=== PATIENT | male | born 1940 | race Caucasian/White ===

== ENCOUNTER 2016-10-12 01:52 | Emergency (ER) | payer MEDICARE ==
[2016-10-12] MEDS ORDERED: GLUCAGON 1 MG/ML VIAL ONE (02:52)
[2016-10-12] MEDS ORDERED: WATER FOR INJECTION,STERILE 10 ML ONE (02:53)
[2016-10-12] MEDS ORDERED: GLUCAGON 1 MG/ML VIAL IVP STA (03:01)
== END 2016-10-12 03:51 | disposition home or self-care (01) ==
DX: T18.128A Food in esophagus causing other injury, initial encounter (principal); E11.9 Type 2 diabetes mellitus without complications; M10.9 Gout, unspecified

== ENCOUNTER 2018-08-05 20:53 | Outpatient (CLI) | payer MEDICARE | END 2018-08-05 20:54 | disposition home or self-care (01) | LOC: EMS 20:53 | PROVIDERS: ATTEND Surgery | DX: R58 Hemorrhage, not elsewhere classified (principal); Z98.818 Other dental procedure status | CPT/HCPCS: A0425; A0427 ==

== ENCOUNTER 2018-08-05 21:22 | Emergency (ER) | payer MEDICARE ==
[2018-08-05] MEDS: SODIUM CHLORIDE 0.9% 1,000 ML IV ONE (21:40)
--- NOTE | 2018-08-05 22:05 | ED Physician Documentation ---
PD HPI HEENT - Stated complaint Stated Complaint: TONGUE LAC SP DENTAL IMPLANT - Chief complaint Chief Complaint: Laceration - History obtained from History obtained from: Patient - History of Present Illness Timing - onset: Today Timing - duration: Hours Timing - details: Gradual onset Location: Mouth Improves: Nothing Recently seen: Other (dental procedure today) - Additional information Additional information: patient had "couple of implants" (per patient) placed today by dentist in [place]. After getting home, he had gradually increasing pain unrelieved with tylenol and decided to go to the emergency department for evaluation of his pain. He was driving himself to the ED at [place] but when he got to the [facility], someone noticed he had significant amount of bleeding from the mouth that was down his shirt onto his pants and shoes. Staff reportedly told patient he was not well enough to take the ferry and ambulance was called, medics transported patient to [facility] ED. Review of Systems Constitutional: denies: Fever Throat: reports: Dental pain / toothache. denies: Sore throat Cardiac: reports: Reviewed and negative Respiratory: reports: Reviewed and negative GI: denies: Abdominal Pain Musculoskeletal: denies: Neck pain PD PAST MEDICAL HISTORY - Past Medical History Endocrine/Autoimmune: Type 2 diabetes - Past Surgical History Past Surgical History: No - Present Medications Home Medications: Ambulatory Orders Medication Instructions Recorded Confirmed Allopurinol 300 mg PO DAILY 10/12/16 10/12/16 - Allergies Allergies/Adverse Reactions: Allergies Allergy/AdvReac Type Severity Reaction Status Date / Time No Known Drug Allergies Allergy Verified 10/12/16 02:00 - Social History Does the pt smoke?: No Smoking Status: Never smoker Does the pt drink ETOH?: No Does the pt have substance abuse?: No - Immunizations Immunizations are current?: Yes - POLST Patient has POLST: No PD ED PE NORMAL - Vitals Vital signs reviewed: Yes - General General: Alert and oriented X 3, No acute distress, Well developed/nourished, Other (difficult to understand due to tongue swelling) - Neck Neck: Supple, no meningeal sign - Cardiac Cardiac: RRR, No murmur - Respiratory Respiratory: No respiratory distress, Clear bilaterally - Derm Derm: Normal color - Neuro Neuro: Alert and oriented X 3 PD ED PE EXPANDED - HEENT HEENT: Other (severe swelling inferior aspect of tongue with blue discoloration s/o extensive hematoma. there is a 2 cm linear laceration adjacent (left of) and parallel to the frenulum) Results - Vitals Vitals: Vital Signs - 24 hr 08/05/18 08/05/18 08/05/18 21:36 22:51 23:35 Temperature 36.8 C 36.7 C Heart Rate 74 64 65 Respiratory 18 18 16 Rate Blood Pressure 93/56 L 154/78 H 180/88 H O2 Saturation 95 98 99 08/06/18 00:12 Temperature 36.8 C Heart Rate 65 Respiratory Rate Blood Pressure 170/83 H O2 Saturation 100 Oxygen O2 Source Room air - Labs Labs: Laboratory Tests 08/05/18 08/05/18 08/05/18 22:35 22:35 22:35 WBC 6.9 RBC 4.00 L Hgb 12.8 L Hct 38.7 L MCV 96.7 H MCH 32.1 H MCHC 33.2 RDW 15.5 H Plt Count 163 MPV 7.4 Neut # (Auto) 4.9 Lymph # (Auto) 1.4 L [place] # (Auto) 0.5 Eos # (Auto) 0.1 Baso # (Auto) 0.0 Absolute Nucleated RBC 0.00 Nucleated RBC % 0.0 PT 13.8 H INR 1.2 APTT 29.0 Sodium 140 Potassium 4.3 Chloride 106 Carbon Dioxide 27 Anion Gap 7.0 BUN 21 H Creatinine 1.6 H Estimated GFR (MDRD) 42 L Glucose 199 H Calcium 8.8 PD MEDICAL DECISION MAKING - ED course Complexity details: reviewed results, re-evaluated patient, considered differential, d/w patient ED course: Patient cannot recall his medications but repeatedly denies being on any blood-t hinning medications including aspirin. He does seem to recall that he is on lisinopril. He remained stable during ED stay, airway remained patent. The chief concerns are how to treat this severe swelling (which appears to be a very large sublingual hematoma) while maintaining airway patency. I discussed the case with the on-call physician for [place], and he says that due to the severity of presentation, he can be sent to closest appropriate facility. [facility] contacted, but they have no beds available. As patient lives towards [facility], the next closest appropriate facility would include [facility] (which is patient's stated preference and the hospital he had intended to go to when he was at the [facility]). D/W Dr. Briggs (on-call ENT), agrees with transfer, recommends transfer to ED. D/W Dr. Bauer (ED at [facility]), accepts patient for transfer. We discussed the concern regarding his airway; I do not feel patient needs intubation at this time, as he has not worsened during 2 hour ED observation, is not c/o dyspnea, is maintaining airway and oxygen saturation in upper 90s (room air). It was agreed that it would be prudent to transfer by helicopter to expedite transfer with air crew that has advanced training to handle difficult airway intubation should this be necessary en route. Departure - Departure Disposition: 02 Transfer Acute Care Hosp Clinical Impression: Severe tongue swelling Condition: Stable Discharge Date/Time: 08/06/18 00:15
[2018-08-05 22:48] LABS: BASOPHILS % (AUTO) 0.4 %; EOSINOPHILS # (AUTO) 0.1 10^3/uL (0.0-0.7); EOSINOPHILS % (AUTO) 0.9 %; HGB - HEMOGLOBIN 12.8 g/dL (14.0-18.0); LYMPHOCYTES # (AUTO) 1.4 10^3/uL (1.5-3.5); LYMPHOCYTES % (AUTO) 20.8 %; MEAN CORPUSCULAR HEMOGLOBIN 32.1 pg (27.0-31.0); MEAN CORPUSCULAR HGB CONC 33.2 g/dL (32.0-36.0); MEAN CORPUSCULAR VOLUME 96.7 fL (80.0-94.0); MEAN PLATELET VOLUME 7.4 fL (7.4-11.4); MONOCYTES # (AUTO) 0.5 10^3/uL (0.0-1.0); MONOCYTES % (AUTO) 6.6 %; NEUTROPHILS # (AUTO) 4.9 10^3/uL (1.5-6.6); NEUTROPHILS % (AUTO) 71.3 %; PLT - PLATELET COUNT 163 10^3/uL (130-450); RED CELL DISTRIBUTION WIDTH 15.5 % (12.0-15.0); WHITE BLOOD COUNT 6.9 x10^3/uL (4.8-10.8)
[2018-08-05 22:52] LABS: CALCIUM 8.8 mg/dL (8.5-10.3); CREATININE 1.6 mg/dL (0.6-1.2)
[2018-08-05 22:54] LABS: INR 1.2 (0.8-1.2); PT - PROTHROMBIN TIME 13.8 secs (9.9-12.6)
[2018-08-06 00:14] VITALS: BP 170/83
== END 2018-08-06 00:15 | disposition short-term general hospital (02) ==
LOC: EDUNIT# → ED 21:22
DX: R22.9 Localized swelling, mass and lump, unspecified (principal); S01.512A Laceration without foreign body of oral cavity, initial encounter; X58.XXXA Exposure to other specified factors, initial encounter; R58 Hemorrhage, not elsewhere classified; Z96.5 Presence of tooth-root and mandibular implants
CPT/HCPCS: 36415; 80048; 85025; 85610; 85730; 96360; 96361; 99283; 99284

== ENCOUNTER 2019-12-17 11:12 | Outpatient (CLI) | payer MEDICARE | END 2019-12-17 23:59 | disposition critical access hospital (66) | LOC: EMS 11:12 | PROVIDERS: ATTEND Surgery | DX: R46.4 Slowness and poor responsiveness (principal); R05 Cough | CPT/HCPCS: A0425; A0429 ==

== ENCOUNTER 2019-12-17 11:41 | Inpatient (IN) | payer MEDICARE ==
--- NOTE | 2019-12-17 11:53 | ED Physician Documentation ---
PD HPI ALTERED MENTAL STATUS - Stated complaint Stated Complaint: AMS - History obtained from History obtained from: EMS - History of Present Illness Timing - onset: Unknown (79-year-old gentleman presents by ambulance. Reportedly was normal 2 days ago, his daughter went to visit today and found him with him minimally responsive on the couch. There is some report of cough. Patient is too altered to give a significant history. Blood sugar prior to arrival was in the 120s.) Review of Systems Unable to obtain: Confused PD PAST MEDICAL HISTORY - Past Medical History Cardiovascular: DC Neuro: CVA Endocrine/Autoimmune: Type 2 diabetes - Past Surgical History Past Surgical History: No - Present Medications Home Medications: Ambulatory Orders Medication Instructions Recorded Confirmed allopurinoL [Allopurinol] 300 mg PO DAILY 10/12/16 12/17/19 Atorvastatin Calcium 40 mg PO QPM 12/17/19 12/17/19 Cholecalciferol (Vitamin D3) 2,000 unit PO DAILY 12/17/19 12/17/19 [Vitamin D] Clopidogrel [Plavix] 75 mg PO DAILY 12/17/19 12/17/19 Cyanocobalamin (Vitamin B-12) 1,000 mcg PO DAILY 12/17/19 12/17/19 [Vitamin B-12 (1000 mcg sublingual)] Docusate Sodium 300 mg PO DAILY PRN 12/17/19 12/17/19 Dorzolamide HCl 1 drops EACHEYE DAILY 12/17/19 12/17/19 Latanoprost 0.005% Ophth Drops 1 drops EACHEYE QPM 12/17/19 12/17/19 [Xalatan Ophth Drops] Metoprolol Tartrate 50 mg PO BID 12/17/19 12/17/19 Oxybutynin [Ditropan] 2.5 mg PO BID 12/17/19 12/17/19 Pantoprazole [Protonix] 40 mg PO BIDAC 12/17/19 12/17/19 Sildenafil Citrate [Sildenafil] 20 - 100 mg PO DAILY PRN 12/17/19 12/17/19 Tamsulosin [Flomax] 0.4 mg PO QDDINNER 12/17/19 12/17/19 Temazepam 15 mg PO QPM PRN 12/17/19 12/17/19 Timolol 0.5% Ophth Drops [Timoptic 1 drops EACHEYE DAILY 12/17/19 12/17/19 0.5% Ophth Drops] - Allergies Allergies/Adverse Reactions: Allergies Allergy/AdvReac Type Severity Reaction Status Date / Time No Known Drug Allergies Allergy Verified 10/12/16 02:00 - Social History Does the pt smoke?: No Smoking Status: Never smoker Does the pt drink ETOH?: No Does the pt have substance abuse?: No - Immunizations Immunizations are current?: Yes - POLST Patient has POLST: No PD ED PE NORMAL - Vitals Vital signs reviewed: Yes - General General: Other (He is alert and oriented to person only, he follows simple commands. He states no complaints.) - HEENT HEENT: PERRL, EOMI - Cardiac Cardiac: RRR, No murmur - Respiratory Respiratory: Other (Crackles at both bases, nonlabored) - Abdomen Abdomen: Soft, Non tender - Male Male : Other (Incontinent of urine) - Back Back: No CVA TTP, No spinal TTP - Extremities Extremities: No calf tenderness / cord, Other (2-3+ bilateral pitting pedal edema, symmetric) - Neuro Neuro: No motor deficit, No sensory deficit, Normal speech Eye Opening: Spontaneous Motor: Obeys Commands Verbal: Confused GCS Score: 14 Results - Vitals Vitals: Vital Signs - 24 hr 12/17/19 12/17/19 12/17/19 11:51 12:01 13:15 Temperature 38.2 C H 100.7 C H 37.7 C H Heart Rate 80 84 89 Respiratory 16 18 18 Rate Blood Pressure 160/86 H 157/82 H 145/75 H O2 Saturation 98 94 98 Oxygen O2 Source Nasal cannula Oxygen Flow Rate 3 - EKG (time done) 1155 Rate: Rate (enter#) (86) Rhythm: NSR (w pacs) [place]: Normal Intervals: Normal [place] QRS: Normal Ischemia: Non specific changes. No: ST elevation c/w ischemia Computer interpretation: Agree with computer - Labs Labs: Laboratory Tests 12/17/19 12/17/19 12/17/19 11:57 12:30 12:30 WBC 5.6 RBC 4.78 Hgb 14.9 Hct 45.0 MCV 94.1 H MCH 31.2 H MCHC 33.1 RDW 13.8 Plt Count 163 MPV 10.4 Neut # (Auto) 4.4 Lymph # (Auto) 0.8 L [place] # (Auto) 0.4 Eos # (Auto) 0.0 Baso # (Auto) 0.0 Absolute Nucleated RBC 0.00 Nucleated RBC % 0.0 Sodium 129 L Potassium 3.7 Chloride 96 L Carbon Dioxide 21 Anion Gap 12.0 BUN 43 H Creatinine 1.6 H Estimated GFR (MDRD) 42 L Glucose 170 H Lactic Acid Calcium 8.5 Total Bilirubin 1.0 AST 33 ALT 18 Alkaline Phosphatase 39 L Total Creatine Kinase 357 H Troponin I High Sens B-Natriuretic Peptide Total Protein 6.8 Albumin 3.6 Globulin 3.2 Albumin/Globulin Ratio 1.1 Lipase 63 H Urine Color YELLOW Urine Clarity CLEAR Urine pH 5.5 Ur Specific Erin >=1.030 H Urine Protein 100 H Urine Glucose (UA) NEGATIVE Urine Ketones TRACE Urine Occult Blood SMALL H Urine Nitrite NEGATIVE Urine Bilirubin NEGATIVE Urine Urobilinogen 0.2 (NORMAL) Ur Leukocyte Esterase NEGATIVE Urine RBC 0-5 Urine WBC 0-3 Ur Squamous Epith Cells NONE SEEN Urine Bacteria None Seen Ur Microscopic Review INDICATED Urine Culture Comments NOT INDICATED Ethyl Alcohol < 5.0 Influenza A (Rapid) Influenza B (Rapid) 12/17/19 12/17/19 12/17/19 12:30 12:30 12:30 WBC RBC Hgb Hct MCV MCH MCHC RDW Plt Count MPV Neut # (Auto) Lymph # (Auto) [place] # (Auto) Eos # (Auto) Baso # (Auto) Absolute Nucleated RBC Nucleated RBC % Sodium Potassium Chloride Carbon Dioxide Anion Gap BUN Creatinine Estimated GFR (MDRD) Glucose Lactic Acid 1.5 Calcium Total Bilirubin AST ALT Alkaline Phosphatase Total Creatine Kinase Troponin I High Sens 45.4 H* B-Natriuretic Peptide 53 Total Protein Albumin Globulin Albumin/Globulin Ratio Lipase Urine Color Urine Clarity Urine pH Ur Specific Erin Urine Protein Urine Glucose (UA) Urine Ketones Urine Occult Blood Urine Nitrite Urine Bilirubin Urine Urobilinogen Ur Leukocyte Esterase Urine RBC Urine WBC Ur Squamous Epith Cells Urine Bacteria Ur Microscopic Review Urine Culture Comments Ethyl Alcohol Influenza A (Rapid) Influenza B (Rapid) 12/17/19 13:30 WBC RBC Hgb Hct MCV MCH MCHC RDW Plt Count MPV Neut # (Auto) Lymph # (Auto) [place] # (Auto) Eos # (Auto) Baso # (Auto) Absolute Nucleated RBC Nucleated RBC % Sodium Potassium Chloride Carbon Dioxide Anion Gap BUN Creatinine Estimated GFR (MDRD) Glucose Lactic Acid Calcium Total Bilirubin AST ALT Alkaline Phosphatase Total Creatine Kinase Troponin I High Sens B-Natriuretic Peptide Total Protein Albumin Globulin Albumin/Globulin Ratio Lipase Urine Color Urine Clarity Urine pH Ur Specific Erin Urine Protein Urine Glucose (UA) Urine Ketones Urine Occult Blood Urine Nitrite Urine Bilirubin Urine Urobilinogen Ur Leukocyte Esterase Urine RBC Urine WBC Ur Squamous Epith Cells Urine Bacteria Ur Microscopic Review Urine Culture Comments Ethyl Alcohol Influenza A (Rapid) Negative Influenza B (Rapid) Negative - Rads (name of study) 1v chest Radiology: EMP read contemporaneously (Cardiomegaly with patchy infiltrates in the left midlung and base suspicious for multifocal infection) PD MEDICAL DECISION MAKING - ED course Complexity details: d/w patient (his daughter Mimi by phone. Usually cogent/not demented. Lucid until at least 2 days ago. Tired yesterday. Cough/URI for about 1 week. hE IS A VASCULOPATH WITH CAD/TIA ETC. We talked about CODE STATUS. She believes he is a DNR/DNI, but needs to find the paperwork.) ED course: 79-year-old gentleman presents with encephalopathy, likely due to the pneumonia. High suspicion for coronavirus given the distribution on the x-ray and lymphopenia. He was administered Rocephin and Zithromax and Dr Torres is admitting. Departure - Departure Disposition: 66 [facility] DC/Xfer Clinical Impression: Pneumonia Qualifiers: Pneumonia type: due to unspecified organism Laterality: left Lung location: unspecified part of lung Qualified Code(s): J18.9 - Pneumonia, unspecified organism Altered mental status Qualifiers: Altered mental status type: unspecified Qualified Code(s): R41.82 - Altered mental status, unspecified Condition: Serious Discharge Date/Time: 12/17/19 14:46
[2019-12-17] MEDS ORDERED: ACETAMINOPHEN 325 MG TABLET PO STA (12:04)
[2019-12-17 12:10] LABS: GLUCOSE, URINE (UA) NEGATIVE (NEGATIVE); KETONES,URINE (UA) TRACE mg/dL (NEGATIVE); LEUKOCYTE ESTERASE, URINE NEGATIVE (NEGATIVE); NITRITE,URINE NEGATIVE (NEGATIVE); OCCULT BLOOD,URINE SMALL (NEGATIVE); PH,URINE 5.5 PH (5.0-7.5); PROTEIN,URINE 100 mg/dL (NEGATIVE); UROBILINOGEN,URINE 0.2 (NORMAL) E.U./dL (NORMAL)
--- NOTE | 2019-12-17 12:15 | XRAY Report ---
Reason: dyspnea Procedure Date: 12/17/2019 Accession Number: [id number] / [id number] Procedure: XR - Chest 1 View X-Ray CPT Code: 68323 Final Report FULL RESULT: EXAM: CHEST RADIOGRAPHY EXAM DATE: 12/17/2019 12:03 PM. CLINICAL HISTORY: Dyspnea. COMPARISON: None. TECHNIQUE: 1 view. FINDINGS: Lungs/Pleura: Patchy infiltrates in the left midlung and left base. No pleural effusion or pneumothorax. Mediastinum: Cardiomegaly. The aorta is mildly tortuous. Atherosclerotic calcifications within the aortic arch. Other: Mild degenerative changes at the shoulders. IMPRESSION: 1. Cardiomegaly. 2. Patchy infiltrates in the left mid lung and left base, suspicious for multifocal infection. RADIA
[2019-12-17] MEDS ORDERED: cefTRIAXone 2 GM in SODIUM CHLORIDE 0.9% MINIBAG 100 ML IV STA (12:16)
[2019-12-17] MEDS ORDERED: AZITHROMYCIN INJ 500 MG in SODIUM CHLORIDE 0.9% 250 ML IV STA (12:16)
[2019-12-17 12:37] LABS: HGB - HEMOGLOBIN 14.9 g/dL (14.0-18.0); LYMPHOCYTES # (AUTO) 0.8 10^3/uL (1.5-3.5); LYMPHOCYTES % (AUTO) 14.5 %; MEAN CORPUSCULAR HEMOGLOBIN 31.2 pg (27.0-31.0); MEAN CORPUSCULAR HGB CONC 33.1 g/dL (32.0-36.0); MEAN CORPUSCULAR VOLUME 94.1 fL (80.0-94.0); MEAN PLATELET VOLUME 10.4 fL (7.4-11.4); MONOCYTES # (AUTO) 0.4 10^3/uL (0.0-1.0); MONOCYTES % (AUTO) 7.3 %; NEUTROPHILS # (AUTO) 4.4 10^3/uL (1.5-6.6); NEUTROPHILS % (AUTO) 77.8 %; PLT - PLATELET COUNT 163 10^3/uL (130-450); RED BLOOD COUNT 4.78 10^6/uL (4.70-6.10); RED CELL DISTRIBUTION WIDTH 13.8 % (12.0-15.0); WHITE BLOOD COUNT 5.6 x10^3/uL (4.8-10.8)
[2019-12-17 12:52] LABS: ALBUMIN 3.6 g/dL (3.2-5.5); ALBUMIN/GLOBULIN RATIO 1.1 (1.0-2.2); ALKALINE PHOSPHATASE 39 IU/L (42-121); ALT ALANINE AMINOTRANSFERASE 18 IU/L (10-60); AST ASPARTATE AMINOTRANSFERASE 33 IU/L (10-42); BUN - BLOOD UREA NITROGEN 43 mg/dL (6-20); CALCIUM 8.5 mg/dL (8.5-10.3); CARBON DIOXIDE - CO2 21 mmol/L (21-32); CHLORIDE 96 mmol/L (101-111); CK- CREATINE KINASE 357 IU/L (22-269); CREATININE 1.6 mg/dL (0.6-1.2); GLUCOSE 170 mg/dL (70-100); LIPASE 63 U/L (22-51); SODIUM 129 mmol/L (135-145); TOTAL PROTEIN 6.8 g/dL (6.7-8.2)
[2019-12-17 12:56] LABS: BILIRUBIN,URINE NEGATIVE (NEGATIVE); CLARITY,URINE CLEAR (CLEAR); ICTOTEST,URINE NEGATIVE
[2019-12-17] MEDS ORDERED: D5.45NS W/20 MEQ KCL 1,000 ML IV SCH (13:00)
[2019-12-17 13:02] LABS: BACTERIA,URINE None Seen /HPF (None Seen); RBC,URINE 0-5 /HPF (0-5); SQUAMOUS EPITHELIAL CELL,UR NONE SEEN (<= Few)
[2019-12-17] MEDS ORDERED: ONDANSETRON 4 MG/2 ML VIAL IVP PRN (13:33)
[2019-12-17] MEDS ORDERED: DEXTROSE 5%-0.45% NACL 1,000 ML IV SCH (14:00)
--- NOTE | 2019-12-17 15:12 | PHARMACY PROGRESS NOTE ---
- Best Possible Medication History Admit Date and Time: 12/17/19 1333 Processed by: Pharmacy Medication History completed: Yes Patient Interview: Pt unable to participate Secondary Source(s): Physician records, Pharmacy records, Insurance records As the person ultimately responsible for medication therapy, providers are able to order a medication from an existing home medication list in [facility] via the "Reconcile Routine" prior to Confirmation of that medication by direct support specialist. Such practice is discouraged except when the physician, in their clinical judgment, deems that a medical need exists for a medication without regard to previous use.
[2019-12-17] MEDS: DEXTROSE 5%-0.9% NACL 1,000 ML IV SCH (16:10)
[2019-12-17] MEDS: SODIUM CHLORIDE FLUSH 0.9% 10 ML SYRINGE IVP SCH ×2 (16:11→23:55)
[2019-12-17] MEDS: NYSTATIN POWDER 15 GM TOP SCH (17:05)
[2019-12-17] MEDS ORDERED: ACETAMINOPHEN 650 MG SUPP PR PRN (17:59)
--- NOTE | 2019-12-17 18:29 | HISTORY & PHYSICAL EXAMINATION ---
DATE OF SERVICE: 12/17/2019 Physician: Nedra Torres MD HISTORY OF PRESENT ILLNESS: This is an 79-year-old white male who lives alone independently. There are several children in the near area that check on him. He has a history of gout, hyperlipidemia, TIA, CAD, peripheral vascular stents. The patient developed a cough on 12/10/2019 and the daughter was checking on him daily. She told me that she was asking about a fever or shortness of breath, which he denied. She last saw him about 48 hours previously and when she went to check on him today in person, she found him on the couch in a semi-conscious state and unable to answer questions. An ambulance was called for bringing him to the ER where he was found to be febrile and chest x-ray showing multilobar pneumonia and he is being admitted for community-acquired pneumonia/very likely a COVID pneumonia. PAST MEDICAL HISTORY 1. CAD. 2. TIA. 3. Peripheral vascular stents. 4. Gout. 5. Hyperlipidemia. 6. BPH. 7. Possibly glaucoma. FAMILY HISTORY: Unknown since patient is unable to give a history in his altered mental status. SOCIAL HISTORY: Patient lives alone, he is nonsmoker. There is no alcohol abuse or recreational drug abuse history. Patient is independent, lives alone at home and able to drive a car. His children check on him intermittently. REVIEW OF SYSTEMS: A comprehensive review of systems was interviewed, chart done by chart review and talking to the daughter and significant symptoms are listed above, the rest are negative. ALLERGIES: NONE. MEDICATIONS 1. Allopurinol 300 mg daily. 2. Lipitor 40 mg every night. 3. Vitamin D3 2000 units daily. 4. Plavix 75 mg daily. 5. Vitamin B12 1000 mcg daily. 6. Colace 300 mg daily. 7. Metoprolol tartrate 50 mg b.i.d. 8. Ditropan 2.5 mg b.i.d. 9. Protonix 40 mg b.i.d. 10. Sildenafil unknown dose p.r.n. for unknown reason. 11. Tamsulosin 0.4 mg every evening. 12. Temazepam 15 mg p.r.n. insomnia. 13. Dorzolamide eyedrops daily. 14. Latanoprost eyedrops every night. 15. Timolol eyedrops daily. PHYSICAL EXAMINATION GENERAL: Elderly white male. He is supine in bed and somnolent, but awakens and then is lethargic and answers with one-word answers. He is oriented to place only. He appears in no respiratory distress. VITAL SIGNS: Blood pressure 160/80, heart rate 87 and regular, temperature 38.2 centigrade. HEENT: Shows that he is flushed and very warm to the touch. He has dry oral mucosa and there are upper and lower dentures in place. NECK: Supple: Without JVD in a supine position. CHEST: Diminished breath sounds at the bases. HEART: Distant heart sounds. No murmur heard. ABDOMEN: Soft, nontender. No organomegaly. EXTREMITIES: 2+ edema to the knees bilaterally. There is also 1+ edema of the upper arms. NEUROLOGIC: Obtunded but moving all extremities independently. LABORATORY DATA: Sodium 129, potassium 3.7, BUN 43, creatinine 1.6. This appears to be his baseline creatinine from prior labs, lactic acid 1.5. Normal liver tests. Alkaline phosphatase 39, total CK 357. Troponin high sensitivity 45. BNP 53. Lipase 63. White blood count 5.6 with a low lymphocyte count. Hemoglobin 14.9, platelet count 163. Urinalysis, pH is greater than 1.03. There is high protein, small occult blood, negative nitrites and leukocyte esterase and no bacteria seen. Serum toxicology showed no alcohol present. The serology showed negative influenza A and B. IMAGING: Chest x-ray: Cardiomegaly and patchy infiltrates in the left lung base and left mid lung, therefore multifocal infection. EKG: Normal sinus rhythm, PAC, diffusely flat T waves and early R/S transition (consistent with right heart disease). IMPRESSION/DIAGNOSIS 1. Altered mental status, which is likely metabolic encephalopathy related to his infection. 2. Multilobar pneumonia; therefore, suspicious for COVID pneumonia. 3. Community-acquired pneumonia. 4. Dehydration. 5. Hyponatremia. This is hypovolemic hyponatremia from dehydration. 6. Chronic kidney disease. 7. Rhabdomyolysis, mild, probably related to being bedbound or couch-bound for some prolonged period of time. 8. Elevated troponin. 9. Elevated lipase, which could be a phase reactant. 10. Lymphopenia, which is consistent with the viral infection of COVID. 11. Abnormal EKG suggesting right heart overload, and leg edema confirms this. 12. History of coronary artery disease. 13. History of hyperlipidemia. PLAN 1. Admit patient to medical/surgical status. Begin patient on empiric antibiotics for community-acquired pneumonia using Zithromax and ceftriaxone. Begin the patient on IV hydration using saline, with D5 for calories. Start with a clear liquid diet if he will awaken to tolerate that and take it safely. Follow BMP and CBC daily. 2. Cycle troponins x3. Follow total CK daily as it hopefully normalizes. 3. Restart his blood pressure, cholesterol, and gout medications when they are reconciled and when he can swallow safely. In the meantime, IV beta xena will be continued, so he does not have a beta xena withdrawal. Use Tylenol for treatment of the fever. 4. Daughter and I discussed what his wishes are regarding CODE STATUS and she was able to find Advanced Directives, which states that patient does not want prolonging of life, specifically, "let me go as fast and painlessly as possible." The daughter had remembered that he does wish to be a DNR/DNI, she thinks. CODE STATUS: DNR. DEEP VENOUS THROMBOSIS PROPHYLAXIS: SCDs. ATTESTATION: Patient is expected to be discharged or transferred to another facility within 96 hours: Yes. cc: Ricardo Rodriguez MD TD: 12/17/2019 17:59 MTDD
[2019-12-17] MEDS: FAMOTIDINE 20 MG/2 ML VIAL IVP SCH (20:08)
[2019-12-17] MEDS: METOPROLOL 5 MG/5 ML VIAL IVP SCH ×2 (20:08→23:53)
[2019-12-17] MEDS: LATANOPROST 0.005% OPHTH DROPS EACHEYE SCH (20:08)
[2019-12-18] MEDS: DEXTROSE 5%-0.9% NACL 1,000 ML IV SCH ×3 (00:10→17:01)
[2019-12-18 05:35] LABS: BASOPHILS % (AUTO) 0.2 %; HGB - HEMOGLOBIN 13.7 g/dL (14.0-18.0); LYMPHOCYTES # (AUTO) 0.8 10^3/uL (1.5-3.5); LYMPHOCYTES % (AUTO) 12.5 %; MEAN CORPUSCULAR HEMOGLOBIN 29.8 pg (27.0-31.0); MEAN CORPUSCULAR HGB CONC 32.1 g/dL (32.0-36.0); MEAN PLATELET VOLUME 10.3 fL (7.4-11.4); MONOCYTES # (AUTO) 0.3 10^3/uL (0.0-1.0); MONOCYTES % (AUTO) 5.3 %; NEUTROPHILS # (AUTO) 4.9 10^3/uL (1.5-6.6); NEUTROPHILS % (AUTO) 81.5 %; PLT - PLATELET COUNT 156 10^3/uL (130-450); RED BLOOD COUNT 4.59 10^6/uL (4.70-6.10); RED CELL DISTRIBUTION WIDTH 13.6 % (12.0-15.0)
[2019-12-18 05:46] LABS: ALBUMIN 2.9 g/dL (3.2-5.5); ALBUMIN/GLOBULIN RATIO 0.9 (1.0-2.2); BILIRUBIN,TOTAL 0.7 mg/dL (0.2-1.0); CREATININE 1.3 mg/dL (0.6-1.2)
[2019-12-18] MEDS: METOPROLOL 5 MG/5 ML VIAL IVP SCH ×3 (06:14→17:05)
[2019-12-18] MEDS: cefTRIAXone 1 GM in SODIUM CHLORIDE 0.9% MINIBAG 100 ML IV SCH (08:09)
[2019-12-18] MEDS: FAMOTIDINE 20 MG/2 ML VIAL IVP SCH ×2 (08:15→19:58)
[2019-12-18] MEDS: DORZOLAMIDE 2% OPHTH DROPS EACHEYE SCH (08:17)
[2019-12-18] MEDS: SODIUM CHLORIDE FLUSH 0.9% 10 ML SYRINGE IVP SCH ×2 (08:18→17:02)
[2019-12-18] MEDS: NYSTATIN POWDER 15 GM TOP SCH ×2 (08:33→20:00)
[2019-12-18] MEDS: AZITHROMYCIN INJ 500 MG in SODIUM CHLORIDE 0.9% 250 ML IV SCH (08:51)
[2019-12-18] MEDS: timoloL maleate 0.5% OPHTH DROPS (10ML) EACHEYE SCH (08:52)
--- NOTE | 2019-12-18 11:55 | PROVIDER PROGRESS NOTE ---
Assessment/Plan - Problem List (1) Pneumonia due to 2019 novel coronavirus Assessment/Plan: The swab showed he has COVID. His O2 sats are not deteriorating. I spoke to the daughter Mimi over the phone and read some of the [facility] advice for herself. She mentioned that the patient was going out shopping for himself all this month, and she thinks that is where he got infected. (2) Metabolic encephalopathy Assessment/Plan: He was able to swallow clear liquids for dinner but more weak for breakfast. He is still not at his baseline mentation and lucidity. He is pulling off his telemetry leads during his confusion. Will advance diet. Will DC telemetry. Continue present plan. (3) YING (acute kidney injury) Assessment/Plan: Imprived creat from 1.6 to 1.3 with iv hydration. Follow bmp daily. (4) Dehydration Assessment/Plan: As above. Continue iv hydration at this rate, not faster due to his Hx of vascular disease and HTN. (5) HTN (hypertension) Assessment/Plan: His BP meds were ordered to continue but with dehydration his BP may not be exce ssive. Will add hold parameters on med orders. (6) Elevated troponin Assessment/Plan: With an initial troponin elevated at admission and because of his cardiovascular Hx, a repeat troponin was done and it doubled. This is very liely demand ischemia given his fever, desaturaions and stress of infection. No Echo is planned, since there is no sign of CHF with a very low BNP of 50, and since therewould be no difference in medical management for him at this time. Continue B-xena, if BP will tolerate it. Continue daily ASA, po or pr. - Current Meds Current Meds: Current Medications Generic Name Dose Route Start Last Admin Trade Name Freq PRN Reason Stop Dose Admin Acetaminophen 650 mg 12/17/19 17:59 12/18/19 08:31 Tylenol NE 650 mg Q6HR PRN Administration Pain or Fever > 38C (100.4F) Dorzolamide HCl 1 drops 12/18/19 09:00 12/18/19 08:17 Trusopt 2% Ophth Drops EACHEYE 1 drops DAILY AVI Administration Famotidine 20 mg 12/17/19 21:00 12/18/19 08:15 Pepcid IVP 20 mg BID AVI Administration Dextrose/Sodium Chloride 1,000 mls @ 125 mls/hr 12/17/19 16:00 12/18/19 07:57 D5ns IV 125 mls/hr .Q8H AVI Administration Ceftriaxone Sodium 1 gm/ 100 mls @ 200 mls/hr 12/18/19 09:00 12/18/19 08:52 Sodium Chloride IV 12/21/19 09:29 Infused DAILY AVI Infusion Azithromycin 500 mg/ Sodium 250 mls @ 250 mls/hr 12/18/19 09:00 12/18/19 10:00 Chloride IV 12/19/19 09:59 Infused DAILY AVI Infusion Latanoprost 1 drops 12/17/19 21:00 12/17/19 20:08 Xalatan Ophth Drops EACHEYE 1 drops QPM AVI Administration Metoprolol Tartrate 2.5 mg 12/17/19 18:00 12/18/19 06:14 Lopressor Inj IVP 2.5 mg Q6H AVI Administration Nystatin 1 applic 12/17/19 17:00 12/18/19 08:33 Nystop TOP 1 applic BID AVI Administration Sodium Chloride 10 ml 12/17/19 17:00 12/18/19 08:18 Normal Saline Flush 0.9% IVP 10 ml 0100,0900,1700 AVI Administration Timolol Maleate 1 drops 12/18/19 09:00 12/18/19 08:52 Timoptic 0.5% Ophth Drops EACHEYE 1 drops DAILY AVI Administration - Lab Result Fish Bone Diagrams: 12/18/19 05:15 12/18/19 05:15 - Additional Planning My Orders: My Active Orders 12/17/19 13:33 Activity Orders [RC] Q2HR IO [RC] IOSHIFT Initiate Bowel Care Protocol [RC] .protocol Initiate Personal Care Protoco [RC] .protocol Oxygen Therapy [RC] .PRN Telemetry- [RC] Q4HR Vital Signs [RC] Q4HR Ondansetron Inj [Zofran Inj] 4 mg IVP Q6HR PRN Sodium Chloride Flush 0.9% [Normal Saline Flush 0.9%] 10 ml IVP PRN PRN Condition of Patient [OTHERS] Routine DVT Prophylaxis [OTHERS] Routine 12/17/19 13:38 IV Insert [RC] .ONCE 12/17/19 13:40 SCDs [RC] QSHIFT 12/17/19 13:42 Initiate Line Care Protocol [] [facility] 12/17/19 16:00 Dextrose 5%-0.9% NaCl [D5ns] 1,000 ml IV 125 mls/hr 12/17/19 17:00 Nystatin [Nystop] 1 applic TOP BID Sodium Chloride Flush 0.9% [Normal Saline Flush 0.9%] 10 ml IVP 0100,0900,1700 12/17/19 17:32 [place] Insertion [] [facility] 12/17/19 17:44 Code Status [OTHERS] Routine 12/17/19 17:59 Acetaminophen [Tylenol] 650 mg NE Q6HR PRN 12/17/19 18:00 Metoprolol Inj [Lopressor Inj] 2.5 mg IVP Q6H 12/17/19 21:00 Famotidine [Pepcid] 20 mg IVP BID Latanoprost 0.005% Ophth Drops [Xalatan Ophth Drops] 1 drops EACHEYE QPM 12/18/19 09:00 Azithromycin Inj [Zithromax Inj] 500 mg Sodium Chloride 0.9% [Normal Saline 0.9%] 250 ml IV DAILY Dorzolamide 2% Ophth Drops [Trusopt 2% Ophth Drops] 1 drops EACHEYE DAILY cefTRIAXone [Rocephin] 1 gm Sodium Chloride 0.9% Minibag [Normal Saline 0.9% Minibag] 100 ml IV DAILY timoloL 0.5% OPHTH DROPS(10ML) [Timoptic 0.5% Ophth Drops] 1 drops EACHEYE DAILY 12/18/19 Breakfast Clear Liquid Diet [DIET] 12/19/19 05:00 CBC - COMP BLD CT W/AUTO DIFF [HEME] DAILYLAB CMP [COMPREHENSIVE METABOLIC PANEL] [CHEM] DAILYLAB 12/20/19 05:00 CBC - COMP BLD CT W/AUTO DIFF [HEME] DAILYLAB CMP [COMPREHENSIVE METABOLIC PANEL] [CHEM] DAILYLAB Subjective - Subjective Patient Reports: Other (He asked if it is true that he is a [place] virus carrier, I answered yes.) Nursing Reports: Other (Had a mucousy diarrheal BM) Objective Vital Signs: Vital Signs - 24 hr 12/17/19 12/17/19 12/17/19 11:51 12:01 13:15 Temperature 38.2 C H 100.7 C H 37.7 C H Heart Rate 80 84 89 Heart Rate [ Monitoring electrodes] Respiratory 16 18 18 Rate Blood Pressure 160/86 H 157/82 H 145/75 H Blood Pressure [Left Brachial artery] Blood Pressure [Right Brachial artery] O2 Saturation 98 94 98 12/17/19 12/17/19 12/17/19 14:18 14:50 16:00 Temperature 36.8 C Heart Rate 87 Heart Rate [ 76 Monitoring electrodes] Respiratory 16 20 Rate Blood Pressure 152/82 H Blood Pressure [Left Brachial artery] Blood Pressure 161/86 H [Right Brachial artery] O2 Saturation 99 98 98 12/17/19 12/17/19 12/17/19 20:06 20:08 20:12 Temperature 36.9 C Heart Rate Heart Rate [ 72 Monitoring electrodes] Respiratory 18 Rate Blood Pressure 162/73 H Blood Pressure [Left Brachial artery] Blood Pressure 162/73 H [Right Brachial artery] O2 Saturation 99 97 12/17/19 12/17/19 12/18/19 23:51 23:53 05:00 Temperature 37.5 C 37.2 C Heart Rate Heart Rate [ 81 76 Monitoring electrodes] Respiratory 22 18 Rate Blood Pressure 153/96 H Blood Pressure 136/65 H [Left Brachial artery] Blood Pressure 153/96 H [Right Brachial artery] O2 Saturation 96 97 12/18/19 12/18/19 12/18/19 05:44 06:08 06:14 Temperature 36.8 C 37.2 C Heart Rate 76 Heart Rate [ 79 Monitoring electrodes] Respiratory 20 24 Rate Blood Pressure 165/68 H Blood Pressure 165/68 H [Left Brachial artery] Blood Pressure [Right Brachial artery] O2 Saturation 98 96 12/18/19 08:02 Temperature 38.2 C H Heart Rate Heart Rate [ 72 Monitoring electrodes] Respiratory 20 Rate Blood Pressure Blood Pressure 154/62 H [Left Brachial artery] Blood Pressure [Right Brachial artery] O2 Saturation 96 Oxygen O2 Source Nasal cannula Oxygen Flow Rate 3 I&O (Last 24 Hrs): Intake and Output Totals x24h 12/16/19 12/17/19 12/18/19 23:59 23:59 23:59 Intake Total 740 2772.917 Output Total 350 600 Balance 390 2172.917 General: Alert, No acute distress HEENT: Atraumatic, Mucous membr. moist/pink Neck: Supple Neuro: Alert, Disoriented Cardiovascular: No murmurs Respiratory: No respiratory distress Abdomen: Soft Extremities: Other (1+ leg edema) - Results Results: Laboratory Results WBC 6.0 x10^3/uL (4.8-10.8) 12/18/19 05:15 RBC 4.59 10^6/uL (4.70-6.10) L 12/18/19 05:15 Hgb 13.7 g/dL (14.0-18.0) L 12/18/19 05:15 Hct 42.7 % (42.0-52.0) 12/18/19 05:15 MCV 93.0 fL (80.0-94.0) 12/18/19 05:15 MCH 29.8 pg (27.0-31.0) 12/18/19 05:15 MCHC 32.1 g/dL (32.0-36.0) 12/18/19 05:15 RDW 13.6 % (12.0-15.0) 12/18/19 05:15 Plt Count 156 10^3/uL (130-450) 12/18/19 05:15 MPV 10.3 fL (7.4-11.4) 12/18/19 05:15 Neut # (Auto) 4.9 10^3/uL (1.5-6.6) 12/18/19 05:15 Lymph # (Auto) 0.8 10^3/uL (1.5-3.5) L 12/18/19 05:15 [place] # (Auto) 0.3 10^3/uL (0.0-1.0) 12/18/19 05:15 Eos # (Auto) 0.0 10^3/uL (0.0-0.7) 12/18/19 05:15 Baso # (Auto) 0.0 10^3/uL (0.0-0.1) 12/18/19 05:15 Absolute Nucleated RBC 0.00 x10^3/uL 12/18/19 05:15 Nucleated RBC % 0.0 /100WBC 12/18/19 05:15 Sodium 135 mmol/L (135-145) 12/18/19 05:15 Potassium 3.4 mmol/L (3.5-5.0) L 12/18/19 05:15 Chloride 104 mmol/L (101-111) 12/18/19 05:15 Carbon Dioxide 23 mmol/L (21-32) 12/18/19 05:15 Anion Gap 8.0 (6-13) 12/18/19 05:15 BUN 34 mg/dL (6-20) H 12/18/19 05:15 Creatinine 1.3 mg/dL (0.6-1.2) H 12/18/19 05:15 Estimated GFR (MDRD) 53 (>89) L 12/18/19 05:15 Glucose 207 mg/dL (70-100) H 12/18/19 05:15 Lactic Acid 1.5 mmol/L (0.5-2.2) 12/17/19 12:30 Calcium 8.0 mg/dL (8.5-10.3) L 12/18/19 05:15 Total Bilirubin 0.7 mg/dL (0.2-1.0) 12/18/19 05:15 AST 40 IU/L (10-42) 12/18/19 05:15 ALT 18 IU/L (10-60) 12/18/19 05:15 Alkaline Phosphatase 34 IU/L (42-121) L 12/18/19 05:15 Total Creatine Kinase 357 IU/L (22-269) H 12/17/19 12:30 Troponin I High Sens 92.8 ng/L (2.3-19.7) H* 12/18/19 05:15 B-Natriuretic Peptide 53 pg/mL (5-100) 12/17/19 12:30 Total Protein 6.0 g/dL (6.7-8.2) L 12/18/19 05:15 Albumin 2.9 g/dL (3.2-5.5) L 12/18/19 05:15 Globulin 3.1 g/dL (2.1-4.2) 12/18/19 05:15 Albumin/Globulin Ratio 0.9 (1.0-2.2) L 12/18/19 05:15 Lipase 63 U/L (22-51) H 12/17/19 12:30 Urine Color YELLOW 12/17/19 11:57 Urine Clarity CLEAR (CLEAR) 12/17/19 11:57 Urine pH 5.5 PH (5.0-7.5) 12/17/19 11:57 Ur Specific [place] >=1.030 (1.002-1.030) H 12/17/19 11:57 Urine Protein 100 mg/dL (NEGATIVE) H 12/17/19 11:57 Urine Glucose (UA) NEGATIVE mg/dL (NEGATIVE) 12/17/19 11:57 Urine Ketones TRACE mg/dL (NEGATIVE) 12/17/19 11:57 Urine Occult Blood SMALL (NEGATIVE) H 12/17/19 11:57 Urine Nitrite NEGATIVE (NEGATIVE) 12/17/19 11:57 Urine Bilirubin NEGATIVE (NEGATIVE) 12/17/19 11:57 Urine Urobilinogen 0.2 (NORMAL) E.U./dL (NORMAL) 12/17/19 11:57 Ur Leukocyte Esterase NEGATIVE (NEGATIVE) 12/17/19 11:57 Urine RBC 0-5 /HPF (0-5) 12/17/19 11:57 Urine WBC 0-3 /HPF (0-3) 12/17/19 11:57 Ur Squamous Epith Cells NONE SEEN (<= Few) 12/17/19 11:57 Urine Bacteria None Seen /HPF (None Seen) 12/17/19 11:57 Ur Microscopic Review INDICATED 12/17/19 11:57 Urine Culture Comments NOT INDICATED 12/17/19 11:57 Ethyl Alcohol < 5.0 mg/dL 12/17/19 12:30 Coronavirus (PCR) POSITIVE 12/17/19 12:15 Influenza A (Rapid) Negative (Negative) 12/17/19 13:30 Influenza B (Rapid) Negative (Negative) 12/17/19 13:30
--- NOTE | 2019-12-18 13:08 | ADVANCE CARE PLANNING NOTE ---
Advance Care Planning - Planning Encounter Date: 12/17/19 Time: 16:00 Purpose: To establish Code Blue status Parties in Attendance: I spoke to the patient's daughter Mimi by phone Decisional Capacity of the Patient: He has metabolic encephalopathy due to his fever, is disorients and not communicative and cannot make decisions currently. - Diagnosis for Encounter (1) Metabolic encephalopathy Summary: He is here with a fever and has altered mental status. He is a probable COVID pneumonia with dehydration and YING. - Encounter Subjective/Patient's Story: The patient lives alone, is independant, developed a "cold" 1 week ago. The daughter was connecting with him daily to check how he felt. On the day of admission she found him on his couch, speaking jiberish and called an ambulance. He had a fever, and pneumonia ob CXR. He is in isolation with a presumed COVID pneumonia. The daughter was able to find his advanced directives and DPOA paperwork and brought them for scanning into his [employer] chart. I am able to see the paperwork while I am speaking to Mimi by phone. Objective/Medical Story: He is here with a fever, cough, SOB and has altered mental status. He is a probable COVID pneumonia with dehydration and YING. His BP and O2 sats on supplemental oxygen are stable. Goals of Care: The paperwork confirms that Mimi is the DPOA, with whom I am speaking. The Advanced Directives indicate that he does not want his life prolonged if a terminal illness is diagnosed, specifically it says " Let me go as fast and painlessly as possible ". I read that to Mimi and told Mimi that this sounds like he does not want life prolonging measures like being put on a ventilator or getting CPR if he has the end stages of COVID pneumonia infection. She agreed. I told her I would read all pages of the Advanced Directive carefully and slowly and call her to discuss if there seemed to be anything that contradicted that above request. She agreed. Plan: Will continue iv fluids and general hospital supportive care, treating the fever and hypoxemia. He will be a DNR/DNI. Code Status: Do Not Attempt Resuscitation Time spent on advance care plannin min
[2019-12-18] MEDS: HYDROXYCHLOROQUINE 200 MG TABLET PO SCH (17:04)
[2019-12-18] MEDS: LATANOPROST 0.005% OPHTH DROPS EACHEYE SCH (19:59)
[2019-12-18] MEDS: OXYBUTYNIN 5MG TABLET PO SCH (20:04)
[2019-12-19] MEDS: DEXTROSE 5%-0.9% NACL 1,000 ML IV SCH ×2 (00:47→09:20)
[2019-12-19] MEDS: METOPROLOL 5 MG/5 ML VIAL IVP SCH ×3 (00:47→11:57)
[2019-12-19] MEDS: SODIUM CHLORIDE FLUSH 0.9% 10 ML SYRINGE IVP SCH ×3 (00:50→16:16)
[2019-12-19 06:33] LABS: BASOPHILS % (AUTO) 0.2 %; EOSINOPHILS % (AUTO) 0.2 %; HGB - HEMOGLOBIN 12.9 g/dL (14.0-18.0); LYMPHOCYTES % (AUTO) 17.2 %; MEAN CORPUSCULAR HEMOGLOBIN 30.8 pg (27.0-31.0); MEAN CORPUSCULAR HGB CONC 31.9 g/dL (32.0-36.0); MEAN CORPUSCULAR VOLUME 96.7 fL (80.0-94.0); MEAN PLATELET VOLUME 10.4 fL (7.4-11.4); MONOCYTES % (AUTO) 5.8 %; NEUTROPHILS % (AUTO) 75.6 %; PLT - PLATELET COUNT 158 10^3/uL (130-450); RED BLOOD COUNT 4.19 10^6/uL (4.70-6.10); RED CELL DISTRIBUTION WIDTH 13.9 % (12.0-15.0); WHITE BLOOD COUNT 4.8 x10^3/uL (4.8-10.8)
[2019-12-19 06:45] LABS: ALBUMIN 2.5 g/dL (3.2-5.5); ALBUMIN/GLOBULIN RATIO 0.9 (1.0-2.2); BILIRUBIN,TOTAL 0.5 mg/dL (0.2-1.0); CALCIUM 7.5 mg/dL (8.5-10.3); CREATININE 1.1 mg/dL (0.6-1.2); TOTAL PROTEIN 5.3 g/dL (6.7-8.2)
[2019-12-19 07:11] LABS: ABNORMAL LYMPHS % (MANUAL) 2 %; BAND NEUTROPHILS % (MANUAL) 4 %; LYMPHOCYTES # (MANUAL) 0.9 10^3/uL (1.5-3.5); LYMPHOCYTES % (MANUAL) 17 %; MONOCYTES # (MANUAL) 0.4 10^3/uL (0.0-1.0)
[2019-12-19 07:12] LABS: DIFFERENTIAL COMMENT MANUAL DIFFERENTIAL; PLATELET ESTIMATE, MANUAL NORMAL (130-450,000) (NORMAL); PLATELET MORPHOLOGY NORMAL APPEARANCE (NORMAL); RBC MORPHOLOGY (MULTIPLE) NORMAL APPEARANCE (NORMAL)
[2019-12-19] MEDS: cefTRIAXone 1 GM in SODIUM CHLORIDE 0.9% MINIBAG 100 ML IV SCH (09:11)
[2019-12-19] MEDS: FAMOTIDINE 20 MG/2 ML VIAL IVP SCH ×2 (09:12→20:07)
[2019-12-19] MEDS: HYDROXYCHLOROQUINE 200 MG TABLET PO SCH (09:12)
[2019-12-19] MEDS: OXYBUTYNIN 5MG TABLET PO SCH ×2 (09:12→20:07)
[2019-12-19] MEDS: DORZOLAMIDE 2% OPHTH DROPS EACHEYE SCH (09:14)
[2019-12-19] MEDS: timoloL maleate 0.5% OPHTH DROPS (10ML) EACHEYE SCH (09:14)
[2019-12-19] MEDS: NYSTATIN POWDER 15 GM TOP SCH ×2 (09:14→20:12)
[2019-12-19] MEDS: AZITHROMYCIN INJ 500 MG in SODIUM CHLORIDE 0.9% 250 ML IV SCH (09:47)
--- NOTE | 2019-12-19 14:57 | PROVIDER PROGRESS NOTE ---
Assessment/Plan - Problem List (1) Pneumonia due to 2019 novel coronavirus Assessment/Plan: Hydroxychloroquin ordered today He is producing sputum but coughing minimally O2 sats are OK (2) CAP (community acquired pneumonia) Assessment/Plan: He is on empiric Ceftriaxone and Zithromax Await any pos culture results, to change to focused po antibx (3) Metabolic encephalopathy Assessment/Plan: His movements are still slow, but he able to feed himself He could not remember how he got here or that he was told yesterday that he has Cornoavirus or COVID pneumonia. Telemetry can stop, as he is confused and pulls leads off Will start to get OOB to chair for meals Will also start PT and OT tomorrow If there is still slow speech with word finding difficulty, will ask for mini- mental exam from OT on Mon (when OT is here, today is Sat) and possibly get brain MRI (when they are here on Mon as wellc (4) YING (acute kidney injury) Assessment/Plan: Improved renal labs daily since on iv fluids. Will decrease rate from 125cc/hr to 60 cc/hr, since he has a CAD Hx (5) Dehydration Assessment/Plan: Improved renal labs daily since started on iv fluids. Will decrease rate from 125cc/hr to 60 cc/hr, since he has a CAD Hx (6) Diarrhea Assessment/Plan: 2 mucousy Bms reported yesterday and liquid BM today. Will check for c.diff , since he has been getting antibx (7) Hypokalemia Assessment/Plan: Related to poor po intake, dehydration and diarrhea Replace Follow BMP daily. (8) HTN (hypertension) Assessment/Plan: BP meds resumed (9) Elevated troponin Assessment/Plan: Likely demand ischemia from fever and hypoxia - Current Meds Current Meds: Current Medications Generic Name Dose Route Start Last Admin Trade Name Freq PRN Reason Stop Dose Admin Dorzolamide HCl 1 drops 12/18/19 09:00 12/19/19 09:14 Trusopt 2% Ophth Drops EACHEYE 1 drops DAILY AVI Administration Famotidine 20 mg 12/17/19 21:00 12/19/19 09:12 Pepcid IVP 20 mg BID AVI Administration Ceftriaxone Sodium 1 gm/ 100 mls @ 200 mls/hr 12/18/19 09:00 12/19/19 09:48 Sodium Chloride IV 12/21/19 09:29 Infused DAILY AVI Infusion Latanoprost 1 drops 12/17/19 21:00 12/18/19 19:59 Xalatan Ophth Drops EACHEYE 1 drops QPM AVI Administration Nystatin 1 applic 12/17/19 17:00 12/19/19 09:14 Nystop TOP 1 applic BID AVI Administration Oxybutynin Chloride 2.5 mg 12/18/19 21:00 12/19/19 09:12 Ditropan PO 2.5 mg BID AVI Administration Sodium Chloride 10 ml 12/17/19 17:00 12/19/19 09:12 Normal Saline Flush 0.9% IVP 10 ml 0100,0900,1700 AVI Administration Timolol Maleate 1 drops 12/18/19 09:00 12/19/19 09:14 Timoptic 0.5% Ophth Drops EACHEYE 1 drops DAILY AVI Administration - Lab Result Fish Bone Diagrams: 12/19/19 05:55 12/19/19 05:55 - Additional Planning My Orders: My Active Orders 12/18/19 13:59 Telemetry-Discontinue [RC] .ONCE 12/18/19 21:00 Oxybutynin [Ditropan] 2.5 mg PO BID 12/18/19 Dinner Dysphagia Puree Diet [DIET] 12/19/19 C DIFF PCR Routine 12/19/19 14:46 Acetaminophen [Tylenol] 650 mg PO Q4HR PRN Cholecalciferol (Vitamin D3) [Vitamin D3] 2,000 unit PO DAILY 12/19/19 14:47 Dextrose 5%-0.9% NaCl [D5ns] 1,000 ml IV 60 mls/hr 12/19/19 16:00 Aspirin EC [Ecotrin] 325 mg PO DAILY 12/19/19 17:00 Tamsulosin [Flomax] 0.4 mg PO QDDINNER 12/19/19 21:00 Metoprolol Tartrate [Lopressor] 50 mg PO BID 12/20/19 05:00 CBC - COMP BLD CT W/AUTO DIFF [HEME] DAILYLAB CMP [COMPREHENSIVE METABOLIC PANEL] [CHEM] DAILYLAB 12/20/19 09:00 Cyanocobalamin (Vitamin B-12) [Vitamin B-12 (1000 mcg sublingual)] 1,000 mcg PO DAILY Hydroxychloroquine [Plaquenil] 200 mg PO DAILY 12/20/19 Breakfast Cardiac Diet [DIET] Subjective - Subjective Patient Reports: Feeling Better Nursing Reports: Diarrhea (Mucousy diarrhea) Objective Vital Signs: Vital Signs - 24 hr 12/18/19 12/18/19 12/18/19 15:06 17:05 20:02 Temperature 37.2 C 36.4 C L Heart Rate [ Brachial] Heart Rate [ 62 56 L 74 Monitoring electrodes] Respiratory 22 20 Rate Blood Pressure Blood Pressure 166/64 H 136/69 H [Left Brachial artery] Blood Pressure [Right Brachial artery] O2 Saturation 95 95 94 12/18/19 12/19/19 12/19/19 23:53 00:47 03:54 Temperature 36.7 C 37.7 C H Heart Rate [ 60 75 Brachial] Heart Rate [ Monitoring electrodes] Respiratory 18 16 Rate Blood Pressure 148/66 H Blood Pressure 148/66 H [Left Brachial artery] Blood Pressure 149/71 H [Right Brachial artery] O2 Saturation 93 93 12/19/19 12/19/19 12/19/19 06:15 06:19 08:06 Temperature 36.7 C 37.5 C Heart Rate [ 63 Brachial] Heart Rate [ Monitoring electrodes] Respiratory 22 Rate Blood Pressure 151/62 H Blood Pressure 138/63 H [Left Brachial artery] Blood Pressure [Right Brachial artery] O2 Saturation 94 12/19/19 12/19/19 09:25 11:54 Temperature 37.5 C Heart Rate [ 66 59 L Brachial] Heart Rate [ Monitoring electrodes] Respiratory 20 18 Rate Blood Pressure Blood Pressure [Left Brachial artery] Blood Pressure 151/70 H [Right Brachial artery] O2 Saturation 93 93 Oxygen O2 Source Room air Oxygen Flow Rate 3 I&O (Last 24 Hrs): Intake and Output Totals x24h 12/17/19 12/18/19 12/19/19 23:59 23:59 23:59 Intake Total 740 4072.917 2440.833 Output Total 350 1650 400 Balance 390 2422.917 2040.833 General: Alert HEENT: Mucous membr. moist/pink Neck: Supple, No JVD Neuro: Alert, Disoriented, Other (Speech is slow and deliberate with long pauses for word finding, non-focal motor exam) Respiratory: No respiratory distress, Other (No stethascope available to listen to lung rocha) Abdomen: Normal bowel sounds, Soft Extremities: No edema - Results Results: Laboratory Results WBC 4.8 x10^3/uL (4.8-10.8) 12/19/19 05:55 RBC 4.19 10^6/uL (4.70-6.10) L 12/19/19 05:55 Hgb 12.9 g/dL (14.0-18.0) L 12/19/19 05:55 Hct 40.5 % (42.0-52.0) L 12/19/19 05:55 MCV 96.7 fL (80.0-94.0) H 12/19/19 05:55 MCH 30.8 pg (27.0-31.0) 12/19/19 05:55 MCHC 31.9 g/dL (32.0-36.0) L 12/19/19 05:55 RDW 13.9 % (12.0-15.0) 12/19/19 05:55 Plt Count 158 10^3/uL (130-450) 12/19/19 05:55 MPV 10.4 fL (7.4-11.4) 12/19/19 05:55 Neut # (Auto) Not Reportable 12/19/19 05:55 Lymph # (Auto) Not Reportable 12/19/19 05:55 [place] # (Auto) Not Reportable 12/19/19 05:55 Eos # (Auto) Not Reportable 12/19/19 05:55 Baso # (Auto) Not Reportable 12/19/19 05:55 Absolute Nucleated RBC Not Reportable 12/19/19 05:55 Total Counted 100 12/19/19 05:55 Band Neuts % (Manual) 4 % (0-10) 12/19/19 05:55 Abnorm Lymph % (Manual) 2 % 12/19/19 05:55 Nucleated RBC % Not Reportable 12/19/19 05:55 Neutrophils # (Manual) 3.5 10^3/uL (1.5-6.6) 12/19/19 05:55 Lymphocytes # (Manual) 0.9 10^3/uL (1.5-3.5) L 12/19/19 05:55 Monocytes # (Manual) 0.4 10^3/uL (0.0-1.0) 12/19/19 05:55 Eosinophils # (Manual) 0.0 10^3/uL (0-0.7) 12/19/19 05:55 Basophils # (Manual) 0.0 10^3/uL (0-0.1) 12/19/19 05:55 Differential Comment MANUAL DIFFERENTIAL 12/19/19 05:55 WBC Morphology NORMAL APPEARANCE (NORMAL) 12/19/19 05:55 Platelet Estimate NORMAL (130-450,000) (NORMAL) 12/19/19 05:55 Platelet Morphology NORMAL APPEARANCE (NORMAL) 12/19/19 05:55 RBC Morph Micro Appear NORMAL APPEARANCE (NORMAL) 12/19/19 05:55 Sodium 134 mmol/L (135-145) L 12/19/19 05:55 Potassium 3.3 mmol/L (3.5-5.0) L 12/19/19 05:55 Chloride 105 mmol/L (101-111) 12/19/19 05:55 Carbon Dioxide 24 mmol/L (21-32) 12/19/19 05:55 Anion Gap 5.0 (6-13) L 12/19/19 05:55 BUN 24 mg/dL (6-20) H 12/19/19 05:55 Creatinine 1.1 mg/dL (0.6-1.2) 12/19/19 05:55 Estimated GFR (MDRD) 64 (>89) L 12/19/19 05:55 Glucose 178 mg/dL (70-100) H 12/19/19 05:55 Lactic Acid 1.5 mmol/L (0.5-2.2) 12/17/19 12:30 Calcium 7.5 mg/dL (8.5-10.3) L 12/19/19 05:55 Total Bilirubin 0.5 mg/dL (0.2-1.0) 12/19/19 05:55 AST 34 IU/L (10-42) 12/19/19 05:55 ALT 18 IU/L (10-60) 12/19/19 05:55 Alkaline Phosphatase 31 IU/L (42-121) L 12/19/19 05:55 Total Creatine Kinase 357 IU/L (22-269) H 12/17/19 12:30 Troponin I High Sens 92.8 ng/L (2.3-19.7) H* 12/18/19 05:15 B-Natriuretic Peptide 53 pg/mL (5-100) 12/17/19 12:30 Total Protein 5.3 g/dL (6.7-8.2) L 12/19/19 05:55 Albumin 2.5 g/dL (3.2-5.5) L 12/19/19 05:55 Globulin 2.8 g/dL (2.1-4.2) 12/19/19 05:55 Albumin/Globulin Ratio 0.9 (1.0-2.2) L 12/19/19 05:55 Lipase 63 U/L (22-51) H 12/17/19 12:30 Urine Color YELLOW 12/17/19 11:57 Urine Clarity CLEAR (CLEAR) 12/17/19 11:57 Urine pH 5.5 PH (5.0-7.5) 12/17/19 11:57 Ur Specific [place] >=1.030 (1.002-1.030) H 12/17/19 11:57 Urine Protein 100 mg/dL (NEGATIVE) H 12/17/19 11:57 Urine Glucose (UA) NEGATIVE mg/dL (NEGATIVE) 12/17/19 11:57 Urine Ketones TRACE mg/dL (NEGATIVE) 12/17/19 11:57 Urine Occult Blood SMALL (NEGATIVE) H 12/17/19 11:57 Urine Nitrite NEGATIVE (NEGATIVE) 12/17/19 11:57 Urine Bilirubin NEGATIVE (NEGATIVE) 12/17/19 11:57 Urine Urobilinogen 0.2 (NORMAL) E.U./dL (NORMAL) 12/17/19 11:57 Ur Leukocyte Esterase NEGATIVE (NEGATIVE) 12/17/19 11:57 Urine RBC 0-5 /HPF (0-5) 12/17/19 11:57 Urine WBC 0-3 /HPF (0-3) 12/17/19 11:57 Ur Squamous Epith Cells NONE SEEN (<= Few) 12/17/19 11:57 Urine Bacteria None Seen /HPF (None Seen) 12/17/19 11:57 Ur Microscopic Review INDICATED 12/17/19 11:57 Urine Culture Comments NOT INDICATED 12/17/19 11:57 Ethyl Alcohol < 5.0 mg/dL 12/17/19 12:30 Coronavirus (PCR) POSITIVE 12/17/19 12:15 Influenza A (Rapid) Negative (Negative) 12/17/19 13:30 Influenza B (Rapid) Negative (Negative) 12/17/19 13:30
[2019-12-19] MEDS: TAMSULOSIN 0.4 MG CAPSULE PO SCH (16:16)
[2019-12-19] MEDS: ASPIRIN EC 325 MG TABLET PO SCH (16:16)
[2019-12-19] MEDS: SODIUM CHLORIDE FLUSH 0.9% 10 ML SYRINGE IVP PRN (20:08)
[2019-12-19] MEDS: LATANOPROST 0.005% OPHTH DROPS EACHEYE SCH (20:12)
[2019-12-19] MEDS: METOPROLOL TARTRATE 50 MG TABLET PO SCH (20:18)
[2019-12-19] MEDS ORDERED: POTASSIUM CHLORIDE 20 MEQ TABLET PO ONE (21:09)
[2019-12-20] MEDS: DEXTROSE 5%-0.9% NACL 1,000 ML IV SCH ×2 (01:06→22:29)
[2019-12-20] MEDS: SODIUM CHLORIDE FLUSH 0.9% 10 ML SYRINGE IVP SCH ×4 (01:08→23:57)
[2019-12-20] MEDS: ACETAMINOPHEN 325 MG TABLET PO PRN ×2 (05:01→10:27)
[2019-12-20] MEDS: BENZONATATE 100 MG CAPSULE PO PRN (05:01)
[2019-12-20 06:54] LABS: BASOPHILS % (AUTO) 0.2 %; EOSINOPHILS % (AUTO) 0.9 %; HGB - HEMOGLOBIN 13.3 g/dL (14.0-18.0); LYMPHOCYTES % (AUTO) 17.3 %; MEAN CORPUSCULAR HEMOGLOBIN 29.8 pg (27.0-31.0); MEAN CORPUSCULAR HGB CONC 31.7 g/dL (32.0-36.0); MEAN CORPUSCULAR VOLUME 93.7 fL (80.0-94.0); MEAN PLATELET VOLUME 10.4 fL (7.4-11.4); MONOCYTES % (AUTO) 8.5 %; NEUTROPHILS % (AUTO) 72.4 %; PLT - PLATELET COUNT 183 10^3/uL (130-450); RED BLOOD COUNT 4.47 10^6/uL (4.70-6.10); RED CELL DISTRIBUTION WIDTH 13.9 % (12.0-15.0); WHITE BLOOD COUNT 4.2 x10^3/uL (4.8-10.8)
[2019-12-20 07:07] LABS: ALBUMIN 2.4 g/dL (3.2-5.5); ALBUMIN/GLOBULIN RATIO 0.8 (1.0-2.2); BILIRUBIN,TOTAL 0.8 mg/dL (0.2-1.0); CALCIUM 7.6 mg/dL (8.5-10.3); CREATININE 0.9 mg/dL (0.6-1.2); TOTAL PROTEIN 5.3 g/dL (6.7-8.2)
[2019-12-20 07:09] LABS: ABNORMAL LYMPHS % (MANUAL) 2 %; BAND NEUTROPHILS % (MANUAL) 7 %; DIFFERENTIAL COMMENT MANUAL DIFFERENTIAL; LYMPHOCYTES # (MANUAL) 0.9 10^3/uL (1.5-3.5); LYMPHOCYTES % (MANUAL) 19 %; MONOCYTES # (MANUAL) 0.1 10^3/uL (0.0-1.0); PLATELET ESTIMATE, MANUAL NORMAL (130-450,000) (NORMAL); PLATELET MORPHOLOGY NORMAL APPEARANCE (NORMAL); RBC MORPHOLOGY (MULTIPLE) NORMAL APPEARANCE (NORMAL)
[2019-12-20] MEDS ORDERED: POTASSIUM CHLORIDE 20 MEQ TABLET PO SCH (07:10)
[2019-12-20] MEDS: cefTRIAXone 1 GM in SODIUM CHLORIDE 0.9% MINIBAG 100 ML IV SCH (09:00)
[2019-12-20] MEDS: FAMOTIDINE 20 MG/2 ML VIAL IVP SCH ×2 (09:00→20:09)
[2019-12-20] MEDS: CYANOCOBALAMIN 500 MCG TABLET PO SCH (09:01)
[2019-12-20] MEDS: timoloL maleate 0.5% OPHTH DROPS (10ML) EACHEYE SCH (09:02)
[2019-12-20] MEDS: CHOLECALCIFEROL 1,000 UNIT TABLET PO SCH (09:02)
[2019-12-20] MEDS: HYDROXYCHLOROQUINE 200 MG TABLET PO SCH (09:02)
[2019-12-20] MEDS: ASPIRIN EC 325 MG TABLET PO SCH (09:02)
[2019-12-20] MEDS: NYSTATIN POWDER 15 GM TOP SCH ×2 (09:03→20:09)
[2019-12-20] MEDS: DORZOLAMIDE 2% OPHTH DROPS EACHEYE SCH (09:03)
[2019-12-20] MEDS: METOPROLOL TARTRATE 50 MG TABLET PO SCH ×2 (09:04→20:08)
[2019-12-20] MEDS: OXYBUTYNIN 5MG TABLET PO SCH ×2 (10:22→20:10)
[2019-12-20] MEDS: TAMSULOSIN 0.4 MG CAPSULE PO SCH (16:53)
--- NOTE | 2019-12-20 17:14 | PROVIDER PROGRESS NOTE ---
Assessment/Plan - Problem List (1) Pneumonia due to 2019 novel coronavirus Assessment/Plan: Continue supportive carte, O2 supplemental, Mucinex, isolation precautions Will order PT to start in his room, since this may be his baseline mental status (see below) (2) CAP (community acquired pneumonia) Assessment/Plan: He got empiric IV antibiotics with Zithromax and ceftriaxone. Mucinex has been ordered, he has a fairly good cough to clear his secretions Supplemental O2 on, FIO2 stable (3) Metabolic encephalopathy Assessment/Plan: He has made no improvement over the past 3 days, he cannot remember how he got here, he needs cues and prompting to do ADLs in his room. We will order a Mini-Mental exam by OT (today Saturday, they are back tomorrow). Head CT was already done. MRI is not available here until 12/24/19, to confirm that there has been no stroke with better MRI imaging (4) Diarrhea Assessment/Plan: This continues and may be due to the viral infection. C diff ordered since he had antibx, and is neg (5) Hypokalemia Assessment/Plan: Likely from losses in diarrhea. Replace po and follow BMP daily. (6) HTN (hypertension) Assessment/Plan: Stablke on current meds and management (7) Elevated troponin Assessment/Plan: Likely demand ischemia No worsening of SOB, therefore no echo ordered to not expose staff to COVID, since his care would not be affected substantially by getting an Echo (8) YING (acute kidney injury) Assessment/Plan: From dehydration. Resolved (9) Dehydration Assessment/Plan: Resolved - Current Meds Current Meds: Current Medications Generic Name Dose Route Start Last Admin Trade Name Freq PRN Reason Stop Dose Admin Acetaminophen 650 mg 12/19/19 14:46 12/20/19 10:27 Tylenol PO 650 mg Q4HR PRN Administration Pain or Fever > 38C (100.4F) Aspirin 325 mg 12/19/19 16:00 12/20/19 09:02 Ecotrin PO 325 mg DAILY AVI Administration Benzonatate 100 mg 12/18/19 21:17 12/20/19 05:01 Tessalon PO 100 mg TID PRN Administration Cough Cholecalciferol 2,000 unit 12/20/19 09:00 12/20/19 09:02 Vitamin D3 PO 2,000 unit DAILY AVI Administration Cyanocobalamin 1,000 mcg 12/20/19 09:00 12/20/19 09:01 Vitamin B-12 PO 1,000 mcg DAILY AVI Administration Dorzolamide HCl 1 drops 12/18/19 09:00 12/20/19 09:03 Trusopt 2% Ophth Drops EACHEYE 1 drops DAILY AVI Administration Famotidine 20 mg 12/17/19 21:00 12/20/19 09:00 Pepcid IVP 20 mg BID AVI Administration Hydroxychloroquine Sulfate 200 mg 12/20/19 09:00 12/20/19 09:02 Plaquenil PO 12/23/19 09:01 200 mg DAILY AIV Administration Ceftriaxone Sodium 1 gm/ 100 mls @ 200 mls/hr 12/18/19 09:00 12/20/19 10:15 Sodium Chloride IV 12/21/19 09:29 Infused DAILY AVI Infusion Dextrose/Sodium Chloride 1,000 mls @ 60 mls/hr 12/19/19 14:47 12/20/19 16:00 D5ns IV 60 mls/hr .[id number] AVI Infusion Latanoprost 1 drops 12/17/19 21:00 12/19/19 20:12 Xalatan Ophth Drops EACHEYE 1 drops QPM AVI Administration Metoprolol Tartrate 50 mg 12/19/19 21:00 12/20/19 09:04 Lopressor PO 50 mg BID AVI Administration Nystatin 1 applic 12/17/19 17:00 12/20/19 09:03 Nystop TOP 1 applic BID AVI Administration Oxybutynin Chloride 2.5 mg 12/18/19 21:00 12/20/19 10:22 Ditropan PO 2.5 mg BID AVI Administration Sodium Chloride 10 ml 12/17/19 13:33 12/19/19 20:08 Normal Saline Flush 0.9% IVP 10 ml PRN PRN Administration NEEDED PER PROVIDER ORDERS Sodium Chloride 10 ml 12/17/19 17:00 12/20/19 16:53 Normal Saline Flush 0.9% IVP 10 ml 0100,0900,1700 AVI Administration Tamsulosin HCl 0.4 mg 12/19/19 17:00 12/20/19 16:53 Flomax PO 0.4 mg QDDINNER AVI Administration Timolol Maleate 1 drops 12/18/19 09:00 12/20/19 09:02 Timoptic 0.5% Ophth Drops EACHEYE 1 drops DAILY AVI Administration - Lab Result Fish Bone Diagrams: 12/21/19 08:10 12/21/19 08:10 - Additional Planning My Orders: My Active Orders 12/19/19 17:00 Tamsulosin [Flomax] 0.4 mg PO QDDINNER 12/19/19 21:00 Metoprolol Tartrate [Lopressor] 50 mg PO BID 12/20/19 Evaluate and Treat OT [OT] Routine Evaluate and Treat PT [PT] Routine 12/20/19 09:00 Cholecalciferol [Vitamin D3] 2,000 unit PO DAILY Cyanocobalamin [Vitamin B-12] 1,000 mcg PO DAILY Hydroxychloroquine [Plaquenil] 200 mg PO DAILY 12/20/19 Breakfast Cardiac Diet [DIET] Subjective - Subjective Nursing Reports: No Complaints, Confused, Other (Needed repeat prompting and cueing to do in bed exercises) Objective Vital Signs: Vital Signs - 24 hr 12/19/19 12/19/19 12/20/19 20:14 20:18 00:47 Temperature 36.4 C L 36.4 C L Heart Rate [ 54 L 59 L Brachial] Respiratory 18 16 Rate Blood Pressure 155/69 H Blood Pressure 155/69 H [Left Brachial artery] Blood Pressure 159/72 H [Left Radial artery] O2 Saturation 94 94 O2 Saturation [ With Activity] O2 Saturation [ Without Activity] 12/20/19 12/20/19 12/20/19 04:45 04:58 05:22 Temperature 36.6 C 36.7 C Heart Rate [ 72 67 Brachial] Respiratory 18 Rate Blood Pressure Blood Pressure 174/97 H 165/61 H [Left Brachial artery] Blood Pressure [Left Radial artery] O2 Saturation 96 O2 Saturation [ With Activity] O2 Saturation [ Without Activity] 12/20/19 12/20/19 12/20/19 08:01 09:04 11:52 Temperature 36.6 C 36.4 C L Heart Rate [ 64 51 L Brachial] Respiratory 18 Rate Blood Pressure 162/70 H Blood Pressure 152/72 H [Left Brachial artery] Blood Pressure 162/70 H [Left Radial artery] O2 Saturation 93 96 O2 Saturation [ With Activity] O2 Saturation [ Without Activity] 12/20/19 12/20/19 16:12 16:34 Temperature 36.5 C Heart Rate [ 49 L Brachial] Respiratory 20 Rate Blood Pressure Blood Pressure 169/68 H [Left Brachial artery] Blood Pressure [Left Radial artery] O2 Saturation 94 O2 Saturation [ 94 With Activity] O2 Saturation [ 94 Without Activity] Oxygen O2 Source [With Activity] Room air O2 Source [Without Activity] Room air O2 Source Room air Oxygen Flow Rate 3 I&O (Last 24 Hrs): Intake and Output Totals x24h 12/18/19 12/19/19 12/20/19 23:59 23:59 23:59 Intake Total 4072.917 3510.833 1384 Output Total 1650 1275 900 Balance 2422.917 2235.833 484 General: Alert, Other (Oriented to self) HEENT: Mucous membr. moist/pink Neck: Supple Neuro: Disoriented, Non Focal Cardiovascular: No murmurs Respiratory: No respiratory distress Abdomen: Soft Extremities: No edema - Results Results: Laboratory Results WBC 4.2 x10^3/uL (4.8-10.8) L 12/20/19 06:20 RBC 4.47 10^6/uL (4.70-6.10) L 12/20/19 06:20 Hgb 13.3 g/dL (14.0-18.0) L 12/20/19 06:20 Hct 41.9 % (42.0-52.0) L 12/20/19 06:20 MCV 93.7 fL (80.0-94.0) 12/20/19 06:20 MCH 29.8 pg (27.0-31.0) 12/20/19 06:20 MCHC 31.7 g/dL (32.0-36.0) L 12/20/19 06:20 RDW 13.9 % (12.0-15.0) 12/20/19 06:20 Plt Count 183 10^3/uL (130-450) 12/20/19 06:20 MPV 10.4 fL (7.4-11.4) 12/20/19 06:20 Neut # (Auto) Not Reportable 12/20/19 06:20 Lymph # (Auto) Not Reportable 12/20/19 06:20 [place] # (Auto) Not Reportable 12/20/19 06:20 Eos # (Auto) Not Reportable 12/20/19 06:20 Baso # (Auto) Not Reportable 12/20/19 06:20 Absolute Nucleated RBC Not Reportable 12/20/19 06:20 Total Counted 100 12/20/19 06:20 Band Neuts % (Manual) 7 % (0-10) 12/20/19 06:20 Abnorm Lymph % (Manual) 2 % 12/20/19 06:20 Nucleated RBC % Not Reportable 12/20/19 06:20 Neutrophils # (Manual) 3.2 10^3/uL (1.5-6.6) 12/20/19 06:20 Lymphocytes # (Manual) 0.9 10^3/uL (1.5-3.5) L 12/20/19 06:20 Monocytes # (Manual) 0.1 10^3/uL (0.0-1.0) 12/20/19 06:20 Eosinophils # (Manual) 0.0 10^3/uL (0-0.7) 12/20/19 06:20 Basophils # (Manual) 0.0 10^3/uL (0-0.1) 12/20/19 06:20 Differential Comment MANUAL DIFFERENTIAL 12/20/19 06:20 WBC Morphology NORMAL APPEARANCE (NORMAL) 12/20/19 06:20 Platelet Estimate NORMAL (130-450,000) (NORMAL) 12/20/19 06:20 Platelet Morphology NORMAL APPEARANCE (NORMAL) 12/20/19 06:20 RBC Morph Micro Appear NORMAL APPEARANCE (NORMAL) 12/20/19 06:20 Sodium 135 mmol/L (135-145) 12/20/19 06:20 Potassium 3.3 mmol/L (3.5-5.0) L 12/20/19 06:20 Chloride 109 mmol/L (101-111) 12/20/19 06:20 Carbon Dioxide 22 mmol/L (21-32) 12/20/19 06:20 Anion Gap 4.0 (6-13) L 12/20/19 06:20 BUN 17 mg/dL (6-20) 12/20/19 06:20 Creatinine 0.9 mg/dL (0.6-1.2) 12/20/19 06:20 Estimated GFR (MDRD) 81 (>89) L 12/20/19 06:20 Glucose 178 mg/dL (70-100) H 12/20/19 06:20 Lactic Acid 1.5 mmol/L (0.5-2.2) 12/17/19 12:30 Calcium 7.6 mg/dL (8.5-10.3) L 12/20/19 06:20 Total Bilirubin 0.8 mg/dL (0.2-1.0) 12/20/19 06:20 AST 29 IU/L (10-42) 12/20/19 06:20 ALT 17 IU/L (10-60) 12/20/19 06:20 Alkaline Phosphatase 33 IU/L (42-121) L 12/20/19 06:20 Total Creatine Kinase 357 IU/L (22-269) H 12/17/19 12:30 Troponin I High Sens 92.8 ng/L (2.3-19.7) H* 12/18/19 05:15 B-Natriuretic Peptide 53 pg/mL (5-100) 12/17/19 12:30 Total Protein 5.3 g/dL (6.7-8.2) L 12/20/19 06:20 Albumin 2.4 g/dL (3.2-5.5) L 12/20/19 06:20 Globulin 2.9 g/dL (2.1-4.2) 12/20/19 06:20 Albumin/Globulin Ratio 0.8 (1.0-2.2) L 12/20/19 06:20 Lipase 63 U/L (22-51) H 12/17/19 12:30 Urine Color YELLOW 12/17/19 11:57 Urine Clarity CLEAR (CLEAR) 12/17/19 11:57 Urine pH 5.5 PH (5.0-7.5) 12/17/19 11:57 Ur Specific [place] >=1.030 (1.002-1.030) H 12/17/19 11:57 Urine Protein 100 mg/dL (NEGATIVE) H 12/17/19 11:57 Urine Glucose (UA) NEGATIVE mg/dL (NEGATIVE) 12/17/19 11:57 Urine Ketones TRACE mg/dL (NEGATIVE) 12/17/19 11:57 Urine Occult Blood SMALL (NEGATIVE) H 12/17/19 11:57 Urine Nitrite NEGATIVE (NEGATIVE) 12/17/19 11:57 Urine Bilirubin NEGATIVE (NEGATIVE) 12/17/19 11:57 Urine Urobilinogen 0.2 (NORMAL) E.U./dL (NORMAL) 12/17/19 11:57 Ur Leukocyte Esterase NEGATIVE (NEGATIVE) 12/17/19 11:57 Urine RBC 0-5 /HPF (0-5) 12/17/19 11:57 Urine WBC 0-3 /HPF (0-3) 12/17/19 11:57 Ur Squamous Epith Cells NONE SEEN (<= Few) 12/17/19 11:57 Urine Bacteria None Seen /HPF (None Seen) 12/17/19 11:57 Ur Microscopic Review INDICATED 12/17/19 11:57 Urine Culture Comments NOT INDICATED 12/17/19 11:57 Stl C. diff Tox B Gene NEGATIVE (NEGATIVE) 12/19/19 20:40 Ethyl Alcohol < 5.0 mg/dL 12/17/19 12:30 Coronavirus (PCR) POSITIVE 12/17/19 12:15 Influenza A (Rapid) Negative (Negative) 12/17/19 13:30 Influenza B (Rapid) Negative (Negative) 12/17/19 13:30
[2019-12-20] MEDS: LATANOPROST 0.005% OPHTH DROPS EACHEYE SCH (20:10)
[2019-12-21] MEDS: BENZONATATE 100 MG CAPSULE PO PRN (06:19)
[2019-12-21] MEDS: ACETAMINOPHEN 325 MG TABLET PO PRN (06:19)
[2019-12-21] MEDS: DEXTROSE 5%-0.9% NACL 1,000 ML IV SCH (07:27)
[2019-12-21 08:22] LABS: BASOPHILS % (AUTO) 0.2 %; EOSINOPHILS % (AUTO) 1.1 %; HGB - HEMOGLOBIN 13.2 g/dL (14.0-18.0); LYMPHOCYTES % (AUTO) 13.3 %; MEAN CORPUSCULAR HEMOGLOBIN 30.3 pg (27.0-31.0); MEAN CORPUSCULAR HGB CONC 32.5 g/dL (32.0-36.0); MEAN CORPUSCULAR VOLUME 93.3 fL (80.0-94.0); MEAN PLATELET VOLUME 10.2 fL (7.4-11.4); MONOCYTES % (AUTO) 7.5 %; NEUTROPHILS % (AUTO) 77.2 %; PLT - PLATELET COUNT 192 10^3/uL (130-450); RED BLOOD COUNT 4.35 10^6/uL (4.70-6.10); RED CELL DISTRIBUTION WIDTH 13.8 % (12.0-15.0); WHITE BLOOD COUNT 5.6 x10^3/uL (4.8-10.8)
[2019-12-21 08:26] LABS: CALCIUM 8.1 mg/dL (8.5-10.3); CREATININE 0.9 mg/dL (0.6-1.2)
[2019-12-21 08:29] LABS: ABNORMAL LYMPHS % (MANUAL) 0 %
[2019-12-21] MEDS: METOPROLOL TARTRATE 50 MG TABLET PO SCH (08:47)
[2019-12-21 09:04] LABS: BAND NEUTROPHILS % (MANUAL) 2 %; EOSINOPHILS # (MANUAL) 0.1 10^3/uL (0-0.7); LYMPHOCYTES # (MANUAL) 0.5 10^3/uL (1.5-3.5); LYMPHOCYTES % (MANUAL) 8 %; MONOCYTES # (MANUAL) 0.6 10^3/uL (0.0-1.0)
[2019-12-21 09:05] LABS: DIFFERENTIAL COMMENT MANUAL DIFFERENTIAL
[2019-12-21] MEDS: CYANOCOBALAMIN 500 MCG TABLET PO SCH (09:06)
[2019-12-21] MEDS: CHOLECALCIFEROL 1,000 UNIT TABLET PO SCH (09:06)
[2019-12-21] MEDS: ASPIRIN EC 325 MG TABLET PO SCH (09:06)
[2019-12-21] MEDS: OXYBUTYNIN 5MG TABLET PO SCH ×2 (09:07→21:56)
[2019-12-21] MEDS: NYSTATIN POWDER 15 GM TOP SCH ×2 (09:07→21:57)
[2019-12-21] MEDS: HYDROXYCHLOROQUINE 200 MG TABLET PO SCH ×2 (09:07→21:56)
[2019-12-21] MEDS: SODIUM CHLORIDE FLUSH 0.9% 10 ML SYRINGE IVP SCH ×2 (09:08→17:10)
[2019-12-21] MEDS: timoloL maleate 0.5% OPHTH DROPS (10ML) EACHEYE SCH (09:08)
[2019-12-21] MEDS: DORZOLAMIDE 2% OPHTH DROPS EACHEYE SCH (09:09)
[2019-12-21] MEDS: cefTRIAXone 1 GM in SODIUM CHLORIDE 0.9% MINIBAG 100 ML IV SCH (10:41)
[2019-12-21] MEDS: FAMOTIDINE 20 MG/2 ML VIAL IVP SCH (10:42)
--- NOTE | 2019-12-21 12:10 | PROVIDER PROGRESS NOTE ---
Assessment/Plan - Problem List (1) Pneumonia due to 2019 novel coronavirus Assessment/Plan: He got Zithromax, he is on Hydroxychloroquin, started when his COVID result returned positive. He still needs supplemental oxygen but is not tachypneic. (2) CAP (community acquired pneumonia) Assessment/Plan: He finished treatment with empiric antibiotics of Zithromax and Ceftriaxone Will add probiotics due to diarrhea that continues. Add scheduled Mucinex to prn Tessalon for pulmonary toilet. (3) Persistent cognitive impairment Assessment/Plan: Despite resolution of fever, improvement in dehydration, creatinine normalized, the patient's cognition is still very poor: He cannot remember how he got here, he needs cues and prompting to do ADLs in his room. He has been playing with and removing his telemetry leads and IV line. He cannot remember basic information that I told him the day before, as in "You have a iniguez virus infection". I ordered an occupational therapy Mini-Mental exam to be done today. I asked Social Workers to reach out to the daughter and get details about his usual function to ascertyain his baseline mental function. 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 There is no history in this chart that he is a diabetic, and he came in with no diabetic medications on his list. She said he leans on things when he walks because he is unsteady. He still drives a vehicle short distances. We have no MRI available til 12/24/19, to do more brain imaging to evaluate for multi-infarct dementia or normal pressure hydracephalus. He will need a medical order to cease driving until he can be retested, after this hospitalization. He may need different living arrangements for care giving after this hospitalization. Will stop the daily vit B12, since his serum level is excessive. Will start daily Thiamine po. The Occupational Therapist described that he cooperated 50% with his cognitive evaluation and then declined to do the rest of the test. Based on the first half of the test he showed severe cognitive impairment, slow processing, poor orientation, poor language skills (4) DM type 2 (diabetes mellitus, type 2) Assessment/Plan: Newly ascertained diagnosis, as described above. Will order an A1c. Will adjust diet from Cardiac diet to carb-controlled diet, and add POC glu checks and ss Insulin coverage. (5) Diarrhea Assessment/Plan: He is C diff neg. The diarrhea started a week ago, per the daughter, and is likely part of this virus infection. Will add probiotics due to diarrhea that continues. Will start Imodium prn. (6) Hypokalemia Assessment/Plan: Likely from losses in diarrhea. Replace with po meds daily, follow BMP daily. (7) HTN (hypertension) Assessment/Plan: BP stable but due to bradycardia, will adjust his meds. (8) Bradycardia Assessment/Plan: He has had HR's in the 50's and is prescribed Metoprolol Tartrate at his home dose of 50 mg bid. This suggests that he may not have been compliant with his meds at home, since bradycardia has become more apparent now, vs he was not bradycardic when he was dehydrated. Will adjust meds due to bradycardia for HTN control. (9) Elevated troponin Assessment/Plan: Minimally elevated troponins of 45 and 23. This was presumed to be from demand ischemia from the fevers and hypoxia. No worsening of SOB, therefore no Echo was ordered to not expose staff to COVID, since his care would not be affected substantially by getting an Echo. (10) Hx of coronary artery disease Assessment/Plan: He remains on his daily ASA. The Metoprolol dose will be decreased today, due to bradycardia. (11) History of TIAs Assessment/Plan: As per the daughter's information. Continue as per CAD management. We have no MRI available til 12/24/19, to do more brain imaging to evaluate for multi-infarct dementia. (12) BPH (benign prostatic hyperplasia) Assessment/Plan: This is a presumed Dx, since he is on Flomax and , which have been ordered to continue here. (13) Glaucoma Assessment/Plan: On his home eyedrops (14) YING (acute kidney injury) Assessment/Plan: Improved with iv hydration of his dehydrated status at admission. Will stop iv fluids as he is confused and playing with his iv line, and also taking in adequate po fluids. - Current Meds Current Meds: Current Medications Generic Name Dose Route Start Last Admin Trade Name Freq PRN Reason Stop Dose Admin Acetaminophen 650 mg 12/19/19 14:46 12/21/19 06:19 Tylenol PO 650 mg Q4HR PRN Administration Pain or Fever > 38C (100.4F) Aspirin 325 mg 12/19/19 16:00 12/21/19 09:06 Ecotrin PO 325 mg DAILY AVI Administration Benzonatate 100 mg 12/18/19 21:17 12/21/19 06:19 Tessalon PO 100 mg TID PRN Administration Cough Cholecalciferol 2,000 unit 12/20/19 09:00 12/21/19 09:06 Vitamin D3 PO 2,000 unit DAILY AVI Administration Cyanocobalamin 1,000 mcg 12/20/19 09:00 12/21/19 09:06 Vitamin B-12 PO 1,000 mcg DAILY AVI Administration Dorzolamide HCl 1 drops 12/18/19 09:00 12/21/19 09:09 Trusopt 2% Ophth Drops EACHEYE 1 drops DAILY AVI Administration Famotidine 20 mg 12/17/19 21:00 12/21/19 10:42 Pepcid IVP 20 mg BID AVI Administration Hydroxychloroquine Sulfate 200 mg 12/20/19 09:00 12/21/19 09:07 Plaquenil PO 12/23/19 09:01 200 mg DAILY AVI Administration Dextrose/Sodium Chloride 1,000 mls @ 60 mls/hr 12/19/19 14:47 12/21/19 07:27 D5ns IV Not Given .[id number] AVI Latanoprost 1 drops 12/17/19 21:00 12/20/19 20:10 Xalatan Ophth Drops EACHEYE 1 drops QPM AVI Administration Metoprolol Tartrate 50 mg 12/19/19 21:00 12/21/19 08:47 Lopressor PO Not Given BID AVI Nystatin 1 applic 12/17/19 17:00 12/21/19 09:07 Nystop TOP 1 applic BID AVI Administration Oxybutynin Chloride 2.5 mg 12/18/19 21:00 12/21/19 09:07 Ditropan PO 2.5 mg BID AVI Administration Sodium Chloride 10 ml 12/17/19 13:33 12/19/19 20:08 Normal Saline Flush 0.9% IVP 10 ml PRN PRN Administration NEEDED PER PROVIDER ORDERS Sodium Chloride 10 ml 12/17/19 17:00 12/21/19 09:08 Normal Saline Flush 0.9% IVP 10 ml 0100,0900,1700 AVI Administration Tamsulosin HCl 0.4 mg 12/19/19 17:00 12/20/19 16:53 Flomax PO 0.4 mg QDDINNER AVI Administration Timolol Maleate 1 drops 12/18/19 09:00 12/21/19 09:08 Timoptic 0.5% Ophth Drops EACHEYE 1 drops DAILY AVI Administration - Lab Result Fish Bone Diagrams: 12/21/19 08:10 12/21/19 08:10 Subjective - Subjective Patient Reports: No Complaints Nursing Reports: Confused (He was using his iv line to stir his food.) Objective Vital Signs: Vital Signs - 24 hr 12/20/19 12/20/19 12/20/19 16:12 16:34 20:05 Temperature 36.5 C Heart Rate [ 49 L 64 Brachial] Respiratory 20 23 Rate Blood Pressure Blood Pressure 169/68 H [Left Brachial artery] Blood Pressure 177/71 H [Left Radial artery] Blood Pressure [Right Brachial artery] O2 Saturation 94 92 O2 Saturation [ 94 With Activity] O2 Saturation [ 94 Without Activity] 12/20/19 12/20/19 12/20/19 20:08 21:40 23:40 Temperature 36.5 C 36.4 C L Heart Rate [ 49 L 52 L Brachial] Respiratory 22 20 Rate Blood Pressure 177/71 H Blood Pressure [Left Brachial artery] Blood Pressure [Left Radial artery] Blood Pressure 148/63 H 163/63 H [Right Brachial artery] O2 Saturation 95 95 O2 Saturation [ With Activity] O2 Saturation [ Without Activity] 12/21/19 12/21/19 02:30 08:03 Temperature 37.1 C Heart Rate [ 54 L Brachial] Respiratory 20 22 Rate Blood Pressure Blood Pressure [Left Brachial artery] Blood Pressure [Left Radial artery] Blood Pressure 165/60 H [Right Brachial artery] O2 Saturation 94 94 O2 Saturation [ With Activity] O2 Saturation [ Without Activity] Oxygen O2 Source [With Activity] Room air O2 Source [Without Activity] Room air O2 Source Room air Oxygen Flow Rate 3 I&O (Last 24 Hrs): Intake and Output Totals x24h 12/19/19 12/20/19 12/21/19 23:59 23:59 23:59 Intake Total 3510.833 1610 799 Output Total 1275 1200 450 Balance 2235.833 410 349 General: Alert HEENT: Mucous membr. moist/pink Neck: Supple Neuro: Alert, Disoriented Cardiovascular: No murmurs Respiratory: No respiratory distress Extremities: No edema - Results Results: Laboratory Results WBC 5.6 x10^3/uL (4.8-10.8) 12/21/19 08:10 RBC 4.35 10^6/uL (4.70-6.10) L 12/21/19 08:10 Hgb 13.2 g/dL (14.0-18.0) L 12/21/19 08:10 Hct 40.6 % (42.0-52.0) L 12/21/19 08:10 MCV 93.3 fL (80.0-94.0) 12/21/19 08:10 MCH 30.3 pg (27.0-31.0) 12/21/19 08:10 MCHC 32.5 g/dL (32.0-36.0) 12/21/19 08:10 RDW 13.8 % (12.0-15.0) 12/21/19 08:10 Plt Count 192 10^3/uL (130-450) 12/21/19 08:10 MPV 10.2 fL (7.4-11.4) 12/21/19 08:10 Neut # (Auto) Not Reportable 12/21/19 08:10 Lymph # (Auto) Not Reportable 12/21/19 08:10 [place] # (Auto) Not Reportable 12/21/19 08:10 Eos # (Auto) Not Reportable 12/21/19 08:10 Baso # (Auto) Not Reportable 12/21/19 08:10 Absolute Nucleated RBC Not Reportable 12/21/19 08:10 Total Counted 100 12/21/19 08:10 Band Neuts % (Manual) 2 % (0-10) 12/21/19 08:10 Reactive Lymphs % (Man) 1 % 12/21/19 08:10 Abnorm Lymph % (Manual) 0 % 12/21/19 08:10 Nucleated RBC % Not Reportable 12/21/19 08:10 Neutrophils # (Manual) 4.5 10^3/uL (1.5-6.6) 12/21/19 08:10 Lymphocytes # (Manual) 0.5 10^3/uL (1.5-3.5) L 12/21/19 08:10 Monocytes # (Manual) 0.6 10^3/uL (0.0-1.0) 12/21/19 08:10 Eosinophils # (Manual) 0.1 10^3/uL (0-0.7) 12/21/19 08:10 Basophils # (Manual) 0.0 10^3/uL (0-0.1) 12/21/19 08:10 Differential Comment MANUAL DIFFERENTIAL 12/21/19 08:10 WBC Morphology NORMAL APPEARANCE (NORMAL) 12/20/19 06:20 Platelet Estimate NORMAL (130-450,000) (NORMAL) 12/20/19 06:20 Platelet Morphology NORMAL APPEARANCE (NORMAL) 12/20/19 06:20 RBC Morph Micro Appear NORMAL APPEARANCE (NORMAL) 12/20/19 06:20 Sodium 136 mmol/L (135-145) 12/21/19 08:10 Potassium 3.4 mmol/L (3.5-5.0) L 12/21/19 08:10 Chloride 108 mmol/L (101-111) 12/21/19 08:10 Carbon Dioxide 22 mmol/L (21-32) 12/21/19 08:10 Anion Gap 6.0 (6-13) 12/21/19 08:10 BUN 15 mg/dL (6-20) 12/21/19 08:10 Creatinine 0.9 mg/dL (0.6-1.2) 12/21/19 08:10 Estimated GFR (MDRD) 81 (>89) L 12/21/19 08:10 Glucose 187 mg/dL (70-100) H 12/21/19 08:10 Lactic Acid 1.5 mmol/L (0.5-2.2) 12/17/19 12:30 Calcium 8.1 mg/dL (8.5-10.3) L 12/21/19 08:10 Total Bilirubin 0.8 mg/dL (0.2-1.0) 12/20/19 06:20 AST 29 IU/L (10-42) 12/20/19 06:20 ALT 17 IU/L (10-60) 12/20/19 06:20 Alkaline Phosphatase 33 IU/L (42-121) L 12/20/19 06:20 Total Creatine Kinase 357 IU/L (22-269) H 12/17/19 12:30 Troponin I High Sens 92.8 ng/L (2.3-19.7) H* 12/18/19 05:15 B-Natriuretic Peptide 53 pg/mL (5-100) 12/17/19 12:30 Total Protein 5.3 g/dL (6.7-8.2) L 12/20/19 06:20 Albumin 2.4 g/dL (3.2-5.5) L 12/20/19 06:20 Globulin 2.9 g/dL (2.1-4.2) 12/20/19 06:20 Albumin/Globulin Ratio 0.8 (1.0-2.2) L 12/20/19 06:20 Lipase 63 U/L (22-51) H 12/17/19 12:30 Vitamin B12 1000 pg/mL (180-914) H 12/21/19 08:10 Urine Color YELLOW 12/17/19 11:57 Urine Clarity CLEAR (CLEAR) 12/17/19 11:57 Urine pH 5.5 PH (5.0-7.5) 12/17/19 11:57 Ur Specific [place] >=1.030 (1.002-1.030) H 12/17/19 11:57 Urine Protein 100 mg/dL (NEGATIVE) H 12/17/19 11:57 Urine Glucose (UA) NEGATIVE mg/dL (NEGATIVE) 12/17/19 11:57 Urine Ketones TRACE mg/dL (NEGATIVE) 12/17/19 11:57 Urine Occult Blood SMALL (NEGATIVE) H 12/17/19 11:57 Urine Nitrite NEGATIVE (NEGATIVE) 12/17/19 11:57 Urine Bilirubin NEGATIVE (NEGATIVE) 12/17/19 11:57 Urine Urobilinogen 0.2 (NORMAL) E.U./dL (NORMAL) 12/17/19 11:57 Ur Leukocyte Esterase NEGATIVE (NEGATIVE) 12/17/19 11:57 Urine RBC 0-5 /HPF (0-5) 12/17/19 11:57 Urine WBC 0-3 /HPF (0-3) 12/17/19 11:57 Ur Squamous Epith Cells NONE SEEN (<= Few) 12/17/19 11:57 Urine Bacteria None Seen /HPF (None Seen) 12/17/19 11:57 Ur Microscopic Review INDICATED 12/17/19 11:57 Urine Culture Comments NOT INDICATED 12/17/19 11:57 Stl C. diff Tox B Gene NEGATIVE (NEGATIVE) 12/19/19 20:40 Ethyl Alcohol < 5.0 mg/dL 12/17/19 12:30 Coronavirus (PCR) POSITIVE 12/17/19 12:15 Influenza A (Rapid) Negative (Negative) 12/17/19 13:30 Influenza B (Rapid) Negative (Negative) 12/17/19 13:30
[2019-12-21] MEDS ORDERED: LOPERAMIDE 2 MG CAPSULE PO PRN (12:35)
[2019-12-21] MEDS ORDERED: amLODIPine 5 MG TABLET PO SCH ×2 (13:00→18:00)
[2019-12-21 13:18] LABS: HB2 TOTAL 13.6 g/dL; HEMOGLOBIN A1C 0.84 g/dL; HEMOGLOBIN A1C % 7.8 % (4.6-6.2)
[2019-12-21] MEDS: THIAMINE 100 MG TABLET PO SCH (13:47)
[2019-12-21] MEDS: guaiFENesin 600 MG TABLET PO SCH ×2 (13:48→21:55)
[2019-12-21] MEDS: INSULIN ASPART 300 UNIT/3 ML PEN SUBQ SCH ×2 (17:09→21:58)
[2019-12-21] MEDS: TAMSULOSIN 0.4 MG CAPSULE PO SCH (17:09)
[2019-12-21] MEDS: SACCHAROMYCES BOULARDII 250 MG CAPSULE PO SCH (17:09)
[2019-12-21] MEDS ORDERED: hydrALAZINE INJ 20 MG/ML VIAL IVP PRN (21:49)
[2019-12-21] MEDS: FAMOTIDINE 20 MG TABLET PO SCH (21:55)
[2019-12-21] MEDS: LATANOPROST 0.005% OPHTH DROPS EACHEYE SCH (21:57)
[2019-12-21] MEDS: SODIUM CHLORIDE FLUSH 0.9% 10 ML SYRINGE IVP PRN (22:05)
[2019-12-22 06:22] LABS: BASOPHILS % (AUTO) 0.3 %; EOSINOPHILS # (AUTO) 0.1 10^3/uL (0.0-0.7); HGB - HEMOGLOBIN 13.8 g/dL (14.0-18.0); LYMPHOCYTES # (AUTO) 0.7 10^3/uL (1.5-3.5); MEAN CORPUSCULAR HEMOGLOBIN 30.6 pg (27.0-31.0); MEAN CORPUSCULAR HGB CONC 33.5 g/dL (32.0-36.0); MEAN CORPUSCULAR VOLUME 91.4 fL (80.0-94.0); MEAN PLATELET VOLUME 10.4 fL (7.4-11.4); MONOCYTES # (AUTO) 0.6 10^3/uL (0.0-1.0); MONOCYTES % (AUTO) 9.6 %; NEUTROPHILS # (AUTO) 4.5 10^3/uL (1.5-6.6); NEUTROPHILS % (AUTO) 75.6 %; PLT - PLATELET COUNT 225 10^3/uL (130-450); RED BLOOD COUNT 4.51 10^6/uL (4.70-6.10); RED CELL DISTRIBUTION WIDTH 13.4 % (12.0-15.0); WHITE BLOOD COUNT 5.9 x10^3/uL (4.8-10.8)
[2019-12-22 06:31] LABS: CALCIUM 8.4 mg/dL (8.5-10.3); CREATININE 0.8 mg/dL (0.6-1.2)
[2019-12-22] MEDS ORDERED: POTASSIUM CHLORIDE 20 MEQ TABLET PO SCH (08:26)
[2019-12-22] MEDS ORDERED: METOPROLOL SUCCINATE 50 MG TABLET PO SCH (09:00)
[2019-12-22] MEDS: INSULIN ASPART 300 UNIT/3 ML PEN SUBQ SCH ×4 (09:00→20:57)
[2019-12-22] MEDS ORDERED: METOPROLOL SUCCINATE 25 MG TABLET PO SCH (09:00)
[2019-12-22] MEDS: ASPIRIN EC 325 MG TABLET PO SCH (09:20)
[2019-12-22] MEDS: amLODIPine 5 MG TABLET PO SCH (09:20)
[2019-12-22] MEDS: THIAMINE 100 MG TABLET PO SCH (09:21)
[2019-12-22] MEDS: CHOLECALCIFEROL 1,000 UNIT TABLET PO SCH (09:21)
[2019-12-22] MEDS: FAMOTIDINE 20 MG TABLET PO SCH ×2 (09:21→20:29)
[2019-12-22] MEDS: OXYBUTYNIN 5MG TABLET PO SCH ×2 (09:21→20:29)
[2019-12-22] MEDS: HYDROXYCHLOROQUINE 200 MG TABLET PO SCH ×2 (09:22→20:29)
[2019-12-22] MEDS: SACCHAROMYCES BOULARDII 250 MG CAPSULE PO SCH ×2 (09:23→16:11)
[2019-12-22] MEDS: POTASSIUM CHLOR 10 MEQ/100 ML 10 MEQ/100 ML BAG IV SCH ×4 (09:24→14:29)
[2019-12-22] MEDS: SODIUM CHLORIDE FLUSH 0.9% 10 ML SYRINGE IVP SCH ×3 (09:24→16:11)
[2019-12-22] MEDS: guaiFENesin 600 MG TABLET PO SCH ×2 (09:24→20:29)
[2019-12-22] MEDS: NYSTATIN POWDER 15 GM TOP SCH ×2 (09:30→20:37)
[2019-12-22] MEDS: METOPROLOL SUCCINATE 25 MG TABLET PO SCH (09:31)
[2019-12-22] MEDS: timoloL maleate 0.5% OPHTH DROPS (10ML) EACHEYE SCH (09:31)
[2019-12-22] MEDS: DORZOLAMIDE 2% OPHTH DROPS EACHEYE SCH (09:31)
[2019-12-22] MEDS: lisinopriL 5 MG TABLET PO SCH (09:31)
[2019-12-22] MEDS ORDERED: hydrALAZINE INJ 20 MG/ML VIAL IVP PRN (10:09)
--- NOTE | 2019-12-22 10:20 | PROVIDER PROGRESS NOTE ---
Subjective - Prog Note Date Prog Note Date: 12/22/19 - Subjective Pt reports feeling: No change Subjective: pt is still confused. pt answer "Yes" to all questions. pt had no fever, he did not complain of chest pain, SOB. Current Medications - Current Medications Current Medications: Active Medications Acetaminophen (Tylenol) 650 mg PO Q4HR PRN PRN Reason: Pain or Fever > 38C (100.4F) Last Admin: 12/21/19 06:19 Dose: 650 mg Amlodipine Besylate (Norvasc) 10 mg PO DAILY [facility] Last Admin: 12/22/19 09:20 Dose: 10 mg Aspirin (Ecotrin) 325 mg PO DAILY [facility] Last Admin: 12/22/19 09:20 Dose: 325 mg Benzonatate (Tessalon) 100 mg PO TID PRN PRN Reason: Cough Last Admin: 12/21/19 06:19 Dose: 100 mg Cholecalciferol (Vitamin D3) 2,000 unit PO DAILY [facility] Last Admin: 12/22/19 09:21 Dose: 2,000 unit Dorzolamide HCl (Trusopt 2% Ophth Drops) 1 drops EACHEYE DAILY [facility] Last Admin: 12/22/19 09:31 Dose: 1 drops Famotidine (Pepcid) 20 mg PO BID [facility] Last Admin: 12/22/19 09:21 Dose: 20 mg Guaifenesin (Mucinex) 600 mg PO BID [facility] Last Admin: 12/22/19 09:24 Dose: 600 mg Hydralazine HCl (Apresoline Inj) 10 mg IVP Q6H PRN PRN Reason: PER PHYSICIAN ORDER Hydroxychloroquine Sulfate (Plaquenil) 200 mg PO BID [facility] Stop: 12/24/19 09:01 Last Admin: 12/22/19 09:22 Dose: 200 mg Potassium Chloride (Potassium Chloride) 10 meq in 100 mls @ 100 mls/hr IV Q1H [facility] Stop: 12/22/19 12:59 Last Admin: 12/22/19 09:24 Dose: 100 mls/hr Insulin Aspart (Novolog) 1 - 5 unit SUBQ 0800,1200,1700,2100 [facility]; Protocol Last Admin: 12/22/19 09:00 Dose: Not Given Latanoprost (Xalatan Ophth Drops) 1 drops EACHEYE QPM [facility] Last Admin: 12/21/19 21:57 Dose: 1 drops Lisinopril (Zestril) 10 mg PO DAILY [facility] Last Admin: 12/22/19 09:31 Dose: 10 mg Loperamide HCl (Imodium) 2 mg PO QID PRN PRN Reason: Diarrhea Metoprolol Succinate (Toprol Xl) 25 mg PO DAILY [facility] Last Admin: 12/22/19 09:31 Dose: 25 mg Nystatin (Nystop) 1 applic TOP BID [facility] Last Admin: 12/22/19 09:30 Dose: 1 applic Ondansetron HCl (Zofran Inj) 4 mg IVP Q6HR PRN PRN Reason: Nausea / Vomiting Oxybutynin Chloride (Ditropan) 2.5 mg PO BID [facility] Last Admin: 12/22/19 09:21 Dose: 2.5 mg Saccharomyces Boulardii (Florastor) 250 mg PO BIDWM [facility] Last Admin: 12/22/19 09:23 Dose: 250 mg Sodium Chloride (Normal Saline Flush 0.9%) 10 ml IVP PRN PRN PRN Reason: NEEDED PER PROVIDER ORDERS Last Admin: 12/21/19 22:05 Dose: 10 ml Sodium Chloride (Normal Saline Flush 0.9%) 10 ml IVP 0100,0900,1700 [facility] Last Admin: 12/22/19 09:24 Dose: 10 ml Tamsulosin HCl (Flomax) 0.4 mg PO QDDINNER [facility] Last Admin: 12/21/19 17:09 Dose: 0.4 mg Thiamine HCl (Vitamin B-1) 100 mg PO DAILY [facility] Last Admin: 12/22/19 09:21 Dose: 100 mg Timolol Maleate (Timoptic 0.5% Ophth Drops) 1 drops EACHEYE DAILY [facility] Last Admin: 12/22/19 09:31 Dose: 1 drops allopurinoL [Allopurinol] 300 mg PO DAILY 10/12/16 Atorvastatin Calcium 40 mg PO QPM 12/17/19 Cholecalciferol (Vitamin D3) [Vitamin D] 2,000 unit PO DAILY 12/17/19 Clopidogrel [Plavix] 75 mg PO DAILY 12/17/19 Cyanocobalamin (Vitamin B-12) [Vitamin B-12 (1000 mcg sublingual)] 1,000 mcg PO DAILY 12/17/19 Docusate Sodium 300 mg PO DAILY PRN 12/17/19 Dorzolamide HCl 1 drops EACHEYE DAILY 12/17/19 Latanoprost 0.005% Ophth Drops [Xalatan Ophth Drops] 1 drops EACHEYE QPM 12/17/19 Metoprolol Tartrate 50 mg PO BID 12/17/19 Oxybutynin [Ditropan] 2.5 mg PO BID 12/17/19 Pantoprazole [Protonix] 40 mg PO BIDAC 12/17/19 Sildenafil Citrate [Sildenafil] 20 - 100 mg PO DAILY PRN 12/17/19 Tamsulosin [Flomax] 0.4 mg PO QDDINNER 12/17/19 Temazepam 15 mg PO QPM PRN 12/17/19 Timolol 0.5% Ophth Drops [Timoptic 0.5% Ophth Drops] 1 drops EACHEYE DAILY 12/17/19 Objective - Vital Signs/Intake & Output Vital Signs: Vital Signs x48h Temp Pulse Resp BP Pulse Ox 12/22/19 07:43 36.8 C 81 20 178/82 H 93 Intake & Output: Intake & Output 12/19/19 12/20/19 12/21/19 12/22/19 23:59 23:59 23:59 23:59 Intake Total 3510.833 1610 1611 240 Output Total 1275 1200 850 Balance 2235.833 410 761 240 - Objective General Appearance: positive: No acute distress, Alert. negative: Lethargic Eyes Bilateral: positive: Normal inspection, PERRL, No lid inflammation ENT: positive: ENT inspection nml, Pharynx nml, No signs of dehydration. negative: Purulent nasal drainage Neck: positive: Nml inspection, Thyroid nml, No JVD, Trachea midline. negative: Stiff neck Respiratory: positive: Chest non-tender, No respiratory distress. negative: Wheezes, Rales, Rhonchi Cardiovascular: positive: Regular rate & rhythm, No murmur, No gallop. negative: Irregularly irregular, Extrasystoles, Tachycardia, Bradycardia Peripheral Pulses: 2+ Radial (R), 2+ Radial (L), 2+ Dorsalis pedis (R), 2+ Dorsalis pedis (L) Abdomen: positive: Non-tender, No organomegaly, Nml bowel sounds, No distention. negative: Tenderness, Guarding, Rebound Back: positive: Nml inspection Skin: positive: Color nml, No rash, Warm, Dry. negative: Cyanosis, Diaphoresis, Pallor Extremities: positive: Non-tender. negative: Calf tenderness, Jillian's sign/cords Neurologic/Psychiatric: positive: Sensation nml. negative: Oriented x3, Weakness, Sensory loss, Facial droop, Slurred/abnml speech, Depressed mood/affect - Lab Results Fish Bones: 12/22/19 06:08 12/22/19 06:08 Other Labs: Lab Results x24hrs 12/22/19 12/22/19 12/21/19 Range/Units 06:08 06:08 08:10 WBC 5.9 (4.8-10.8) x10^3/uL RBC 4.51 L (4.70-6.10) 10^6/uL Hgb 13.8 L (14.0-18.0) g/dL Hct 41.2 L (42.0-52.0) % MCV 91.4 (80.0-94.0) fL MCH 30.6 (27.0-31.0) pg MCHC 33.5 (32.0-36.0) g/dL RDW 13.4 (12.0-15.0) % Plt Count 225 (130-450) 10^3/uL MPV 10.4 (7.4-11.4) fL Neut # (Auto) 4.5 (1.5-6.6) 10^3/uL Lymph # (Auto) 0.7 L (1.5-3.5) 10^3/uL [place] # (Auto) 0.6 (0.0-1.0) 10^3/uL Eos # (Auto) 0.1 (0.0-0.7) 10^3/uL Baso # (Auto) 0.0 (0.0-0.1) 10^3/uL Absolute Nucleated RBC 0.00 x10^3/uL Nucleated RBC % 0.0 /100WBC Sodium 137 (135-145) mmol/L Potassium 2.8 L (3.5-5.0) mmol/L Chloride 106 (101-111) mmol/L Carbon Dioxide 23 (21-32) mmol/L Anion Gap 8.0 (6-13) BUN 13 (6-20) mg/dL Creatinine 0.8 (0.6-1.2) mg/dL Estimated GFR (MDRD) 93 (>89) Glucose 154 H (70-100) mg/dL Glycated Hemoglobin 7.8 H (4.6-6.2) % Estim Average Glucose 177 H (70-100) Calcium 8.4 L (8.5-10.3) mg/dL Vitamin B12 (180-914) pg/mL 12/21/19 Range/Units 08:10 WBC (4.8-10.8) x10^3/uL RBC (4.70-6.10) 10^6/uL Hgb (14.0-18.0) g/dL Hct (42.0-52.0) % MCV (80.0-94.0) fL MCH (27.0-31.0) pg MCHC (32.0-36.0) g/dL RDW (12.0-15.0) % Plt Count (130-450) 10^3/uL MPV (7.4-11.4) fL Neut # (Auto) (1.5-6.6) 10^3/uL Lymph # (Auto) (1.5-3.5) 10^3/uL [place] # (Auto) (0.0-1.0) 10^3/uL Eos # (Auto) (0.0-0.7) 10^3/uL Baso # (Auto) (0.0-0.1) 10^3/uL Absolute Nucleated RBC x10^3/uL Nucleated RBC % /100WBC Sodium (135-145) mmol/L Potassium (3.5-5.0) mmol/L Chloride (101-111) mmol/L Carbon Dioxide (21-32) mmol/L Anion Gap (6-13) BUN (6-20) mg/dL Creatinine (0.6-1.2) mg/dL Estimated GFR (MDRD) (>89) Glucose (70-100) mg/dL Glycated Hemoglobin (4.6-6.2) % Estim Average Glucose (70-100) Calcium (8.5-10.3) mg/dL Vitamin B12 1000 H (180-914) pg/mL ABX Reporting Has patient been on IV antibiotics over the past 48 hours?: Yes Assessment/Plan - Problem List (1) Pneumonia due to 2019 novel coronavirus Impression: 12/21 pt has no fever, 93% sats on room air. continue Zithromax and Hydroxychloroquin (2) CAP (community acquired pneumonia) Assessment/Plan: 12/21 WBC is normal 5.9, 93% sats on room air. improved continue Azithyromycin, and Mucinex to prn Tessalon (3) Persistent cognitive impairment Assessment/Plan: 12/21 pt continue to have cognitive impairment, it is likely chronic plus mult iple factors combination of pt's hx of dementia and hx of alcoholic abuse, plus acute respiratory distress Covid 19 infection. pt will need a medical order to cease driving until he can be retested, after this hospitalization. consult with social media sr strategy manager for safely d/c plan, pt may need different living arrangements for care giving after this hospitalization. continue B-1 and PO (4) DM type 2 (diabetes mellitus, type 2) Assessment/Plan: 12/21 pt's A1C is 7.8, pt has no DM medications in his home meds list. we start SSI, pt may need Metformin as d/c meds (5) Diarrhea Assessment/Plan: 12/21 improved. He is C diff neg. continue Imodium prn and probiotics (6) Hypokalemia Assessment/Plan: Likely from losses in diarrhea. Replace with po meds daily, follow BMP daily. (7) HTN (hypertension) Assessment/Plan: 12/21 pt still has elevated BP, pt has Norvasc, add Lisinopril and continue Metoprolol (8) Bradycardia Assessment/Plan: 12/21 resolved. reduce pt's home Metoprolol to 25 daily (9) Elevated troponin Assessment/Plan: 12/21 pt had elevated troponin on 12/17. it was presumed to be from demand ischemia from the fevers and hypoxia. No worsening of SOB, therefore no Echo was ordered to not expose staff to COVID, since his care would not be affected substantially by getting an Echo. pt is hemodynamic stable, he did not complain any chest pain. pt is on Aspirin 325 mg, Metoprolol and Lisinopril. will continue monitor (10) Hx of coronary artery disease Assessment/Plan: 12/21 He remains on his daily ASA. The Metoprolol dose will be continued (11) History of TIAs Assessment/Plan: stable, We have no MRI available til 12/24/19, to do more brain imaging to evaluat e for multi-infarct dementia. (12) BPH (benign prostatic hyperplasia) Assessment/Plan: This is a presumed Dx, since he is on Flomax and , which have been ordered to continue here. (13) Glaucoma Assessment/Plan: On his home eyedrops (14) YING (acute kidney injury) Assessment/Plan: Improved with iv hydration of his dehydrated status at admission. Will stop iv fluids as he is confused and playing with his iv line, and also taking in adequate po fluids. (15) weakness pt present weakness, consulted with PT/OT, will followup for safely d/c
[2019-12-22] MEDS: ACETAMINOPHEN 325 MG TABLET PO PRN (13:29)
[2019-12-22] MEDS: TAMSULOSIN 0.4 MG CAPSULE PO SCH (16:11)
[2019-12-22] MEDS ORDERED: LORazepam 2 MG/ML VIAL IVP STA (19:03)
[2019-12-22] MEDS ORDERED: LORazepam 1 MG TABLET PO ONE (20:00)
[2019-12-22] MEDS: LATANOPROST 0.005% OPHTH DROPS EACHEYE SCH (20:37)
[2019-12-22] MEDS: MIN OIL/DIMETHICON/COCONUT OIL 92 GM TUBE TOP PRN (20:37)
[2019-12-23] MEDS: SODIUM CHLORIDE FLUSH 0.9% 10 ML SYRINGE IVP SCH ×3 (00:06→17:40)
[2019-12-23 05:21] LABS: BASOPHILS % (AUTO) 0.2 %; EOSINOPHILS # (AUTO) 0.1 10^3/uL (0.0-0.7); EOSINOPHILS % (AUTO) 1.5 %; HGB - HEMOGLOBIN 13.5 g/dL (14.0-18.0); LYMPHOCYTES # (AUTO) 0.8 10^3/uL (1.5-3.5); LYMPHOCYTES % (AUTO) 13.5 %; MEAN CORPUSCULAR HGB CONC 33.6 g/dL (32.0-36.0); MEAN CORPUSCULAR VOLUME 92.2 fL (80.0-94.0); MEAN PLATELET VOLUME 10.2 fL (7.4-11.4); MONOCYTES # (AUTO) 0.6 10^3/uL (0.0-1.0); NEUTROPHILS # (AUTO) 4.4 10^3/uL (1.5-6.6); NEUTROPHILS % (AUTO) 73.5 %; PLT - PLATELET COUNT 274 10^3/uL (130-450); RED BLOOD COUNT 4.36 10^6/uL (4.70-6.10); RED CELL DISTRIBUTION WIDTH 13.4 % (12.0-15.0)
[2019-12-23 05:27] LABS: CALCIUM 8.7 mg/dL (8.5-10.3); CREATININE 0.8 mg/dL (0.6-1.2)
[2019-12-23] MEDS: MIN OIL/DIMETHICON/COCONUT OIL 92 GM TUBE TOP PRN (06:30)
[2019-12-23] MEDS ORDERED: POTASSIUM CHLORIDE 20 MEQ TABLET PO SCH (08:05)
[2019-12-23] MEDS: CHOLECALCIFEROL 1,000 UNIT TABLET PO SCH (08:32)
[2019-12-23] MEDS: FAMOTIDINE 20 MG TABLET PO SCH ×2 (08:32→20:33)
[2019-12-23] MEDS: THIAMINE 100 MG TABLET PO SCH (08:32)
[2019-12-23] MEDS: lisinopriL 5 MG TABLET PO SCH (08:32)
[2019-12-23] MEDS: polyethylene glycoL 3350 17 GM PACKET PO SCH (08:32)
[2019-12-23] MEDS: OXYBUTYNIN 5MG TABLET PO SCH ×2 (08:33→20:33)
[2019-12-23] MEDS: HYDROXYCHLOROQUINE 200 MG TABLET PO SCH ×2 (08:33→20:33)
[2019-12-23] MEDS: SACCHAROMYCES BOULARDII 250 MG CAPSULE PO SCH ×2 (08:33→17:40)
[2019-12-23] MEDS: CLOPIDOGREL 75 MG TABLET PO SCH (08:33)
[2019-12-23] MEDS: guaiFENesin 600 MG TABLET PO SCH ×2 (08:33→20:33)
[2019-12-23] MEDS: METOPROLOL SUCCINATE 25 MG TABLET PO SCH (08:33)
[2019-12-23] MEDS: amLODIPine 5 MG TABLET PO SCH (08:33)
[2019-12-23] MEDS: DORZOLAMIDE 2% OPHTH DROPS EACHEYE SCH (08:35)
[2019-12-23] MEDS: timoloL maleate 0.5% OPHTH DROPS (10ML) EACHEYE SCH (08:35)
[2019-12-23] MEDS: NYSTATIN POWDER 15 GM TOP SCH ×2 (08:36→20:38)
[2019-12-23] MEDS: INSULIN ASPART 300 UNIT/3 ML PEN SUBQ SCH ×4 (08:36→20:45)
--- NOTE | 2019-12-23 11:34 | PROVIDER PROGRESS NOTE ---
Subjective - Prog Note Date Prog Note Date: 12/23/19 - Subjective Pt reports feeling: No change Subjective: pt is alert but still confused today. pt's appetite is still poor and ate only a few bit. pt has no fever, chill. he denies pain. pt's daughter hope pt can be d/c to nurse home or SNF first. social studies teacher report for d/c plan, nurse home request Pt's Covid 19 test is negative. Pt's covid 19 test is ordered now. Current Medications - Current Medications Current Medications: Active Medications Acetaminophen (Tylenol) 650 mg PO Q4HR PRN PRN Reason: Pain or Fever > 38C (100.4F) Last Admin: 12/22/19 13:29 Dose: 650 mg Amlodipine Besylate (Norvasc) 10 mg PO DAILY [facility] Last Admin: 12/23/19 08:33 Dose: 10 mg Benzonatate (Tessalon) 100 mg PO TID PRN PRN Reason: Cough Last Admin: 12/21/19 06:19 Dose: 100 mg Cholecalciferol (Vitamin D3) 2,000 unit PO DAILY [facility] Last Admin: 12/23/19 08:32 Dose: 2,000 unit Clopidogrel Bisulfate (Plavix) 75 mg PO DAILY [facility] Last Admin: 12/23/19 08:33 Dose: 75 mg Dorzolamide HCl (Trusopt 2% Ophth Drops) 1 drops EACHEYE DAILY [facility] Last Admin: 12/23/19 08:35 Dose: 1 drops Famotidine (Pepcid) 20 mg PO BID [facility] Last Admin: 12/23/19 08:32 Dose: 20 mg Guaifenesin (Mucinex) 600 mg PO BID [facility] Last Admin: 12/23/19 08:33 Dose: 600 mg Hydralazine HCl (Apresoline Inj) 10 mg IVP Q6H PRN PRN Reason: PER PHYSICIAN ORDER Hydroxychloroquine Sulfate (Plaquenil) 200 mg PO BID [facility] Stop: 12/24/19 09:01 Last Admin: 12/23/19 08:33 Dose: 200 mg Insulin Aspart (Novolog) 1 - 5 unit SUBQ 0800,1200,1700,2100 [facility]; Protocol Last Admin: 12/23/19 08:36 Dose: Not Given Latanoprost (Xalatan Ophth Drops) 1 drops EACHEYE QPM [facility] Last Admin: 03/31/20 20:37 Dose: 1 drops Lisinopril (Zestril) 10 mg PO DAILY [facility] Last Admin: 12/23/19 08:32 Dose: 10 mg Loperamide HCl (Imodium) 2 mg PO QID PRN PRN Reason: Diarrhea Metoprolol Succinate (Toprol Xl) 25 mg PO DAILY [facility] Last Admin: 12/23/19 08:33 Dose: 25 mg Mineral Oil (Cavilon) 1 applic TOP PRN PRN PRN Reason: Skin Care Last Admin: 12/23/19 06:30 Dose: 1 applic Nystatin (Nystop) 1 applic TOP BID [facility] Last Admin: 12/23/19 08:36 Dose: 1 applic Ondansetron HCl (Zofran Inj) 4 mg IVP Q6HR PRN PRN Reason: Nausea / Vomiting Oxybutynin Chloride (Ditropan) 2.5 mg PO BID [facility] Last Admin: 12/23/19 08:33 Dose: 2.5 mg Polyethylene Glycol (Miralax) 17 gm PO DAILY [facility] Last Admin: 12/23/19 08:32 Dose: 17 gm Saccharomyces Boulardii (Florastor) 250 mg PO BIDWM [facility] Last Admin: 12/23/19 08:33 Dose: 250 mg Sodium Chloride (Normal Saline Flush 0.9%) 10 ml IVP PRN PRN PRN Reason: NEEDED PER PROVIDER ORDERS Last Admin: 12/21/19 22:05 Dose: 10 ml Sodium Chloride (Normal Saline Flush 0.9%) 10 ml IVP 0100,0900,1700 [facility] Last Admin: 12/23/19 08:36 Dose: 10 ml Tamsulosin HCl (Flomax) 0.4 mg PO QDDINNER [facility] Last Admin: 12/22/19 16:11 Dose: 0.4 mg Thiamine HCl (Vitamin B-1) 100 mg PO DAILY [facility] Last Admin: 12/23/19 08:32 Dose: 100 mg Timolol Maleate (Timoptic 0.5% Ophth Drops) 1 drops EACHEYE DAILY [facility] Last Admin: 12/23/19 08:35 Dose: 1 drops allopurinoL [Allopurinol] 300 mg PO DAILY 10/12/16 Atorvastatin Calcium 40 mg PO QPM 12/17/19 Cholecalciferol (Vitamin D3) [Vitamin D] 2,000 unit PO DAILY 12/17/19 Clopidogrel [Plavix] 75 mg PO DAILY 12/17/19 Cyanocobalamin (Vitamin B-12) [Vitamin B-12 (1000 mcg sublingual)] 1,000 mcg PO DAILY 12/17/19 Docusate Sodium 300 mg PO DAILY PRN 12/17/19 Dorzolamide HCl 1 drops EACHEYE DAILY 12/17/19 Latanoprost 0.005% Ophth Drops [Xalatan Ophth Drops] 1 drops EACHEYE QPM 12/17/19 Metoprolol Tartrate 50 mg PO BID 12/17/19 Oxybutynin [Ditropan] 2.5 mg PO BID 12/17/19 Pantoprazole [Protonix] 40 mg PO BIDAC 12/17/19 Sildenafil Citrate [Sildenafil] 20 - 100 mg PO DAILY PRN 12/17/19 Tamsulosin [Flomax] 0.4 mg PO QDDINNER 12/17/19 Temazepam 15 mg PO QPM PRN 12/17/19 Timolol 0.5% Ophth Drops [Timoptic 0.5% Ophth Drops] 1 drops EACHEYE DAILY 12/17/19 Objective - Vital Signs/Intake & Output Intake & Output: Intake & Output 12/20/19 12/21/19 12/22/19 12/23/19 23:59 23:59 23:59 23:59 Intake Total 1610 1611 1035 50 Output Total 1200 850 275 Balance 410 761 760 50 - Objective General Appearance: positive: No acute distress, Alert. negative: Lethargic Eyes Bilateral: positive: Normal inspection, PERRL, No lid inflammation ENT: positive: ENT inspection nml, Pharynx nml, No signs of dehydration. ne gative: Purulent nasal drainage Neck: positive: Nml inspection, Thyroid nml, No JVD, Trachea midline. negative: Thyromegaly, Lymphadenopathy (R), Lymphadenopathy (L), Stiff neck, Tracheal deviation Respiratory: positive: Chest non-tender, No respiratory distress. negative: Wheezes, Rales, Rhonchi Cardiovascular: positive: Regular rate & rhythm, No murmur, No gallop. negative: Irregularly irregular, Extrasystoles, Tachycardia, Bradycardia, JVD present, Systolic murmur, Diastolic murmur Peripheral Pulses: 2+ Radial (R), 2+ Radial (L), 2+ Dorsalis pedis (R), 2+ Dorsalis pedis (L) Abdomen: positive: Non-tender, No organomegaly, Nml bowel sounds, No distention. negative: Tenderness, Guarding, Rebound Back: positive: Nml inspection. negative: CVA tenderness (R), CVA tenderness (L) Skin: positive: Color nml, No rash, Warm, Dry. negative: Cyanosis, Diaphoresis, Pallor Extremities: positive: Non-tender, Nml appearance. negative: Calf tenderness, Jillian's sign/cords Neurologic/Psychiatric: negative: Weakness, Sensory loss, Facial droop, Slurred/abnml speech - Lab Results Fish Bones: 12/23/19 04:55 12/23/19 04:55 Other Labs: Lab Results x24hrs 12/23/19 12/23/19 Range/Units 04:55 04:55 WBC 6.0 (4.8-10.8) x10^3/uL RBC 4.36 L (4.70-6.10) 10^6/uL Hgb 13.5 L (14.0-18.0) g/dL Hct 40.2 L (42.0-52.0) % MCV 92.2 (80.0-94.0) fL MCH 31.0 (27.0-31.0) pg MCHC 33.6 (32.0-36.0) g/dL RDW 13.4 (12.0-15.0) % Plt Count 274 (130-450) 10^3/uL MPV 10.2 (7.4-11.4) fL Neut # (Auto) 4.4 (1.5-6.6) 10^3/uL Lymph # (Auto) 0.8 L (1.5-3.5) 10^3/uL [place] # (Auto) 0.6 (0.0-1.0) 10^3/uL Eos # (Auto) 0.1 (0.0-0.7) 10^3/uL Baso # (Auto) 0.0 (0.0-0.1) 10^3/uL Absolute Nucleated RBC 0.00 x10^3/uL Nucleated RBC % 0.0 /100WBC Sodium 138 (135-145) mmol/L Potassium 3.3 L (3.5-5.0) mmol/L Chloride 105 (101-111) mmol/L Carbon Dioxide 25 (21-32) mmol/L Anion Gap 8.0 (6-13) BUN 14 (6-20) mg/dL Creatinine 0.8 (0.6-1.2) mg/dL Estimated GFR (MDRD) 93 (>89) Glucose 136 H (70-100) mg/dL Calcium 8.7 (8.5-10.3) mg/dL ABX Reporting Has patient been on IV antibiotics over the past 48 hours?: No Sepsis Event Note (H) - Evaluation Current Stage of Sepsis: Ruled out Assessment/Plan - Problem List (1) Pneumonia due to 2019 novel coronavirus Impression: 12/22 improved. order Covid 19 test for nurse home's requirement for d/c. pt has three days without fever or elevated temperature, and without SOB. today pt has 97% sats on room air. 12/21 pt has no fever, 93% sats on room air. continue Zithromax and Hydroxychloroquin (2) CAP (community acquired pneumonia) Assessment/Plan: 12/22 improved. Azithyromycin dosage was finished. today pt has 97% sats on room air. 12/21 WBC is normal 5.9, 93% sats on room air. 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 continue B- 1 and PO. pt's daughter hope pt d/c to SNF or nurse home first then move back home. consult with social studies teacher 12/21 pt continue to have cognitive impairment, it is likely chronic plus multiple factors combination of pt's hx of dementia and hx of alcoholic abuse, plus acute respiratory distress Covid 19 infection. pt will need a medical order to cease driving until he can be retested, after this hospitalization. consult with social studies teacher for safely d/c plan, pt may need different living arrangements for care giving after this hospitalization. continue B-1 and PO (4) DM type 2 (diabetes mellitus, type 2) Assessment/Plan: 12/22 controlled glucose level, continue SSI 12/21 pt's A1C is 7.8, pt has no DM medications in his home meds list. we start SSI, pt may need Metformin as d/c meds (5) Diarrhea Assessment/Plan: 12/21 improved. He is C diff neg. continue Imodium prn and probiotics (6) Hypokalemia Assessment/Plan: Likely from losses in diarrhea. Replace with po meds daily, follow BMP daily. (7) HTN (hypertension) Assessment/Plan: 12/21 pt still has elevated BP, pt has Norvasc, add Lisinopril and continue Metoprolol (8) Bradycardia Assessment/Plan: 12/21 resolved. reduce pt's home Metoprolol to 25 daily (9) Elevated troponin Assessment/Plan: 12/21 pt had elevated troponin on 12/17. it was presumed to be from demand ischemia from the fevers and hypoxia. No worsening of SOB, therefore no Echo was ordered to not expose staff to COVID, since his care would not be affected substantially by getting an Echo. pt is hemodynamic stable, he did not complain any chest pain. pt is on Aspirin 325 mg, Metoprolol and Lisinopril. will continue monitor (10) Hx of coronary artery disease Assessment/Plan: 12/21 He remains on his daily ASA. The Metoprolol dose will be continued (11) History of TIAs Assessment/Plan: stable, We have no MRI available til 12/24/19, to do more brain imaging to evaluate for multi-infarct dementia. (12) BPH (benign prostatic hyperplasia) Assessment/Plan: This is a presumed Dx, since he is on Flomax and , which have been ordered to continue here. (13) Glaucoma Assessment/Plan: On his home eyedrops (14) YING (acute kidney injury) Assessment/Plan: Improved with iv hydration of his dehydrated status at admission. Will stop iv fluids as he is confused and playing with his iv line, and also taking in adequate po fluids. (15) weakness 12/22 continue PT/OT, plan to be d/c to SNF/nurse home pt present weakness, consulted with PT/OT, will followup for safely d/c (16)poor appetite 12/22 pt's daughter report pt has hx of poor appetite. pt continue poor appetite inpt, consult with order management specialist, encourage pt eat
[2019-12-23] MEDS: TAMSULOSIN 0.4 MG CAPSULE PO SCH (17:40)
[2019-12-23] MEDS ORDERED: lisinopriL 5 MG TABLET PO ONE (19:00)
[2019-12-23] MEDS: LATANOPROST 0.005% OPHTH DROPS EACHEYE SCH (20:37)
[2019-12-24] MEDS: MIN OIL/DIMETHICON/COCONUT OIL 92 GM TUBE TOP PRN (00:49)
[2019-12-24] MEDS: ACETAMINOPHEN 325 MG TABLET PO PRN ×2 (00:49→17:13)
[2019-12-24] MEDS: SODIUM CHLORIDE FLUSH 0.9% 10 ML SYRINGE IVP SCH ×4 (00:50→23:49)
[2019-12-24 04:51] LABS: BASOPHILS % (AUTO) 0.3 %; EOSINOPHILS # (AUTO) 0.1 10^3/uL (0.0-0.7); EOSINOPHILS % (AUTO) 1.6 %; HGB - HEMOGLOBIN 13.1 g/dL (14.0-18.0); LYMPHOCYTES # (AUTO) 0.9 10^3/uL (1.5-3.5); LYMPHOCYTES % (AUTO) 15.3 %; MEAN CORPUSCULAR HEMOGLOBIN 29.9 pg (27.0-31.0); MEAN CORPUSCULAR HGB CONC 32.2 g/dL (32.0-36.0); MEAN CORPUSCULAR VOLUME 92.9 fL (80.0-94.0); MEAN PLATELET VOLUME 9.9 fL (7.4-11.4); MONOCYTES # (AUTO) 0.6 10^3/uL (0.0-1.0); MONOCYTES % (AUTO) 10.1 %; NEUTROPHILS # (AUTO) 4.1 10^3/uL (1.5-6.6); NEUTROPHILS % (AUTO) 71.1 %; PLT - PLATELET COUNT 283 10^3/uL (130-450); RED BLOOD COUNT 4.38 10^6/uL (4.70-6.10); RED CELL DISTRIBUTION WIDTH 13.7 % (12.0-15.0); WHITE BLOOD COUNT 5.8 x10^3/uL (4.8-10.8)
[2019-12-24 07:00] LABS: CALCIUM 8.7 mg/dL (8.5-10.3); CREATININE 0.9 mg/dL (0.6-1.2)
[2019-12-24] MEDS ORDERED: POTASSIUM CHLORIDE 20 MEQ TABLET PO ONE (08:15)
[2019-12-24] MEDS: INSULIN ASPART 300 UNIT/3 ML PEN SUBQ SCH ×4 (08:48→21:51)
[2019-12-24] MEDS: FAMOTIDINE 20 MG TABLET PO SCH ×2 (08:50→21:49)
[2019-12-24] MEDS: OXYBUTYNIN 5MG TABLET PO SCH ×2 (08:50→21:49)
[2019-12-24] MEDS: THIAMINE 100 MG TABLET PO SCH (08:51)
[2019-12-24] MEDS: lisinopriL 20 MG TABLET PO SCH (08:51)
[2019-12-24] MEDS: METOPROLOL SUCCINATE 25 MG TABLET PO SCH (08:52)
[2019-12-24] MEDS: SACCHAROMYCES BOULARDII 250 MG CAPSULE PO SCH ×2 (08:53→17:14)
[2019-12-24] MEDS: guaiFENesin 600 MG TABLET PO SCH ×2 (08:53→21:49)
[2019-12-24] MEDS: amLODIPine 5 MG TABLET PO SCH (08:53)
[2019-12-24] MEDS: HYDROXYCHLOROQUINE 200 MG TABLET PO SCH (08:54)
[2019-12-24] MEDS: CHOLECALCIFEROL 1,000 UNIT TABLET PO SCH (08:54)
[2019-12-24] MEDS: NYSTATIN POWDER 15 GM TOP SCH ×2 (08:54→21:48)
[2019-12-24] MEDS: timoloL maleate 0.5% OPHTH DROPS (10ML) EACHEYE SCH (08:54)
[2019-12-24] MEDS: DORZOLAMIDE 2% OPHTH DROPS EACHEYE SCH (08:54)
[2019-12-24] MEDS: CLOPIDOGREL 75 MG TABLET PO SCH (08:54)
--- NOTE | 2019-12-24 13:38 | PROVIDER PROGRESS NOTE ---
Assessment/Plan - Problem List (1) Pneumonia due to 2019 novel coronavirus Assessment/Plan: 12/23 clinic he is improved. he has 94% sats and no fever. pt did not present respiratory distress. pt has no fever for 5 days, did not require O2 for 6 days. Unfortunately pt's second RT-PCR test which come back today is still positive. I called the lab chimney construction supervisor about next step for how to clean pt for d/c, she state she will call State to get further information. 12/22 improved. order Covid 19 test for nurse home's requirement for d/c. pt has three days without fever or elevated temperature, and without SOB. today pt has 97% sats on room air. 12/21 pt has no fever, 93% sats on room air. continue Zithromax and Hydroxychloroquin (2) CAP (community acquired pneumonia) Assessment/Plan: 12/23 improved and stable. Azithyromycin dosage was finished. no more antibiotics is needed. WBC is normal and no fever or chill. 12/22 improved. Azithyromycin dosage was finished. today pt has 97% sats on room air. 12/21 WBC is normal 5.9, 93% sats on room air. improved continue Azithyromycin, and Mucinex to prn Tessalon (3) Persistent cognitive impairment Assessment/Plan: 12/23 better and improved today. 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 continue B- 1 and PO. pt's daughter hope pt d/c to SNF or nurse home first then move back home. consult with social services specialist 12/21 pt continue to have cognitive impairment, it is likely chronic plus multiple factors combination of pt's hx of dementia and hx of alcoholic abuse, plus acute respiratory distress Covid 19 infection. pt will need a medical order to cease driving until he can be retested, after this hospitalization. consult with social services specialist for safely d/c plan, pt may need different living arrangements for care giving after this hospitalization. continue B-1 and PO (4) DM type 2 (diabetes mellitus, type 2) Assessment/Plan: 12/22 controlled glucose level, continue SSI 12/21 pt's A1C is 7.8, pt has no DM medications in his home meds list. we start SSI, pt may need Metformin as d/c meds (5) Diarrhea Assessment/Plan: 12/21 improved. He is C diff neg. continue Imodium prn and probiotics (6) Hypokalemia Assessment/Plan: Likely from losses in diarrhea. Replace with po meds daily, follow BMP daily. (7) HTN (hypertension) Assessment/Plan: 12/21 pt still has elevated BP, pt has Norvasc, add Lisinopril and continue Metoprolol (8) Bradycardia Assessment/Plan: 12/21 resolved. reduce pt's home Metoprolol to 25 daily (9) Elevated troponin Assessment/Plan: 12/21 pt had elevated troponin on 12/17. it was presumed to be from demand ischemia from the fevers and hypoxia. No worsening of SOB, therefore no Echo was ordered to not expose staff to COVID, since his care would not be affected subst antially by getting an Echo. pt is hemodynamic stable, he did not complain any chest pain. pt is on Aspirin 325 mg, Metoprolol and Lisinopril. will continue monitor (10) Hx of coronary artery disease Assessment/Plan: 12/21 He remains on his daily ASA. The Metoprolol dose will be continued (11) History of TIAs Assessment/Plan: stable, We have no MRI available til 12/24/19, to do more brain imaging to evaluate for multi-infarct dementia. (12) BPH (benign prostatic hyperplasia) Assessment/Plan: This is a presumed Dx, since he is on Flomax and , which have been ordered to continue here. (13) Glaucoma Assessment/Plan: On his home eyedrops (14) YING (acute kidney injury) Assessment/Plan: Improved with iv hydration of his dehydrated status at admission. Will stop iv fluids as he is confused and playing with his iv line, and also taking in adequate po fluids. (15) weakness /2 improved. continue PT/OT evaluation and treatment 12/22 continue PT/OT, plan to be d/c to SNF/nurse home pt present weakness, consulted with PT/OT, will followup for safely d/c (16)poor appetite 4/2 improved. pt felt hungry and asked food. 12/22 pt's daughter report pt has hx of poor appetite. pt continue poor appetite inpt, consult with senior designer/art director, encourage pt eat - Current Meds Current Meds: Current Medications Generic Name Dose Route Start Last Admin Trade Name Caridad PRN Reason Stop Dose Admin Acetaminophen 650 mg 12/19/19 14:46 12/24/19 00:49 Tylenol PO 650 mg Q4HR PRN Administration Pain or Fever > 38C (100.4F) Amlodipine Besylate 10 mg 12/22/19 09:00 12/24/19 08:53 Norvasc PO 10 mg DAILY AVI Administration Benzonatate 100 mg 12/18/19 21:17 12/21/19 06:19 Tessalon PO 100 mg TID PRN Administration Cough Cholecalciferol 2,000 unit 12/20/19 09:00 12/24/19 08:54 Vitamin D3 PO 2,000 unit DAILY AVI Administration Clopidogrel Bisulfate 75 mg 12/23/19 09:00 12/24/19 08:54 Plavix PO 75 mg DAILY AVI Administration Dorzolamide HCl 1 drops 12/18/19 09:00 12/24/19 08:54 Trusopt 2% Ophth Drops EACHEYE 1 drops DAILY AVI Administration Famotidine 20 mg 12/21/19 21:00 12/24/19 08:50 Pepcid PO 20 mg BID AVI Administration Guaifenesin 600 mg 12/21/19 13:00 12/24/19 08:53 Mucinex PO 600 mg BID AVI Administration Insulin Aspart 1 - 5 unit 12/21/19 17:00 12/24/19 12:13 Novolog SUBQ Not Given 0800,1200,1700,2100 [facility] Protocol Latanoprost 1 drops 12/17/19 21:00 12/23/19 20:37 Xalatan Ophth Drops EACHEYE 1 drops QPM AVI Administration Lisinopril 20 mg 12/24/19 09:00 12/24/19 08:51 Zestril PO 20 mg DAILY AVI Administration Metoprolol Succinate 37.5 mg 12/24/19 09:00 12/24/19 08:52 Toprol Xl PO 37.5 mg DAILY AVI Administration Mineral Oil 1 applic 12/22/19 17:07 12/24/19 00:49 Cavilon TOP 1 applic PRN PRN Administration Skin Care Nystatin 1 applic 12/17/19 17:00 12/24/19 08:54 Nystop TOP 1 applic BID AVI Administration Oxybutynin Chloride 2.5 mg 12/18/19 21:00 12/24/19 08:50 Ditropan PO 2.5 mg BID AVI Administration Polyethylene Glycol 17 gm 12/23/19 09:00 12/23/19 08:32 Miralax PO 17 gm DAILY AVI Administration Saccharomyces Boulardii 250 mg 12/21/19 17:00 12/24/19 08:53 Florastor PO 250 mg BIDWM AVI Administration Sodium Chloride 10 ml 12/17/19 13:33 12/21/19 22:05 Normal Saline Flush 0.9% IVP 10 ml PRN PRN Administration NEEDED PER PROVIDER ORDERS Sodium Chloride 10 ml 12/17/19 17:00 12/24/19 08:55 Normal Saline Flush 0.9% IVP 10 ml 0100,0900,1700 [facility] Administration Tamsulosin HCl 0.4 mg 12/19/19 17:00 12/23/19 17:40 Flomax PO 0.4 mg QDDINNER [facility]I Administration Thiamine HCl 100 mg 12/21/19 13:00 12/24/19 08:51 Vitamin B-1 PO 100 mg DAILY [facility]I Administration Timolol Maleate 1 drops 12/18/19 09:00 12/24/19 08:54 Timoptic 0.5% Ophth Drops EACHEYE 1 drops DAILY AVI Administration - Lab Result Fish Bone Diagrams: 12/24/19 04:30 12/24/19 04:30 - Additional Planning My Orders: My Active Orders 12/24/19 COVID-19 REFERENCE TEST Routine 12/24/19 09:00 Metoprolol Succinate [Toprol Xl] 37.5 mg PO DAILY lisinopriL [Zestril] 20 mg PO DAILY 12/25/19 05:00 BMP - BASIC METABOLIC PANEL [CHEM] DAILYLAB CBC - COMP BLD CT W/AUTO DIFF [HEME] DAILYLAB 12/26/19 05:00 BMP - BASIC METABOLIC PANEL [CHEM] DAILYLAB CBC - COMP BLD CT W/AUTO DIFF [HEME] DAILYLAB 12/27/19 05:00 BMP - BASIC METABOLIC PANEL [CHEM] DAILYLAB CBC - COMP BLD CT W/AUTO DIFF [HEME] DAILYLAB 12/28/19 05:00 BMP - BASIC METABOLIC PANEL [CHEM] DAILYLAB CBC - COMP BLD CT W/AUTO DIFF [HEME] DAILYLAB 12/29/19 05:00 BMP - BASIC METABOLIC PANEL [CHEM] DAILYLAB CBC - COMP BLD CT W/AUTO DIFF [HEME] DAILYLAB Subjective - Subjective Patient Reports: Feeling Better Objective Vital Signs: Vital Signs - 24 hr 12/23/19 12/23/19 12/24/19 14:00 16:33 00:45 Temperature 36.7 C 36.5 C 36.4 C L Heart Rate [ 88 75 85 Brachial] Respiratory 20 20 20 Rate Blood Pressure 158/84 H [Left Brachial artery] Blood Pressure 140/70 H 160/81 H [Right Brachial artery] O2 Saturation 90 L 93 95 12/24/19 12/24/19 09:17 11:27 Temperature 36.5 C Heart Rate [ 79 65 Brachial] Respiratory 20 Rate Blood Pressure [Left Brachial artery] Blood Pressure 166/68 H 151/67 H [Right Brachial artery] O2 Saturation 93 94 Oxygen O2 Source [With Activity] Room air O2 Source [Without Activity] Room air O2 Source Room air Oxygen Flow Rate 3 I&O (Last 24 Hrs): Intake and Output Totals x24h 12/22/19 12/23/19 12/24/19 23:59 23:59 23:59 Intake Total 1035 110 Output Total 275 Balance 760 110 General: Alert, No acute distress HEENT: Atraumatic Neck: Supple Lymphatic: no adenopathy Neuro: Alert, Non Focal Cardiovascular: Regular rate, Normal S1, Normal S2 Respiratory: Chest non-tender, No respiratory distress Abdomen: Normal bowel sounds, Soft Extremities: Normal pulses - Results Results: Laboratory Results WBC 5.8 x10^3/uL (4.8-10.8) 12/24/19 04:30 RBC 4.38 10^6/uL (4.70-6.10) L 12/24/19 04:30 Hgb 13.1 g/dL (14.0-18.0) L 12/24/19 04:30 Hct 40.7 % (42.0-52.0) L 12/24/19 04:30 MCV 92.9 fL (80.0-94.0) 12/24/19 04:30 MCH 29.9 pg (27.0-31.0) 12/24/19 04:30 MCHC 32.2 g/dL (32.0-36.0) 12/24/19 04:30 RDW 13.7 % (12.0-15.0) 12/24/19 04:30 Plt Count 283 10^3/uL (130-450) 12/24/19 04:30 MPV 9.9 fL (7.4-11.4) 12/24/19 04:30 Neut # (Auto) 4.1 10^3/uL (1.5-6.6) 12/24/19 04:30 Lymph # (Auto) 0.9 10^3/uL (1.5-3.5) L 12/24/19 04:30 Morrill # (Auto) 0.6 10^3/uL (0.0-1.0) 12/24/19 04:30 Eos # (Auto) 0.1 10^3/uL (0.0-0.7) 12/24/19 04:30 Baso # (Auto) 0.0 10^3/uL (0.0-0.1) 12/24/19 04:30 Absolute Nucleated RBC 0.00 x10^3/uL 12/24/19 04:30 Total Counted 100 12/21/19 08:10 Band Neuts % (Manual) 2 % (0-10) 12/21/19 08:10 Reactive Lymphs % (Man) 1 % 12/21/19 08:10 Abnorm Lymph % (Manual) 0 % 12/21/19 08:10 Nucleated RBC % 0.0 /100WBC 12/24/19 04:30 Neutrophils # (Manual) 4.5 10^3/uL (1.5-6.6) 12/21/19 08:10 Lymphocytes # (Manual) 0.5 10^3/uL (1.5-3.5) L 12/21/19 08:10 Monocytes # (Manual) 0.6 10^3/uL (0.0-1.0) 12/21/19 08:10 Eosinophils # (Manual) 0.1 10^3/uL (0-0.7) 12/21/19 08:10 Basophils # (Manual) 0.0 10^3/uL (0-0.1) 12/21/19 08:10 Differential Comment MANUAL DIFFERENTIAL 12/21/19 08:10 WBC Morphology NORMAL APPEARANCE (NORMAL) 12/20/19 06:20 Platelet Estimate NORMAL (130-450,000) (NORMAL) 12/20/19 06:20 Platelet Morphology NORMAL APPEARANCE (NORMAL) 12/20/19 06:20 RBC Morph Micro Appear NORMAL APPEARANCE (NORMAL) 12/20/19 06:20 Sodium 138 mmol/L (135-145) 12/24/19 04:30 Potassium 3.4 mmol/L (3.5-5.0) L 12/24/19 04:30 Chloride 104 mmol/L (101-111) 12/24/19 04:30 Carbon Dioxide 26 mmol/L (21-32) 12/24/19 04:30 Anion Gap 8.0 (6-13) 12/24/19 04:30 BUN 18 mg/dL (6-20) 12/24/19 04:30 Creatinine 0.9 mg/dL (0.6-1.2) 12/24/19 04:30 Estimated GFR (MDRD) 81 (>89) L 12/24/19 04:30 Glucose 125 mg/dL (70-100) H 12/24/19 04:30 Glycated Hemoglobin 7.8 % (4.6-6.2) H 12/21/19 08:10 Estim Average Glucose 177 (70-100) H 12/21/19 08:10 Lactic Acid 1.5 mmol/L (0.5-2.2) 12/17/19 12:30 Calcium 8.7 mg/dL (8.5-10.3) 12/24/19 04:30 Total Bilirubin 0.8 mg/dL (0.2-1.0) 12/20/19 06:20 AST 29 IU/L (10-42) 12/20/19 06:20 ALT 17 IU/L (10-60) 12/20/19 06:20 Alkaline Phosphatase 33 IU/L (42-121) L 12/20/19 06:20 Ammonia 31.9 umol/L (7-35) 12/24/19 05:00 Total Creatine Kinase 357 IU/L (22-269) H 12/17/19 12:30 Troponin I High Sens 92.8 ng/L (2.3-19.7) H* 12/18/19 05:15 B-Natriuretic Peptide 53 pg/mL (5-100) 12/17/19 12:30 Total Protein 5.3 g/dL (6.7-8.2) L 12/20/19 06:20 Albumin 2.4 g/dL (3.2-5.5) L 12/20/19 06:20 Globulin 2.9 g/dL (2.1-4.2) 12/20/19 06:20 Albumin/Globulin Ratio 0.8 (1.0-2.2) L 12/20/19 06:20 Lipase 63 U/L (22-51) H 12/17/19 12:30 Vitamin B12 1000 pg/mL (180-914) H 12/21/19 08:10 Urine Color YELLOW 12/17/19 11:57 Urine Clarity CLEAR (CLEAR) 12/17/19 11:57 Urine pH 5.5 PH (5.0-7.5) 12/17/19 11:57 Ur Specific [place] >=1.030 (1.002-1.030) H 12/17/19 11:57 Urine Protein 100 mg/dL (NEGATIVE) H 12/17/19 11:57 Urine Glucose (UA) NEGATIVE mg/dL (NEGATIVE) 12/17/19 11:57 Urine Ketones TRACE mg/dL (NEGATIVE) 12/17/19 11:57 Urine Occult Blood SMALL (NEGATIVE) H 12/17/19 11:57 Urine Nitrite NEGATIVE (NEGATIVE) 12/17/19 11:57 Urine Bilirubin NEGATIVE (NEGATIVE) 12/17/19 11:57 Urine Urobilinogen 0.2 (NORMAL) E.U./dL (NORMAL) 12/17/19 11:57 Ur Leukocyte Esterase NEGATIVE (NEGATIVE) 12/17/19 11:57 Urine RBC 0-5 /HPF (0-5) 12/17/19 11:57 Urine WBC 0-3 /HPF (0-3) 12/17/19 11:57 Ur Squamous Epith Cells NONE SEEN (<= Few) 12/17/19 11:57 Urine Bacteria None Seen /HPF (None Seen) 12/17/19 11:57 Ur Microscopic Review INDICATED 12/17/19 11:57 Urine Culture Comments NOT INDICATED 12/17/19 11:57 Stl C. diff Tox B Gene NEGATIVE (NEGATIVE) 12/19/19 20:40 Ethyl Alcohol < 5.0 mg/dL 12/17/19 12:30 Coronavirus (PCR) POSITIVE 12/23/19 11:48 Influenza A (Rapid) Negative (Negative) 12/17/19 13:30 Influenza B (Rapid) Negative (Negative) 12/17/19 13:30 Sepsis Event Note (H) - Evaluation Current Stage of Sepsis: Ruled out ABX Reporting Has patient been on IV antibiotics over the past 48 hours?: No Current Medications - Current Medications Current Medications: Active Medications Acetaminophen (Tylenol) 650 mg PO Q4HR PRN PRN Reason: Pain or Fever > 38C (100.4F) Last Admin: 12/24/19 00:49 Dose: 650 mg Amlodipine Besylate (Norvasc) 10 mg PO DAILY [facility] Last Admin: 12/24/19 08:53 Dose: 10 mg Benzonatate (Tessalon) 100 mg PO TID PRN PRN Reason: Cough Last Admin: 12/21/19 06:19 Dose: 100 mg Cholecalciferol (Vitamin D3) 2,000 unit PO DAILY [facility] Last Admin: 12/24/19 08:54 Dose: 2,000 unit Clopidogrel Bisulfate (Plavix) 75 mg PO DAILY [facility] Last Admin: 12/24/19 08:54 Dose: 75 mg Dorzolamide HCl (Trusopt 2% Ophth Drops) 1 drops EACHEYE DAILY [facility] Last Admin: 12/24/19 08:54 Dose: 1 drops Famotidine (Pepcid) 20 mg PO BID [facility] Last Admin: 12/24/19 08:50 Dose: 20 mg Guaifenesin (Mucinex) 600 mg PO BID [facility] Last Admin: 12/24/19 08:53 Dose: 600 mg Hydralazine HCl (Apresoline Inj) 10 mg IVP Q6H PRN PRN Reason: PER PHYSICIAN ORDER Insulin Aspart (Novolog) 1 - 5 unit SUBQ 0800,1200,1700,2100 [facility]; Protocol Last Admin: 12/24/19 12:13 Dose: Not Given Latanoprost (Xalatan Ophth Drops) 1 drops EACHEYE QPM [facility] Last Admin: 12/23/19 20:37 Dose: 1 drops Lisinopril (Zestril) 20 mg PO DAILY [facility] Last Admin: 12/24/19 08:51 Dose: 20 mg Loperamide HCl (Imodium) 2 mg PO QID PRN PRN Reason: Diarrhea Metoprolol Succinate (Toprol Xl) 37.5 mg PO DAILY [facility] Last Admin: 12/24/19 08:52 Dose: 37.5 mg Mineral Oil (Cavilon) 1 applic TOP PRN PRN PRN Reason: Skin Care Last Admin: 12/24/19 00:49 Dose: 1 applic Nystatin (Nystop) 1 applic TOP BID [facility] Last Admin: 12/24/19 08:54 Dose: 1 applic Ondansetron HCl (Zofran Inj) 4 mg IVP Q6HR PRN PRN Reason: Nausea / Vomiting Oxybutynin Chloride (Ditropan) 2.5 mg PO BID [facility] Last Admin: 12/24/19 08:50 Dose: 2.5 mg Polyethylene Glycol (Miralax) 17 gm PO DAILY [facility] Last Admin: 12/23/19 08:32 Dose: 17 gm Saccharomyces Boulardii (Florastor) 250 mg PO BIDWM [facility] Last Admin: 12/24/19 08:53 Dose: 250 mg Sodium Chloride (Normal Saline Flush 0.9%) 10 ml IVP PRN PRN PRN Reason: NEEDED PER PROVIDER ORDERS Last Admin: 12/21/19 22:05 Dose: 10 ml Sodium Chloride (Normal Saline Flush 0.9%) 10 ml IVP 0100,0900,1700 [facility] Last Admin: 12/24/19 08:55 Dose: 10 ml Tamsulosin HCl (Flomax) 0.4 mg PO QDDINNER [facility] Last Admin: 12/23/19 17:40 Dose: 0.4 mg Thiamine HCl (Vitamin B-1) 100 mg PO DAILY [facility] Last Admin: 12/24/19 08:51 Dose: 100 mg Timolol Maleate (Timoptic 0.5% Ophth Drops) 1 drops EACHEYE DAILY [facility] Last Admin: 12/24/19 08:54 Dose: 1 drops allopurinoL [Allopurinol] 300 mg PO DAILY 10/12/16 Atorvastatin Calcium 40 mg PO QPM 12/17/19 Cholecalciferol (Vitamin D3) [Vitamin D] 2,000 unit PO DAILY 12/17/19 Clopidogrel [Plavix] 75 mg PO DAILY 12/17/19 Cyanocobalamin (Vitamin B-12) [Vitamin B-12 (1000 mcg sublingual)] 1,000 mcg PO DAILY 12/17/19 Docusate Sodium 300 mg PO DAILY PRN 12/17/19 Dorzolamide HCl 1 drops EACHEYE DAILY 12/17/19 Latanoprost 0.005% Ophth Drops [Xalatan Ophth Drops] 1 drops EACHEYE QPM 12/17/19 Metoprolol Tartrate 50 mg PO BID 12/17/19 Oxybutynin [Ditropan] 2.5 mg PO BID 12/17/19 Pantoprazole [Protonix] 40 mg PO BIDAC 12/17/19 Sildenafil Citrate [Sildenafil] 20 - 100 mg PO DAILY PRN 12/17/19 Tamsulosin [Flomax] 0.4 mg PO QDDINNER 12/17/19 Temazepam 15 mg PO QPM PRN 12/17/19 Timolol 0.5% Ophth Drops [Timoptic 0.5% Ophth Drops] 1 drops EACHEYE DAILY 12/17/19
[2019-12-24] MEDS: polyethylene glycoL 3350 17 GM PACKET PO SCH (14:41)
[2019-12-24] MEDS: TAMSULOSIN 0.4 MG CAPSULE PO SCH (17:14)
[2019-12-24] MEDS ORDERED: HALOPERIDOL 5 MG/ML VIAL IVP ONE (17:52)
[2019-12-24] MEDS ORDERED: LORazepam 2 MG/ML VIAL IVP STA (17:53)
[2019-12-24] MEDS ORDERED: HALOPERIDOL 5 MG/ML VIAL ONE (17:56)
[2019-12-24] MEDS ORDERED: LORazepam 2 MG/ML VIAL ONE (18:01)
[2019-12-24] MEDS: SODIUM CHLORIDE FLUSH 0.9% 10 ML SYRINGE IVP PRN (18:02)
[2019-12-24] MEDS: LATANOPROST 0.005% OPHTH DROPS EACHEYE SCH (21:49)
[2019-12-25 05:00] LABS: BASOPHILS % (AUTO) 0.4 %; EOSINOPHILS # (AUTO) 0.1 10^3/uL (0.0-0.7); EOSINOPHILS % (AUTO) 1.7 %; HGB - HEMOGLOBIN 13.2 g/dL (14.0-18.0); LYMPHOCYTES % (AUTO) 19.6 %; MEAN CORPUSCULAR HEMOGLOBIN 30.6 pg (27.0-31.0); MEAN CORPUSCULAR HGB CONC 32.8 g/dL (32.0-36.0); MEAN CORPUSCULAR VOLUME 93.3 fL (80.0-94.0); MEAN PLATELET VOLUME 10.1 fL (7.4-11.4); MONOCYTES # (AUTO) 0.7 10^3/uL (0.0-1.0); MONOCYTES % (AUTO) 12.5 %; NEUTROPHILS # (AUTO) 3.4 10^3/uL (1.5-6.6); NEUTROPHILS % (AUTO) 64.5 %; PLT - PLATELET COUNT 290 10^3/uL (130-450); RED BLOOD COUNT 4.31 10^6/uL (4.70-6.10); RED CELL DISTRIBUTION WIDTH 13.4 % (12.0-15.0); WHITE BLOOD COUNT 5.3 x10^3/uL (4.8-10.8)
[2019-12-25 05:10] LABS: CALCIUM 8.8 mg/dL (8.5-10.3); CREATININE 0.8 mg/dL (0.6-1.2)
[2019-12-25] MEDS ORDERED: POTASSIUM CHLORIDE 20 MEQ TABLET PO ONE ×2 (07:20→08:00)
[2019-12-25] MEDS ORDERED: POTASSIUM CHLORIDE 20 MEQ/15 ML UDC PO ONE (07:20)
[2019-12-25] MEDS: SACCHAROMYCES BOULARDII 250 MG CAPSULE PO SCH ×2 (08:27→16:52)
[2019-12-25] MEDS: guaiFENesin 600 MG TABLET PO SCH ×2 (08:27→21:11)
[2019-12-25] MEDS: INSULIN ASPART 300 UNIT/3 ML PEN SUBQ SCH ×4 (08:27→21:09)
[2019-12-25] MEDS: CLOPIDOGREL 75 MG TABLET PO SCH (08:27)
[2019-12-25] MEDS: FAMOTIDINE 20 MG TABLET PO SCH ×2 (08:28→21:10)
[2019-12-25] MEDS: lisinopriL 20 MG TABLET PO SCH (08:28)
[2019-12-25] MEDS: amLODIPine 5 MG TABLET PO SCH (08:28)
[2019-12-25] MEDS: CHOLECALCIFEROL 1,000 UNIT TABLET PO SCH (08:28)
[2019-12-25] MEDS: METOPROLOL SUCCINATE 25 MG TABLET PO SCH (08:28)
[2019-12-25] MEDS: THIAMINE 100 MG TABLET PO SCH (08:29)
[2019-12-25] MEDS: timoloL maleate 0.5% OPHTH DROPS (10ML) EACHEYE SCH (08:29)
[2019-12-25] MEDS: OXYBUTYNIN 5MG TABLET PO SCH ×2 (08:29→21:11)
[2019-12-25] MEDS: NYSTATIN POWDER 15 GM TOP SCH ×2 (08:29→21:06)
[2019-12-25] MEDS: DORZOLAMIDE 2% OPHTH DROPS EACHEYE SCH (08:30)
[2019-12-25] MEDS: polyethylene glycoL 3350 17 GM PACKET PO SCH (10:30)
--- NOTE | 2019-12-25 10:50 | PROVIDER PROGRESS NOTE ---
Assessment/Plan - Problem List (1) Pneumonia due to 2019 novel coronavirus Assessment/Plan: 12/24 pt might need another covid 19 after 72 hours from the last positive test to clean. pt had positive covid 19 test on yesterday again. clinically pt is stable, no fever, no SOB, keep 93-94% sat on room air 12/23 clinic he is improved. he has 94% sats and no fever. pt did not present respiratory distress. pt has no fever for 5 days, did not require O2 for 6 days. Unfortunately pt's second RT-PCR test which come back today is still positive. I called the lab supervisor of communications about next step for how to clean pt for d/c, she state she will call State to get further information. 12/22 improved. order Covid 19 test for nurse home's requirement for d/c. pt has three days without fever or elevated temperature, and without SOB. today pt has 97% sats on room air. 12/21 pt has no fever, 93% sats on room air. continue Zithromax and Hydroxychloroquin (2) CAP (community acquired pneumonia) Assessment/Plan: 12/24 stable, no more antibiotics indicated now. 12/23 improved and stable. Azithyromycin dosage was finished. no more antibiotics is needed. WBC is normal and no fever or chill. 12/22 improved. Azithyromycin dosage was finished. today pt has 97% sats on room air. 12/21 WBC is normal 5.9, 93% sats on room air. improved continue Azithyromycin, and Mucinex to prn Tessalon (3) Persistent cognitive impairment Assessment/Plan: 12/24 pt's ammonia level is normal. 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 continue and vitamin B1 12/23 better and improved today. 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 continue B- 1 and PO. pt's daughter hope pt d/c to SNF or nurse home first then move back home. consult with sr. social media & mobile manager 12/21 pt continue to have cognitive impairment, it is likely chronic plus multiple factors combination of pt's hx of dementia and hx of alcoholic abuse, plus acute respiratory distress Covid 19 infection. pt will need a medical order to cease driving until he can be retested, after this hospitalization. consult with sr. social media & mobile manager for safely d/c plan, pt may need different living arrangements for care giving after this hospitalization. continue B-1 and PO (4) DM type 2 (diabetes mellitus, type 2) Assessment/Plan: 12/22 controlled glucose level, continue SSI 12/21 pt's A1C is 7.8, pt has no DM medications in his home meds list. we start SSI, pt may need Metformin as d/c meds (5) Diarrhea Assessment/Plan: 12/21 improved. He is C diff neg. continue Imodium prn and probiotics (6) Hypokalemia Assessment/Plan: Likely from losses in diarrhea. Replace with po meds daily, follow BMP daily. (7) HTN (hypertension) Assessment/Plan: 12/21 pt still has elevated BP, pt has Norvasc, add Lisinopril and continue Metoprolol (8) Bradycardia Assessment/Plan: 12/21 resolved. reduce pt's home Metoprolol to 25 daily (9) Elevated troponin Assessment/Plan: 12/21 pt had elevated troponin on 12/17. it was presumed to be from demand ischemia from the fevers and hypoxia. No worsening of SOB, therefore no Echo was ordered to not expose staff to COVID, since his care would not be affected substantially by getting an Echo. pt is hemodynamic stable, he did not complain any chest pain. pt is on Aspirin 325 mg, Metoprolol and Lisinopril. will continue monitor (10) Hx of coronary artery disease Assessment/Plan: 12/21 He remains on his daily ASA. The Metoprolol dose will be continued (11) History of TIAs Assessment/Plan: stable, We have no MRI available til 12/24/19, to do more brain imaging to evaluate for multi-infarct dementia. (12) BPH (benign prostatic hyperplasia) Assessment/Plan: This is a presumed Dx, since he is on Flomax and , which have been ordered to continue here. (13) Glaucoma Assessment/Plan: On his home eyedrops (14) YING (acute kidney injury) Assessment/Plan: Improved with iv hydration of his dehydrated status at admission. Will stop iv fluids as he is confused and playing with his iv line, and also taking in adequate po fluids. (15) weakness 12/23 improved. continue PT/OT evaluation and treatment 12/22 continue PT/OT, plan to be d/c to SNF/nurse home pt present weakness, consulted with PT/OT, will followup for safely d/c (16)poor appetite / improved. pt ate 50% on his break fast. continue encourage pt eat. it is critical importance for pt to have good nutrition for him to fight with virus lung infection, continue consult with hydraulic oil tool operator. / improved. pt felt hungry and asked food. 12/22 pt's daughter report pt has hx of poor appetite. pt continue poor appetite inpt, consult with hydraulic oil tool operator, encourage pt eat - Current Meds Current Meds: Current Medications Generic Name Dose Route Start Last Admin Trade Name Freq PRN Reason Stop Dose Admin Acetaminophen 650 mg 12/19/19 14:46 12/24/19 17:13 Tylenol PO 650 mg Q4HR PRN Administration Pain or Fever > 38C (100.4F) Amlodipine Besylate 10 mg 12/22/19 09:00 12/25/19 08:28 Norvasc PO 10 mg DAILY AVI Administration Benzonatate 100 mg 12/18/19 21:17 12/21/19 06:19 Tessalon PO 100 mg TID PRN Administration Cough Cholecalciferol 2,000 unit 12/20/19 09:00 12/25/19 08:28 Vitamin D3 PO 2,000 unit DAILY AVI Administration Clopidogrel Bisulfate 75 mg 12/23/19 09:00 12/25/19 08:27 Plavix PO 75 mg DAILY AVI Administration Dorzolamide HCl 1 drops 12/18/19 09:00 12/25/19 08:30 Trusopt 2% Ophth Drops EACHEYE 1 drops DAILY AVI Administration Famotidine 20 mg 12/21/19 21:00 12/25/19 08:28 Pepcid PO 20 mg BID AVI Administration Guaifenesin 600 mg 12/21/19 13:00 12/25/19 08:27 Mucinex PO 600 mg BID AVI Administration Insulin Aspart 1 - 5 unit 12/21/19 17:00 12/25/19 08:27 Novolog SUBQ Not Given 0800,1200,1700,2100 AVI Protocol Latanoprost 1 drops 12/17/19 21:00 12/24/19 21:49 Xalatan Ophth Drops EACHEYE 1 drops QPM AVI Administration Lisinopril 20 mg 12/24/19 09:00 12/25/19 08:28 Zestril PO 20 mg DAILY AVI Administration Metoprolol Succinate 37.5 mg 12/24/19 09:00 12/25/19 08:28 Toprol Xl PO 37.5 mg DAILY AVI Administration Mineral Oil 1 applic 12/22/19 17:07 12/24/19 00:49 Cavilon TOP 1 applic PRN PRN Administration Skin Care Nystatin 1 applic 12/17/19 17:00 12/25/19 08:29 Nystop TOP 1 applic BID AVI Administration Oxybutynin Chloride 2.5 mg 12/18/19 21:00 12/25/19 08:29 Ditropan PO 2.5 mg BID AVI Administration Polyethylene Glycol 17 gm 12/23/19 09:00 12/25/19 10:30 Miralax PO Not Given DAILY AVI Saccharomyces Boulardii 250 mg 12/21/19 17:00 12/25/19 08:27 Florastor PO 250 mg BIDWM AVI Administration Sodium Chloride 10 ml 12/17/19 13:33 12/24/19 18:02 Normal Saline Flush 0.9% IVP 10 ml PRN PRN Administration NEEDED PER PROVIDER ORDERS Sodium Chloride 10 ml 12/17/19 17:00 12/24/19 23:49 Normal Saline Flush 0.9% IVP 10 ml 0100,0900,1700 AVI Administration Tamsulosin HCl 0.4 mg 12/19/19 17:00 12/24/19 17:14 Flomax PO 0.4 mg QDDINNER AVI Administration Thiamine HCl 100 mg 12/21/19 13:00 12/25/19 08:29 Vitamin B-1 PO 100 mg DAILY AVI Administration Timolol Maleate 1 drops 12/18/19 09:00 12/25/19 08:29 Timoptic 0.5% Ophth Drops EACHEYE 1 drops DAILY AVI Administration - Lab Result Fish Bone Diagrams: 12/25/19 04:45 12/25/19 04:45 - Additional Planning My Orders: My Active Orders 12/26/19 05:00 BMP - BASIC METABOLIC PANEL [CHEM] DAILYLAB CBC - COMP BLD CT W/AUTO DIFF [HEME] DAILYLAB 12/27/19 05:00 BMP - BASIC METABOLIC PANEL [CHEM] DAILYLAB CBC - COMP BLD CT W/AUTO DIFF [HEME] DAILYLAB 12/28/19 05:00 BMP - BASIC METABOLIC PANEL [CHEM] DAILYLAB CBC - COMP BLD CT W/AUTO DIFF [HEME] DAILYLAB 12/29/19 05:00 BMP - BASIC METABOLIC PANEL [CHEM] DAILYLAB CBC - COMP BLD CT W/AUTO DIFF [HEME] DAILYLAB Subjective - Subjective Patient Reports: Feeling Better Objective Vital Signs: Vital Signs - 24 hr 12/24/19 12/24/19 12/24/19 11:27 17:23 21:40 Temperature 36.7 C Heart Rate [ 65 72 65 Brachial] Respiratory 24 Rate Blood Pressure 151/67 H 144/79 H 162/79 H [Right Brachial artery] O2 Saturation 94 93 12/24/19 12/25/19 12/25/19 23:43 05:20 08:30 Temperature 36.7 C 36.4 C L 36.6 C Heart Rate [ 64 73 78 Brachial] Respiratory 18 18 20 Rate Blood Pressure 162/70 H 159/84 H 162/81 H [Right Brachial artery] O2 Saturation 93 94 93 Oxygen O2 Source [With Activity] Room air O2 Source [Without Activity] Room air O2 Source Room air Oxygen Flow Rate 3 I&O (Last 24 Hrs): Intake and Output Totals x24h 12/23/19 12/24/19 12/25/19 23:59 23:59 23:59 Intake Total 110 230 Output Total 350 275 Balance 110 -120 -275 General: Alert, No acute distress HEENT: Atraumatic Neck: Supple Lymphatic: no adenopathy Neuro: Alert, Non Focal Cardiovascular: Regular rate, Normal S1, Normal S2 Respiratory: Chest non-tender, No respiratory distress, Breath sounds nml Abdomen: Normal bowel sounds, Soft Extremities: Normal pulses - Results Results: Laboratory Results WBC 5.3 x10^3/uL (4.8-10.8) 12/25/19 04:45 RBC 4.31 10^6/uL (4.70-6.10) L 12/25/19 04:45 Hgb 13.2 g/dL (14.0-18.0) L 12/25/19 04:45 Hct 40.2 % (42.0-52.0) L 12/25/19 04:45 MCV 93.3 fL (80.0-94.0) 12/25/19 04:45 MCH 30.6 pg (27.0-31.0) 12/25/19 04:45 MCHC 32.8 g/dL (32.0-36.0) 12/25/19 04:45 RDW 13.4 % (12.0-15.0) 12/25/19 04:45 Plt Count 290 10^3/uL (130-450) 12/25/19 04:45 MPV 10.1 fL (7.4-11.4) 12/25/19 04:45 Neut # (Auto) 3.4 10^3/uL (1.5-6.6) 12/25/19 04:45 Lymph # (Auto) 1.0 10^3/uL (1.5-3.5) L 12/25/19 04:45 Murray # (Auto) 0.7 10^3/uL (0.0-1.0) 12/25/19 04:45 Eos # (Auto) 0.1 10^3/uL (0.0-0.7) 12/25/19 04:45 Baso # (Auto) 0.0 10^3/uL (0.0-0.1) 12/25/19 04:45 Absolute Nucleated RBC 0.00 x10^3/uL 12/25/19 04:45 Total Counted 100 12/21/19 08:10 Band Neuts % (Manual) 2 % (0-10) 12/21/19 08:10 Reactive Lymphs % (Man) 1 % 12/21/19 08:10 Abnorm Lymph % (Manual) 0 % 12/21/19 08:10 Nucleated RBC % 0.0 /100WBC 12/25/19 04:45 Neutrophils # (Manual) 4.5 10^3/uL (1.5-6.6) 12/21/19 08:10 Lymphocytes # (Manual) 0.5 10^3/uL (1.5-3.5) L 12/21/19 08:10 Monocytes # (Manual) 0.6 10^3/uL (0.0-1.0) 12/21/19 08:10 Eosinophils # (Manual) 0.1 10^3/uL (0-0.7) 12/21/19 08:10 Basophils # (Manual) 0.0 10^3/uL (0-0.1) 12/21/19 08:10 Differential Comment MANUAL DIFFERENTIAL 12/21/19 08:10 WBC Morphology NORMAL APPEARANCE (NORMAL) 12/20/19 06:20 Platelet Estimate NORMAL (130-450,000) (NORMAL) 12/20/19 06:20 Platelet Morphology NORMAL APPEARANCE (NORMAL) 12/20/19 06:20 RBC Morph Micro Appear NORMAL APPEARANCE (NORMAL) 12/20/19 06:20 Sodium 137 mmol/L (135-145) 12/25/19 04:45 Potassium 3.4 mmol/L (3.5-5.0) L 12/25/19 04:45 Chloride 103 mmol/L (101-111) 12/25/19 04:45 Carbon Dioxide 26 mmol/L (21-32) 12/25/19 04:45 Anion Gap 8.0 (6-13) 12/25/19 04:45 BUN 19 mg/dL (6-20) 12/25/19 04:45 Creatinine 0.8 mg/dL (0.6-1.2) 12/25/19 04:45 Estimated GFR (MDRD) 93 (>89) 12/25/19 04:45 Glucose 118 mg/dL (70-100) H 12/25/19 04:45 Glycated Hemoglobin 7.8 % (4.6-6.2) H 12/21/19 08:10 Estim Average Glucose 177 (70-100) H 12/21/19 08:10 Lactic Acid 1.5 mmol/L (0.5-2.2) 12/17/19 12:30 Calcium 8.8 mg/dL (8.5-10.3) 12/25/19 04:45 Total Bilirubin 0.8 mg/dL (0.2-1.0) 12/20/19 06:20 AST 29 IU/L (10-42) 12/20/19 06:20 ALT 17 IU/L (10-60) 12/20/19 06:20 Alkaline Phosphatase 33 IU/L (42-121) L 12/20/19 06:20 Ammonia 31.9 umol/L (7-35) 12/24/19 05:00 Total Creatine Kinase 357 IU/L (22-269) H 12/17/19 12:30 Troponin I High Sens 92.8 ng/L (2.3-19.7) H* 12/18/19 05:15 B-Natriuretic Peptide 53 pg/mL (5-100) 12/17/19 12:30 Total Protein 5.3 g/dL (6.7-8.2) L 12/20/19 06:20 Albumin 2.4 g/dL (3.2-5.5) L 12/20/19 06:20 Globulin 2.9 g/dL (2.1-4.2) 12/20/19 06:20 Albumin/Globulin Ratio 0.8 (1.0-2.2) L 12/20/19 06:20 Lipase 63 U/L (22-51) H 12/17/19 12:30 Vitamin B12 1000 pg/mL (180-914) H 12/21/19 08:10 Urine Color YELLOW 12/17/19 11:57 Urine Clarity CLEAR (CLEAR) 12/17/19 11:57 Urine pH 5.5 PH (5.0-7.5) 12/17/19 11:57 Ur Specific Purdin >=1.030 (1.002-1.030) H 12/17/19 11:57 Urine Protein 100 mg/dL (NEGATIVE) H 12/17/19 11:57 Urine Glucose (UA) NEGATIVE mg/dL (NEGATIVE) 12/17/19 11:57 Urine Ketones TRACE mg/dL (NEGATIVE) 12/17/19 11:57 Urine Occult Blood SMALL (NEGATIVE) H 12/17/19 11:57 Urine Nitrite NEGATIVE (NEGATIVE) 12/17/19 11:57 Urine Bilirubin NEGATIVE (NEGATIVE) 12/17/19 11:57 Urine Urobilinogen 0.2 (NORMAL) E.U./dL (NORMAL) 12/17/19 11:57 Ur Leukocyte Esterase NEGATIVE (NEGATIVE) 12/17/19 11:57 Urine RBC 0-5 /HPF (0-5) 12/17/19 11:57 Urine WBC 0-3 /HPF (0-3) 12/17/19 11:57 Ur Squamous Epith Cells NONE SEEN (<= Few) 12/17/19 11:57 Urine Bacteria None Seen /HPF (None Seen) 12/17/19 11:57 Ur Microscopic Review INDICATED 12/17/19 11:57 Urine Culture Comments NOT INDICATED 12/17/19 11:57 Stl C. diff Tox B Gene NEGATIVE (NEGATIVE) 12/19/19 20:40 Ethyl Alcohol < 5.0 mg/dL 12/17/19 12:30 Coronavirus (PCR) POSITIVE 12/23/19 11:48 Influenza A (Rapid) Negative (Negative) 12/17/19 13:30 Influenza B (Rapid) Negative (Negative) 12/17/19 13:30 Sepsis Event Note (H) - Evaluation Current Stage of Sepsis: Ruled out ABX Reporting Has patient been on IV antibiotics over the past 48 hours?: No Current Medications - Current Medications Current Medications: Active Medications Acetaminophen (Tylenol) 650 mg PO Q4HR PRN PRN Reason: Pain or Fever > 38C (100.4F) Last Admin: 12/24/19 17:13 Dose: 650 mg Amlodipine Besylate (Norvasc) 10 mg PO DAILY [facility] Last Admin: 12/25/19 08:28 Dose: 10 mg Benzonatate (Tessalon) 100 mg PO TID PRN PRN Reason: Cough Last Admin: 12/21/19 06:19 Dose: 100 mg Cholecalciferol (Vitamin D3) 2,000 unit PO DAILY [facility] Last Admin: 12/25/19 08:28 Dose: 2,000 unit Clopidogrel Bisulfate (Plavix) 75 mg PO DAILY [facility] Last Admin: 12/25/19 08:27 Dose: 75 mg Dorzolamide HCl (Trusopt 2% Ophth Drops) 1 drops EACHEYE DAILY [facility] Last Admin: 12/25/19 08:30 Dose: 1 drops Famotidine (Pepcid) 20 mg PO BID [facility] Last Admin: 12/25/19 08:28 Dose: 20 mg Guaifenesin (Mucinex) 600 mg PO BID [facility] Last Admin: 12/25/19 08:27 Dose: 600 mg Hydralazine HCl (Apresoline Inj) 10 mg IVP Q6H PRN PRN Reason: PER PHYSICIAN ORDER Insulin Aspart (Novolog) 1 - 5 unit SUBQ 0800,1200,1700,2100 [facility]; Protocol Last Admin: 12/25/19 08:27 Dose: Not Given Latanoprost (Xalatan Ophth Drops) 1 drops EACHEYE QPM [facility] Last Admin: 12/24/19 21:49 Dose: 1 drops Lisinopril (Zestril) 20 mg PO DAILY [facility] Last Admin: 12/25/19 08:28 Dose: 20 mg Loperamide HCl (Imodium) 2 mg PO QID PRN PRN Reason: Diarrhea Metoprolol Succinate (Toprol Xl) 37.5 mg PO DAILY [facility] Last Admin: 12/25/19 08:28 Dose: 37.5 mg Mineral Oil (Cavilon) 1 applic TOP PRN PRN PRN Reason: Skin Care Last Admin: 12/24/19 00:49 Dose: 1 applic Nystatin (Nystop) 1 applic TOP BID [facility] Last Admin: 12/25/19 08:29 Dose: 1 applic Ondansetron HCl (Zofran Inj) 4 mg IVP Q6HR PRN PRN Reason: Nausea / Vomiting Oxybutynin Chloride (Ditropan) 2.5 mg PO BID [facility] Last Admin: 12/25/19 08:29 Dose: 2.5 mg Polyethylene Glycol (Miralax) 17 gm PO DAILY [facility] Last Admin: 12/25/19 10:30 Dose: Not Given Saccharomyces Boulardii (Florastor) 250 mg PO BIDWM [facility] Last Admin: 12/25/19 08:27 Dose: 250 mg Sodium Chloride (Normal Saline Flush 0.9%) 10 ml IVP PRN PRN PRN Reason: NEEDED PER PROVIDER ORDERS Last Admin: 12/24/19 18:02 Dose: 10 ml Sodium Chloride (Normal Saline Flush 0.9%) 10 ml IVP 0100,0900,1700 [facility] Last Admin: 12/24/19 23:49 Dose: 10 ml Tamsulosin HCl (Flomax) 0.4 mg PO QDDINNER [facility] Last Admin: 12/24/19 17:14 Dose: 0.4 mg Thiamine HCl (Vitamin B-1) 100 mg PO DAILY [facility] Last Admin: 12/25/19 08:29 Dose: 100 mg Timolol Maleate (Timoptic 0.5% Ophth Drops) 1 drops EACHEYE DAILY [facility] Last Admin: 12/25/19 08:29 Dose: 1 drops allopurinoL [Allopurinol] 300 mg PO DAILY 10/12/16 Atorvastatin Calcium 40 mg PO QPM 12/17/19 Cholecalciferol (Vitamin D3) [Vitamin D] 2,000 unit PO DAILY 12/17/19 Clopidogrel [Plavix] 75 mg PO DAILY 12/17/19 Cyanocobalamin (Vitamin B-12) [Vitamin B-12 (1000 mcg sublingual)] 1,000 mcg PO DAILY 12/17/19 Docusate Sodium 300 mg PO DAILY PRN 12/17/19 Dorzolamide HCl 1 drops EACHEYE DAILY 12/17/19 Latanoprost 0.005% Ophth Drops [Xalatan Ophth Drops] 1 drops EACHEYE QPM 12/17/19 Metoprolol Tartrate 50 mg PO BID 12/17/19 Oxybutynin [Ditropan] 2.5 mg PO BID 12/17/19 Pantoprazole [Protonix] 40 mg PO BIDAC 12/17/19 Sildenafil Citrate [Sildenafil] 20 - 100 mg PO DAILY PRN 12/17/19 Tamsulosin [Flomax] 0.4 mg PO QDDINNER 12/17/19 Temazepam 15 mg PO QPM PRN 12/17/19 Timolol 0.5% Ophth Drops [Timoptic 0.5% Ophth Drops] 1 drops EACHEYE DAILY 12/16
[2019-12-25] MEDS: SODIUM CHLORIDE FLUSH 0.9% 10 ML SYRINGE IVP SCH ×3 (13:22→23:51)
[2019-12-25] MEDS: TAMSULOSIN 0.4 MG CAPSULE PO SCH (16:52)
[2019-12-25] MEDS: LATANOPROST 0.005% OPHTH DROPS EACHEYE SCH (21:11)
[2019-12-25] MEDS: BENZONATATE 100 MG CAPSULE PO PRN (21:11)
[2019-12-26 06:28] LABS: BASOPHILS % (AUTO) 0.4 %; EOSINOPHILS # (AUTO) 0.1 10^3/uL (0.0-0.7); EOSINOPHILS % (AUTO) 1.8 %; HGB - HEMOGLOBIN 13.6 g/dL (14.0-18.0); LYMPHOCYTES # (AUTO) 1.3 10^3/uL (1.5-3.5); LYMPHOCYTES % (AUTO) 24.7 %; MEAN CORPUSCULAR HGB CONC 32.3 g/dL (32.0-36.0); MEAN CORPUSCULAR VOLUME 92.9 fL (80.0-94.0); MEAN PLATELET VOLUME 9.9 fL (7.4-11.4); MONOCYTES # (AUTO) 0.6 10^3/uL (0.0-1.0); MONOCYTES % (AUTO) 12.1 %; NEUTROPHILS % (AUTO) 59.8 %; PLT - PLATELET COUNT 284 10^3/uL (130-450); RED BLOOD COUNT 4.53 10^6/uL (4.70-6.10); RED CELL DISTRIBUTION WIDTH 13.8 % (12.0-15.0); WHITE BLOOD COUNT 5.1 x10^3/uL (4.8-10.8)
[2019-12-26 06:36] LABS: CALCIUM 9.2 mg/dL (8.5-10.3); CREATININE 0.9 mg/dL (0.6-1.2)
--- NOTE | 2019-12-26 08:34 | XRAY Report ---
Reason: SOB Procedure Date: 12/26/2019 Accession Number: [id number] / [id number] Procedure: XR - Chest 1 View X-Ray CPT Code: 92377 Final Report FULL RESULT: EXAM: CHEST RADIOGRAPHY EXAM DATE: 12/26/2019 08:15 AM. CLINICAL HISTORY: SOB. COMPARISON: CHEST 1 VIEW 12/17/2019 11:45 AM. TECHNIQUE: 1 view. FINDINGS: Lungs/Pleura: Increasing bilateral multifocal patchy airspace disease. There is now also involvement of the right lung. No definite pleural effusion. Linear density along the bilateral diaphragms suggest pleural plaques. No visible pneumothorax. Mediastinum: Stable mild cardiomegaly. Atherosclerotic calcifications of aortic arch. Aorta is mildly tortuous. Other: None. IMPRESSION: 1. Worsening bilateral multifocal airspace disease. This can be seen with multifocal infection. 2. Pleural plaques. 3. Stable cardiomegaly. RADIA
[2019-12-26] MEDS: polyethylene glycoL 3350 17 GM PACKET PO SCH (09:56)
[2019-12-26] MEDS: lisinopriL 20 MG TABLET PO SCH (09:57)
[2019-12-26] MEDS: PRENATAL VITAMIN TABLET PO SCH (09:58)
[2019-12-26] MEDS: amLODIPine 5 MG TABLET PO SCH (09:58)
[2019-12-26] MEDS: THIAMINE 100 MG TABLET PO SCH (09:58)
[2019-12-26] MEDS: CHOLECALCIFEROL 1,000 UNIT TABLET PO SCH (09:58)
[2019-12-26] MEDS: SACCHAROMYCES BOULARDII 250 MG CAPSULE PO SCH ×2 (09:59→16:49)
[2019-12-26] MEDS: DOCUSATE SODIUM 250 MG CAPSULE PO SCH (09:59)
[2019-12-26] MEDS: METOPROLOL SUCCINATE 25 MG TABLET PO SCH (09:59)
[2019-12-26] MEDS: CLOPIDOGREL 75 MG TABLET PO SCH (09:59)
[2019-12-26] MEDS: guaiFENesin 600 MG TABLET PO SCH ×2 (09:59→21:30)
[2019-12-26] MEDS: FAMOTIDINE 20 MG TABLET PO SCH ×2 (10:01→21:30)
[2019-12-26] MEDS: SENNA 8.6 MG TABLET PO SCH (10:01)
[2019-12-26] MEDS: OXYBUTYNIN 5MG TABLET PO SCH ×2 (10:01→21:30)
[2019-12-26] MEDS: DORZOLAMIDE 2% OPHTH DROPS EACHEYE SCH (10:03)
[2019-12-26] MEDS: INSULIN ASPART 300 UNIT/3 ML PEN SUBQ SCH ×4 (10:03→21:34)
[2019-12-26] MEDS: timoloL maleate 0.5% OPHTH DROPS (10ML) EACHEYE SCH (10:04)
[2019-12-26] MEDS: NYSTATIN POWDER 15 GM TOP SCH ×2 (10:04→21:33)
[2019-12-26] MEDS: SODIUM CHLORIDE FLUSH 0.9% 10 ML SYRINGE IVP SCH ×2 (10:09→16:53)
[2019-12-26] MEDS: TAMSULOSIN 0.4 MG CAPSULE PO SCH (16:49)
[2019-12-26] MEDS: LATANOPROST 0.005% OPHTH DROPS EACHEYE SCH (21:32)
[2019-12-27] MEDS: SODIUM CHLORIDE FLUSH 0.9% 10 ML SYRINGE IVP SCH ×3 (00:11→17:33)
[2019-12-27 06:18] LABS: BASOPHILS % (AUTO) 0.5 %; EOSINOPHILS # (AUTO) 0.1 10^3/uL (0.0-0.7); EOSINOPHILS % (AUTO) 1.1 %; HGB - HEMOGLOBIN 13.7 g/dL (14.0-18.0); LYMPHOCYTES # (AUTO) 1.4 10^3/uL (1.5-3.5); LYMPHOCYTES % (AUTO) 22.5 %; MEAN CORPUSCULAR HEMOGLOBIN 30.5 pg (27.0-31.0); MEAN CORPUSCULAR HGB CONC 32.5 g/dL (32.0-36.0); MEAN CORPUSCULAR VOLUME 93.8 fL (80.0-94.0); MEAN PLATELET VOLUME 10.2 fL (7.4-11.4); MONOCYTES # (AUTO) 0.8 10^3/uL (0.0-1.0); MONOCYTES % (AUTO) 12.3 %; NEUTROPHILS # (AUTO) 3.8 10^3/uL (1.5-6.6); NEUTROPHILS % (AUTO) 62.6 %; PLT - PLATELET COUNT 291 10^3/uL (130-450); RED BLOOD COUNT 4.49 10^6/uL (4.70-6.10); RED CELL DISTRIBUTION WIDTH 13.7 % (12.0-15.0); WHITE BLOOD COUNT 6.1 x10^3/uL (4.8-10.8)
[2019-12-27 06:37] LABS: BUN - BLOOD UREA NITROGEN 20 mg/dL (6-20); CALCIUM 9.1 mg/dL (8.5-10.3); CARBON DIOXIDE - CO2 28 mmol/L (21-32); CHLORIDE 100 mmol/L (101-111); CREATININE 0.9 mg/dL (0.6-1.2); GLUCOSE 147 mg/dL (70-100); SODIUM 137 mmol/L (135-145)
[2019-12-27 06:39] LABS: CRP - C-REACTIVE PROTEIN < 1.0 mg/dL (0-1.0)
[2019-12-27] MEDS: INSULIN ASPART 300 UNIT/3 ML PEN SUBQ SCH ×4 (07:48→20:24)
[2019-12-27] MEDS: polyethylene glycoL 3350 17 GM PACKET PO SCH (08:24)
[2019-12-27] MEDS: SENNA 8.6 MG TABLET PO SCH (08:24)
[2019-12-27] MEDS: CHOLECALCIFEROL 1,000 UNIT TABLET PO SCH (08:24)
[2019-12-27] MEDS: OXYBUTYNIN 5MG TABLET PO SCH ×2 (08:25→20:27)
[2019-12-27] MEDS: METOPROLOL SUCCINATE 25 MG TABLET PO SCH (08:25)
[2019-12-27] MEDS: DOCUSATE SODIUM 250 MG CAPSULE PO SCH (08:26)
[2019-12-27] MEDS: CLOPIDOGREL 75 MG TABLET PO SCH (08:26)
[2019-12-27] MEDS: guaiFENesin 600 MG TABLET PO SCH ×2 (08:26→20:25)
[2019-12-27] MEDS: FAMOTIDINE 20 MG TABLET PO SCH ×2 (08:27→20:24)
[2019-12-27] MEDS: lisinopriL 20 MG TABLET PO SCH (08:27)
[2019-12-27] MEDS: THIAMINE 100 MG TABLET PO SCH (08:28)
[2019-12-27] MEDS: PRENATAL VITAMIN TABLET PO SCH (08:28)
[2019-12-27] MEDS: amLODIPine 5 MG TABLET PO SCH (08:28)
[2019-12-27] MEDS: SACCHAROMYCES BOULARDII 250 MG CAPSULE PO SCH ×2 (08:28→17:32)
[2019-12-27] MEDS: NYSTATIN POWDER 15 GM TOP SCH ×2 (08:33→20:24)
[2019-12-27] MEDS: DORZOLAMIDE 2% OPHTH DROPS EACHEYE SCH (08:34)
[2019-12-27] MEDS: timoloL maleate 0.5% OPHTH DROPS (10ML) EACHEYE SCH (08:34)
--- NOTE | 2019-12-27 15:59 | PROVIDER PROGRESS NOTE ---
Assessment/Plan - Problem List (1) Pneumonia due to 2019 novel coronavirus Assessment/Plan: 12/26 pt is stable clinically, 94% on room air. PT report pt walk about 25 feet with 90% on room air. order new Cobid test, since pt's d/c need test result. pt finished full dosage of hydroxycholquin and Azithromycin before. / pt might need another covid 19 after 72 hours from the last positive test to clean. pt had positive covid 19 test on yesterday again. clinically pt is stable, no fever, no SOB, keep 93-94% sat on room air 12/23 clinic he is improved. he has 94% sats and no fever. pt did not present re spiratory distress. pt has no fever for 5 days, did not require O2 for 6 days. Unfortunately pt's second RT-PCR test which come back today is still positive. I called the lab fabrication department supervisor about next step for how to clean pt for d/c, she state she will call State to get further information. 12/22 improved. order Covid 19 test for nurse home's requirement for d/c. pt has three days without fever or elevated temperature, and without SOB. today pt has 97% sats on room air. 12/21 pt has no fever, 93% sats on room air. continue Zithromax and Hydroxychloroquin (2) CAP (community acquired pneumonia) Assessment/Plan: 12/26 stable 12/24 stable, no more antibiotics indicated now. 12/23 improved and stable. Azithyromycin dosage was finished. no more antibiotics is needed. WBC is normal and no fever or chill. 12/22 improved. Azithyromycin dosage was finished. today pt has 97% sats on room air. 12/21 WBC is normal 5.9, 93% sats on room air. improved continue Azithyromycin, and Mucinex to prn Tessalon (3) Persistent cognitive impairment Assessment/Plan: 12/24 pt's ammonia level is normal. 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 continue and vitamin B1 12/23 better and improved today. 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 continue B- 1 and PO. pt's daughter hope pt d/c to SNF or nurse home first then move back home. consult with manager social responsibility 12/21 pt continue to have cognitive impairment, it is likely chronic plus multiple factors combination of pt's hx of dementia and hx of alcoholic abuse, plus acute respiratory distress Covid 19 infection. pt will need a medical order to cease driving until he can be retested, after this hospitalization. consult with manager social responsibility for safely d/c plan, pt may need different living arrangements for care giving after this hospitalization. continue B-1 and PO (4) DM type 2 (diabetes mellitus, type 2) Assessment/Plan: 12/22 controlled glucose level, continue SSI 12/21 pt's A1C is 7.8, pt has no DM medications in his home meds list. we start SSI, pt may need Metformin as d/c meds (5) Diarrhea Assessment/Plan: 12/21 improved. He is C diff neg. continue Imodium prn and probiotics (6) Hypokalemia Assessment/Plan: Likely from losses in diarrhea. Replace with po meds daily, follow BMP daily. (7) HTN (hypertension) Assessment/Plan: 12/21 pt still has elevated BP, pt has Norvasc, add Lisinopril and continue Metoprolol (8) Bradycardia Assessment/Plan: 12/21 resolved. reduce pt's home Metoprolol to 25 daily (9) Elevated troponin Assessment/Plan: 12/21 pt had elevated troponin on 12/17. it was presumed to be from demand ischemia from the fevers and hypoxia. No worsening of SOB, therefore no Echo was ordered to not expose staff to COVID, since his care would not be affected substantially by getting an Echo. pt is hemodynamic stable, he did not complain any chest pain. pt is on Aspirin 325 mg, Metoprolol and Lisinopril. will continue monitor (10) Hx of coronary artery disease Assessment/Plan: 12/21 He remains on his daily ASA. The Metoprolol dose will be continued (11) History of TIAs Assessment/Plan: stable, We have no MRI available til 12/24/19, to do more brain imaging to evaluate for multi-infarct dementia. (12) BPH (benign prostatic hyperplasia) Assessment/Plan: This is a presumed Dx, since he is on Flomax and , which have been ordered to continue here. (13) Glaucoma Assessment/Plan: On his home eyedrops (14) YING (acute kidney injury) Assessment/Plan: Improved with iv hydration of his dehydrated status at admission. Will stop iv fluids as he is confused and playing with his iv line, and also taking in adequate po fluids. (15) weakness /2 improved. continue PT/OT evaluation and treatment 12/22 continue PT/OT, plan to be d/c to SNF/nurse home pt present weakness, consulted with PT/OT, will followup for safely d/c (16)poor appetite /5 improved. /3 improved. pt ate 50% on his break fast. continue encourage pt eat. it is critical importance for pt to have good nutrition for him to fight with virus lung infection, continue consult with forestry farm laborer. 4/2 improved. pt felt hungry and asked food. 12/22 pt's daughter report pt has hx of poor appetite. pt continue poor appetite inpt, consult with forestry farm laborer, encourage pt eat - Current Meds Current Meds: Current Medications Generic Name Dose Route Start Last Admin Trade Name Freq PRN Reason Stop Dose Admin Acetaminophen 650 mg 12/19/19 14:46 12/24/19 17:13 Tylenol PO 650 mg Q4HR PRN Administration Pain or Fever > 38C (100.4F) Amlodipine Besylate 10 mg 12/22/19 09:00 12/27/19 08:28 Norvasc PO 10 mg DAILY AVI Administration Benzonatate 100 mg 12/18/19 21:17 12/25/19 21:11 Tessalon PO 100 mg TID PRN Administration Cough Cholecalciferol 2,000 unit 12/20/19 09:00 12/27/19 08:24 Vitamin D3 PO 2,000 unit DAILY AVI Administration Clopidogrel Bisulfate 75 mg 12/23/19 09:00 12/27/19 08:26 Plavix PO 75 mg DAILY AVI Administration Docusate Sodium 250 - 500 mg 12/26/19 09:00 12/27/19 08:26 Colace 250mg Capsule PO 250 mg DAILY AVI Administration Dorzolamide HCl 1 drops 12/18/19 09:00 12/27/19 08:34 Trusopt 2% Ophth Drops EACHEYE 1 drops DAILY AVI Administration Famotidine 20 mg 12/21/19 21:00 12/27/19 08:27 Pepcid PO 20 mg BID AVI Administration Guaifenesin 600 mg 12/21/19 13:00 12/27/19 08:26 Mucinex PO 600 mg BID AVI Administration Insulin Aspart 1 - 5 unit 12/21/19 17:00 12/27/19 12:05 Novolog SUBQ 1 unit 0800,1200,1700,2100 AVI Administration Protocol Latanoprost 1 drops 12/17/19 21:00 12/26/19 21:32 Xalatan Ophth Drops EACHEYE 1 drops QPM AVI Administration Lisinopril 20 mg 12/24/19 09:00 12/27/19 08:27 Zestril PO 20 mg DAILY AVI Administration Metoprolol Succinate 37.5 mg 12/24/19 09:00 12/27/19 08:25 Toprol Xl PO 37.5 mg DAILY AVI Administration Mineral Oil 1 applic 12/22/19 17:07 12/24/19 00:49 Cavilon TOP 1 applic PRN PRN Administration Skin Care Nystatin 1 applic 12/17/19 17:00 12/27/19 08:33 Nystop TOP 1 applic BID AVI Administration Oxybutynin Chloride 2.5 mg 12/18/19 21:00 12/27/19 08:25 Ditropan PO 2.5 mg BID AVI Administration Polyethylene Glycol 17 gm 12/23/19 09:00 12/27/19 08:24 Miralax PO 17 gm DAILY AVI Administration Multivit/Folic Acid/Iron 1 tab 12/26/19 08:00 12/27/19 08:28 Trinatal Rx 1 PO 1 tab DAILYWM AVI Administration Saccharomyces Boulardii 250 mg 12/21/19 17:00 12/27/19 08:28 Florastor PO 250 mg BIDWM AVI Administration Senna 8.6 - 17.2 mg 12/26/19 09:00 12/27/19 08:24 Senokot PO 8.6 mg DAILY AVI Administration Sodium Chloride 10 ml 12/17/19 13:33 12/24/19 18:02 Normal Saline Flush 0.9% IVP 10 ml PRN PRN Administration NEEDED PER PROVIDER ORDERS Sodium Chloride 10 ml 12/17/19 17:00 12/27/19 08:35 Normal Saline Flush 0.9% IVP 10 ml 0100,0900,1700 AVI Administration Tamsulosin HCl 0.4 mg 12/19/19 17:00 12/26/19 16:49 Flomax PO 0.4 mg QDDINNER AVI Administration Thiamine HCl 100 mg 12/21/19 13:00 12/27/19 08:28 Vitamin B-1 PO 100 mg DAILY AVI Administration Timolol Maleate 1 drops 12/18/19 09:00 12/27/19 08:34 Timoptic 0.5% Ophth Drops EACHEYE 1 drops DAILY AVI Administration - Lab Result Fish Bone Diagrams: 12/27/19 05:58 12/27/19 05:58 - Additional Planning My Orders: My Active Orders 12/27/19 10:45 COVID-19 REFERENCE TEST Routine 12/28/19 05:00 BMP - BASIC METABOLIC PANEL [CHEM] DAILYLAB CBC - COMP BLD CT W/AUTO DIFF [HEME] DAILYLAB CRP - C-REACTIVE PROTEIN [CHEM] DAILYLAB 12/29/19 05:00 BMP - BASIC METABOLIC PANEL [CHEM] DAILYLAB CBC - COMP BLD CT W/AUTO DIFF [HEME] DAILYLAB CRP - C-REACTIVE PROTEIN [CHEM] DAILYLAB 12/30/19 05:00 CRP - C-REACTIVE PROTEIN [CHEM] DAILYLAB Subjective - Subjective Patient Reports: Feeling Better Objective Vital Signs: Vital Signs - 24 hr 12/26/19 12/26/19 12/26/19 16:34 18:15 21:34 Temperature 36.7 C 36.6 C Heart Rate [ 61 80 Brachial] Respiratory 20 22 Rate Blood Pressure 153/63 H 162/74 H 162/75 H [Right Brachial artery] O2 Saturation 94 94 12/27/19 12/27/19 12/27/19 00:06 07:34 13:31 Temperature 36.9 C 37.0 C 37.1 C Heart Rate [ 70 77 75 Brachial] Respiratory 24 16 18 Rate Blood Pressure 145/74 H 153/74 H 142/73 H [Right Brachial artery] O2 Saturation 93 94 94 Oxygen O2 Source [With Activity] Room air O2 Source [Without Activity] Room air O2 Source Room air Oxygen Flow Rate 3 I&O (Last 24 Hrs): Intake and Output Totals x24h 12/25/19 12/26/19 12/27/19 23:59 23:59 23:59 Intake Total 300 360 400 Output Total 675 325 750 Balance -375 35 -350 General: Alert, No acute distress HEENT: Atraumatic Neck: Supple Neuro: Alert, Non Focal Cardiovascular: Regular rate, Normal S1, Normal S2 Respiratory: Chest non-tender, No respiratory distress Abdomen: Normal bowel sounds, Soft Extremities: No edema, Normal pulses - Results Results: Laboratory Results WBC 6.1 x10^3/uL (4.8-10.8) 12/27/19 05:58 RBC 4.49 10^6/uL (4.70-6.10) L 12/27/19 05:58 Hgb 13.7 g/dL (14.0-18.0) L 12/27/19 05:58 Hct 42.1 % (42.0-52.0) 12/27/19 05:58 MCV 93.8 fL (80.0-94.0) 12/27/19 05:58 MCH 30.5 pg (27.0-31.0) 12/27/19 05:58 MCHC 32.5 g/dL (32.0-36.0) 12/27/19 05:58 RDW 13.7 % (12.0-15.0) 12/27/19 05:58 Plt Count 291 10^3/uL (130-450) 12/27/19 05:58 MPV 10.2 fL (7.4-11.4) 12/27/19 05:58 Neut # (Auto) 3.8 10^3/uL (1.5-6.6) 12/27/19 05:58 Lymph # (Auto) 1.4 10^3/uL (1.5-3.5) L 12/27/19 05:58 [place] # (Auto) 0.8 10^3/uL (0.0-1.0) 12/27/19 05:58 Eos # (Auto) 0.1 10^3/uL (0.0-0.7) 12/27/19 05:58 Baso # (Auto) 0.0 10^3/uL (0.0-0.1) 12/27/19 05:58 Absolute Nucleated RBC 0.00 x10^3/uL 12/27/19 05:58 Total Counted 100 12/21/19 08:10 Band Neuts % (Manual) 2 % (0-10) 12/21/19 08:10 Reactive Lymphs % (Man) 1 % 12/21/19 08:10 Abnorm Lymph % (Manual) 0 % 12/21/19 08:10 Nucleated RBC % 0.0 /100WBC 12/27/19 05:58 Neutrophils # (Manual) 4.5 10^3/uL (1.5-6.6) 12/21/19 08:10 Lymphocytes # (Manual) 0.5 10^3/uL (1.5-3.5) L 12/21/19 08:10 Monocytes # (Manual) 0.6 10^3/uL (0.0-1.0) 12/21/19 08:10 Eosinophils # (Manual) 0.1 10^3/uL (0-0.7) 12/21/19 08:10 Basophils # (Manual) 0.0 10^3/uL (0-0.1) 12/21/19 08:10 Differential Comment MANUAL DIFFERENTIAL 12/21/19 08:10 WBC Morphology NORMAL APPEARANCE (NORMAL) 12/20/19 06:20 Platelet Estimate NORMAL (130-450,000) (NORMAL) 12/20/19 06:20 Platelet Morphology NORMAL APPEARANCE (NORMAL) 12/20/19 06:20 RBC Morph Micro Appear NORMAL APPEARANCE (NORMAL) 12/20/19 06:20 Sodium 137 mmol/L (135-145) 12/27/19 05:58 Potassium 3.9 mmol/L (3.5-5.0) 12/27/19 05:58 Chloride 100 mmol/L (101-111) L 12/27/19 05:58 Carbon Dioxide 28 mmol/L (21-32) 12/27/19 05:58 Anion Gap 9.0 (6-13) 12/27/19 05:58 BUN 20 mg/dL (6-20) 12/27/19 05:58 Creatinine 0.9 mg/dL (0.6-1.2) 12/27/19 05:58 Estimated GFR (MDRD) 81 (>89) L 12/27/19 05:58 Glucose 147 mg/dL (70-100) H 12/27/19 05:58 Glycated Hemoglobin 7.8 % (4.6-6.2) H 12/21/19 08:10 Estim Average Glucose 177 (70-100) H 12/21/19 08:10 Lactic Acid 1.5 mmol/L (0.5-2.2) 12/17/19 12:30 Calcium 9.1 mg/dL (8.5-10.3) 12/27/19 05:58 Total Bilirubin 0.8 mg/dL (0.2-1.0) 12/20/19 06:20 AST 29 IU/L (10-42) 12/20/19 06:20 ALT 17 IU/L (10-60) 12/20/19 06:20 Alkaline Phosphatase 33 IU/L (42-121) L 12/20/19 06:20 Ammonia 31.9 umol/L (7-35) 12/24/19 05:00 Total Creatine Kinase 357 IU/L (22-269) H 12/17/19 12:30 Troponin I High Sens 92.8 ng/L (2.3-19.7) H* 12/18/19 05:15 C-Reactive Protein < 1.0 mg/dL (0-1.0) 12/27/19 05:58 B-Natriuretic Peptide 53 pg/mL (5-100) 12/17/19 12:30 Total Protein 5.3 g/dL (6.7-8.2) L 12/20/19 06:20 Albumin 2.4 g/dL (3.2-5.5) L 12/20/19 06:20 Globulin 2.9 g/dL (2.1-4.2) 12/20/19 06:20 Albumin/Globulin Ratio 0.8 (1.0-2.2) L 12/20/19 06:20 Lipase 63 U/L (22-51) H 12/17/19 12:30 Vitamin B12 1000 pg/mL (180-914) H 12/21/19 08:10 Urine Color YELLOW 12/17/19 11:57 Urine Clarity CLEAR (CLEAR) 12/17/19 11:57 Urine pH 5.5 PH (5.0-7.5) 12/17/19 11:57 Ur Specific [place] >=1.030 (1.002-1.030) H 12/17/19 11:57 Urine Protein 100 mg/dL (NEGATIVE) H 12/17/19 11:57 Urine Glucose (UA) NEGATIVE mg/dL (NEGATIVE) 12/17/19 11:57 Urine Ketones TRACE mg/dL (NEGATIVE) 12/17/19 11:57 Urine Occult Blood SMALL (NEGATIVE) H 12/17/19 11:57 Urine Nitrite NEGATIVE (NEGATIVE) 12/17/19 11:57 Urine Bilirubin NEGATIVE (NEGATIVE) 12/17/19 11:57 Urine Urobilinogen 0.2 (NORMAL) E.U./dL (NORMAL) 12/17/19 11:57 Ur Leukocyte Esterase NEGATIVE (NEGATIVE) 12/17/19 11:57 Urine RBC 0-5 /HPF (0-5) 12/17/19 11:57 Urine WBC 0-3 /HPF (0-3) 12/17/19 11:57 Ur Squamous Epith Cells NONE SEEN (<= Few) 12/17/19 11:57 Urine Bacteria None Seen /HPF (None Seen) 12/17/19 11:57 Ur Microscopic Review INDICATED 12/17/19 11:57 Urine Culture Comments NOT INDICATED 12/17/19 11:57 Stl C. diff Tox B Gene NEGATIVE (NEGATIVE) 12/19/19 20:40 Ethyl Alcohol < 5.0 mg/dL 12/17/19 12:30 Coronavirus (PCR) POSITIVE 12/23/19 11:48 Influenza A (Rapid) Negative (Negative) 12/17/19 13:30 Influenza B (Rapid) Negative (Negative) 12/17/19 13:30 Sepsis Event Note (H) - Evaluation Current Stage of Sepsis: Ruled out ABX Reporting Has patient been on IV antibiotics over the past 48 hours?: No Current Medications - Current Medications Current Medications: Active Medications Acetaminophen (Tylenol) 650 mg PO Q4HR PRN PRN Reason: Pain or Fever > 38C (100.4F) Last Admin: 12/24/19 17:13 Dose: 650 mg Amlodipine Besylate (Norvasc) 10 mg PO DAILY [facility] Last Admin: 12/27/19 08:28 Dose: 10 mg Benzonatate (Tessalon) 100 mg PO TID PRN PRN Reason: Cough Last Admin: 12/25/19 21:11 Dose: 100 mg Cholecalciferol (Vitamin D3) 2,000 unit PO DAILY [facility] Last Admin: 12/27/19 08:24 Dose: 2,000 unit Clopidogrel Bisulfate (Plavix) 75 mg PO DAILY [facility] Last Admin: 12/27/19 08:26 Dose: 75 mg Docusate Sodium (Colace 250mg Capsule) 250 - 500 mg PO DAILY [facility] Last Admin: 12/27/19 08:26 Dose: 250 mg Dorzolamide HCl (Trusopt 2% Ophth Drops) 1 drops EACHEYE DAILY [facility] Last Admin: 12/27/19 08:34 Dose: 1 drops Famotidine (Pepcid) 20 mg PO BID [facility] Last Admin: 12/27/19 08:27 Dose: 20 mg Guaifenesin (Mucinex) 600 mg PO BID [facility] Last Admin: 12/27/19 08:26 Dose: 600 mg Hydralazine HCl (Apresoline Inj) 10 mg IVP Q6H PRN PRN Reason: PER PHYSICIAN ORDER Insulin Aspart (Novolog) 1 - 5 unit SUBQ 0800,1200,1700,2100 [facility]; Protocol Last Admin: 12/27/19 12:05 Dose: 1 unit Latanoprost (Xalatan Ophth Drops) 1 drops EACHEYE QPM [facility] Last Admin: 12/26/19 21:32 Dose: 1 drops Lisinopril (Zestril) 20 mg PO DAILY [facility] Last Admin: 12/27/19 08:27 Dose: 20 mg Loperamide HCl (Imodium) 2 mg PO QID PRN PRN Reason: Diarrhea Metoprolol Succinate (Toprol Xl) 37.5 mg PO DAILY [facility] Last Admin: 12/27/19 08:25 Dose: 37.5 mg Mineral Oil (Cavilon) 1 applic TOP PRN PRN PRN Reason: Skin Care Last Admin: 12/24/19 00:49 Dose: 1 applic Nystatin (Nystop) 1 applic TOP BID [facility] Last Admin: 12/27/19 08:33 Dose: 1 applic Ondansetron HCl (Zofran Inj) 4 mg IVP Q6HR PRN PRN Reason: Nausea / Vomiting Oxybutynin Chloride (Ditropan) 2.5 mg PO BID [facility] Last Admin: 12/27/19 08:25 Dose: 2.5 mg Polyethylene Glycol (Miralax) 17 gm PO DAILY [facility] Last Admin: 12/27/19 08:24 Dose: 17 gm Multivit/Folic Acid/Iron (Trinatal Rx 1) 1 tab PO DAILYWM [facility] Last Admin: 12/27/19 08:28 Dose: 1 tab Saccharomyces Boulardii (Florastor) 250 mg PO BIDWM [facility] Last Admin: 12/27/19 08:28 Dose: 250 mg Senna (Senokot) 8.6 - 17.2 mg PO DAILY [facility] Last Admin: 12/27/19 08:24 Dose: 8.6 mg Sodium Chloride (Normal Saline Flush 0.9%) 10 ml IVP PRN PRN PRN Reason: NEEDED PER PROVIDER ORDERS Last Admin: 12/24/19 18:02 Dose: 10 ml Sodium Chloride (Normal Saline Flush 0.9%) 10 ml IVP 0100,0900,1700 [facility] Last Admin: 12/27/19 08:35 Dose: 10 ml Tamsulosin HCl (Flomax) 0.4 mg PO QDDINNER [facility] Last Admin: 12/26/19 16:49 Dose: 0.4 mg Thiamine HCl (Vitamin B-1) 100 mg PO DAILY [facility] Last Admin: 12/27/19 08:28 Dose: 100 mg Timolol Maleate (Timoptic 0.5% Ophth Drops) 1 drops EACHEYE DAILY [facility] Last Admin: 12/27/19 08:34 Dose: 1 drops allopurinoL [Allopurinol] 300 mg PO DAILY 10/12/16 Atorvastatin Calcium 40 mg PO QPM 12/17/19 Cholecalciferol (Vitamin D3) [Vitamin D] 2,000 unit PO DAILY 12/17/19 Clopidogrel [Plavix] 75 mg PO DAILY 12/17/19 Cyanocobalamin (Vitamin B-12) [Vitamin B-12 (1000 mcg sublingual)] 1,000 mcg PO DAILY 12/17/19 Docusate Sodium 300 mg PO DAILY PRN 12/17/19 Dorzolamide HCl 1 drops EACHEYE DAILY 12/17/19 Latanoprost 0.005% Ophth Drops [Xalatan Ophth Drops] 1 drops EACHEYE QPM 12/17/19 Metoprolol Tartrate 50 mg PO BID 12/17/19 Oxybutynin [Ditropan] 2.5 mg PO BID 12/17/19 Pantoprazole [Protonix] 40 mg PO BIDAC 12/17/19 Sildenafil Citrate [Sildenafil] 20 - 100 mg PO DAILY PRN 12/17/19 Tamsulosin [Flomax] 0.4 mg PO QDDINNER 12/17/19 Temazepam 15 mg PO QPM PRN 12/17/19 Timolol 0.5% Ophth Drops [Timoptic 0.5% Ophth Drops] 1 drops EACHEYE DAILY 12/17/19
[2019-12-27] MEDS: TAMSULOSIN 0.4 MG CAPSULE PO SCH (17:32)
[2019-12-27] MEDS: LATANOPROST 0.005% OPHTH DROPS EACHEYE SCH (20:28)
[2019-12-28] MEDS: SODIUM CHLORIDE FLUSH 0.9% 10 ML SYRINGE IVP SCH ×3 (02:59→17:28)
[2019-12-28 06:22] LABS: BASOPHILS % (AUTO) 0.5 %; EOSINOPHILS # (AUTO) 0.1 10^3/uL (0.0-0.7); EOSINOPHILS % (AUTO) 1.4 %; HGB - HEMOGLOBIN 13.4 g/dL (14.0-18.0); LYMPHOCYTES # (AUTO) 1.4 10^3/uL (1.5-3.5); MEAN CORPUSCULAR HEMOGLOBIN 30.7 pg (27.0-31.0); MEAN CORPUSCULAR HGB CONC 32.3 g/dL (32.0-36.0); MEAN PLATELET VOLUME 10.4 fL (7.4-11.4); MONOCYTES # (AUTO) 0.7 10^3/uL (0.0-1.0); MONOCYTES % (AUTO) 11.3 %; PLT - PLATELET COUNT 272 10^3/uL (130-450); RED BLOOD COUNT 4.37 10^6/uL (4.70-6.10); RED CELL DISTRIBUTION WIDTH 13.9 % (12.0-15.0); WHITE BLOOD COUNT 6.3 x10^3/uL (4.8-10.8)
[2019-12-28 06:45] LABS: BUN - BLOOD UREA NITROGEN 21 mg/dL (6-20); CARBON DIOXIDE - CO2 29 mmol/L (21-32); CHLORIDE 101 mmol/L (101-111); GLUCOSE 152 mg/dL (70-100); SODIUM 137 mmol/L (135-145)
[2019-12-28 06:49] LABS: CRP - C-REACTIVE PROTEIN < 1.0 mg/dL (0-1.0)
[2019-12-28] MEDS: INSULIN ASPART 300 UNIT/3 ML PEN SUBQ SCH ×4 (10:25→20:00)
[2019-12-28] MEDS: THIAMINE 100 MG TABLET PO SCH (10:26)
[2019-12-28] MEDS: FAMOTIDINE 20 MG TABLET PO SCH ×2 (10:26→20:00)
[2019-12-28] MEDS: CLOPIDOGREL 75 MG TABLET PO SCH (10:27)
[2019-12-28] MEDS: SACCHAROMYCES BOULARDII 250 MG CAPSULE PO SCH ×2 (10:27→17:28)
[2019-12-28] MEDS: OXYBUTYNIN 5MG TABLET PO SCH ×2 (10:27→20:02)
[2019-12-28] MEDS: amLODIPine 5 MG TABLET PO SCH (10:28)
[2019-12-28] MEDS: SENNA 8.6 MG TABLET PO SCH (10:28)
[2019-12-28] MEDS: guaiFENesin 600 MG TABLET PO SCH ×2 (10:29→20:00)
[2019-12-28] MEDS: METOPROLOL SUCCINATE 25 MG TABLET PO SCH (10:29)
[2019-12-28] MEDS: PRENATAL VITAMIN TABLET PO SCH (10:29)
[2019-12-28] MEDS: lisinopriL 20 MG TABLET PO SCH (10:30)
[2019-12-28] MEDS: DOCUSATE SODIUM 250 MG CAPSULE PO SCH (10:30)
[2019-12-28] MEDS: DORZOLAMIDE 2% OPHTH DROPS EACHEYE SCH (10:31)
[2019-12-28] MEDS: polyethylene glycoL 3350 17 GM PACKET PO SCH (10:33)
[2019-12-28] MEDS: NYSTATIN POWDER 15 GM TOP SCH ×2 (10:33→20:00)
[2019-12-28] MEDS: CHOLECALCIFEROL 1,000 UNIT TABLET PO SCH (10:33)
[2019-12-28] MEDS: timoloL maleate 0.5% OPHTH DROPS (10ML) EACHEYE SCH (10:35)
[2019-12-28] MEDS: TAMSULOSIN 0.4 MG CAPSULE PO SCH (17:28)
--- NOTE | 2019-12-28 18:03 | PROVIDER PROGRESS NOTE ---
Subjective - Prog Note Date Prog Note Date: 12/28/19 Prog Note Time: 17:57 - Subjective Pt reports feeling: Improved (Feels better, but still weak) Current Medications - Current Medications Current Medications: Medications Summary Acetaminophen (Tylenol) 650 mg PO Q4HR PRN PRN Reason: Pain or Fever > 38C (100.4F) Last Admin: 12/24/19 17:13 Dose: 650 mg Acetaminophen Assessment Document 12/24/19 17:13 AB (Rec: 12/24/19 17:14 AB [id number]) Pain or Fever Assessment Pain Scale Used Mild - Moderate - Severe Fever No Re-Assess: Acetaminophen Effectiveness Document 12/24/19 18:13 AB (Rec: 12/24/19 19:29 AB [id number]) Effect on Pain or Fever Effective/Ineffective Ineffective Amlodipine Besylate (Norvasc) 10 mg PO DAILY [facility] Last Admin: 12/28/19 10:28 Dose: 10 mg Benzonatate (Tessalon) 100 mg PO TID PRN PRN Reason: Cough Last Admin: 12/25/19 21:11 Dose: 100 mg Cholecalciferol (Vitamin D3) 2,000 unit PO DAILY [facility] Last Admin: 12/28/19 10:33 Dose: 2,000 unit Clopidogrel Bisulfate (Plavix) 75 mg PO DAILY [facility] Last Admin: 12/28/19 10:27 Dose: 75 mg Docusate Sodium (Colace 250mg Capsule) 250 - 500 mg PO DAILY [facility] Last Admin: 12/28/19 10:30 Dose: 250 mg Dorzolamide HCl (Trusopt 2% Ophth Drops) 1 drops EACHEYE DAILY [facility] Last Admin: 12/28/19 10:31 Dose: 1 drops Famotidine (Pepcid) 20 mg PO BID [facility] Last Admin: 12/28/19 10:26 Dose: 20 mg Guaifenesin (Mucinex) 600 mg PO BID [facility] Last Admin: 12/28/19 10:29 Dose: 600 mg Insulin Aspart (Novolog) 1 - 5 unit SUBQ 0800,1200,1700,2100 [facility]; Protocol Last Admin: 12/28/19 17:27 Dose: Not Given Non-Admin Reason: Physiologically Contraindicated Blood Glucose Document 12/28/19 17:27 LGS (Rec: 12/28/19 17:28 LGS [id number]) Blood Glucose Result (mg/dL) 126 Latanoprost (Xalatan Ophth Drops) 1 drops EACHEYE QPM [facility] Last Admin: 12/27/19 20:28 Dose: 1 drops Lisinopril (Zestril) 20 mg PO DAILY [facility] Last Admin: 12/28/19 10:30 Dose: 20 mg Metoprolol Succinate (Toprol Xl) 37.5 mg PO DAILY [facility] Last Admin: 12/28/19 10:29 Dose: 37.5 mg Mineral Oil (Cavilon) 1 applic TOP PRN PRN PRN Reason: Skin Care Last Admin: 12/24/19 00:49 Dose: 1 applic Nystatin (Nystop) 1 applic TOP BID [facility] Last Admin: 12/28/19 10:33 Dose: 1 applic Oxybutynin Chloride (Ditropan) 2.5 mg PO BID [facility] Last Admin: 12/28/19 10:27 Dose: 2.5 mg Polyethylene Glycol (Miralax) 17 gm PO DAILY [facility] Last Admin: 12/28/19 10:33 Dose: Not Given Non-Admin Reason: Physiologically Contraindicated Multivit/Folic Acid/Iron (Trinatal Rx 1) 1 tab PO DAILYWM [facility] Last Admin: 12/28/19 10:29 Dose: 1 tab Saccharomyces Boulardii (Florastor) 250 mg PO BIDWM [facility] Last Admin: 12/28/19 17:28 Dose: Not Given Non-Admin Reason: Patient Refused Senna (Senokot) 8.6 - 17.2 mg PO DAILY [facility] Last Admin: 12/28/19 10:28 Dose: 8.6 mg Sodium Chloride (Normal Saline Flush 0.9%) 10 ml IVP PRN PRN PRN Reason: NEEDED PER PROVIDER ORDERS Last Admin: 12/24/19 18:02 Dose: 10 ml Sodium Chloride (Normal Saline Flush 0.9%) 10 ml IVP 0100,0900,1700 [facility] Last Admin: 12/28/19 17:28 Dose: Not Given Non-Admin Reason: Patient Refused Tamsulosin HCl (Flomax) 0.4 mg PO QDDINNER [facility] Last Admin: 12/28/19 17:28 Dose: Not Given Non-Admin Reason: Patient Refused Thiamine HCl (Vitamin B-1) 100 mg PO DAILY [facility] Last Admin: 12/28/19 10:26 Dose: 100 mg Timolol Maleate (Timoptic 0.5% Ophth Drops) 1 drops EACHEYE DAILY [facility] Last Admin: 12/28/19 10:35 Dose: 1 drops Discontinued Medications Acetaminophen (Tylenol) 650 mg PO ONCE STA Stop: 12/17/19 12:05 Last Admin: 12/17/19 12:38 Dose: 650 mg Acetaminophen (Tylenol) 650 mg LA Q6HR PRN PRN Reason: Pain or Fever > 38C (100.4F) Last Admin: 12/18/19 08:31 Dose: 650 mg Acetaminophen Assessment Document 12/18/19 08:31 [facility] (Rec: 12/18/19 08:31 [id number]) Pain or Fever Assessment Fever Yes Re-Assess: Acetaminophen Effectiveness Document 12/18/19 09:31 [facility] (Rec: 12/18/19 13:14 [id number]) Effect on Pain or Fever Non-Numerical Pain Rating fever Effective/Ineffective Effective Amlodipine Besylate (Norvasc) 5 mg PO DAILY [facility] Last Admin: 12/21/19 13:48 Dose: 5 mg Amlodipine Besylate (Norvasc) 5 mg PO 0900,1800 [facility] Stop: 12/21/19 23:00 Last Admin: 12/21/19 18:25 Dose: 5 mg Aspirin (Ecotrin) 325 mg PO DAILY [facility] Last Admin: 12/22/19 09:20 Dose: 325 mg Cyanocobalamin (Vitamin B-12) 1,000 mcg PO DAILY [facility] Last Admin: 12/21/19 09:06 Dose: 1,000 mcg Famotidine (Pepcid) 20 mg IVP BID [facility] Last Admin: 12/21/19 10:42 Dose: 20 mg Hydralazine HCl (Apresoline Inj) 10 mg IVP Q6H PRN PRN Reason: PER PHYSICIAN ORDER Last Admin: 12/21/19 22:04 Dose: 10 mg Blood Pressure Document 12/21/19 22:04 [facility] (Rec: 12/21/19 22:05 [id number]) Blood Pressure Blood Pressure (90/60-130/80) 177/107 Source Automatic Patient Position Supine Re-Assess: Blood Pressure Document 12/21/19 22:35 [facility] (Rec: 12/21/19 22:49 [id number] Blood Pressure Blood Pressure (90/60-130/80) 146/67 Source Automatic Patient Position Supine Hydroxychloroquine Sulfate (Plaquenil) 400 mg PO BID AVI Stop: 12/19/19 09:01 Last Admin: 12/19/19 09:12 Dose: 400 mg Hydroxychloroquine Sulfate (Plaquenil) 200 mg PO DAILY AVI Stop: 12/23/19 09:01 Last Admin: 12/21/19 09:07 Dose: 200 mg Hydroxychloroquine Sulfate (Plaquenil) 200 mg PO BID AVI Stop: 12/24/19 09:01 Last Admin: 12/24/19 08:54 Dose: 200 mg Azithromycin 500 mg/ Sodium (Chloride) 250 mls @ 250 mls/hr IV ONCE STA Stop: 12/17/19 13:15 Last Infusion: 12/17/19 14:15 Dose: 0 mls/hr Medication Titration Document 12/17/19 14:15 (Rec: 12/17/19 17:06 [id number]) Titration Intake Titration Intake 250 Cumulative Intake 250 Container Volume 0 Elapsed Time 1h 0m Titration Dosing IV Rate 0 Increase/Decrease Infused Cumulative Dose 500 Total Intake (Rx) 250 Volume Adjustment/Waste 0 Ceftriaxone Sodium 2 gm/ (Sodium Chloride) 100 mls @ 200 mls/hr IV ONCE STA Stop: 12/17/19 12:45 Last Infusion: 12/17/19 13:15 Dose: 0 mls/hr Medication Titration Document 12/17/19 13:15 [facility] (Rec: 12/17/19 13:15 [facility] [id number]) Titration Intake Titration Intake 100 Cumulative Intake 100 Container Volume 0 Elapsed Time 37m Titration Dosing IV Rate 0 Increase/Decrease Infused Cumulative Dose 0 Total Intake (Rx) 100 Volume Adjustment/Waste 0 Dextrose/Sodium Chloride (D5ns) 1,000 mls @ 125 mls/hr IV .Q8H [facility] Last Infusion: 12/20/19 01:06 Dose: 0 mls/hr Medication Titration Document 12/20/19 01:06 AFS (Rec: 12/20/19 01:06 AFS [id number]) Titration Intake Titration Intake 150 Cumulative Intake 1,000 Container Volume 0 Elapsed Time 55h 19m Titration Dosing IV Rate 0 Increase/Decrease Infused Cumulative Dose Not Applicable Total Intake (Rx) 5,943.75 Volume Adjustment/Waste 0 Ceftriaxone Sodium 1 gm/ (Sodium Chloride) 100 mls @ 200 mls/hr IV DAILY AVI Stop: 12/21/19 09:29 Last Infusion: 12/21/19 11:14 Dose: 0 mls/hr Medication Titration Document 12/21/19 11:14 ECA (Rec: 12/21/19 11:14 [facility] [id number]) Titration Intake Titration Intake 100 Cumulative Intake 100 Container Volume 0 Elapsed Time 3h 8m Titration Dosing IV Rate 0 Increase/Decrease Infused Cumulative Dose 0 Total Intake (Rx) 400 Volume Adjustment/Waste 0 Azithromycin 500 mg/ Sodium (Chloride) 250 mls @ 250 mls/hr IV DAILY [facility] Stop: 12/19/19 09:59 Last Infusion: 12/19/19 11:00 Dose: 0 mls/hr Medication Titration Document 12/19/19 11:00 JERRY (Rec: 12/19/19 13:19 JERRY [id number]) Titration Intake Titration Intake 250 Cumulative Intake 250 Container Volume 0 Elapsed Time 2h 22m Titration Dosing IV Rate 0 Increase/Decrease Infused Cumulative Dose 1000 Total Intake (Rx) 500 Volume Adjustment/Waste 0 Dextrose/Sodium Chloride (D5ns) 1,000 mls @ 60 mls/hr IV .[id number] [facility] Last Infusion: 12/21/19 11:00 Dose: 0 mls/hr Medication Titration Document 12/21/19 11:00 ECA (Rec: 12/21/19 13:17 ECA [id number]) Titration Intake Titration Intake 352 Cumulative Intake 751 Container Volume 0 Elapsed Time 29h 12m Titration Dosing IV Rate 0 Increase/Decrease Infused Cumulative Dose Not Applicable Total Intake (Rx) 1,751 Volume Adjustment/Waste 249 Potassium Chloride (Potassium Chloride) 10 meq in 100 mls @ 100 mls/hr IV Q1H AVI Stop: 12/22/19 12:59 Last Infusion: 12/22/19 15:51 Dose: 0 mls/hr Medication Titration Document 12/22/19 15:51 BKM (Rec: 12/22/19 15:51 BKM [id number]) Titration Intake Titration Intake 100 Cumulative Intake 100 Container Volume 0 Elapsed Time 6h 1m Titration Dosing IV Rate 0 Increase/Decrease Infused Cumulative Dose 0 Total Intake (Rx) 385 Volume Adjustment/Waste 0 Lisinopril (Zestril) 10 mg PO DAILY [facility] Last Admin: 12/23/19 08:32 Dose: 10 mg Lisinopril (Zestril) 10 mg PO ONCE ONE Stop: 12/23/19 19:01 Last Admin: 12/23/19 18:51 Dose: 10 mg Lorazepam (Ativan) 1 mg PO ONCE ONE Stop: 12/22/19 20:01 Last Admin: 12/22/19 20:29 Dose: 1 mg CIWA-Ar Score Document 12/22/19 20:29 BK (Rec: 12/22/19 20:29 [id number] Regimen Current Score Not Applicable Lorazepam (Ativan Inj (Vial)) 1 mg IVP ONCE STA Stop: 12/24/19 17:54 Last Admin: 12/24/19 18:02 Dose: 1 mg Metoprolol Succinate (Toprol Xl) 25 mg PO DAILY [facility] Last Admin: 12/23/19 08:33 Dose: 25 mg Metoprolol Tartrate (Lopressor Inj) 2.5 mg IVP Q6H [facility] Last Admin: 12/18/19 06:14 Dose: 2.5 mg Pulse and Blood Pressure Document 12/18/19 06:14 HS (Rec: 12/18/19 06:14 HS [id number]) Vital Signs Rate 76 Blood Pressure (90/60-130/80) 165/68 Metoprolol Tartrate (Lopressor Inj) 2.5 mg IVP Q6H [facility] Last Admin: 12/19/19 11:57 Dose: Not Given Non-Admin Reason: Physiologically Contraindicated Pulse and Blood Pressure Document 12/19/19 11:57 JERRY (Rec: 12/19/19 11:57 JERRY [id number]) Vital Signs Rate 59 Metoprolol Tartrate (Lopressor) 50 mg PO BID [facility] Last Admin: 12/21/19 08:47 Dose: Not Given Non-Admin Reason: bradycardic Pulse and Blood Pressure Document 12/21/19 08:47 ECA (Rec: 12/21/19 08:47 ECA [id number]) Vital Signs Rate 54 Potassium Chloride (K-Dur) 60 meq PO ONCE ONE Stop: 12/19/19 21:10 Last Admin: 12/19/19 22:58 Dose: 60 meq Potassium Chloride (K-Dur) 60 meq PO ONCE [facility] Stop: 12/20/19 08:30 Last Admin: 12/20/19 09:01 Dose: 60 meq Potassium Chloride (K-Dur) 40 meq PO ONCE [facility] Stop: 12/22/19 09:26 Last Admin: 12/22/19 09:30 Dose: 40 meq Potassium Chloride (K-Dur) 40 meq PO ONCE AVI Stop: 12/23/19 09:05 Last Admin: 12/23/19 12:13 Dose: Not Given Non-Admin Reason: Patient Refused Potassium Chloride (K-Dur) 20 meq PO ONCE ONE Stop: 12/24/19 08:16 Last Admin: 12/24/19 08:53 Dose: 20 meq Potassium Chloride (K-Dur) 20 meq PO ONCE ONE Stop: 12/25/19 08:01 Last Admin: 12/25/19 08:26 Dose: 20 meq Potassium Chloride () 20 meq PO ONCE ONE Stop: 12/25/19 07:21 Last Admin: 12/25/19 08:27 Dose: 20 meq Objective - Vital Signs/Intake & Output Reviewed Vital Signs: Yes Vital Signs: Vital Signs x48h Temp Pulse Resp BP Pulse Ox 12/28/19 16:40 36.5 C 77 16 108/60 92 Intake & Output: Intake & Output 12/25/19 12/26/19 12/27/19 12/28/19 23:59 23:59 23:59 23:59 Intake Total 300 360 800 490 Output Total 771 060 8522 400 Balance -375 35 -200 90 - Objective General Appearance: positive: No acute distress Eyes Bilateral: positive: Normal inspection ENT: positive: ENT inspection nml Neck: positive: Nml inspection Respiratory: positive: Chest non-tender, No respiratory distress, Breath sounds nml. negative: Wheezes, Rales, Rhonchi Cardiovascular: positive: Regular rate & rhythm, No murmur, No gallop Abdomen: positive: Non-tender, No organomegaly, Nml bowel sounds Rectal: positive: Non-tender Back: positive: Nml inspection Skin: positive: Color nml Extremities: positive: Non-tender, Full ROM, Nml appearance Neurologic/Psychiatric: positive: Oriented x3, CN's nml (2-12) - Lab Results Fish Bones: 12/28/19 05:56 12/28/19 05:56 Other Labs: Lab Results x24hrs 12/28/19 12/28/19 12/27/19 Range/Units 05:56 05:56 10:45 WBC 6.3 (4.8-10.8) x10^3/uL RBC 4.37 L (4.70-6.10) 10^6/uL Hgb 13.4 L (14.0-18.0) g/dL Hct 41.5 L (42.0-52.0) % MCV 95.0 H (80.0-94.0) fL MCH 30.7 (27.0-31.0) pg MCHC 32.3 (32.0-36.0) g/dL RDW 13.9 (12.0-15.0) % Plt Count 272 (130-450) 10^3/uL MPV 10.4 (7.4-11.4) fL Neut # (Auto) 4.0 (1.5-6.6) 10^3/uL Lymph # (Auto) 1.4 L (1.5-3.5) 10^3/uL [place] # (Auto) 0.7 (0.0-1.0) 10^3/uL Eos # (Auto) 0.1 (0.0-0.7) 10^3/uL Baso # (Auto) 0.0 (0.0-0.1) 10^3/uL Absolute Nucleated RBC 0.00 x10^3/uL Nucleated RBC % 0.0 /100WBC Sodium 137 (135-145) mmol/L Potassium 3.9 (3.5-5.0) mmol/L Chloride 101 (101-111) mmol/L Carbon Dioxide 29 (21-32) mmol/L Anion Gap 7.0 (6-13) BUN 21 H (6-20) mg/dL Creatinine 1.0 (0.6-1.2) mg/dL Estimated GFR (MDRD) 72 L (>89) Glucose 152 H (70-100) mg/dL Calcium 9.0 (8.5-10.3) mg/dL C-Reactive Protein < 1.0 (0-1.0) mg/dL Coronavirus (PCR) POSITIVE Sepsis Event Note (H) - Evaluation Current Stage of Sepsis: Ruled out Assessment/Plan - Problem List (1) Pneumonia due to 2019 novel coronavirus Impression: Clinically resolved, however, unfortunately 3rd swab results still show positive. Will have to wait at least another 72 hours before retesting. Consider d/w ID re: timeline of testing, as some are recommending 14 days before retesting (2) Elevated troponin Impression: 12/21 pt had elevated troponin on 12/17. it was presumed to be from demand ischemia from the fevers and hypoxia. No worsening of SOB, therefore no Echo was ordered to not expose staff to COVID, since his care would not be affected substantially by getting an Echo. pt is hemodynamic stable, he did not complain any chest pain. pt is on Aspirin 325 mg, Metoprolol and Lisinopril. will continue monitor (3) Bradycardia Impression: Stable (4) DM type 2 (diabetes mellitus, type 2) Impression: BS fairly well controlled. Cont ISS Qualifiers: Diabetes mellitus terminal clerk insulin use: without retirement use Diabetes mellitus complication status: with ophthalmic complications Diabetes mellitus complication detail: with cataract Qualified Code(s): E11.36 - Type 2 diabetes mellitus with diabetic cataract (5) HTN (hypertension) Impression: Stable Cont home meds Qualifiers: Hypertension type: essential hypertension Qualified Code(s): I10 - Essential (primary) hypertension (6) Hx of coronary artery disease Impression: Stable, no chest pain, cont home meds
[2019-12-28] MEDS: LATANOPROST 0.005% OPHTH DROPS EACHEYE SCH (20:01)
[2019-12-29] MEDS: SODIUM CHLORIDE FLUSH 0.9% 10 ML SYRINGE IVP SCH ×2 (01:42→08:15)
[2019-12-29 06:03] LABS: BASOPHILS % (AUTO) 0.6 %; EOSINOPHILS # (AUTO) 0.1 10^3/uL (0.0-0.7); EOSINOPHILS % (AUTO) 1.3 %; HGB - HEMOGLOBIN 13.2 g/dL (14.0-18.0); LYMPHOCYTES # (AUTO) 1.6 10^3/uL (1.5-3.5); LYMPHOCYTES % (AUTO) 25.5 %; MEAN CORPUSCULAR HEMOGLOBIN 29.8 pg (27.0-31.0); MEAN CORPUSCULAR HGB CONC 31.4 g/dL (32.0-36.0); MEAN CORPUSCULAR VOLUME 94.8 fL (80.0-94.0); MEAN PLATELET VOLUME 10.4 fL (7.4-11.4); MONOCYTES # (AUTO) 0.7 10^3/uL (0.0-1.0); MONOCYTES % (AUTO) 11.1 %; NEUTROPHILS # (AUTO) 3.9 10^3/uL (1.5-6.6); PLT - PLATELET COUNT 258 10^3/uL (130-450); RED BLOOD COUNT 4.43 10^6/uL (4.70-6.10); RED CELL DISTRIBUTION WIDTH 13.8 % (12.0-15.0); WHITE BLOOD COUNT 6.4 x10^3/uL (4.8-10.8)
[2019-12-29 06:19] LABS: BUN - BLOOD UREA NITROGEN 25 mg/dL (6-20); CALCIUM 9.3 mg/dL (8.5-10.3); CARBON DIOXIDE - CO2 30 mmol/L (21-32); CHLORIDE 103 mmol/L (101-111); CREATININE 1.1 mg/dL (0.6-1.2); CRP - C-REACTIVE PROTEIN < 1.0 mg/dL (0-1.0); GLUCOSE 147 mg/dL (70-100); SODIUM 140 mmol/L (135-145)
[2019-12-29] MEDS: amLODIPine 5 MG TABLET PO SCH (08:12)
[2019-12-29] MEDS: CLOPIDOGREL 75 MG TABLET PO SCH (08:12)
[2019-12-29] MEDS: OXYBUTYNIN 5MG TABLET PO SCH ×2 (08:12→20:49)
[2019-12-29] MEDS: guaiFENesin 600 MG TABLET PO SCH ×2 (08:12→20:49)
[2019-12-29] MEDS: SACCHAROMYCES BOULARDII 250 MG CAPSULE PO SCH ×2 (08:12→18:36)
[2019-12-29] MEDS: PRENATAL VITAMIN TABLET PO SCH (08:12)
[2019-12-29] MEDS: INSULIN ASPART 300 UNIT/3 ML PEN SUBQ SCH ×2 (08:13→12:21)
[2019-12-29] MEDS: lisinopriL 20 MG TABLET PO SCH (08:14)
[2019-12-29] MEDS: DOCUSATE SODIUM 250 MG CAPSULE PO SCH (08:14)
[2019-12-29] MEDS: DORZOLAMIDE 2% OPHTH DROPS EACHEYE SCH (08:14)
[2019-12-29] MEDS: FAMOTIDINE 20 MG TABLET PO SCH ×2 (08:14→20:49)
[2019-12-29] MEDS: CHOLECALCIFEROL 1,000 UNIT TABLET PO SCH (08:14)
[2019-12-29] MEDS: METOPROLOL SUCCINATE 25 MG TABLET PO SCH (08:14)
[2019-12-29] MEDS: NYSTATIN POWDER 15 GM TOP SCH ×2 (08:14→20:50)
[2019-12-29] MEDS: THIAMINE 100 MG TABLET PO SCH (08:14)
[2019-12-29] MEDS: polyethylene glycoL 3350 17 GM PACKET PO SCH (08:15)
[2019-12-29] MEDS: SENNA 8.6 MG TABLET PO SCH (08:15)
[2019-12-29] MEDS: timoloL maleate 0.5% OPHTH DROPS (10ML) EACHEYE SCH (08:15)
--- NOTE | 2019-12-29 16:53 | PROVIDER PROGRESS NOTE ---
Subjective - Prog Note Date Prog Note Date: 12/29/19 Prog Note Time: 16:49 - Subjective Pt reports feeling: No change Subjective: Federico has no complaints, except he "just wants to return home". Updated to no further blood sugar checks and no IV is needed. Current Medications - Current Medications Current Medications: Active Medications: Acetaminophen (Tylenol) 650 mg PO Q4HR PRN Amlodipine Besylate (Norvasc) 10 mg PO DAILY [facility] Benzonatate (Tessalon) 100 mg PO TID PRN Cholecalciferol (Vitamin D3) 2,000 unit PO DAILY [facility] Clopidogrel Bisulfate (Plavix) 75 mg PO DAILY [facility] Docusate Sodium (Colace 250mg Capsule) 250 - 500 mg PO DAILY [facility] Dorzolamide HCl (Trusopt 2% Ophth Drops) 1 drops EACHEYE DAILY [facility] Famotidine (Pepcid) 20 mg PO BID [facility] Guaifenesin (Mucinex) 600 mg PO BID [facility] Latanoprost (Xalatan Ophth Drops) 1 drops EACHEYE QPM [facility] Lisinopril (Zestril) 20 mg PO DAILY [facility] Loperamide HCl (Imodium) 2 mg PO QID PRN Metoprolol Succinate (Toprol Xl) 37.5 mg PO DAILY [facility] Mineral Oil (Cavilon) 1 applic TOP PRN PRN Nystatin (Nystop) 1 applic TOP BID [facility] Oxybutynin Chloride (Ditropan) 2.5 mg PO BID [facility] Polyethylene Glycol (Miralax) 17 gm PO DAILY [facility] Multivit/Folic Acid/Iron (Trinatal Rx 1) 1 tab PO DAILYWM [facility] Saccharomyces Boulardii (Florastor) 250 mg PO BIDWM [facility] Senna (Senokot) 8.6 - 17.2 mg PO DAILY [facility] Tamsulosin HCl (Flomax) 0.4 mg PO QDDINNER [facility] Thiamine HCl (Vitamin B-1) 100 mg PO DAILY [facility] Timolol Maleate (Timoptic 0.5% Ophth Drops) 1 drops EACHEYE DAILY [facility] HOME meds: allopurinoL [Allopurinol] 300 mg PO DAILY 10/12/16 Atorvastatin Calcium 40 mg PO QPM 12/17/19 Cholecalciferol (Vitamin D3) [Vitamin D] 2,000 unit PO DAILY 12/17/19 Clopidogrel [Plavix] 75 mg PO DAILY 12/17/19 Cyanocobalamin (Vitamin B-12) [Vitamin B-12 (1000 mcg sublingual)] 1,000 mcg PO DAILY 12/17/19 Docusate Sodium 300 mg PO DAILY PRN 12/17/19 Dorzolamide HCl 1 drops EACHEYE DAILY 12/17/19 Latanoprost 0.005% Ophth Drops [Xalatan Ophth Drops] 1 drops EACHEYE QPM 12/17/19 Metoprolol Tartrate 50 mg PO BID 12/17/19 Oxybutynin [Ditropan] 2.5 mg PO BID 12/17/19 Pantoprazole [Protonix] 40 mg PO BIDAC 12/17/19 Sildenafil Citrate [Sildenafil] 20 - 100 mg PO DAILY PRN 12/17/19 Tamsulosin [Flomax] 0.4 mg PO QDDINNER 12/17/19 Temazepam 15 mg PO QPM PRN 12/17/19 Timolol 0.5% Ophth Drops [Timoptic 0.5% Ophth Drops] 1 drops EACHEYE DAILY 12/17/19 Objective - Vital Signs/Intake & Output Vital Signs: Vital Signs x48h Temp Pulse Resp BP Pulse Ox 12/29/19 09:59 36.7 C 69 18 122/58 L 93 Intake & Output: Intake & Output 12/26/19 12/27/19 12/28/19 12/29/19 23:59 23:59 23:59 23:59 Intake Total 360 800 790 360 Output Total 325 1000 625 350 Balance 35 -200 165 10 - Objective General Appearance: positive: No acute distress, Alert Eyes Bilateral: positive: PERRL ENT: positive: Pharynx nml, No signs of dehydration Neck: positive: No JVD, Trachea midline Respiratory: positive: Chest non-tender, No respiratory distress, Other (diminished, bilaterally) Cardiovascular: positive: Regular rate & rhythm, No gallop, Systolic murmur Peripheral Pulses: 1+ Radial (R), 1+ Radial (L) Abdomen: positive: Non-tender, Nml bowel sounds, Other (rounded, soft) Back: positive: Nml inspection Skin: positive: Color nml, No rash, Warm, Dry Extremities: positive: Non-tender, Full ROM, Nml appearance, Pedal edema (dependent, BLEs) Neurologic/Psychiatric: positive: Oriented x3, CN's nml (2-12), Motor nml, Sens ation nml, Mood/affect nml, Depressed mood/affect (flat) Reflexes: Bicep (R): 2+, Bicep (L): 2+ - Lab Results Fish Bones: 12/29/19 05:49 12/29/19 05:49 Other Labs: Lab Results x24hrs 12/29/19 12/29/19 12/29/19 Range/Units 12:01 07:54 05:49 WBC (4.8-10.8) x10^3/uL RBC (4.70-6.10) 10^6/uL Hgb (14.0-18.0) g/dL Hct (42.0-52.0) % MCV (80.0-94.0) fL MCH (27.0-31.0) pg MCHC (32.0-36.0) g/dL RDW (12.0-15.0) % Plt Count (130-450) 10^3/uL MPV (7.4-11.4) fL Neut # (Auto) (1.5-6.6) 10^3/uL Lymph # (Auto) (1.5-3.5) 10^3/uL Sharp # (Auto) (0.0-1.0) 10^3/uL Eos # (Auto) (0.0-0.7) 10^3/uL Baso # (Auto) (0.0-0.1) 10^3/uL Absolute Nucleated RBC x10^3/uL Nucleated RBC % /100WBC Sodium 140 (135-145) mmol/L Potassium 4.1 (3.5-5.0) mmol/L Chloride 103 (101-111) mmol/L Carbon Dioxide 30 (21-32) mmol/L Anion Gap 7.0 (6-13) BUN 25 H (6-20) mg/dL Creatinine 1.1 (0.6-1.2) mg/dL Estimated GFR (MDRD) 64 L (>89) Glucose 147 H (70-100) mg/dL POC Whole Bld Glucose 152 H 132 H (70 - 100) mg/dL Calcium 9.3 (8.5-10.3) mg/dL C-Reactive Protein < 1.0 (0-1.0) mg/dL 12/29/19 12/28/19 12/28/19 Range/Units 05:49 19:52 16:31 WBC 6.4 (4.8-10.8) x10^3/uL RBC 4.43 L (4.70-6.10) 10^6/uL Hgb 13.2 L (14.0-18.0) g/dL Hct 42.0 (42.0-52.0) % MCV 94.8 H (80.0-94.0) fL MCH 29.8 (27.0-31.0) pg MCHC 31.4 L (32.0-36.0) g/dL RDW 13.8 (12.0-15.0) % Plt Count 258 (130-450) 10^3/uL MPV 10.4 (7.4-11.4) fL Neut # (Auto) 3.9 (1.5-6.6) 10^3/uL Lymph # (Auto) 1.6 (1.5-3.5) 10^3/uL Sharp # (Auto) 0.7 (0.0-1.0) 10^3/uL Eos # (Auto) 0.1 (0.0-0.7) 10^3/uL Baso # (Auto) 0.0 (0.0-0.1) 10^3/uL Absolute Nucleated RBC 0.00 x10^3/uL Nucleated RBC % 0.0 /100WBC Sodium (135-145) mmol/L Potassium (3.5-5.0) mmol/L Chloride (101-111) mmol/L Carbon Dioxide (21-32) mmol/L Anion Gap (6-13) BUN (6-20) mg/dL Creatinine (0.6-1.2) mg/dL Estimated GFR (MDRD) (>89) Glucose (70-100) mg/dL POC Whole Bld Glucose 125 H 126 H (70 - 100) mg/dL Calcium (8.5-10.3) mg/dL C-Reactive Protein (0-1.0) mg/dL 12/28/19 12/28/19 12/27/19 Range/Units 11:32 07:49 20:21 WBC (4.8-10.8) x10^3/uL RBC (4.70-6.10) 10^6/uL Hgb (14.0-18.0) g/dL Hct (42.0-52.0) % MCV (80.0-94.0) fL MCH (27.0-31.0) pg MCHC (32.0-36.0) g/dL RDW (12.0-15.0) % Plt Count (130-450) 10^3/uL MPV (7.4-11.4) fL Neut # (Auto) (1.5-6.6) 10^3/uL Lymph # (Auto) (1.5-3.5) 10^3/uL Sharp # (Auto) (0.0-1.0) 10^3/uL Eos # (Auto) (0.0-0.7) 10^3/uL Baso # (Auto) (0.0-0.1) 10^3/uL Absolute Nucleated RBC x10^3/uL Nucleated RBC % /100WBC Sodium (135-145) mmol/L Potassium (3.5-5.0) mmol/L Chloride (101-111) mmol/L Carbon Dioxide (21-32) mmol/L Anion Gap (6-13) BUN (6-20) mg/dL Creatinine (0.6-1.2) mg/dL Estimated GFR (MDRD) (>89) Glucose (70-100) mg/dL POC Whole Bld Glucose 162 H 138 H 167 H (70 - 100) mg/dL Calcium (8.5-10.3) mg/dL C-Reactive Protein (0-1.0) mg/dL 12/27/19 12/27/19 12/27/19 Range/Units 17:07 11:46 07:30 WBC (4.8-10.8) x10^3/uL RBC (4.70-6.10) 10^6/uL Hgb (14.0-18.0) g/dL Hct (42.0-52.0) % MCV (80.0-94.0) fL MCH (27.0-31.0) pg MCHC (32.0-36.0) g/dL RDW (12.0-15.0) % Plt Count (130-450) 10^3/uL MPV (7.4-11.4) fL Neut # (Auto) (1.5-6.6) 10^3/uL Lymph # (Auto) (1.5-3.5) 10^3/uL Sharp # (Auto) (0.0-1.0) 10^3/uL Eos # (Auto) (0.0-0.7) 10^3/uL Baso # (Auto) (0.0-0.1) 10^3/uL Absolute Nucleated RBC x10^3/uL Nucleated RBC % /100WBC Sodium (135-145) mmol/L Potassium (3.5-5.0) mmol/L Chloride (101-111) mmol/L Carbon Dioxide (21-32) mmol/L Anion Gap (6-13) BUN (6-20) mg/dL Creatinine (0.6-1.2) mg/dL Estimated GFR (MDRD) (>89) Glucose (70-100) mg/dL POC Whole Bld Glucose 148 H 160 H 121 H (70 - 100) mg/dL Calcium (8.5-10.3) mg/dL C-Reactive Protein (0-1.0) mg/dL 12/26/19 12/26/19 12/26/19 Range/Units 21:32 16:27 12:44 WBC (4.8-10.8) x10^3/uL RBC (4.70-6.10) 10^6/uL Hgb (14.0-18.0) g/dL Hct (42.0-52.0) % MCV (80.0-94.0) fL MCH (27.0-31.0) pg MCHC (32.0-36.0) g/dL RDW (12.0-15.0) % Plt Count (130-450) 10^3/uL MPV (7.4-11.4) fL Neut # (Auto) (1.5-6.6) 10^3/uL Lymph # (Auto) (1.5-3.5) 10^3/uL Sharp # (Auto) (0.0-1.0) 10^3/uL Eos # (Auto) (0.0-0.7) 10^3/uL Baso # (Auto) (0.0-0.1) 10^3/uL Absolute Nucleated RBC x10^3/uL Nucleated RBC % /100WBC Sodium (135-145) mmol/L Potassium (3.5-5.0) mmol/L Chloride (101-111) mmol/L Carbon Dioxide (21-32) mmol/L Anion Gap (6-13) BUN (6-20) mg/dL Creatinine (0.6-1.2) mg/dL Estimated GFR (MDRD) (>89) Glucose (70-100) mg/dL POC Whole Bld Glucose 130 H 157 H 135 H (70 - 100) mg/dL Calcium (8.5-10.3) mg/dL C-Reactive Protein (0-1.0) mg/dL 12/26/19 12/25/19 12/25/19 Range/Units 08:00 21:01 16:40 WBC (4.8-10.8) x10^3/uL RBC (4.70-6.10) 10^6/uL Hgb (14.0-18.0) g/dL Hct (42.0-52.0) % MCV (80.0-94.0) fL MCH (27.0-31.0) pg MCHC (32.0-36.0) g/dL RDW (12.0-15.0) % Plt Count (130-450) 10^3/uL MPV (7.4-11.4) fL Neut # (Auto) (1.5-6.6) 10^3/uL Lymph # (Auto) (1.5-3.5) 10^3/uL Sharp # (Auto) (0.0-1.0) 10^3/uL Eos # (Auto) (0.0-0.7) 10^3/uL Baso # (Auto) (0.0-0.1) 10^3/uL Absolute Nucleated RBC x10^3/uL Nucleated RBC % /100WBC Sodium (135-145) mmol/L Potassium (3.5-5.0) mmol/L Chloride (101-111) mmol/L Carbon Dioxide (21-32) mmol/L Anion Gap (6-13) BUN (6-20) mg/dL Creatinine (0.6-1.2) mg/dL Estimated GFR (MDRD) (>89) Glucose (70-100) mg/dL POC Whole Bld Glucose 116 H 133 H 114 H (70 - 100) mg/dL Calcium (8.5-10.3) mg/dL C-Reactive Protein (0-1.0) mg/dL 12/25/19 12/24/19 12/24/19 Range/Units 11:04 21:51 17:12 WBC (4.8-10.8) x10^3/uL RBC (4.70-6.10) 10^6/uL Hgb (14.0-18.0) g/dL Hct (42.0-52.0) % MCV (80.0-94.0) fL MCH (27.0-31.0) pg MCHC (32.0-36.0) g/dL RDW (12.0-15.0) % Plt Count (130-450) 10^3/uL MPV (7.4-11.4) fL Neut # (Auto) (1.5-6.6) 10^3/uL Lymph # (Auto) (1.5-3.5) 10^3/uL Sharp # (Auto) (0.0-1.0) 10^3/uL Eos # (Auto) (0.0-0.7) 10^3/uL Baso # (Auto) (0.0-0.1) 10^3/uL Absolute Nucleated RBC x10^3/uL Nucleated RBC % /100WBC Sodium (135-145) mmol/L Potassium (3.5-5.0) mmol/L Chloride (101-111) mmol/L Carbon Dioxide (21-32) mmol/L Anion Gap (6-13) BUN (6-20) mg/dL Creatinine (0.6-1.2) mg/dL Estimated GFR (MDRD) (>89) Glucose (70-100) mg/dL POC Whole Bld Glucose 135 H 123 H 117 H (70 - 100) mg/dL Calcium (8.5-10.3) mg/dL C-Reactive Protein (0-1.0) mg/dL 12/24/19 12/23/19 12/23/19 Range/Units 11:24 20:44 16:31 WBC (4.8-10.8) x10^3/uL RBC (4.70-6.10) 10^6/uL Hgb (14.0-18.0) g/dL Hct (42.0-52.0) % MCV (80.0-94.0) fL MCH (27.0-31.0) pg MCHC (32.0-36.0) g/dL RDW (12.0-15.0) % Plt Count (130-450) 10^3/uL MPV (7.4-11.4) fL Neut # (Auto) (1.5-6.6) 10^3/uL Lymph # (Auto) (1.5-3.5) 10^3/uL Sharp # (Auto) (0.0-1.0) 10^3/uL Eos # (Auto) (0.0-0.7) 10^3/uL Baso # (Auto) (0.0-0.1) 10^3/uL Absolute Nucleated RBC x10^3/uL Nucleated RBC % /100WBC Sodium (135-145) mmol/L Potassium (3.5-5.0) mmol/L Chloride (101-111) mmol/L Carbon Dioxide (21-32) mmol/L Anion Gap (6-13) BUN (6-20) mg/dL Creatinine (0.6-1.2) mg/dL Estimated GFR (MDRD) (>89) Glucose (70-100) mg/dL POC Whole Bld Glucose 139 H 107 H 126 H (70 - 100) mg/dL Calcium (8.5-10.3) mg/dL C-Reactive Protein (0-1.0) mg/dL 12/23/19 12/23/19 12/22/19 Range/Units 11:59 08:31 20:54 WBC (4.8-10.8) x10^3/uL RBC (4.70-6.10) 10^6/uL Hgb (14.0-18.0) g/dL Hct (42.0-52.0) % MCV (80.0-94.0) fL MCH (27.0-31.0) pg MCHC (32.0-36.0) g/dL RDW (12.0-15.0) % Plt Count (130-450) 10^3/uL MPV (7.4-11.4) fL Neut # (Auto) (1.5-6.6) 10^3/uL Lymph # (Auto) (1.5-3.5) 10^3/uL Sharp # (Auto) (0.0-1.0) 10^3/uL Eos # (Auto) (0.0-0.7) 10^3/uL Baso # (Auto) (0.0-0.1) 10^3/uL Absolute Nucleated RBC x10^3/uL Nucleated RBC % /100WBC Sodium (135-145) mmol/L Potassium (3.5-5.0) mmol/L Chloride (101-111) mmol/L Carbon Dioxide (21-32) mmol/L Anion Gap (6-13) BUN (6-20) mg/dL Creatinine (0.6-1.2) mg/dL Estimated GFR (MDRD) (>89) Glucose (70-100) mg/dL POC Whole Bld Glucose 121 H 120 H 247 H (70 - 100) mg/dL Calcium (8.5-10.3) mg/dL C-Reactive Protein (0-1.0) mg/dL 12/22/19 12/22/19 12/22/19 Range/Units 16:33 11:25 07:38 WBC (4.8-10.8) x10^3/uL RBC (4.70-6.10) 10^6/uL Hgb (14.0-18.0) g/dL Hct (42.0-52.0) % MCV (80.0-94.0) fL MCH (27.0-31.0) pg MCHC (32.0-36.0) g/dL RDW (12.0-15.0) % Plt Count (130-450) 10^3/uL MPV (7.4-11.4) fL Neut # (Auto) (1.5-6.6) 10^3/uL Lymph # (Auto) (1.5-3.5) 10^3/uL Sharp # (Auto) (0.0-1.0) 10^3/uL Eos # (Auto) (0.0-0.7) 10^3/uL Baso # (Auto) (0.0-0.1) 10^3/uL Absolute Nucleated RBC x10^3/uL Nucleated RBC % /100WBC Sodium (135-145) mmol/L Potassium (3.5-5.0) mmol/L Chloride (101-111) mmol/L Carbon Dioxide (21-32) mmol/L Anion Gap (6-13) BUN (6-20) mg/dL Creatinine (0.6-1.2) mg/dL Estimated GFR (MDRD) (>89) Glucose (70-100) mg/dL POC Whole Bld Glucose 135 H 164 H 138 H (70 - 100) mg/dL Calcium (8.5-10.3) mg/dL C-Reactive Protein (0-1.0) mg/dL 12/21/19 12/21/19 Range/Units 21:33 16:03 WBC (4.8-10.8) x10^3/uL RBC (4.70-6.10) 10^6/uL Hgb (14.0-18.0) g/dL Hct (42.0-52.0) % MCV (80.0-94.0) fL MCH (27.0-31.0) pg MCHC (32.0-36.0) g/dL RDW (12.0-15.0) % Plt Count (130-450) 10^3/uL MPV (7.4-11.4) fL Neut # (Auto) (1.5-6.6) 10^3/uL Lymph # (Auto) (1.5-3.5) 10^3/uL Sharp # (Auto) (0.0-1.0) 10^3/uL Eos # (Auto) (0.0-0.7) 10^3/uL Baso # (Auto) (0.0-0.1) 10^3/uL Absolute Nucleated RBC x10^3/uL Nucleated RBC % /100WBC Sodium (135-145) mmol/L Potassium (3.5-5.0) mmol/L Chloride (101-111) mmol/L Carbon Dioxide (21-32) mmol/L Anion Gap (6-13) BUN (6-20) mg/dL Creatinine (0.6-1.2) mg/dL Estimated GFR (MDRD) (>89) Glucose (70-100) mg/dL POC Whole Bld Glucose 155 H 153 H (70 - 100) mg/dL Calcium (8.5-10.3) mg/dL C-Reactive Protein (0-1.0) mg/dL ABX Reporting Has patient been on IV antibiotics over the past 48 hours?: No Assessment/Plan - Problem List (1) Pneumonia due to 2019 novel coronavirus Impression: -Clinically resolved, however, unfortunately 3rd swab results still show positive -Will have to wait at least another 72 hours before retesting -Consider d/w ID re: timeline of testing, as some are recommending 14 days before retesting Elevated troponin -12/21 pt had elevated troponin on 12/17. it was presumed to be from demand ischemia from the fevers and hypoxia -No worsening of SOB, therefore no Echo was ordered to not expose staff to COVID, since his care would not be affected substantially by getting an Echo -Hemodynamic stable, he did not complain any chest pain -Continues on Aspirin 325 mg, Metoprolol and Lisinopril. will continue monitor Bradycardia -resolved, remains on reduced daily dosing of his metoprolol DM type 2 (diabetes mellitus, type 2) -Blood sugars well controlled, 125-252 today -Only getting 1-2 units per 48 hours, so now SSI and blood sugars have been stopped -Continue routine labs, carb controlled diet HTN (hypertension) -Continues on Norvasc, lisinopril, BB Hx of coronary artery disease -Stable, no chest pain, continue current meds meds
[2019-12-29] MEDS: TAMSULOSIN 0.4 MG CAPSULE PO SCH (18:35)
[2019-12-29] MEDS: TEMAZEPAM 15 MG CAPSULE PO SCH (20:49)
[2019-12-29] MEDS: LATANOPROST 0.005% OPHTH DROPS EACHEYE SCH (20:50)
[2019-12-30] MEDS: CHOLECALCIFEROL 1,000 UNIT TABLET PO SCH (08:09)
[2019-12-30] MEDS: SENNA 8.6 MG TABLET PO SCH ×2 (08:10→08:32)
[2019-12-30] MEDS: amLODIPine 5 MG TABLET PO SCH (08:10)
[2019-12-30] MEDS: CLOPIDOGREL 75 MG TABLET PO SCH (08:10)
[2019-12-30] MEDS: METOPROLOL SUCCINATE 25 MG TABLET PO SCH (08:10)
[2019-12-30] MEDS: SACCHAROMYCES BOULARDII 250 MG CAPSULE PO SCH (08:10)
[2019-12-30] MEDS: guaiFENesin 600 MG TABLET PO SCH (08:10)
[2019-12-30] MEDS: DOCUSATE SODIUM 250 MG CAPSULE PO SCH ×2 (08:10→08:32)
[2019-12-30] MEDS: OXYBUTYNIN 5MG TABLET PO SCH (08:11)
[2019-12-30] MEDS: lisinopriL 20 MG TABLET PO SCH (08:11)
[2019-12-30] MEDS: THIAMINE 100 MG TABLET PO SCH (08:11)
[2019-12-30] MEDS: PRENATAL VITAMIN TABLET PO SCH (08:11)
[2019-12-30] MEDS: polyethylene glycoL 3350 17 GM PACKET PO SCH (08:12)
[2019-12-30] MEDS: timoloL maleate 0.5% OPHTH DROPS (10ML) EACHEYE SCH (08:13)
[2019-12-30] MEDS: DORZOLAMIDE 2% OPHTH DROPS EACHEYE SCH (08:13)
[2019-12-30] MEDS: NYSTATIN POWDER 15 GM TOP SCH (08:36)
[2019-12-30] MEDS: FAMOTIDINE 20 MG TABLET PO SCH ×2 (10:43→20:33)
[2019-12-30] MEDS: allopurinoL 100 MG TABLET PO SCH (10:44)
--- NOTE | 2019-12-30 11:15 | PROVIDER PROGRESS NOTE ---
Subjective - Prog Note Date Prog Note Date: 12/30/19 Prog Note Time: 11:13 - Subjective Pt reports feeling: No change Subjective: Federico is enjoying his meals, and asks, "when can I return home". He has no other complaints and has been updated that we are going to have to re-test him for the virus (COVID-19) soon. Current Medications - Current Medications Current Medications: Active Medications: Acetaminophen (Tylenol) 650 mg PO Q4HR PRN Allopurinol (Zyloprim) 300 mg PO DAILY [facility] Amlodipine Besylate (Norvasc) 10 mg PO DAILY [facility] Benzonatate (Tessalon) 100 mg PO TID PRN Cholecalciferol (Vitamin D3) 2,000 unit PO DAILY [facility] Clopidogrel Bisulfate (Plavix) 75 mg PO DAILY [facility] Docusate Sodium (Colace 250mg Capsule) 250 - 500 mg PO DAILY [facility] Dorzolamide HCl (Trusopt 2% Ophth Drops) 1 drops EACHEYE DAILY [facility] Famotidine (Pepcid) 20 mg PO BID [facility] Guaifenesin (Mucinex) 600 mg PO BID [facility] Latanoprost (Xalatan Ophth Drops) 1 drops EACHEYE QPM [facility] Lisinopril (Zestril) 20 mg PO DAILY [facility] Loperamide HCl (Imodium) 2 mg PO QID PRN Metoprolol Succinate (Toprol Xl) 37.5 mg PO DAILY [facility] Mineral Oil (Cavilon) 1 applic TOP PRN PRN Nystatin (Nystop) 1 applic TOP BID [facility] Oxybutynin Chloride (Ditropan) 2.5 mg PO BID [facility] Polyethylene Glycol (Miralax) 17 gm PO DAILY [facility] Multivit/Folic Acid/Iron (Trinatal Rx 1) 1 tab PO DAILYWM [facility] Saccharomyces Boulardii (Florastor) 250 mg PO BIDWM [facility] Senna (Senokot) 8.6 - 17.2 mg PO DAILY [facility] Tamsulosin HCl (Flomax) 0.4 mg PO QDDINNER [facility] Temazepam (Restoril) 15 mg PO QPM [facility] Thiamine HCl (Vitamin B-1) 100 mg PO DAILY [facility] Timolol Maleate (Timoptic 0.5% Ophth Drops) 1 drops EACHEYE DAILY [facility] Objective - Vital Signs/Intake & Output Reviewed Vital Signs: Yes Vital Signs: Vital Signs x48h Temp Pulse Resp BP Pulse Ox 12/30/19 07:50 36.4 C L 62 18 141/65 H 95 Intake & Output: Intake & Output 12/27/19 12/28/19 12/29/19 12/30/19 23:59 23:59 23:59 23:59 Intake Total 800 790 600 400 Output Total 1000 625 350 Balance -200 165 250 400 - Objective General Appearance: positive: No acute distress, Alert Eyes Bilateral: positive: PERRL ENT: positive: Pharynx nml, No signs of dehydration Neck: positive: No JVD, Trachea midline Respiratory: positive: Chest non-tender, No respiratory distress, Breath sounds nml, Other (diminished, bilaterally) Cardiovascular: positive: Regular rate & rhythm, No gallop, Systolic murmur Peripheral Pulses: 1+ Radial (R), 1+ Radial (L) Abdomen: positive: Non-tender, Nml bowel sounds, Other (rounded, soft) Back: positive: Nml inspection Skin: positive: Color nml, No rash, Warm, Dry Extremities: positive: Non-tender, Full ROM, Nml appearance, Pedal edema (dependent edema-baseline) Neurologic/Psychiatric: positive: CN's nml (2-12), Disoriented to time, Weakness, Sensory loss, Depressed mood/affect (flat) Reflexes: Bicep (R): 3+, Bicep (L): 3+ - Lab Results Fish Bones: 12/29/19 05:49 12/29/19 05:49 Other Labs: Lab Results x24hrs 12/29/19 Range/Units 12:01 POC Whole Bld Glucose 152 H (70 - 100) mg/dL ABX Reporting Has patient been on IV antibiotics over the past 48 hours?: No Assessment/Plan - Problem List (1) Pneumonia due to 2019 novel coronavirus Impression: -Clinically resolved, however, unfortunately 3rd swab results still show positive -Will have to wait at least another 72 hours before retesting -New order placed to be collected today (last was on 12/27/2019) -Consider d/w ID re: timeline of testing, as some are recommending 14 days before retesting Dementia -Poor insight to current medical problems -Short term memory loss -Repeat OT evaluation notes a poor MME score -Ongoing severe cognitive impairment -Fall precautions, await placement Elevated troponin -12/21 pt had elevated troponin on 12/17. it was presumed to be from demand ischemia from the fevers and hypoxia -No worsening of SOB, therefore no Echo was ordered to not expose staff to COVID, since his care would not be affected substantially by getting an Echo -Hemodynamic stable, he did not complain any chest pain -Continues on Aspirin 325 mg, Metoprolol and Lisinopril. will continue monitor Bradycardia -resolved, remains on reduced daily dosing of his metoprolol DM type 2 (diabetes mellitus, type 2) -Blood sugars well controlled, with diet -All blood sugar checks, and SSI stopped on 12/28 -Continue routine labs, carb controlled diet HTN (hypertension) -Continues on Norvasc, lisinopril, BB Hx of coronary artery disease -Stable, no chest pain, continue current meds meds
[2019-12-30] MEDS ORDERED: HALOPERIDOL 5 MG/ML VIAL IM ONE (16:25)
[2019-12-30] MEDS ORDERED: OLANZapine 10 MG VIAL IM ONE (17:03)
[2019-12-30] MEDS: QUEtiapine 25 MG TABLET PO SCH ×2 (18:11→23:48)
[2019-12-30] MEDS: LATANOPROST 0.005% OPHTH DROPS EACHEYE SCH (20:33)
[2019-12-30] MEDS: TAMSULOSIN 0.4 MG CAPSULE PO SCH (20:34)
[2019-12-30] MEDS: TEMAZEPAM 15 MG CAPSULE PO SCH (20:34)
[2019-12-31] MEDS ORDERED: HALOPERIDOL 5 MG/ML VIAL IVP PRN (02:16)
[2019-12-31] MEDS: QUEtiapine 25 MG TABLET PO SCH ×5 (06:41→23:58)
[2019-12-31] MEDS: PRENATAL VITAMIN TABLET PO SCH (10:29)
[2019-12-31] MEDS: SENNA 8.6 MG TABLET PO SCH (10:29)
[2019-12-31] MEDS: FAMOTIDINE 20 MG TABLET PO SCH ×2 (10:29→22:01)
[2019-12-31] MEDS: amLODIPine 5 MG TABLET PO SCH (10:29)
[2019-12-31] MEDS: METOPROLOL SUCCINATE 25 MG TABLET PO SCH (10:29)
[2019-12-31] MEDS: allopurinoL 100 MG TABLET PO SCH (10:29)
[2019-12-31] MEDS: lisinopriL 20 MG TABLET PO SCH (10:29)
[2019-12-31] MEDS: polyethylene glycoL 3350 17 GM PACKET PO SCH (10:30)
[2019-12-31] MEDS: CLOPIDOGREL 75 MG TABLET PO SCH (10:30)
[2019-12-31] MEDS: TAMSULOSIN 0.4 MG CAPSULE PO SCH ×2 (10:30→22:01)
[2019-12-31] MEDS: DORZOLAMIDE 2% OPHTH DROPS EACHEYE SCH (11:21)
[2019-12-31] MEDS: timoloL maleate 0.5% OPHTH DROPS (10ML) EACHEYE SCH (11:21)
--- NOTE | 2019-12-31 14:10 | PROVIDER PROGRESS NOTE ---
Subjective - Prog Note Date Prog Note Date: 12/31/19 Prog Note Time: 14:08 - Subjective Pt reports feeling: No change Subjective: Federico has no complaints, and appears comfortable. Current Medications - Current Medications Current Medications: Active Medications: Acetaminophen (Tylenol) 650 mg PO Q4HR PRN Allopurinol (Zyloprim) 300 mg PO DAILY [facility] Amlodipine Besylate (Norvasc) 10 mg PO DAILY [facility] Benzonatate (Tessalon) 100 mg PO TID PRN Clopidogrel Bisulfate (Plavix) 75 mg PO DAILY [facility] Dorzolamide HCl (Trusopt 2% Ophth Drops) 1 drops EACHEYE DAILY [facility] Famotidine (Pepcid) 20 mg PO BID [facility] Haloperidol (Haldol Inj) 1 mg IVP Q6H PRN Latanoprost (Xalatan Ophth Drops) 1 drops EACHEYE QPM [facility] Lisinopril (Zestril) 20 mg PO DAILY [facility] Loperamide HCl (Imodium) 2 mg PO QID PRN Metoprolol Succinate (Toprol Xl) 37.5 mg PO DAILY [facility] Mineral Oil (Cavilon) 1 applic TOP PRN PRN Polyethylene Glycol (Miralax) 17 gm PO DAILY [facility] Multivit/Folic Acid/Iron (Trinatal Rx 1) 1 tab PO DAILYWM [facility] Quetiapine Fumarate (Seroquel) 25 mg PO Q6H [facility] Senna (Senokot) 8.6 - 17.2 mg PO DAILY [facility] Tamsulosin HCl (Flomax) 0.4 mg PO BID [facility] Objective - Vital Signs/Intake & Output Reviewed Vital Signs: Yes Vital Signs: Vital Signs x48h Temp Pulse Resp BP Pulse Ox 12/31/19 11:26 36.4 C L 82 18 154/65 H 93 Intake & Output: Intake & Output 12/28/19 12/29/19 12/30/19 12/31/19 23:59 23:59 23:59 23:59 Intake Total 323 830 8186 120 Output Total 625 350 300 300 Balance 165 250 700 -180 - Objective General Appearance: positive: Alert, Moderate distress, Anxious Eyes Bilateral: positive: No lid inflammation ENT: positive: No signs of dehydration Neck: positive: Trachea midline Respiratory: positive: Chest non-tender, No respiratory distress Cardiovascular: positive: Regular rate & rhythm, No gallop, Systolic murmur Peripheral Pulses: 1+ Radial (R), 1+ Radial (L) Abdomen: positive: Non-tender, Nml bowel sounds, Other (rounded, soft) Back: positive: Nml inspection Skin: positive: Color nml, No rash, Warm, Dry Extremities: positive: Non-tender, Full ROM, Joint swelling Neurologic/Psychiatric: positive: CN's nml (2-12), Motor nml, Disoriented to time, Weakness, Sensory loss, Slurred/abnml speech (sluggish speech, flat affect), Depressed mood/affect Reflexes: Bicep (R): 2+, Bicep (L): 2+ - Lab Results Fish Bones: 12/29/19 05:49 12/29/19 05:49 Other Labs: Lab Results x24hrs 12/30/19 Range/Units 16:48 Coronavirus (PCR) POSITIVE ABX Reporting Has patient been on IV antibiotics over the past 48 hours?: No Assessment/Plan - Problem List (1) Pneumonia due to 2019 novel coronavirus Impression: -Clinically resolved, however, unfortunately 4th swab results still show positive, last on 12/29-resulted on 12/30 -Consider d/w ID re: timeline of testing, as some are recommending 14 days before retesting Dementia -Poor insight to current medical problems -Short term memory loss -Repeat OT evaluation notes a poor MME score -Ongoing severe cognitive impairment -Now on scheduled seroquel with improved results -Restraints last used on 12/29 -Fall precautions, await placement Elevated troponin -12/21 pt had elevated troponin on 12/17. it was presumed to be from demand ischemia from the fevers and hypoxia -No worsening of SOB, therefore no Echo was ordered to not expose staff to COVID, since his care would not be affected substantially by getting an Echo -Hemodynamic stable, he did not complain of any chest pain -Continues on Aspirin 325 mg, Metoprolol and Lisinopril. will continue monitor Bradycardia -resolved, remains on reduced daily dosing of his metoprolol DM type 2 (diabetes mellitus, type 2) -Blood sugars well controlled, with diet -All blood sugar checks, and SSI stopped on 12/28 -Continue routine labs, carb controlled diet HTN (hypertension) -Continues on Norvasc, lisinopril, BB Hx of coronary artery disease -Stable, no chest pain, continue current meds meds
[2020-01-01] MEDS: QUEtiapine 25 MG TABLET PO SCH ×4 (05:58→23:44)
[2020-01-01] MEDS: allopurinoL 100 MG TABLET PO SCH (09:47)
[2020-01-01] MEDS: PRENATAL VITAMIN TABLET PO SCH (09:47)
[2020-01-01] MEDS: CLOPIDOGREL 75 MG TABLET PO SCH (09:47)
[2020-01-01] MEDS: TAMSULOSIN 0.4 MG CAPSULE PO SCH ×2 (09:48→20:10)
[2020-01-01] MEDS: FAMOTIDINE 20 MG TABLET PO SCH ×2 (09:48→20:10)
[2020-01-01] MEDS: amLODIPine 5 MG TABLET PO SCH (09:48)
[2020-01-01] MEDS: METOPROLOL SUCCINATE 25 MG TABLET PO SCH (09:48)
[2020-01-01] MEDS: lisinopriL 20 MG TABLET PO SCH (09:48)
[2020-01-01] MEDS: SENNA 8.6 MG TABLET PO SCH (09:49)
[2020-01-01] MEDS: polyethylene glycoL 3350 17 GM PACKET PO SCH (09:49)
--- NOTE | 2020-01-01 16:29 | PROVIDER PROGRESS NOTE ---
Subjective - Prog Note Date Prog Note Date: 01/01/20 Prog Note Time: 16:21 - Subjective Pt reports feeling: Worse Subjective: Federico continues to be impulsive at times, offers no complaints. States, "When can I go home". Participating in PT today. Current Medications - Current Medications Current Medications: Active Medications: Acetaminophen (Tylenol) 650 mg PO Q4HR PRN Allopurinol (Zyloprim) 300 mg PO DAILY [facility] Amlodipine Besylate (Norvasc) 10 mg PO DAILY [facility] Benzonatate (Tessalon) 100 mg PO TID PRN Clopidogrel Bisulfate (Plavix) 75 mg PO DAILY [facility] Famotidine (Pepcid) 20 mg PO BID [facility] Haloperidol (Haldol Inj) 1 mg IVP Q6H PRN Lisinopril (Zestril) 20 mg PO DAILY [facility] Loperamide HCl (Imodium) 2 mg PO QID PRN Metoprolol Succinate (Toprol Xl) 37.5 mg PO DAILY [facility] Mineral Oil (Cavilon) 1 applic TOP PRN PRN Polyethylene Glycol (Miralax) 17 gm PO DAILY [facility] Multivit/Folic Acid/Iron (Trinatal Rx 1) 1 tab PO DAILYWM [facility] Quetiapine Fumarate (Seroquel) 25 mg PO Q6H [facility] Senna (Senokot) 8.6 - 17.2 mg PO DAILY [facility] Tamsulosin HCl (Flomax) 0.4 mg PO BID [facility] Objective - Vital Signs/Intake & Output Reviewed Vital Signs: Yes Vital Signs: Vital Signs x48h Temp Pulse Resp BP Pulse Ox 01/01/20 11:15 108/55 L 01/01/20 10:39 36.5 C 93 16 84/54 L 99 01/01/20 10:36 75/50 L 92 Intake & Output: Intake & Output 12/29/19 12/30/19 12/31/19 01/01/20 23:59 23:59 23:59 23:59 Intake Total 600 1000 390 130 Output Total 350 300 300 850 Balance 250 700 90 -720 - Objective General Appearance: positive: Alert (takes naps), Moderate distress, Anxious Eyes Bilateral: positive: No lid inflammation Neurologic/Psychiatric: positive: Disoriented to place, Disoriented to time, Weakness, Sensory loss - Lab Results Fish Bones: 12/29/19 05:49 12/29/19 05:49 ABX Reporting Has patient been on IV antibiotics over the past 48 hours?: No Assessment/Plan - Problem List (1) Impaired cognitive ability Impression: -Impulsive and difficult to convince to ask staff for help due to dementia -Isolation room further complicates things -Unable to return home due to needing physical rehab, and cognitively cannot manage own life, requires 24 hour care Pneumonia -Clinically resolved, however, unfortunately 4th swab results still show positive, last on 12/29-resulted on 12/30 -Consider d/w ID re: timeline of testing, as some are recommending 14 days before retesting -No plans to re-swab, considered resolved Dementia -Poor insight to current medical problems -Short term memory loss -Ongoing severe cognitive impairment -Now on scheduled seroquel with improved results -Restraints currently in use (12/31) -Fall precautions, await placement Elevated troponin -Resolved -Continues on Aspirin 325 mg, Metoprolol and Lisinopril. will continue monitor Bradycardia -resolved, remains on reduced daily dosing of his metoprolol DM type 2 (diabetes mellitus, type 2)-diet controlled -Poor appetite, so changed to regular HTN (hypertension) -Continues on Norvasc, lisinopril, BB Hx of coronary artery disease -Stable, no chest pain, continue current meds meds
[2020-01-02] MEDS: ACETAMINOPHEN 325 MG TABLET PO PRN (00:07)
[2020-01-02] MEDS: QUEtiapine 25 MG TABLET PO SCH ×3 (06:52→18:22)
[2020-01-02] MEDS: amLODIPine 5 MG TABLET PO SCH (10:15)
[2020-01-02] MEDS: allopurinoL 100 MG TABLET PO SCH (10:15)
[2020-01-02] MEDS: PRENATAL VITAMIN TABLET PO SCH (10:15)
[2020-01-02] MEDS: FAMOTIDINE 20 MG TABLET PO SCH ×2 (10:15→21:49)
[2020-01-02] MEDS: METOPROLOL SUCCINATE 25 MG TABLET PO SCH (10:15)
[2020-01-02] MEDS: lisinopriL 20 MG TABLET PO SCH (10:15)
[2020-01-02] MEDS: CLOPIDOGREL 75 MG TABLET PO SCH (10:15)
[2020-01-02] MEDS: polyethylene glycoL 3350 17 GM PACKET PO SCH (10:15)
[2020-01-02] MEDS: TAMSULOSIN 0.4 MG CAPSULE PO SCH ×2 (10:16→21:49)
[2020-01-02] MEDS: SENNA 8.6 MG TABLET PO SCH (10:16)
--- NOTE | 2020-01-02 13:12 | PROVIDER PROGRESS NOTE ---
Subjective - Prog Note Date Prog Note Date: 01/02/20 Prog Note Time: 13:10 - Subjective Subjective: Pt examined from outside room given low clinical management and + Covid serology. Nothing to manage, waiting for placement. Current Medications - Current Medications Current Medications: Active Medications Acetaminophen (Tylenol) 650 mg PO Q4HR PRN PRN Reason: Pain or Fever > 38C (100.4F) Last Admin: 01/02/20 00:07 Dose: 650 mg Allopurinol (Zyloprim) 300 mg PO DAILY [facility] Last Admin: 01/02/20 10:15 Dose: 300 mg Amlodipine Besylate (Norvasc) 10 mg PO DAILY [facility] Last Admin: 01/02/20 10:15 Dose: 10 mg Benzonatate (Tessalon) 100 mg PO TID PRN PRN Reason: Cough Last Admin: 12/25/19 21:11 Dose: 100 mg Clopidogrel Bisulfate (Plavix) 75 mg PO DAILY [facility] Last Admin: 01/02/20 10:15 Dose: 75 mg Famotidine (Pepcid) 20 mg PO BID [facility] Last Admin: 01/02/20 10:15 Dose: 20 mg Haloperidol (Haldol Inj) 1 mg IVP Q6H PRN PRN Reason: Agitation Lisinopril (Zestril) 20 mg PO DAILY [facility] Last Admin: 01/02/20 10:15 Dose: 20 mg Loperamide HCl (Imodium) 2 mg PO QID PRN PRN Reason: Diarrhea Metoprolol Succinate (Toprol Xl) 37.5 mg PO DAILY [facility] Last Admin: 01/02/20 10:15 Dose: 37.5 mg Mineral Oil (Cavilon) 1 applic TOP PRN PRN PRN Reason: Skin Care Last Admin: 12/24/19 00:49 Dose: 1 applic Polyethylene Glycol (Miralax) 17 gm PO DAILY [facility] Last Admin: 01/02/20 10:15 Dose: Not Given Multivit/Folic Acid/Iron (Trinatal Rx 1) 1 tab PO DAILYWM [facility] Last Admin: 01/02/20 10:15 Dose: 1 tab Quetiapine Fumarate (Seroquel) 25 mg PO Q6H [facility] Last Admin: 01/02/20 12:12 Dose: 25 mg Senna (Senokot) 8.6 - 17.2 mg PO DAILY [facility] Last Admin: 01/02/20 10:16 Dose: Not Given Tamsulosin HCl (Flomax) 0.4 mg PO BID [facility] Last Admin: 01/02/20 10:16 Dose: 0.4 mg allopurinoL [Allopurinol] 300 mg PO DAILY 10/12/16 Atorvastatin Calcium 40 mg PO QPM 12/17/19 Cholecalciferol (Vitamin D3) [Vitamin D] 2,000 unit PO DAILY 12/17/19 Clopidogrel [Plavix] 75 mg PO DAILY 12/17/19 Cyanocobalamin (Vitamin B-12) [Vitamin B-12 (1000 mcg sublingual)] 1,000 mcg PO DAILY 12/17/19 Docusate Sodium 300 mg PO DAILY PRN 12/17/19 Dorzolamide HCl 1 drops EACHEYE DAILY 12/17/19 Latanoprost 0.005% Ophth Drops [Xalatan Ophth Drops] 1 drops EACHEYE QPM Metoprolol Tartrate 50 mg PO BID 12/17/19 Oxybutynin [Ditropan] 2.5 mg PO BID 12/17/19 Pantoprazole [Protonix] 40 mg PO BIDAC 12/17/19 Sildenafil Citrate [Sildenafil] 20 - 100 mg PO DAILY PRN 12/17/19 Tamsulosin [Flomax] 0.4 mg PO QDDINNER 12/17/19 Temazepam 15 mg PO QPM PRN 12/17/19 Timolol 0.5% Ophth Drops [Timoptic 0.5% Ophth Drops] 1 drops EACHEYE DAILY 12/17/19 Objective - Vital Signs/Intake & Output Vital Signs: Vital Signs x48h Temp Pulse Resp Pulse Ox 01/02/20 12:00 36.3 C L 90 14 98 Intake & Output: Intake & Output 12/30/19 12/31/19 01/01/20 01/02/20 23:59 23:59 23:59 23:59 Intake Total 1000 390 305 950 Output Total 300 300 850 400 Balance 700 90 -545 550 - Objective General Appearance: positive: No acute distress, Mild distress, Other (Sitting upright in chair resting, Appears to be calmAnd comfortable) Respiratory: positive: No respiratory distress Abdomen: positive: No distention Extremities: positive: No pedal edema - Lab Results Fish Bones: 12/29/19 05:49 12/29/19 05:49 Sepsis Event Note (H) - Evaluation Current Stage of Sepsis: Ruled out Assessment/Plan - Problem List (1) Persistent cognitive impairment Impression: Impression: - Variable levels of cooperative ability, intermittently directable versus agitatedconsistent with dementia -Continues to present a difficult discharge plan given his persistently positive Covid-19 testing,And although his physical needs have certainly diminished to the extent that he might otherwise be dischargeable to his home, His cognitive Deficits preclude this from being a safe plan. Ultimately, I feel he would be best served in a long-term care facility, ideally a memory care center. We will continue to work with social work to find a adequate discharge plan. Pneumonia -Clinically resolved, however, unfortunately 4th swab results still show positive, last on 12/29-resulted on 12/30 -Consider d/w ID re: utility of repeat PCR -No plans to re-swab, considered resolved Dementia -Poor insight to current medical problems -See above Elevated troponin -Resolved -Continues on Aspirin 325 mg, Metoprolol and Lisinopril. will continue monitor Bradycardia -resolved, remains on reduced daily dosing of his metoprolol DM type 2 (diabetes mellitus, type 2)-diet controlled -Poor appetite, so changed to regular HTN (hypertension) -Continues on Norvasc, lisinopril, BB Hx of coronary artery disease -Stable, no chest pain, continue current meds meds (5) DM type 2 (diabetes mellitus, type 2) Qualifiers: Diabetes mellitus terminal operations manager insulin use: without terminal operations manager use Diabetes mellitus complication status: with ophthalmic complications Diabetes mellitus complication detail: with cataract Qualified Code(s): E11.36 - Type 2 diabetes mellitus with diabetic cataract (6) HTN (hypertension) Qualifiers: Hypertension type: essential hypertension Qualified Code(s): I10 - Essential (primary) hypertension
[2020-01-03] MEDS: QUEtiapine 25 MG TABLET PO SCH ×4 (00:18→19:01)
[2020-01-03] MEDS: allopurinoL 100 MG TABLET PO SCH (09:08)
[2020-01-03] MEDS: amLODIPine 5 MG TABLET PO SCH (09:08)
[2020-01-03] MEDS: METOPROLOL SUCCINATE 25 MG TABLET PO SCH (09:08)
[2020-01-03] MEDS: FAMOTIDINE 20 MG TABLET PO SCH ×2 (09:08→20:10)
[2020-01-03] MEDS: CLOPIDOGREL 75 MG TABLET PO SCH (09:08)
[2020-01-03] MEDS: polyethylene glycoL 3350 17 GM PACKET PO SCH (09:08)
[2020-01-03] MEDS: PRENATAL VITAMIN TABLET PO SCH (09:08)
[2020-01-03] MEDS: lisinopriL 20 MG TABLET PO SCH (09:08)
[2020-01-03] MEDS: TAMSULOSIN 0.4 MG CAPSULE PO SCH ×2 (09:09→20:10)
[2020-01-03] MEDS: SENNA 8.6 MG TABLET PO SCH (09:09)
--- NOTE | 2020-01-03 14:42 | PROVIDER PROGRESS NOTE ---
Subjective - Prog Note Date Prog Note Date: 01/03/20 Prog Note Time: 14:40 - Subjective Pt reports feeling: No change, Worse Subjective: Pt gave me a thumbs up Current Medications - Current Medications Current Medications: Active Medications Acetaminophen (Tylenol) 650 mg PO Q4HR PRN PRN Reason: Pain or Fever > 38C (100.4F) Last Admin: 01/02/20 00:07 Dose: 650 mg Allopurinol (Zyloprim) 300 mg PO DAILY [facility] Last Admin: 01/03/20 09:08 Dose: 300 mg Amlodipine Besylate (Norvasc) 10 mg PO DAILY [facility] Last Admin: 01/03/20 09:08 Dose: 10 mg Benzonatate (Tessalon) 100 mg PO TID PRN PRN Reason: Cough Last Admin: 12/25/19 21:11 Dose: 100 mg Clopidogrel Bisulfate (Plavix) 75 mg PO DAILY [facility] Last Admin: 01/03/20 09:08 Dose: 75 mg Famotidine (Pepcid) 20 mg PO BID [facility] Last Admin: 01/03/20 09:08 Dose: 20 mg Haloperidol (Haldol Inj) 1 mg IVP Q6H PRN PRN Reason: Agitation Lisinopril (Zestril) 20 mg PO DAILY [facility] Last Admin: 01/03/20 09:08 Dose: 20 mg Loperamide HCl (Imodium) 2 mg PO QID PRN PRN Reason: Diarrhea Metoprolol Succinate (Toprol Xl) 37.5 mg PO DAILY [facility] Last Admin: 01/03/20 09:08 Dose: 37.5 mg Mineral Oil (Cavilon) 1 applic TOP PRN PRN PRN Reason: Skin Care Last Admin: 12/24/19 00:49 Dose: 1 applic Polyethylene Glycol (Miralax) 17 gm PO DAILY [facility] Last Admin: 01/03/20 09:08 Dose: Not Given Multivit/Folic Acid/Iron (Trinatal Rx 1) 1 tab PO DAILYWM [facility] Last Admin: 01/03/20 09:08 Dose: 1 tab Quetiapine Fumarate (Seroquel) 25 mg PO Q6H [facility] Last Admin: 01/03/20 12:23 Dose: 25 mg Senna (Senokot) 8.6 - 17.2 mg PO DAILY [facility] Last Admin: 01/03/20 09:09 Dose: 8.6 mg Tamsulosin HCl (Flomax) 0.4 mg PO BID [facility] Last Admin: 01/03/20 09:09 Dose: 0.4 mg allopurinoL [Allopurinol] 300 mg PO DAILY 10/12/16 Atorvastatin Calcium 40 mg PO QPM 12/17/19 Cholecalciferol (Vitamin D3) [Vitamin D] 2,000 unit PO DAILY 12/17/19 Clopidogrel [Plavix] 75 mg PO DAILY 12/17/19 Cyanocobalamin (Vitamin B-12) [Vitamin B-12 (1000 mcg sublingual)] 1,000 mcg PO DAILY 12/17/19 Docusate Sodium 300 mg PO DAILY PRN 12/17/19 Dorzolamide HCl 1 drops EACHEYE DAILY 12/17/19 Latanoprost 0.005% Ophth Drops [Xalatan Ophth Drops] 1 drops EACHEYE QPM 12/17/19 Metoprolol Tartrate 50 mg PO BID 12/17/19 Oxybutynin [Ditropan] 2.5 mg PO BID 12/17/19 Pantoprazole [Protonix] 40 mg PO BIDAC 12/17/19 Sildenafil Citrate [Sildenafil] 20 - 100 mg PO DAILY PRN 12/17/19 Tamsulosin [Flomax] 0.4 mg PO QDDINNER 12/17/19 Temazepam 15 mg PO QPM PRN 12/17/19 Timolol 0.5% Ophth Drops [Timoptic 0.5% Ophth Drops] 1 drops EACHEYE DAILY 12/17/19 Objective - Vital Signs/Intake & Output Reviewed Vital Signs: Yes Intake & Output: Intake & Output 12/31/19 01/01/20 01/02/20 01/03/20 23:59 23:59 23:59 23:59 Intake Total 924 462 1988 840 Output Total 300 850 400 400 Balance 90 -545 1090 440 - Objective General Appearance: positive: No acute distress Respiratory: positive: No respiratory distress Neurologic/Psychiatric: positive: CN's nml (2-12) - Lab Results Fish Bones: 12/29/19 05:49 12/29/19 05:49 Sepsis Event Note (H) - Evaluation Current Stage of Sepsis: Ruled out Assessment/Plan - Problem List (1) Persistent cognitive impairment Impression: Impression: - Variable levels of cooperative ability, intermittently directable versus agitatedconsistent with dementia -Continues to present a difficult discharge plan given his persistently positive Covid-19 testing,And although his physical needs have certainly diminished to the extent that he might otherwise be dischargeable to his home, His cognitive Deficits preclude this from being a safe plan. Ultimately, I feel he would be best served in a long-term care facility, ideally a memory care center. We will continue to work with social work to find a adequate discharge plan. Pneumonia -Clinically resolved, however, unfortunately 4th swab results still show positive, last on 12/29-resulted on 12/30 -Per CDC guidelines, should test negative before d/c to facility, but if D/C home, not needed. Given multiple test, would advise waiting until placement be comes more clear, then test, to avoid unnecessary use of testing w/ out a clear discharge option Dementia -Poor insight to current medical problems -See above Elevated troponin -Resolved -Continues on Aspirin 325 mg, Metoprolol and Lisinopril. will continue monitor Bradycardia -resolved, remains on reduced daily dosing of his metoprolol DM type 2 (diabetes mellitus, type 2)-diet controlled -Poor appetite, so changed to regular HTN (hypertension) -Continues on Norvasc, lisinopril, BB Hx of coronary artery disease -Stable, no chest pain, continue current meds meds (5) DM type 2 (diabetes mellitus, type 2) Qualifiers: Diabetes mellitus fpc insulin use: without fpc use Diabetes mellitus complication status: with ophthalmic complications Diabetes mellitus complication detail: with cataract Qualified Code(s): E11.36 - Type 2 diabetes mellitus with diabetic cataract (6) HTN (hypertension) Qualifiers: Hypertension type: essential hypertension Qualified Code(s): I10 - Essen tial (primary) hypertension
[2020-01-04] MEDS: QUEtiapine 25 MG TABLET PO SCH ×4 (00:32→17:42)
[2020-01-04] MEDS: METOPROLOL SUCCINATE 25 MG TABLET PO SCH (08:58)
[2020-01-04] MEDS: TAMSULOSIN 0.4 MG CAPSULE PO SCH ×2 (08:58→21:01)
[2020-01-04] MEDS: FAMOTIDINE 20 MG TABLET PO SCH ×2 (08:58→21:01)
[2020-01-04] MEDS: PRENATAL VITAMIN TABLET PO SCH (08:58)
[2020-01-04] MEDS: CLOPIDOGREL 75 MG TABLET PO SCH (08:59)
[2020-01-04] MEDS: amLODIPine 5 MG TABLET PO SCH (08:59)
[2020-01-04] MEDS: lisinopriL 20 MG TABLET PO SCH (08:59)
[2020-01-04] MEDS: allopurinoL 100 MG TABLET PO SCH (08:59)
[2020-01-04] MEDS: polyethylene glycoL 3350 17 GM PACKET PO SCH (08:59)
[2020-01-04] MEDS: SENNA 8.6 MG TABLET PO SCH (09:03)
[2020-01-04] MEDS ORDERED: OLANZapine 10 MG VIAL IM SCH (18:15)
[2020-01-04] MEDS ORDERED: OLANZapine 10 MG VIAL IM ONE (18:20)
[2020-01-04] MEDS ORDERED: WATER FOR INJECTION,STERILE 10 ML ONE (18:21)
--- NOTE | 2020-01-04 18:56 | PROVIDER PROGRESS NOTE ---
Subjective - Prog Note Date Prog Note Date: 01/04/20 Prog Note Time: 18:46 - Subjective Subjective: Patient denied complaints and gave me a thumbs up through the window. However later on became more agitated. Limited exam due to positive coronavirus kenan ting. Current Medications - Current Medications Current Medications: Active Medications Acetaminophen (Tylenol) 650 mg PO Q4HR PRN PRN Reason: Pain or Fever > 38C (100.4F) Last Admin: 01/02/20 00:07 Dose: 650 mg Allopurinol (Zyloprim) 300 mg PO DAILY [facility] Last Admin: 01/04/20 08:59 Dose: 300 mg Amlodipine Besylate (Norvasc) 10 mg PO DAILY [facility] Last Admin: 01/04/20 08:59 Dose: 10 mg Benzonatate (Tessalon) 100 mg PO TID PRN PRN Reason: Cough Last Admin: 12/25/19 21:11 Dose: 100 mg Clopidogrel Bisulfate (Plavix) 75 mg PO DAILY [facility] Last Admin: 01/04/20 08:59 Dose: 75 mg Famotidine (Pepcid) 20 mg PO BID [facility] Last Admin: 01/04/20 08:58 Dose: 20 mg Haloperidol (Haldol Inj) 1 mg IVP Q6H PRN PRN Reason: Agitation Lisinopril (Zestril) 20 mg PO DAILY [facility] Last Admin: 01/04/20 08:59 Dose: 20 mg Loperamide HCl (Imodium) 2 mg PO QID PRN PRN Reason: Diarrhea Metoprolol Succinate (Toprol Xl) 37.5 mg PO DAILY [facility] Last Admin: 01/04/20 08:58 Dose: 37.5 mg Mineral Oil (Cavilon) 1 applic TOP PRN PRN PRN Reason: Skin Care Last Admin: 12/24/19 00:49 Dose: 1 applic Olanzapine (Zyprexa Im) 5 mg IM ONCE [facility] Stop: 01/04/20 19:30 Last Admin: 01/04/20 18:30 Dose: 5 mg Polyethylene Glycol (Miralax) 17 gm PO DAILY [facility] Last Admin: 01/04/20 08:59 Dose: 17 gm Multivit/Folic Acid/Iron (Trinatal Rx 1) 1 tab PO DAILYWM [facility] Last Admin: 01/04/20 08:58 Dose: 1 tab Quetiapine Fumarate (Seroquel) 25 mg PO Q6H [facility] Last Admin: 01/04/20 17:42 Dose: Not Given Senna (Senokot) 8.6 - 17.2 mg PO DAILY [facility] Last Admin: 01/04/20 09:03 Dose: 8.6 mg Sterile Water (Sterile Water) 2.1 ml MC ONCE [facility] Stop: 01/04/20 19:30 Last Admin: 01/04/20 18:31 Dose: 2.1 ml Tamsulosin HCl (Flomax) 0.4 mg PO BID [facility] Last Admin: 01/04/20 08:58 Dose: 0.4 mg allopurinoL [Allopurinol] 300 mg PO DAILY 10/12/16 Atorvastatin Calcium 40 mg PO QPM 12/17/19 Cholecalciferol (Vitamin D3) [Vitamin D] 2,000 unit PO DAILY 12/17/19 Clopidogrel [Plavix] 75 mg PO DAILY 12/17/19 Cyanocobalamin (Vitamin B-12) [Vitamin B-12 (1000 mcg sublingual)] 1,000 mcg PO DAILY 12/17/19 Docusate Sodium 300 mg PO DAILY PRN 12/17/19 Dorzolamide HCl 1 drops EACHEYE DAILY 12/17/19 Latanoprost 0.005% Ophth Drops [Xalatan Ophth Drops] 1 drops EACHEYE QPM 12/17/19 Metoprolol Tartrate 50 mg PO BID 12/17/19 Oxybutynin [Ditropan] 2.5 mg PO BID 12/17/19 Pantoprazole [Protonix] 40 mg PO BIDAC 12/17/19 Sildenafil Citrate [Sildenafil] 20 - 100 mg PO DAILY PRN 12/17/19 Tamsulosin [Flomax] 0.4 mg PO QDDINNER 12/17/19 Temazepam 15 mg PO QPM PRN 12/17/19 Timolol 0.5% Ophth Drops [Timoptic 0.5% Ophth Drops] 1 drops EACHEYE DAILY 12/17/19 Objective - Vital Signs/Intake & Output Reviewed Vital Signs: Yes Intake & Output: Intake & Output 01/01/20 01/02/20 01/03/20 01/04/20 23:59 23:59 23:59 23:59 Intake Total 305 1490 900 480 Output Total 850 400 400 250 Balance -545 1090 500 230 - Objective General Appearance: positive: Other (Observed multiple times through the day through the window, patient sitting naked on bed, in chair, appears comfortable, in no distress. Later on in the day observed much more agitated but still fairly directable.) Respiratory: positive: No respiratory distress Skin: positive: Color nml Extremities: positive: No pedal edema Neurologic/Psychiatric: positive: CN's nml (2-12), Motor nml - Lab Results Fish Bones: 12/29/19 05:49 12/29/19 05:49 Sepsis Event Note (H) - Evaluation Current Stage of Sepsis: Ruled out Assessment/Plan - Problem List (1) Persistent cognitive impairment Impression: I had a long conversation with patient's daughter today. It was time to 34 minutes on the telephone I used. We discussed the patient's current condition, and I was able to extract some more history to help guide us in our next steps. Apparently, according to the daughter, she states that she is very certain that prior to this current illness, he was functioning as a normal independent adult. He drove. He was quite sharp, maintaining his own finances, activities of daily living, etc. She states he had no history of dementia. She is not aware of any early memory loss. And she finds the current state that he is then to be a complete change from his baseline. We discussed the possible etiologies for why he is continuing to act as if he has dementia. I explained to her the concept of hospital-acquired delirium as a possibility. In addition, he may have been hypoxic for some time when he was initially found prior to being brought to the hospital. He had intermittent periods of requiring oxygen support by nasal cannula, but was never severely hypoxic during this hospital stay. 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 With significant obstruction to the left side. Either way, he has significant vascular disease and he very well probably has significant microvascular disease also, predisposing him to vascular dementia. I explained to her that it is very possible that though he had either no dementia at all, or perhaps mild enough dementia or memory loss that she was not aware of it prior to this hospital stay, perhaps the small vessel disease and predisposition to vascular dementia going into this infection, combined with hypoxia, prolonged illness, as well as hospital delirium, all could be combining to allow us to witness what we are witnessing in her father which is now varying levels of delirium, changes in behavior, agitation, etc. Because of this, disposition has been very difficult. We postulated on a few possibilities: 1.Although it is typical hospital policy during this coronavirus pandemic that we cannot allow visitors, I suggested that perhaps we visit the possibility of a single visit given the unique circumstances such that she could witness the behavior herself, or perhaps even provide some insight to both the patient and staff that would allow us to pursue a disposition. Part of the obstacle has been that she has had a hard time accepting and coming to terms with his current mental status given the dramatic change from his previous baseline. 2We also discussed disposition options including continuing to pursue her respite care. She seems agreeable to this, and social work is currently working on some options for this. In addition, she asked about Taking him home, for sort of trial. To see if he does well on his own, and if not, she would then pursue memory care or long-term care. I informed her that although this may initially sound like a good idea, the problem is that with patients such as him with significant behavioral disturbances, and less he has 24/7 supervision, I would only take a brief time for him to be vulnerable to harm. For example if he were to leave the stove on, to leave the iron on, or to elope outside into the community and become either lost or struck by a vehicle, for example. She admits that she had not consider this and after considering its agrees that him discharging home alone would not be a good option.Unfortunately, because of her current situation with work and her own children, she is not able to stay with him, and he is not able to stay with her. 3-She states that she has been independently looking at resources on her own as well, and she thinks that she may have come across an adult family home that may be willing to take her and she is willing to consider this as an option. She even mentions that perhaps they are willing to take him without a negative Kovic test. I did inform her that according to CDC guidelines it is not recommended to disposition patients with a positive COVID-19 test until they come back with negative tests when they are going to a health care facility so I would not recommend this, but it would certainly be helpful if they are willing to take him once we are able to get a negative test result. In conclusion, at this point we are still awaiting a disposition plan. As of early this evening, his behavior became difficult again, and because he has no IV access and is refusing p.o. meds, I ordered IM Zyprexa. (2) Pneumonia due to 2019 novel coronavirus Impression: As stated above, complex disposition plan. Given multiple tests have come back positive, x4, I think it would be prudent to defer any further testing until maybe a week after the last one, or after we have a pending disposition that requires a negative test. Otherwise we run the risk of utilizing too many testsWithout a clear benefit if we do not have an accepting facility or discharge plan peer (3) Elevated troponin Impression: Elevated troponin -Resolved -Continues on Aspirin 325 mg, Metoprolol and Lisinopril. will continue monitor Bradycardia -resolved, remains on reduced daily dosing of his metoprolol DM type 2 (diabetes mellitus, type 2)-diet controlled -Poor appetite, so changed to regular HTN (hypertension) -Continues on Norvasc, lisinopril, BB Hx of coronary artery disease -Stable, no chest pain, continue current meds meds (5) DM type 2 (diabetes mellitus, type 2) Qualifiers: Diabetes mellitus mcfp insulin use: without remote computer terminal operator use Diabetes mellitus complication status: with ophthalmic complications Diabetes mellitus complication detail: with cataract Qualified Code(s): E11.36 - Type 2 diabetes mellitus with diabetic cataract (6) HTN (hypertension) Qualifiers: Hypertension type: essential hypertension Qualified Code(s): I10 - Essential (primary) hypertension
[2020-01-05] MEDS: QUEtiapine 25 MG TABLET PO SCH ×5 (00:09→16:58)
[2020-01-05] MEDS: FAMOTIDINE 20 MG TABLET PO SCH ×2 (08:21→20:30)
[2020-01-05] MEDS: CLOPIDOGREL 75 MG TABLET PO SCH (08:21)
[2020-01-05] MEDS: METOPROLOL SUCCINATE 25 MG TABLET PO SCH (08:21)
[2020-01-05] MEDS: ACETAMINOPHEN 325 MG TABLET PO PRN ×2 (08:21→16:58)
[2020-01-05] MEDS: PRENATAL VITAMIN TABLET PO SCH (08:21)
[2020-01-05] MEDS: amLODIPine 5 MG TABLET PO SCH (08:22)
[2020-01-05] MEDS: BENZONATATE 100 MG CAPSULE PO PRN (08:22)
[2020-01-05] MEDS: TAMSULOSIN 0.4 MG CAPSULE PO SCH ×2 (08:23→20:30)
[2020-01-05] MEDS: lisinopriL 20 MG TABLET PO SCH (08:23)
[2020-01-05] MEDS: allopurinoL 100 MG TABLET PO SCH (08:23)
[2020-01-05] MEDS: SENNA 8.6 MG TABLET PO SCH (08:23)
[2020-01-05] MEDS: polyethylene glycoL 3350 17 GM PACKET PO SCH (09:28)
--- NOTE | 2020-01-05 09:49 | PROVIDER PROGRESS NOTE ---
Assessment/Plan - Problem List (1) Persistent cognitive impairment Assessment/Plan: Pt is alert and comfortable sleeping now. pt had Zyprexa on yesterday. According to CDC guidelines it is not recommended to disposition patients with a positive COVID-19 test until they come back with negative tests when they are going to a health care facility. plan pt have Covid 19 test on tomorrow since pt had his last one was 7 days ago. continue neuro check, nurse support continue social work consult for safely d/c plan (2) Pneumonia due to 2019 novel coronavirus Impression: clinic pt is stable, no fever, or SOB, hemodynamic stable but pt had multiple tests which had come back positive, x4, it is very specific situation. Unknown why pt has continued positive Covid 19 even pt's symptoms was resolved about two weeks ago. This was RT-PCR test, not IgM or IgG test antibody test. There was possibility for false positive. plan pt have Covid 19 test on tomorrow with dif ferent provider since pt had his last one was 7 days ago with the same provider with four times positive. According to CDC guidelines it is not recommended to disposition patients with a positive COVID-19 test until they come back with negative tests when they are going to a health care facility. (3) Elevated troponin Impression: Elevated troponin -Resolved -Continues on home Plavix, Metoprolol and Lisinopril. will continue monitor (4)Bradycardia -resolved, remains on reduced daily dosing of his metoprolol (5)DM type 2 (diabetes mellitus, type 2)-diet controlled -Poor appetite, so changed to regular (6)HTN (hypertension) -Continues on Norvasc, lisinopril, BB (7)Hx of coronary artery disease -Stable, no chest pain, continue current meds meds - Current Meds Current Meds: Current Medications Generic Name Dose Route Start Last Admin Trade Name Freq PRN Reason Stop Dose Admin Acetaminophen 650 mg 12/19/19 14:46 01/05/20 08:21 Tylenol PO 650 mg Q4HR PRN Administration Pain or Fever > 38C (100.4F) Allopurinol 300 mg 12/30/19 09:00 01/05/20 08:23 Zyloprim PO 300 mg DAILY AVI Administration Amlodipine Besylate 10 mg 12/22/19 09:00 01/05/20 08:22 Norvasc PO 10 mg DAILY AVI Administration Benzonatate 100 mg 12/18/19 21:17 01/05/20 08:22 Tessalon PO 100 mg TID PRN Administration Cough Clopidogrel Bisulfate 75 mg 12/23/19 09:00 01/05/20 08:21 Plavix PO 75 mg DAILY AVI Administration Famotidine 20 mg 12/21/19 21:00 01/05/20 08:21 Pepcid PO 20 mg BID AVI Administration Lisinopril 20 mg 12/24/19 09:00 01/05/20 08:23 Zestril PO 20 mg DAILY AVI Administration Metoprolol Succinate 37.5 mg 12/24/19 09:00 01/05/20 08:21 Toprol Xl PO 37.5 mg DAILY AVI Administration Mineral Oil 1 applic 12/22/19 17:07 12/24/19 00:49 Cavilon TOP 1 applic PRN PRN Administration Skin Care Polyethylene Glycol 17 gm 12/23/19 09:00 01/05/20 09:28 Miralax PO Not Given DAILY [facility] Multivit/Folic Acid/Iron 1 tab 12/26/19 08:00 01/05/20 08:21 Trinatal Rx 1 PO 1 tab DAILYWM AVI Administration Quetiapine Fumarate 25 mg 12/30/19 18:00 01/05/20 05:48 Seroquel PO 25 mg Q6H AVI Administration Senna 8.6 - 17.2 mg 12/26/19 09:00 01/05/20 08:23 Senokot PO 8.6 mg DAILY AVI Administration Tamsulosin HCl 0.4 mg 12/30/19 21:00 01/05/20 08:23 Flomax PO 0.4 mg BID AVI Administration - Lab Result Fish Bone Diagrams: 12/29/19 05:49 12/29/19 05:49 Subjective - Subjective Patient Reports: Resting Comfortably Objective Vital Signs: Vital Signs - 24 hr 01/05/20 08:19 Temperature 36.8 C Heart Rate [ 72 Brachial] Respiratory 16 Rate Blood Pressure 128/55 L [Left Radial artery] Blood Pressure 128/55 L [Right Brachial artery] O2 Saturation 94 Oxygen O2 Source [With Activity] Room air O2 Source [Without Activity] Room air O2 Source Room air Oxygen Flow Rate 3 I&O (Last 24 Hrs): Intake and Output Totals x24h 01/03/20 01/04/20 01/05/20 23:59 23:59 23:59 Intake Total 900 680 550 Output Total 400 250 Balance 500 430 550 General: Alert, No acute distress HEENT: Atraumatic Neck: Supple Lymphatic: no adenopathy Neuro: Alert, Non Focal Cardiovascular: Regular rate, Normal S1, Normal S2 Respiratory: Chest non-tender, No respiratory distress Abdomen: Normal bowel sounds Extremities: No edema, Normal pulses - Results Results: Laboratory Results WBC 6.4 x10^3/uL (4.8-10.8) 12/29/19 05:49 RBC 4.43 10^6/uL (4.70-6.10) L 12/29/19 05:49 Hgb 13.2 g/dL (14.0-18.0) L 12/29/19 05:49 Hct 42.0 % (42.0-52.0) 12/29/19 05:49 MCV 94.8 fL (80.0-94.0) H 12/29/19 05:49 MCH 29.8 pg (27.0-31.0) 12/29/19 05:49 MCHC 31.4 g/dL (32.0-36.0) L 12/29/19 05:49 RDW 13.8 % (12.0-15.0) 12/29/19 05:49 Plt Count 258 10^3/uL (130-450) 12/29/19 05:49 MPV 10.4 fL (7.4-11.4) 12/29/19 05:49 Neut # (Auto) 3.9 10^3/uL (1.5-6.6) 12/29/19 05:49 Lymph # (Auto) 1.6 10^3/uL (1.5-3.5) 12/29/19 05:49 [place] # (Auto) 0.7 10^3/uL (0.0-1.0) 12/29/19 05:49 Eos # (Auto) 0.1 10^3/uL (0.0-0.7) 12/29/19 05:49 Baso # (Auto) 0.0 10^3/uL (0.0-0.1) 12/29/19 05:49 Absolute Nucleated RBC 0.00 x10^3/uL 12/29/19 05:49 Total Counted 100 12/21/19 08:10 Band Neuts % (Manual) 2 % (0-10) 12/21/19 08:10 Reactive Lymphs % (Man) 1 % 12/21/19 08:10 Abnorm Lymph % (Manual) 0 % 12/21/19 08:10 Nucleated RBC % 0.0 /100WBC 12/29/19 05:49 Neutrophils # (Manual) 4.5 10^3/uL (1.5-6.6) 12/21/19 08:10 Lymphocytes # (Manual) 0.5 10^3/uL (1.5-3.5) L 12/21/19 08:10 Monocytes # (Manual) 0.6 10^3/uL (0.0-1.0) 12/21/19 08:10 Eosinophils # (Manual) 0.1 10^3/uL (0-0.7) 12/21/19 08:10 Basophils # (Manual) 0.0 10^3/uL (0-0.1) 12/21/19 08:10 Differential Comment MANUAL DIFFERENTIAL 12/21/19 08:10 WBC Morphology NORMAL APPEARANCE (NORMAL) 12/20/19 06:20 Platelet Estimate NORMAL (130-450,000) (NORMAL) 12/20/19 06:20 Platelet Morphology NORMAL APPEARANCE (NORMAL) 12/20/19 06:20 RBC Morph Micro Appear NORMAL APPEARANCE (NORMAL) 12/20/19 06:20 Sodium 140 mmol/L (135-145) 12/29/19 05:49 Potassium 4.1 mmol/L (3.5-5.0) 12/29/19 05:49 Chloride 103 mmol/L (101-111) 12/29/19 05:49 Carbon Dioxide 30 mmol/L (21-32) 12/29/19 05:49 Anion Gap 7.0 (6-13) 12/29/19 05:49 BUN 25 mg/dL (6-20) H 12/29/19 05:49 Creatinine 1.1 mg/dL (0.6-1.2) 12/29/19 05:49 Estimated GFR (MDRD) 64 (>89) L 12/29/19 05:49 Glucose 147 mg/dL (70-100) H 12/29/19 05:49 POC Whole Bld Glucose 152 mg/dL (70 - 100) H 12/29/19 12:01 Glycated Hemoglobin 7.8 % (4.6-6.2) H 12/21/19 08:10 Estim Average Glucose 177 (70-100) H 12/21/19 08:10 Lactic Acid 1.5 mmol/L (0.5-2.2) 12/17/19 12:30 Calcium 9.3 mg/dL (8.5-10.3) 12/29/19 05:49 Total Bilirubin 0.8 mg/dL (0.2-1.0) 12/20/19 06:20 AST 29 IU/L (10-42) 12/20/19 06:20 ALT 17 IU/L (10-60) 12/20/19 06:20 Alkaline Phosphatase 33 IU/L (42-121) L 12/20/19 06:20 Ammonia 31.9 umol/L (7-35) 12/24/19 05:00 Total Creatine Kinase 357 IU/L (22-269) H 12/17/19 12:30 Troponin I High Sens 92.8 ng/L (2.3-19.7) H* 12/18/19 05:15 C-Reactive Protein < 1.0 mg/dL (0-1.0) 12/29/19 05:49 B-Natriuretic Peptide 53 pg/mL (5-100) 12/17/19 12:30 Total Protein 5.3 g/dL (6.7-8.2) L 12/20/19 06:20 Albumin 2.4 g/dL (3.2-5.5) L 12/20/19 06:20 Globulin 2.9 g/dL (2.1-4.2) 12/20/19 06:20 Albumin/Globulin Ratio 0.8 (1.0-2.2) L 12/20/19 06:20 Lipase 63 U/L (22-51) H 12/17/19 12:30 Vitamin B12 1000 pg/mL (180-914) H 12/21/19 08:10 Urine Color YELLOW 12/17/19 11:57 Urine Clarity CLEAR (CLEAR) 12/17/19 11:57 Urine pH 5.5 PH (5.0-7.5) 12/17/19 11:57 Ur Specific [place] >=1.030 (1.002-1.030) H 12/17/19 11:57 Urine Protein 100 mg/dL (NEGATIVE) H 12/17/19 11:57 Urine Glucose (UA) NEGATIVE mg/dL (NEGATIVE) 12/17/19 11:57 Urine Ketones TRACE mg/dL (NEGATIVE) 12/17/19 11:57 Urine Occult Blood SMALL (NEGATIVE) H 12/17/19 11:57 Urine Nitrite NEGATIVE (NEGATIVE) 12/17/19 11:57 Urine Bilirubin NEGATIVE (NEGATIVE) 12/17/19 11:57 Urine Urobilinogen 0.2 (NORMAL) E.U./dL (NORMAL) 12/17/19 11:57 Ur Leukocyte Esterase NEGATIVE (NEGATIVE) 12/17/19 11:57 Urine RBC 0-5 /HPF (0-5) 12/17/19 11:57 Urine WBC 0-3 /HPF (0-3) 12/17/19 11:57 Ur Squamous Epith Cells NONE SEEN (<= Few) 12/17/19 11:57 Urine Bacteria None Seen /HPF (None Seen) 12/17/19 11:57 Ur Microscopic Review INDICATED 12/17/19 11:57 Urine Culture Comments NOT INDICATED 12/17/19 11:57 Stl C. diff Tox B Gene NEGATIVE (NEGATIVE) 12/19/19 20:40 Ethyl Alcohol < 5.0 mg/dL 12/17/19 12:30 Coronavirus (PCR) POSITIVE 12/30/19 16:48 Influenza A (Rapid) Negative (Negative) 12/17/19 13:30 Influenza B (Rapid) Negative (Negative) 12/17/19 13:30 Sepsis Event Note (H) - Evaluation Current Stage of Sepsis: Ruled out ABX Reporting Has patient been on IV antibiotics over the past 48 hours?: No Current Medications - Current Medications Current Medications: Active Medications Acetaminophen (Tylenol) 650 mg PO Q4HR PRN PRN Reason: Pain or Fever > 38C (100.4F) Last Admin: 01/05/20 08:21 Dose: 650 mg Allopurinol (Zyloprim) 300 mg PO DAILY [facility] Last Admin: 01/05/20 08:23 Dose: 300 mg Amlodipine Besylate (Norvasc) 10 mg PO DAILY [facility] Last Admin: 01/05/20 08:22 Dose: 10 mg Benzonatate (Tessalon) 100 mg PO TID PRN PRN Reason: Cough Last Admin: 01/05/20 08:22 Dose: 100 mg Clopidogrel Bisulfate (Plavix) 75 mg PO DAILY [facility] Last Admin: 01/05/20 08:21 Dose: 75 mg Famotidine (Pepcid) 20 mg PO BID [facility] Last Admin: 01/05/20 08:21 Dose: 20 mg Haloperidol (Haldol Inj) 1 mg IVP Q6H PRN PRN Reason: Agitation Lisinopril (Zestril) 20 mg PO DAILY [facility] Last Admin: 01/05/20 08:23 Dose: 20 mg Loperamide HCl (Imodium) 2 mg PO QID PRN PRN Reason: Diarrhea Metoprolol Succinate (Toprol Xl) 37.5 mg PO DAILY [facility] Last Admin: 01/05/20 08:21 Dose: 37.5 mg Mineral Oil (Cavilon) 1 applic TOP PRN PRN PRN Reason: Skin Care Last Admin: 12/24/19 00:49 Dose: 1 applic Polyethylene Glycol (Miralax) 17 gm PO DAILY [facility] Last Admin: 01/05/20 09:28 Dose: Not Given Multivit/Folic Acid/Iron (Trinatal Rx 1) 1 tab PO DAILYWM [facility] Last Admin: 01/05/20 08:21 Dose: 1 tab Quetiapine Fumarate (Seroquel) 25 mg PO Q6H [facility] Last Admin: 01/05/20 05:48 Dose: 25 mg Senna (Senokot) 8.6 - 17.2 mg PO DAILY [facility] Last Admin: 01/05/20 08:23 Dose: 8.6 mg Tamsulosin HCl (Flomax) 0.4 mg PO BID [facility] Last Admin: 01/05/20 08:23 Dose: 0.4 mg allopurinoL [Allopurinol] 300 mg PO DAILY 10/12/16 Atorvastatin Calcium 40 mg PO QPM 12/17/19 Cholecalciferol (Vitamin D3) [Vitamin D] 2,000 unit PO DAILY 12/17/19 Clopidogrel [Plavix] 75 mg PO DAILY 12/17/19 Cyanocobalamin (Vitamin B-12) [Vitamin B-12 (1000 mcg sublingual)] 1,000 mcg PO DAILY 12/17/19 Docusate Sodium 300 mg PO DAILY PRN 12/17/19 Dorzolamide HCl 1 drops EACHEYE DAILY 12/17/19 Latanoprost 0.005% Ophth Drops [Xalatan Ophth Drops] 1 drops EACHEYE QPM 12/17/19 Metoprolol Tartrate 50 mg PO BID 12/17/19 Oxybutynin [Ditropan] 2.5 mg PO BID 12/17/19 Pantoprazole [Protonix] 40 mg PO BIDAC 12/17/19 Sildenafil Citrate [Sildenafil] 20 - 100 mg PO DAILY PRN 12/17/19 Tamsulosin [Flomax] 0.4 mg PO QDDINNER 12/17/19 Temazepam 15 mg PO QPM PRN 12/17/19 Timolol 0.5% Ophth Drops [Timoptic 0.5% Ophth Drops] 1 drops EACHEYE DAILY 12/17/19
[2020-01-06] MEDS: allopurinoL 100 MG TABLET PO SCH (08:08)
[2020-01-06] MEDS: FAMOTIDINE 20 MG TABLET PO SCH ×2 (08:08→20:40)
[2020-01-06] MEDS: ACETAMINOPHEN 325 MG TABLET PO PRN (08:08)
[2020-01-06] MEDS: SENNA 8.6 MG TABLET PO SCH (08:08)
[2020-01-06] MEDS: lisinopriL 20 MG TABLET PO SCH (08:08)
[2020-01-06] MEDS: amLODIPine 5 MG TABLET PO SCH (08:08)
[2020-01-06] MEDS: PRENATAL VITAMIN TABLET PO SCH (08:08)
[2020-01-06] MEDS: CLOPIDOGREL 75 MG TABLET PO SCH (08:20)
[2020-01-06] MEDS: METOPROLOL SUCCINATE 25 MG TABLET PO SCH (08:24)
[2020-01-06] MEDS: QUEtiapine 25 MG TABLET PO SCH ×2 (08:25→20:40)
[2020-01-06] MEDS: TAMSULOSIN 0.4 MG CAPSULE PO SCH ×2 (08:35→20:40)
--- NOTE | 2020-01-06 10:05 | PROVIDER PROGRESS NOTE ---
Assessment/Plan - Problem List (1) Persistent cognitive impairment Assessment/Plan: 01/05 today pt is cooperated with nurse in the morning, ate 50% of breakfast. we ordered another Covid 19 today. continue neuro check, continue support Pt is alert and comfortable sleeping now. pt had Zyprexa on yesterday. According to CDC guidelines it is not recommended to disposition patients with a positive COVID-19 test until they come back with negative tests when they are going to a health care facility. plan pt have Covid 19 test on tomorrow since pt had his last one was 7 days ago. continue neuro check, nurse support continue social work consult for safely d/c plan (2) Pneumonia due to 2019 novel coronavirus Impression: 01/05 pt is stable, order another Covid 19 after 7 days from his last Covid 19 test which was positive. Will followup clinic pt is stable, no fever, or SOB, hemodynamic stable but pt had multiple tests which had come back positive, x4, it is very specific situation. Unknown why pt has continued positive Covid 19 even pt's symptoms was resolved about two weeks ago. This was RT-PCR test, not IgM or IgG test antibody test. There was possibility for false positive. plan pt have Covid 19 test on tomorrow with different provider since pt had his last one was 7 days ago with the same provider with four times positive. According to CDC guidelines it is not recommended to disposition patients with a positive COVID-19 test until they come back with negative tests when they are going to a health care facility. (3) Elevated troponin Impression: Elevated troponin -Resolved -Continues on home Plavix, Metoprolol and Lisinopril. will continue monitor (4)Bradycardia -resolved, remains on reduced daily dosing of his metoprolol (5)DM type 2 (diabetes mellitus, type 2)-diet controlled -Poor appetite, so changed to regular (6)HTN (hypertension) -Continues on Norvasc, lisinopril, BB (7)Hx of coronary artery disease -Stable, no chest pain, continue current meds meds - Current Meds Current Meds: Current Medications Generic Name Dose Route Start Last Admin Trade Name Freq PRN Reason Stop Dose Admin Acetaminophen 650 mg 12/19/19 14:46 01/06/20 08:08 Tylenol PO 650 mg Q4HR PRN Administration Pain or Fever > 38C (100.4F) Allopurinol 300 mg 12/30/19 09:00 01/06/20 08:08 Zyloprim PO 300 mg DAILY AVI Administration Amlodipine Besylate 10 mg 12/22/19 09:00 01/06/20 08:08 Norvasc PO 10 mg DAILY AVI Administration Benzonatate 100 mg 12/18/19 21:17 01/05/20 08:22 Tessalon PO 100 mg TID PRN Administration Cough Clopidogrel Bisulfate 75 mg 12/23/19 09:00 01/05/20 08:21 Plavix PO 75 mg DAILY AVI Administration Famotidine 20 mg 12/21/19 21:00 01/06/20 08:08 Pepcid PO 20 mg BID AVI Administration Lisinopril 20 mg 12/24/19 09:00 01/06/20 08:08 Zestril PO 20 mg DAILY AVI Administration Metoprolol Succinate 37.5 mg 12/24/19 09:00 01/06/20 08:24 Toprol Xl PO 37.5 mg DAILY AVI Administration Mineral Oil 1 applic 12/22/19 17:07 12/24/19 00:49 Cavilon TOP 1 applic PRN PRN Administration Skin Care Polyethylene Glycol 17 gm 12/23/19 09:00 01/05/20 09:28 Miralax PO Not Given DAILY [facility] Multivit/Folic Acid/Iron 1 tab 12/26/19 08:00 01/06/20 08:08 Trinatal Rx 1 PO 1 tab DAILYWM AVI Administration Quetiapine Fumarate 50 mg 01/06/20 09:00 01/06/20 08:25 Seroquel PO 50 mg BID AVI Administration Senna 8.6 - 17.2 mg 12/26/19 09:00 01/06/20 08:08 Senokot PO 8.6 mg DAILY AVI Administration Tamsulosin HCl 0.4 mg 12/30/19 21:00 01/06/20 08:35 Flomax PO 0.4 mg BID AVI Administration - Lab Result Fish Bone Diagrams: 12/29/19 05:49 12/29/19 05:49 - Additional Planning My Orders: My Active Orders 01/06/20 COVID-19 REFERENCE TEST Routine Subjective - Subjective Patient Reports: Feeling Better Objective Vital Signs: Vital Signs - 24 hr 01/05/20 01/06/20 16:54 07:48 Temperature 36.8 C 36.9 C Heart Rate [ 67 Brachial] Heart Rate [ 66 Monitoring electrodes] Respiratory 18 18 Rate Blood Pressure 123/51 L 128/52 L [Right Brachial artery] O2 Saturation 97 95 Oxygen O2 Source [With Activity] Room air O2 Source [Without Activity] Room air O2 Source Room air Oxygen Flow Rate 3 I&O (Last 24 Hrs): Intake and Output Totals x24h 01/04/20 01/05/20 01/06/20 23:59 23:59 23:59 Intake Total 680 1870 358 Output Total 250 Balance 430 1870 358 General: Alert, No acute distress HEENT: Atraumatic Neck: Supple Lymphatic: no adenopathy Neuro: Alert, Non Focal Cardiovascular: Regular rate, Normal S1, Normal S2 Respiratory: Chest non-tender, No respiratory distress Abdomen: Normal bowel sounds, Soft Extremities: No edema, Normal pulses - Results Results: Laboratory Results WBC 6.4 x10^3/uL (4.8-10.8) 12/29/19 05:49 RBC 4.43 10^6/uL (4.70-6.10) L 12/29/19 05:49 Hgb 13.2 g/dL (14.0-18.0) L 12/29/19 05:49 Hct 42.0 % (42.0-52.0) 12/29/19 05:49 MCV 94.8 fL (80.0-94.0) H 12/29/19 05:49 MCH 29.8 pg (27.0-31.0) 12/29/19 05:49 MCHC 31.4 g/dL (32.0-36.0) L 12/29/19 05:49 RDW 13.8 % (12.0-15.0) 12/29/19 05:49 Plt Count 258 10^3/uL (130-450) 12/29/19 05:49 MPV 10.4 fL (7.4-11.4) 12/29/19 05:49 Neut # (Auto) 3.9 10^3/uL (1.5-6.6) 12/29/19 05:49 Lymph # (Auto) 1.6 10^3/uL (1.5-3.5) 12/29/19 05:49 [place] # (Auto) 0.7 10^3/uL (0.0-1.0) 12/29/19 05:49 Eos # (Auto) 0.1 10^3/uL (0.0-0.7) 12/29/19 05:49 Baso # (Auto) 0.0 10^3/uL (0.0-0.1) 12/29/19 05:49 Absolute Nucleated RBC 0.00 x10^3/uL 12/29/19 05:49 Total Counted 100 12/21/19 08:10 Band Neuts % (Manual) 2 % (0-10) 12/21/19 08:10 Reactive Lymphs % (Man) 1 % 12/21/19 08:10 Abnorm Lymph % (Manual) 0 % 12/21/19 08:10 Nucleated RBC % 0.0 /100WBC 12/29/19 05:49 Neutrophils # (Manual) 4.5 10^3/uL (1.5-6.6) 12/21/19 08:10 Lymphocytes # (Manual) 0.5 10^3/uL (1.5-3.5) L 12/21/19 08:10 Monocytes # (Manual) 0.6 10^3/uL (0.0-1.0) 12/21/19 08:10 Eosinophils # (Manual) 0.1 10^3/uL (0-0.7) 12/21/19 08:10 Basophils # (Manual) 0.0 10^3/uL (0-0.1) 12/21/19 08:10 Differential Comment MANUAL DIFFERENTIAL 12/21/19 08:10 WBC Morphology NORMAL APPEARANCE (NORMAL) 12/20/19 06:20 Platelet Estimate NORMAL (130-450,000) (NORMAL) 12/20/19 06:20 Platelet Morphology NORMAL APPEARANCE (NORMAL) 12/20/19 06:20 RBC Morph Micro Appear NORMAL APPEARANCE (NORMAL) 12/20/19 06:20 Sodium 140 mmol/L (135-145) 12/29/19 05:49 Potassium 4.1 mmol/L (3.5-5.0) 12/29/19 05:49 Chloride 103 mmol/L (101-111) 12/29/19 05:49 Carbon Dioxide 30 mmol/L (21-32) 12/29/19 05:49 Anion Gap 7.0 (6-13) 12/29/19 05:49 BUN 25 mg/dL (6-20) H 12/29/19 05:49 Creatinine 1.1 mg/dL (0.6-1.2) 12/29/19 05:49 Estimated GFR (MDRD) 64 (>89) L 12/29/19 05:49 Glucose 147 mg/dL (70-100) H 12/29/19 05:49 POC Whole Bld Glucose 152 mg/dL (70 - 100) H 12/29/19 12:01 Glycated Hemoglobin 7.8 % (4.6-6.2) H 12/21/19 08:10 Estim Average Glucose 177 (70-100) H 12/21/19 08:10 Lactic Acid 1.5 mmol/L (0.5-2.2) 12/17/19 12:30 Calcium 9.3 mg/dL (8.5-10.3) 12/29/19 05:49 Total Bilirubin 0.8 mg/dL (0.2-1.0) 12/20/19 06:20 AST 29 IU/L (10-42) 12/20/19 06:20 ALT 17 IU/L (10-60) 12/20/19 06:20 Alkaline Phosphatase 33 IU/L (42-121) L 12/20/19 06:20 Ammonia 31.9 umol/L (7-35) 12/24/19 05:00 Total Creatine Kinase 357 IU/L (22-269) H 12/17/19 12:30 Troponin I High Sens 92.8 ng/L (2.3-19.7) H* 12/18/19 05:15 C-Reactive Protein < 1.0 mg/dL (0-1.0) 12/29/19 05:49 B-Natriuretic Peptide 53 pg/mL (5-100) 12/17/19 12:30 Total Protein 5.3 g/dL (6.7-8.2) L 12/20/19 06:20 Albumin 2.4 g/dL (3.2-5.5) L 12/20/19 06:20 Globulin 2.9 g/dL (2.1-4.2) 12/20/19 06:20 Albumin/Globulin Ratio 0.8 (1.0-2.2) L 12/20/19 06:20 Lipase 63 U/L (22-51) H 12/17/19 12:30 Vitamin B12 1000 pg/mL (180-914) H 12/21/19 08:10 Urine Color YELLOW 12/17/19 11:57 Urine Clarity CLEAR (CLEAR) 12/17/19 11:57 Urine pH 5.5 PH (5.0-7.5) 12/17/19 11:57 Ur Specific [place] >=1.030 (1.002-1.030) H 12/17/19 11:57 Urine Protein 100 mg/dL (NEGATIVE) H 12/17/19 11:57 Urine Glucose (UA) NEGATIVE mg/dL (NEGATIVE) 12/17/19 11:57 Urine Ketones TRACE mg/dL (NEGATIVE) 12/17/19 11:57 Urine Occult Blood SMALL (NEGATIVE) H 12/17/19 11:57 Urine Nitrite NEGATIVE (NEGATIVE) 12/17/19 11:57 Urine Bilirubin NEGATIVE (NEGATIVE) 12/17/19 11:57 Urine Urobilinogen 0.2 (NORMAL) E.U./dL (NORMAL) 12/17/19 11:57 Ur Leukocyte Esterase NEGATIVE (NEGATIVE) 12/17/19 11:57 Urine RBC 0-5 /HPF (0-5) 12/17/19 11:57 Urine WBC 0-3 /HPF (0-3) 12/17/19 11:57 Ur Squamous Epith Cells NONE SEEN (<= Few) 12/17/19 11:57 Urine Bacteria None Seen /HPF (None Seen) 12/17/19 11:57 Ur Microscopic Review INDICATED 12/17/19 11:57 Urine Culture Comments NOT INDICATED 12/17/19 11:57 Stl C. diff Tox B Gene NEGATIVE (NEGATIVE) 12/19/19 20:40 Ethyl Alcohol < 5.0 mg/dL 12/17/19 12:30 Coronavirus (PCR) POSITIVE 12/30/19 16:48 Influenza A (Rapid) Negative (Negative) 12/17/19 13:30 Influenza B (Rapid) Negative (Negative) 12/17/19 13:30 Sepsis Event Note (H) - Evaluation Current Stage of Sepsis: Ruled out ABX Reporting Has patient been on IV antibiotics over the past 48 hours?: No Current Medications - Current Medications Current Medications: Active Medications Acetaminophen (Tylenol) 650 mg PO Q4HR PRN PRN Reason: Pain or Fever > 38C (100.4F) Last Admin: 01/06/20 08:08 Dose: 650 mg Allopurinol (Zyloprim) 300 mg PO DAILY [facility] Last Admin: 01/06/20 08:08 Dose: 300 mg Amlodipine Besylate (Norvasc) 10 mg PO DAILY [facility] Last Admin: 01/06/20 08:08 Dose: 10 mg Benzonatate (Tessalon) 100 mg PO TID PRN PRN Reason: Cough Last Admin: 01/05/20 08:22 Dose: 100 mg Clopidogrel Bisulfate (Plavix) 75 mg PO DAILY [facility] Last Admin: 01/05/20 08:21 Dose: 75 mg Famotidine (Pepcid) 20 mg PO BID [facility] Last Admin: 01/06/20 08:08 Dose: 20 mg Haloperidol (Haldol Inj) 1 mg IVP Q6H PRN PRN Reason: Agitation Lisinopril (Zestril) 20 mg PO DAILY [facility] Last Admin: 01/06/20 08:08 Dose: 20 mg Loperamide HCl (Imodium) 2 mg PO QID PRN PRN Reason: Diarrhea Metoprolol Succinate (Toprol Xl) 37.5 mg PO DAILY [facility] Last Admin: 01/06/20 08:24 Dose: 37.5 mg Mineral Oil (Cavilon) 1 applic TOP PRN PRN PRN Reason: Skin Care Last Admin: 12/24/19 00:49 Dose: 1 applic Polyethylene Glycol (Miralax) 17 gm PO DAILY [facility] Last Admin: 01/05/20 09:28 Dose: Not Given Multivit/Folic Acid/[facility] ([facility] Admin: 01/06/20 08:08 Dose: 1 tab Quetiapine Fumarate (Seroquel) 50 mg PO BID [facility] Last Admin: 01/06/20 08:25 Dose: 50 mg Senna (Senokot) 8.6 - 17.2 mg PO DAILY [facility] Last Admin: 01/06/20 08:08 Dose: 8.6 mg Tamsulosin HCl (Flomax) 0.4 mg PO BID [facility] Last Admin: 01/06/20 08:35 Dose: 0.4 mg allopurinoL [Allopurinol] 300 mg PO DAILY 10/12/16 Atorvastatin Calcium 40 mg PO QPM 12/17/19 Cholecalciferol (Vitamin D3) [Vitamin D] 2,000 unit PO DAILY 12/17/19 Clopidogrel [Plavix] 75 mg PO DAILY 12/17/19 Cyanocobalamin (Vitamin B-12) [Vitamin B-12 (1000 mcg sublingual)] 1,000 mcg PO DAILY 12/17/19 Docusate Sodium 300 mg PO DAILY PRN 12/17/19 Dorzolamide HCl 1 drops EACHEYE DAILY 12/17/19 Latanoprost 0.005% Ophth Drops [Xalatan Ophth Drops] 1 drops EACHEYE QPM 12/17/19 Metoprolol Tartrate 50 mg PO BID 12/17/19 Oxybutynin [Ditropan] 2.5 mg PO BID 12/17/19 Pantoprazole [Protonix] 40 mg PO BIDAC 12/17/19 Sildenafil Citrate [Sildenafil] 20 - 100 mg PO DAILY PRN 12/17/19 Tamsulosin [Flomax] 0.4 mg PO QDDINNER 12/17/19 Temazepam 15 mg PO QPM PRN 12/17/19 Timolol 0.5% Ophth Drops [Timoptic 0.5% Ophth Drops] 1 drops EACHEYE DAILY 12/17/19
[2020-01-06] MEDS: polyethylene glycoL 3350 17 GM PACKET PO SCH (11:35)
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
[2020-01-07] MEDS: QUEtiapine 25 MG TABLET PO SCH (09:37)
[2020-01-07] MEDS: TAMSULOSIN 0.4 MG CAPSULE PO SCH ×2 (09:37→20:10)
[2020-01-07] MEDS: FAMOTIDINE 20 MG TABLET PO SCH ×2 (09:37→20:10)
[2020-01-07] MEDS: SENNA 8.6 MG TABLET PO SCH (09:37)
[2020-01-07] MEDS: PRENATAL VITAMIN TABLET PO SCH (09:37)
[2020-01-07] MEDS: allopurinoL 100 MG TABLET PO SCH (09:37)
[2020-01-07] MEDS: polyethylene glycoL 3350 17 GM PACKET PO SCH (09:38)
[2020-01-07] MEDS: CLOPIDOGREL 75 MG TABLET PO SCH (09:38)
[2020-01-07] MEDS: METOPROLOL SUCCINATE 25 MG TABLET PO SCH (09:38)
[2020-01-07] MEDS: amLODIPine 5 MG TABLET PO SCH (09:39)
[2020-01-07] MEDS: lisinopriL 20 MG TABLET PO SCH (09:39)
[2020-01-07] MEDS ORDERED: IOVERSOL 320 100 ML VIAL IVP ONE (12:15)
[2020-01-07] MEDS ORDERED: QUEtiapine 25 MG TABLET PO PRN (13:44)
[2020-01-07] MEDS: QUEtiapine 100 MG TABLET PO SCH (20:10)
[2020-01-08] MEDS: QUEtiapine 100 MG TABLET PO SCH ×2 (02:54→08:14)
--- NOTE | 2020-01-08 08:02 | PROVIDER PROGRESS NOTE ---
Assessment/Plan - Problem List (1) Altered mental status Qualifiers: Altered mental status type: unspecified Qualified Code(s): R41.82 - Altered mental status, unspecified Assessment/Plan: Patient appeared improved today. There was no agitation or outbursts. For the most part he stayed in bed in his room. During my exam he expressed frustration over still being in the hospital however this was within reason. We will hold off on the CT scan of the brain for now On Seroquel 100 mg p.o. twice daily, Seroquel 25 mg p.o. twice daily PRN and Haldol 1 mg IV every 6 hours as needed (2) COVID-19 Assessment/Plan: Patient had the 5th COVID-19 test on January 06, 2020 which came back positive. In light of the fact that he is likely to be discharged to a assisted facility guidelines are to only do so after a COVID-19 testing result has been negative x2, 24 hours apart. I spoke with an infectious disease physician at the [facility] through [employer] who reiterated this point. Recommendation is to repeat the COVID-19 testing in 72 hours to see if it is negative.And to continue to do so until the patient has a negative result. In the meantime if the patient continues to do well from a behavioral point of view, will ask for a reevaluation by [facility] for possible discharge to their facility (3) HTN (hypertension) Qualifiers: Hypertension type: essential hypertension Qualified Code(s): I10 - Essential (primary) hypertension Assessment/Plan: We will continue amlodipine, lisinopril and metoprolol (4) BPH (benign prostatic hyperplasia) Assessment/Plan: On tamsulosin - Current Meds Current Meds: Current Medications Generic Name Dose Route Start Last Admin Trade Name Freq PRN Reason Stop Dose Admin Acetaminophen 650 mg 12/19/19 14:46 01/06/20 08:08 Tylenol PO 650 mg Q4HR PRN Administration Pain or Fever > 38C (100.4F) Allopurinol 300 mg 12/30/19 09:00 01/07/20 09:37 Zyloprim PO 300 mg DAILY AVI Administration Amlodipine Besylate 10 mg 12/22/19 09:00 01/07/20 09:39 Norvasc PO 10 mg DAILY AVI Administration Benzonatate 100 mg 12/18/19 21:17 01/05/20 08:22 Tessalon PO 100 mg TID PRN Administration Cough Clopidogrel Bisulfate 75 mg 12/23/19 09:00 01/07/20 09:38 Plavix PO 75 mg DAILY AVI Administration Famotidine 20 mg 12/21/19 21:00 01/07/20 20:10 Pepcid PO 20 mg BID AVI Administration Lisinopril 20 mg 12/24/19 09:00 01/07/20 09:39 Zestril PO 20 mg DAILY AVI Administration Metoprolol Succinate 37.5 mg 12/24/19 09:00 01/07/20 09:38 Toprol Xl PO 37.5 mg DAILY AVI Administration Mineral Oil 1 applic 12/22/19 17:07 12/24/19 00:49 Cavilon TOP 1 applic PRN PRN Administration Skin Care Polyethylene Glycol 17 gm 12/23/19 09:00 01/07/20 09:38 Miralax PO 17 gm DAILY AVI Administration Multivit/Folic Acid/Iron 1 tab 12/26/19 08:00 01/07/20 09:37 Trinatal Rx 1 PO 1 tab DAILYWM AVI Administration Quetiapine Fumarate 100 mg 01/07/20 21:00 01/07/20 20:10 Seroquel PO 100 mg BID AVI Administration Senna 8.6 - 17.2 mg 12/26/19 09:00 01/07/20 09:37 Senokot PO 8.6 mg DAILY AVI Administration Tamsulosin HCl 0.4 mg 12/30/19 21:00 01/07/20 20:10 Flomax PO 0.4 mg BID AVI Administration - Lab Result Fish Bone Diagrams: 12/29/19 05:49 12/29/19 05:49 - Additional Planning Condition/Complexity: Stable Time Spent: 15-30 minutes Subjective - Subjective Patient Reports: Other (Patient seen and examined this afternoon. He has been calm and resting comfortably in his room all day. There has been no episode of agitation. While talking with him he expresses frustration at still being in the hospital. He denies any complaints of chest pain, dyspnea, abdominal pain, nausea, vomiting, fever or chills. The rest of his history is unremarkable) Objective Vital Signs: Vital Signs - 24 hr 01/07/20 09:35 Temperature 36.3 C L Heart Rate [ 67 Brachial] Respiratory 18 Rate Blood Pressure 68/39 L [Left Brachial artery] Blood Pressure 117/55 L [Right Brachial artery] O2 Saturation 97 Oxygen O2 Source [With Activity] Room air O2 Source [Without Activity] Room air O2 Source Room air Oxygen Flow Rate 3 I&O (Last 24 Hrs): Intake and Output Totals x24h 01/06/20 01/07/20 01/08/20 23:59 23:59 23:59 Intake Total 908 410 Balance 908 410 General: Alert, Oriented x3, No acute distress HEENT: Atraumatic, PERRLA, EOMI Neck: Supple, No JVD Neuro: Alert, Oriented Times 3 Cardiovascular: Regular rate Respiratory: Chest non-tender, No respiratory distress, Breath sounds nml Abdomen: Normal bowel sounds, Soft, No tenderness Extremities: No clubbing, No cyanosis, No edema, No tenderness/swelling Skin: No rashes - Results Results: Laboratory Results WBC 6.4 x10^3/uL (4.8-10.8) 12/29/19 05:49 RBC 4.43 10^6/uL (4.70-6.10) L 12/29/19 05:49 Hgb 13.2 g/dL (14.0-18.0) L 12/29/19 05:49 Hct 42.0 % (42.0-52.0) 12/29/19 05:49 MCV 94.8 fL (80.0-94.0) H 12/29/19 05:49 MCH 29.8 pg (27.0-31.0) 12/29/19 05:49 MCHC 31.4 g/dL (32.0-36.0) L 12/29/19 05:49 RDW 13.8 % (12.0-15.0) 12/29/19 05:49 Plt Count 258 10^3/uL (130-450) 12/29/19 05:49 MPV 10.4 fL (7.4-11.4) 12/29/19 05:49 Neut # (Auto) 3.9 10^3/uL (1.5-6.6) 12/29/19 05:49 Lymph # (Auto) 1.6 10^3/uL (1.5-3.5) 12/29/19 05:49 [place] # (Auto) 0.7 10^3/uL (0.0-1.0) 12/29/19 05:49 Eos # (Auto) 0.1 10^3/uL (0.0-0.7) 12/29/19 05:49 Baso # (Auto) 0.0 10^3/uL (0.0-0.1) 12/29/19 05:49 Absolute Nucleated RBC 0.00 x10^3/uL 12/29/19 05:49 Total Counted 100 12/21/19 08:10 Band Neuts % (Manual) 2 % (0-10) 12/21/19 08:10 Reactive Lymphs % (Man) 1 % 12/21/19 08:10 Abnorm Lymph % (Manual) 0 % 12/21/19 08:10 Nucleated RBC % 0.0 /100WBC 12/29/19 05:49 Neutrophils # (Manual) 4.5 10^3/uL (1.5-6.6) 12/21/19 08:10 Lymphocytes # (Manual) 0.5 10^3/uL (1.5-3.5) L 12/21/19 08:10 Monocytes # (Manual) 0.6 10^3/uL (0.0-1.0) 12/21/19 08:10 Eosinophils # (Manual) 0.1 10^3/uL (0-0.7) 12/21/19 08:10 Basophils # (Manual) 0.0 10^3/uL (0-0.1) 12/21/19 08:10 Differential Comment MANUAL DIFFERENTIAL 12/21/19 08:10 WBC Morphology NORMAL APPEARANCE (NORMAL) 12/20/19 06:20 Platelet Estimate NORMAL (130-450,000) (NORMAL) 12/20/19 06:20 Platelet Morphology NORMAL APPEARANCE (NORMAL) 12/20/19 06:20 RBC Morph Micro Appear NORMAL APPEARANCE (NORMAL) 12/20/19 06:20 Sodium 140 mmol/L (135-145) 12/29/19 05:49 Potassium 4.1 mmol/L (3.5-5.0) 12/29/19 05:49 Chloride 103 mmol/L (101-111) 12/29/19 05:49 Carbon Dioxide 30 mmol/L (21-32) 12/29/19 05:49 Anion Gap 7.0 (6-13) 12/29/19 05:49 BUN 25 mg/dL (6-20) H 12/29/19 05:49 Creatinine 1.1 mg/dL (0.6-1.2) 12/29/19 05:49 Estimated GFR (MDRD) 64 (>89) L 12/29/19 05:49 Glucose 147 mg/dL (70-100) H 12/29/19 05:49 POC Whole Bld Glucose 152 mg/dL (70 - 100) H 12/29/19 12:01 Glycated Hemoglobin 7.8 % (4.6-6.2) H 12/21/19 08:10 Estim Average Glucose 177 (70-100) H 12/21/19 08:10 Lactic Acid 1.5 mmol/L (0.5-2.2) 12/17/19 12:30 Calcium 9.3 mg/dL (8.5-10.3) 12/29/19 05:49 Total Bilirubin 0.8 mg/dL (0.2-1.0) 12/20/19 06:20 AST 29 IU/L (10-42) 12/20/19 06:20 ALT 17 IU/L (10-60) 12/20/19 06:20 Alkaline Phosphatase 33 IU/L (42-121) L 12/20/19 06:20 Ammonia 31.9 umol/L (7-35) 12/24/19 05:00 Total Creatine Kinase 357 IU/L (22-269) H 12/17/19 12:30 Troponin I High Sens 92.8 ng/L (2.3-19.7) H* 12/18/19 05:15 C-Reactive Protein < 1.0 mg/dL (0-1.0) 12/29/19 05:49 B-Natriuretic Peptide 53 pg/mL (5-100) 12/17/19 12:30 Total Protein 5.3 g/dL (6.7-8.2) L 12/20/19 06:20 Albumin 2.4 g/dL (3.2-5.5) L 12/20/19 06:20 Globulin 2.9 g/dL (2.1-4.2) 12/20/19 06:20 Albumin/Globulin Ratio 0.8 (1.0-2.2) L 12/20/19 06:20 Lipase 63 U/L (22-51) H 12/17/19 12:30 Vitamin B12 1000 pg/mL (180-914) H 12/21/19 08:10 TSH 5.81 uIU/mL (0.34-5.60) H 01/07/20 09:42 Urine Color YELLOW 12/17/19 11:57 Urine Clarity CLEAR (CLEAR) 12/17/19 11:57 Urine pH 5.5 PH (5.0-7.5) 12/17/19 11:57 Ur Specific [place] >=1.030 (1.002-1.030) H 12/17/19 11:57 Urine Protein 100 mg/dL (NEGATIVE) H 12/17/19 11:57 Urine Glucose (UA) NEGATIVE mg/dL (NEGATIVE) 12/17/19 11:57 Urine Ketones TRACE mg/dL (NEGATIVE) 12/17/19 11:57 Urine Occult Blood SMALL (NEGATIVE) H 12/17/19 11:57 Urine Nitrite NEGATIVE (NEGATIVE) 12/17/19 11:57 Urine Bilirubin NEGATIVE (NEGATIVE) 12/17/19 11:57 Urine Urobilinogen 0.2 (NORMAL) E.U./dL (NORMAL) 12/17/19 11:57 Ur Leukocyte Esterase NEGATIVE (NEGATIVE) 12/17/19 11:57 Urine RBC 0-5 /HPF (0-5) 12/17/19 11:57 Urine WBC 0-3 /HPF (0-3) 12/17/19 11:57 Ur Squamous Epith Cells NONE SEEN (<= Few) 12/17/19 11:57 Urine Bacteria None Seen /HPF (None Seen) 12/17/19 11:57 Ur Microscopic Review INDICATED 12/17/19 11:57 Urine Culture Comments NOT INDICATED 12/17/19 11:57 Stl C. diff Tox B Gene NEGATIVE (NEGATIVE) 12/19/19 20:40 Ethyl Alcohol < 5.0 mg/dL 12/17/19 12:30 Coronavirus (PCR) POSITIVE 01/06/20 09:55 Influenza A (Rapid) Negative (Negative) 12/17/19 13:30 Influenza B (Rapid) Negative (Negative) 12/17/19 13:30 Sepsis Event Note (H) - Evaluation Current Stage of Sepsis: Ruled out
[2020-01-08] MEDS: TAMSULOSIN 0.4 MG CAPSULE PO SCH ×2 (08:08→21:54)
[2020-01-08] MEDS: ACETAMINOPHEN 325 MG TABLET PO PRN (08:08)
[2020-01-08] MEDS: PRENATAL VITAMIN TABLET PO SCH (08:08)
[2020-01-08] MEDS: allopurinoL 100 MG TABLET PO SCH (08:09)
[2020-01-08] MEDS: amLODIPine 5 MG TABLET PO SCH (08:13)
[2020-01-08] MEDS: METOPROLOL SUCCINATE 25 MG TABLET PO SCH (08:14)
[2020-01-08] MEDS: polyethylene glycoL 3350 17 GM PACKET PO SCH (08:14)
[2020-01-08] MEDS: SENNA 8.6 MG TABLET PO SCH (08:14)
[2020-01-08] MEDS: FAMOTIDINE 20 MG TABLET PO SCH ×2 (08:14→21:54)
[2020-01-08] MEDS: lisinopriL 20 MG TABLET PO SCH (08:14)
[2020-01-08] MEDS: CLOPIDOGREL 75 MG TABLET PO SCH (08:30)
[2020-01-09] MEDS ORDERED: OLANZapine 10 MG VIAL IM PRN (00:29)
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
[2020-01-09] MEDS: amLODIPine 5 MG TABLET PO SCH (10:31)
[2020-01-09] MEDS: METOPROLOL SUCCINATE 25 MG TABLET PO SCH (10:31)
[2020-01-09] MEDS: CLOPIDOGREL 75 MG TABLET PO SCH (10:32)
[2020-01-09] MEDS: SENNA 8.6 MG TABLET PO SCH (10:32)
[2020-01-09] MEDS: QUEtiapine 100 MG TABLET PO SCH ×2 (10:32→21:31)
[2020-01-09] MEDS: TAMSULOSIN 0.4 MG CAPSULE PO SCH ×2 (10:33→21:31)
[2020-01-09] MEDS: PRENATAL VITAMIN TABLET PO SCH (10:33)
[2020-01-09] MEDS: CHOLECALCIFEROL 1,000 UNIT TABLET PO SCH (10:33)
[2020-01-09] MEDS: allopurinoL 100 MG TABLET PO SCH (10:33)
[2020-01-09] MEDS: polyethylene glycoL 3350 17 GM PACKET PO SCH (10:34)
[2020-01-09] MEDS: lisinopriL 20 MG TABLET PO SCH (10:34)
[2020-01-09] MEDS: FAMOTIDINE 20 MG TABLET PO SCH ×2 (10:34→21:31)
--- NOTE | 2020-01-10 07:44 | PROVIDER PROGRESS NOTE ---
Assessment/Plan - Problem List (1) Altered mental status Qualifiers: Altered mental status type: unspecified Qualified Code(s): R41.82 - Altered mental status, unspecified Assessment/Plan: No outbursts reported overnight. We will continue patient's Seroquel. And would administer Haldol and/or zyprexa as needed (2) COVID-19 Assessment/Plan: COVID-19 testing repeated today January 10 2020 (3) HTN (hypertension) Qualifiers: Hypertension type: essential hypertension Qualified Code(s): I10 - Essential (primary) hypertension Assessment/Plan: Patient complaint of feeling lightheaded today. His vitals were taken and his systolic blood pressure was found to be in the 60s. As a result patient's blood pressure medications were held and he was given 1 L of normal saline bolus. CBC and BMP are pending (4) BPH (benign prostatic hyperplasia) Assessment/Plan: On tamsulosin - Current Meds Current Meds: Current Medications Generic Name Dose Route Start Last Admin Trade Name Freq PRN Reason Stop Dose Admin Acetaminophen 650 mg 12/19/19 14:46 01/08/20 08:08 Tylenol PO 650 mg Q4HR PRN Administration Pain or Fever > 38C (100.4F) Allopurinol 300 mg 12/30/19 09:00 01/09/20 10:33 Zyloprim PO 300 mg DAILY AVI Administration Amlodipine Besylate 10 mg 12/22/19 09:00 01/09/20 10:31 Norvasc PO 10 mg DAILY AVI Administration Benzonatate 100 mg 12/18/19 21:17 01/05/20 08:22 Tessalon PO 100 mg TID PRN Administration Cough Cholecalciferol 2,000 unit 01/09/20 09:00 01/09/20 10:33 Vitamin D3 PO 2,000 unit DAILY AVI Administration Clopidogrel Bisulfate 75 mg 12/23/19 09:00 01/09/20 10:32 Plavix PO 75 mg DAILY AVI Administration Famotidine 20 mg 12/21/19 21:00 01/09/20 21:31 Pepcid PO 20 mg BID AVI Administration Haloperidol 1 mg 12/31/19 02:16 01/09/20 00:23 Haldol Inj IVP 1 mg Q6H PRN Administration Agitation Lisinopril 20 mg 12/24/19 09:00 01/09/20 10:34 Zestril PO 20 mg DAILY AVI Administration Metoprolol Succinate 37.5 mg 12/24/19 09:00 01/09/20 10:31 Toprol Xl PO 37.5 mg DAILY AVI Administration Mineral Oil 1 applic 12/22/19 17:07 12/24/19 00:49 Cavilon TOP 1 applic PRN PRN Administration Skin Care Polyethylene Glycol 17 gm 12/23/19 09:00 01/09/20 10:34 Miralax PO 17 gm DAILY AVI Administration Multivit/Folic Acid/Iron 1 tab 12/26/19 08:00 01/09/20 10:33 Trinatal Rx 1 PO 1 tab DAILYWM AVI Administration Quetiapine Fumarate 100 mg 01/07/20 21:00 01/09/20 21:31 Seroquel PO 100 mg BID AVI Administration Senna 8.6 - 17.2 mg 12/26/19 09:00 01/09/20 10:32 Senokot PO 8.6 mg DAILY AVI Administration Tamsulosin HCl 0.4 mg 12/30/19 21:00 01/09/20 21:31 Flomax PO 0.4 mg BID AVI Administration - Lab Result Fish Bone Diagrams: 12/29/19 05:49 12/29/19 05:49 - Additional Planning Condition/Complexity: Guarded My Orders: My Active Orders 01/09/20 09:00 Cholecalciferol [Vitamin D3] 2,000 unit PO DAILY Time Spent: 15-30 minutes Subjective - Subjective Patient Reports: Other (Patient resting comfortably in bed at time of my exam. He had no complaints at the moment. There were no outbursts or agitation reported last night. The rest of the visit was unremarkable.However a few hours after seeing the patient, it was brought to my attention that he was complaining of dizziness. His systollic blood pressure was checked 3 times and found to be in the 60s.) Objective Vital Signs: Vital Signs - 24 hr 01/09/20 01/09/20 09:11 15:11 Temperature 36.5 C 36.5 C Heart Rate [ 70 72 Brachial] Respiratory 20 18 Rate Blood Pressure 120/65 112/49 L [Right Brachial artery] O2 Saturation 98 95 Oxygen O2 Source [With Activity] Room air O2 Source [Without Activity] Room air O2 Source Room air Oxygen Flow Rate 3 I&O (Last 24 Hrs): Intake and Output Totals x24h 01/08/20 01/09/20 01/10/20 23:59 23:59 23:59 Intake Total 840 610 Output Total 200 Balance 840 410 General: Alert, Oriented x3, Cooperative HEENT: Atraumatic, PERRLA, EOMI Neck: Supple, No JVD Neuro: Alert, Non Focal, Oriented Times 3 Cardiovascular: Regular rate Respiratory: Chest non-tender, No respiratory distress, Breath sounds nml Abdomen: Normal bowel sounds, Soft, No tenderness Extremities: No clubbing, No cyanosis Skin: No rashes - Results Results: Laboratory Results WBC 6.4 x10^3/uL (4.8-10.8) 12/29/19 05:49 RBC 4.43 10^6/uL (4.70-6.10) L 12/29/19 05:49 Hgb 13.2 g/dL (14.0-18.0) L 12/29/19 05:49 Hct 42.0 % (42.0-52.0) 12/29/19 05:49 MCV 94.8 fL (80.0-94.0) H 12/29/19 05:49 MCH 29.8 pg (27.0-31.0) 12/29/19 05:49 MCHC 31.4 g/dL (32.0-36.0) L 12/29/19 05:49 RDW 13.8 % (12.0-15.0) 12/29/19 05:49 Plt Count 258 10^3/uL (130-450) 12/29/19 05:49 MPV 10.4 fL (7.4-11.4) 12/29/19 05:49 Neut # (Auto) 3.9 10^3/uL (1.5-6.6) 12/29/19 05:49 Lymph # (Auto) 1.6 10^3/uL (1.5-3.5) 12/29/19 05:49 [place] # (Auto) 0.7 10^3/uL (0.0-1.0) 12/29/19 05:49 Eos # (Auto) 0.1 10^3/uL (0.0-0.7) 12/29/19 05:49 Baso # (Auto) 0.0 10^3/uL (0.0-0.1) 12/29/19 05:49 Absolute Nucleated RBC 0.00 x10^3/uL 12/29/19 05:49 Total Counted 100 12/21/19 08:10 Band Neuts % (Manual) 2 % (0-10) 12/21/19 08:10 Reactive Lymphs % (Man) 1 % 12/21/19 08:10 Abnorm Lymph % (Manual) 0 % 12/21/19 08:10 Nucleated RBC % 0.0 /100WBC 12/29/19 05:49 Neutrophils # (Manual) 4.5 10^3/uL (1.5-6.6) 12/21/19 08:10 Lymphocytes # (Manual) 0.5 10^3/uL (1.5-3.5) L 12/21/19 08:10 Monocytes # (Manual) 0.6 10^3/uL (0.0-1.0) 12/21/19 08:10 Eosinophils # (Manual) 0.1 10^3/uL (0-0.7) 12/21/19 08:10 Basophils # (Manual) 0.0 10^3/uL (0-0.1) 12/21/19 08:10 Differential Comment MANUAL DIFFERENTIAL 12/21/19 08:10 WBC Morphology NORMAL APPEARANCE (NORMAL) 12/20/19 06:20 Platelet Estimate NORMAL (130-450,000) (NORMAL) 12/20/19 06:20 Platelet Morphology NORMAL APPEARANCE (NORMAL) 12/20/19 06:20 RBC Morph Micro Appear NORMAL APPEARANCE (NORMAL) 12/20/19 06:20 Sodium 140 mmol/L (135-145) 12/29/19 05:49 Potassium 4.1 mmol/L (3.5-5.0) 12/29/19 05:49 Chloride 103 mmol/L (101-111) 12/29/19 05:49 Carbon Dioxide 30 mmol/L (21-32) 12/29/19 05:49 Anion Gap 7.0 (6-13) 12/29/19 05:49 BUN 25 mg/dL (6-20) H 12/29/19 05:49 Creatinine 1.1 mg/dL (0.6-1.2) 12/29/19 05:49 Estimated GFR (MDRD) 64 (>89) L 12/29/19 05:49 Glucose 147 mg/dL (70-100) H 12/29/19 05:49 POC Whole Bld Glucose 152 mg/dL (70 - 100) H 12/29/19 12:01 Glycated Hemoglobin 7.8 % (4.6-6.2) H 12/21/19 08:10 Estim Average Glucose 177 (70-100) H 12/21/19 08:10 Lactic Acid 1.5 mmol/L (0.5-2.2) 12/17/19 12:30 Calcium 9.3 mg/dL (8.5-10.3) 12/29/19 05:49 Total Bilirubin 0.8 mg/dL (0.2-1.0) 12/20/19 06:20 AST 29 IU/L (10-42) 12/20/19 06:20 ALT 17 IU/L (10-60) 12/20/19 06:20 Alkaline Phosphatase 33 IU/L (42-121) L 12/20/19 06:20 Ammonia 31.9 umol/L (7-35) 12/24/19 05:00 Total Creatine Kinase 357 IU/L (22-269) H 12/17/19 12:30 Troponin I High Sens 92.8 ng/L (2.3-19.7) H* 12/18/19 05:15 C-Reactive Protein < 1.0 mg/dL (0-1.0) 12/29/19 05:49 B-Natriuretic Peptide 53 pg/mL (5-100) 12/17/19 12:30 Total Protein 5.3 g/dL (6.7-8.2) L 12/20/19 06:20 Albumin 2.4 g/dL (3.2-5.5) L 12/20/19 06:20 Globulin 2.9 g/dL (2.1-4.2) 12/20/19 06:20 Albumin/Globulin Ratio 0.8 (1.0-2.2) L 12/20/19 06:20 Lipase 63 U/L (22-51) H 12/17/19 12:30 Vitamin B12 1000 pg/mL (180-914) H 12/21/19 08:10 TSH 5.81 uIU/mL (0.34-5.60) H 01/07/20 09:42 Urine Color YELLOW 12/17/19 11:57 Urine Clarity CLEAR (CLEAR) 12/17/19 11:57 Urine pH 5.5 PH (5.0-7.5) 12/17/19 11:57 Ur Specific [place] >=1.030 (1.002-1.030) H 12/17/19 11:57 Urine Protein 100 mg/dL (NEGATIVE) H 12/17/19 11:57 Urine Glucose (UA) NEGATIVE mg/dL (NEGATIVE) 12/17/19 11:57 Urine Ketones TRACE mg/dL (NEGATIVE) 12/17/19 11:57 Urine Occult Blood SMALL (NEGATIVE) H 12/17/19 11:57 Urine Nitrite NEGATIVE (NEGATIVE) 12/17/19 11:57 Urine Bilirubin NEGATIVE (NEGATIVE) 12/17/19 11:57 Urine Urobilinogen 0.2 (NORMAL) E.U./dL (NORMAL) 12/17/19 11:57 Ur Leukocyte Esterase NEGATIVE (NEGATIVE) 12/17/19 11:57 Urine RBC 0-5 /HPF (0-5) 12/17/19 11:57 Urine WBC 0-3 /HPF (0-3) 12/17/19 11:57 Ur Squamous Epith Cells NONE SEEN (<= Few) 12/17/19 11:57 Urine Bacteria None Seen /HPF (None Seen) 12/17/19 11:57 Ur Microscopic Review INDICATED 12/17/19 11:57 Urine Culture Comments NOT INDICATED 12/17/19 11:57 Stl C. diff Tox B Gene NEGATIVE (NEGATIVE) 12/19/19 20:40 Ethyl Alcohol < 5.0 mg/dL 12/17/19 12:30 T.pallidum IgG (EIA) NEGATIVE 01/07/20 09:42 Coronavirus (PCR) POSITIVE 01/06/20 09:55 Influenza A (Rapid) Negative (Negative) 12/17/19 13:30 Influenza B (Rapid) Negative (Negative) 12/17/19 13:30 Sepsis Event Note (H) - Evaluation Current Stage of Sepsis: Ruled out ABX Reporting Has patient been on IV antibiotics over the past 48 hours?: No
[2020-01-10] MEDS ORDERED: SODIUM CHLORIDE 0.9% 1,000 ML IV ONE ×2 (10:36→10:41)
[2020-01-10] MEDS: CHOLECALCIFEROL 1,000 UNIT TABLET PO SCH (10:47)
[2020-01-10] MEDS: allopurinoL 100 MG TABLET PO SCH (10:47)
[2020-01-10] MEDS: FAMOTIDINE 20 MG TABLET PO SCH ×2 (10:47→20:55)
[2020-01-10] MEDS: SENNA 8.6 MG TABLET PO SCH (10:48)
[2020-01-10] MEDS: PRENATAL VITAMIN TABLET PO SCH (10:48)
[2020-01-10] MEDS: CLOPIDOGREL 75 MG TABLET PO SCH (10:48)
[2020-01-10] MEDS: polyethylene glycoL 3350 17 GM PACKET PO SCH (10:49)
[2020-01-10] MEDS: METOPROLOL SUCCINATE 25 MG TABLET PO SCH (10:49)
[2020-01-10] MEDS: amLODIPine 5 MG TABLET PO SCH (10:49)
[2020-01-10] MEDS: lisinopriL 20 MG TABLET PO SCH (10:49)
[2020-01-10] MEDS: TAMSULOSIN 0.4 MG CAPSULE PO SCH ×2 (11:29→20:55)
[2020-01-10 11:51] LABS: BASOPHILS % (AUTO) 0.5 %; EOSINOPHILS # (AUTO) 0.5 10^3/uL (0.0-0.7); EOSINOPHILS % (AUTO) 7.8 %; HGB - HEMOGLOBIN 12.6 g/dL (14.0-18.0); LYMPHOCYTES # (AUTO) 1.4 10^3/uL (1.5-3.5); MEAN CORPUSCULAR HEMOGLOBIN 31.3 pg (27.0-31.0); MEAN CORPUSCULAR HGB CONC 30.8 g/dL (32.0-36.0); MEAN CORPUSCULAR VOLUME 101.5 fL (80.0-94.0); MEAN PLATELET VOLUME 10.7 fL (7.4-11.4); MONOCYTES # (AUTO) 0.6 10^3/uL (0.0-1.0); MONOCYTES % (AUTO) 11.1 %; NEUTROPHILS # (AUTO) 3.2 10^3/uL (1.5-6.6); NEUTROPHILS % (AUTO) 55.3 %; PLT - PLATELET COUNT 195 10^3/uL (130-450); RED BLOOD COUNT 4.03 10^6/uL (4.70-6.10); RED CELL DISTRIBUTION WIDTH 14.6 % (12.0-15.0); WHITE BLOOD COUNT 5.8 x10^3/uL (4.8-10.8)
[2020-01-10 12:11] LABS: CALCIUM 10.5 mg/dL (8.5-10.3)
[2020-01-10] MEDS: QUEtiapine 100 MG TABLET PO SCH ×2 (12:14→20:56)
[2020-01-10 12:18] LABS: CREATININE 2.2 mg/dL (0.6-1.2)
[2020-01-11 06:10] LABS: CALCIUM 10.6 mg/dL (8.5-10.3); CREATININE 2.1 mg/dL (0.6-1.2)
[2020-01-11] MEDS: amLODIPine 5 MG TABLET PO SCH (08:57)
[2020-01-11] MEDS: lisinopriL 20 MG TABLET PO SCH (08:57)
[2020-01-11] MEDS: METOPROLOL SUCCINATE 25 MG TABLET PO SCH (08:57)
[2020-01-11] MEDS: PRENATAL VITAMIN TABLET PO SCH (09:15)
[2020-01-11] MEDS: FAMOTIDINE 20 MG TABLET PO SCH ×2 (09:15→20:33)
[2020-01-11] MEDS: allopurinoL 100 MG TABLET PO SCH (09:15)
[2020-01-11] MEDS: polyethylene glycoL 3350 17 GM PACKET PO SCH (09:15)
[2020-01-11] MEDS: TAMSULOSIN 0.4 MG CAPSULE PO SCH ×2 (09:15→20:33)
[2020-01-11] MEDS: SENNA 8.6 MG TABLET PO SCH (09:15)
[2020-01-11] MEDS: CLOPIDOGREL 75 MG TABLET PO SCH (09:15)
[2020-01-11] MEDS: QUEtiapine 100 MG TABLET PO SCH ×2 (09:15→20:33)
[2020-01-11] MEDS ORDERED: SODIUM CHLORIDE 0.9% 1,000 ML IV ONE ×2 (10:31→15:33)
--- NOTE | 2020-01-11 12:15 | PROVIDER PROGRESS NOTE ---
Assessment/Plan - Problem List (1) Altered mental status Qualifiers: Altered mental status type: unspecified Qualified Code(s): R41.82 - Altered mental status, unspecified Assessment/Plan: No outbursts reported for the second night. We will continue patient's Seroquel. Haldol and/or zyprexa have been ordered as needed However, the patient has not required any Haldol or Zyprexa for the second day now. We have reached out to [facility] for re-evaluation about accepting the patient. Their response is pending. (2) COVID-19 Assessment/Plan: Patient tested COVID-19 positive on January 10, 2020 (3) HTN (hypertension) Qualifiers: Hypertension type: essential hypertension Qualified Code(s): I10 - Essential (primary) hypertension Assessment/Plan: Patient's medications were temporarily held because of low blood pressure. We will resume when appropriate to do so (4) BPH (benign prostatic hyperplasia) Assessment/Plan: On tamsulosin (5) YING (acute kidney injury) Assessment/Plan: Likely prerenal secondary to dehydration. Systolic blood pressure yesterday was in the 60s. Patient received 1 L of saline bolus yesterday. Systolic blood pressure improved to the 120s. Today blood pressure has been around 100. As a result he is receiving another bolus of normal saline. Creatinine today was 2.1. 13 days ago it was 1.1. We will continue IV hydration and monitor renal function. - Current Meds Current Meds: Current Medications Generic Name Dose Route Start Last Admin Trade Name Freq PRN Reason Stop Dose Admin Acetaminophen 650 mg 12/19/19 14:46 01/08/20 08:08 Tylenol PO 650 mg Q4HR PRN Administration Pain or Fever > 38C (100.4F) Allopurinol 300 mg 12/30/19 09:00 01/11/20 09:15 Zyloprim PO 300 mg DAILY AVI Administration Amlodipine Besylate 10 mg 12/22/19 09:00 01/11/20 08:57 Norvasc PO Not Given DAILY AVI Benzonatate 100 mg 12/18/19 21:17 01/05/20 08:22 Tessalon PO 100 mg TID PRN Administration Cough Clopidogrel Bisulfate 75 mg 12/23/19 09:00 01/11/20 09:15 Plavix PO 75 mg DAILY AVI Administration Famotidine 20 mg 12/21/19 21:00 01/11/20 09:15 Pepcid PO 20 mg BID AVI Administration Haloperidol 1 mg 12/31/19 02:16 01/09/20 00:23 Haldol Inj IVP 1 mg Q6H PRN Administration Agitation Lisinopril 20 mg 12/24/19 09:00 01/11/20 08:57 Zestril PO Not Given DAILY AVI Metoprolol Succinate 37.5 mg 12/24/19 09:00 01/11/20 08:57 Toprol Xl PO Not Given DAILY AVI Mineral Oil 1 applic 12/22/19 17:07 12/24/19 00:49 Cavilon TOP 1 applic PRN PRN Administration Skin Care Polyethylene Glycol 17 gm 12/23/19 09:00 01/11/20 09:15 Miralax PO 17 gm DAILY AVI Administration Multivit/Folic Acid/Iron 1 tab 12/26/19 08:00 01/11/20 09:15 Trinatal Rx 1 PO 1 tab DAILYWM AVI Administration Quetiapine Fumarate 100 mg 01/07/20 21:00 01/11/20 09:15 Seroquel PO 100 mg BID AVI Administration Senna 8.6 - 17.2 mg 12/26/19 09:00 01/11/20 09:15 Senokot PO 17.2 mg DAILY AVI Administration Tamsulosin HCl 0.4 mg 12/30/19 21:00 01/11/20 09:15 Flomax PO 0.4 mg BID AVI Administration - Lab Result Fish Bone Diagrams: 01/10/20 11:51 01/11/20 05:39 - Additional Planning My Orders: My Active Orders 01/12/20 05:00 BMP - BASIC METABOLIC PANEL [CHEM] DAILYLAB CBC - COMP BLD CT W/AUTO DIFF [HEME] DAILYLAB 01/13/20 05:00 BMP - BASIC METABOLIC PANEL [CHEM] DAILYLAB CBC - COMP BLD CT W/AUTO DIFF [HEME] DAILYLAB 01/14/20 05:00 BMP - BASIC METABOLIC PANEL [CHEM] DAILYLAB CBC - COMP BLD CT W/AUTO DIFF [HEME] DAILYLAB 01/15/20 05:00 BMP - BASIC METABOLIC PANEL [CHEM] DAILYLAB CBC - COMP BLD CT W/AUTO DIFF [HEME] DAILYLAB Subjective - Subjective Patient Reports: Other (Patient was sleeping at the time of my visit. However he readily awoke to verbal stimuli. He denied any complaints at the moment. Th ere were no outbursts or agitation reported yesterday night.) Objective Vital Signs: Vital Signs - 24 hr 01/10/20 01/10/20 01/11/20 12:14 20:00 08:39 Heart Rate [ 69 78 79 Brachial] Respiratory 20 Rate Blood Pressure 101/53 L [Left Brachial artery] Blood Pressure 120/55 L 119/60 [Right Brachial artery] O2 Saturation 93 Oxygen O2 Source [With Activity] Room air O2 Source [Without Activity] Room air O2 Source Room air Oxygen Flow Rate 3 I&O (Last 24 Hrs): Intake and Output Totals x24h 01/09/20 01/10/20 01/11/20 23:59 23:59 23:59 Intake Total 610 2390 360 Output Total 200 Balance 410 2390 360 General: Alert, Oriented x3, No acute distress HEENT: Atraumatic, PERRLA, EOMI, Other (Dry oral mucosa) Neck: Supple, No JVD Neuro: Alert, Non Focal, Oriented Times 3 Cardiovascular: Regular rate Respiratory: Chest non-tender, No respiratory distress, Breath sounds nml Abdomen: Normal bowel sounds, Soft, No tenderness Extremities: No clubbing, No cyanosis Skin: No rashes - Results Results: Laboratory Results WBC 5.8 x10^3/uL (4.8-10.8) 01/10/20 11:51 RBC 4.03 10^6/uL (4.70-6.10) L 01/10/20 11:51 Hgb 12.6 g/dL (14.0-18.0) L 01/10/20 11:51 Hct 40.9 % (42.0-52.0) L 01/10/20 11:51 MCV 101.5 fL (80.0-94.0) H 01/10/20 11:51 MCH 31.3 pg (27.0-31.0) H 01/10/20 11:51 MCHC 30.8 g/dL (32.0-36.0) L 01/10/20 11:51 RDW 14.6 % (12.0-15.0) 01/10/20 11:51 Plt Count 195 10^3/uL (130-450) 01/10/20 11:51 MPV 10.7 fL (7.4-11.4) 01/10/20 11:51 Neut # (Auto) 3.2 10^3/uL (1.5-6.6) 01/10/20 11:51 Lymph # (Auto) 1.4 10^3/uL (1.5-3.5) L 01/10/20 11:51 [place] # (Auto) 0.6 10^3/uL (0.0-1.0) 01/10/20 11:51 Eos # (Auto) 0.5 10^3/uL (0.0-0.7) 01/10/20 11:51 Baso # (Auto) 0.0 10^3/uL (0.0-0.1) 01/10/20 11:51 Absolute Nucleated RBC 0.00 x10^3/uL 01/10/20 11:51 Total Counted 100 12/21/19 08:10 Band Neuts % (Manual) 2 % (0-10) 12/21/19 08:10 Reactive Lymphs % (Man) 1 % 12/21/19 08:10 Abnorm Lymph % (Manual) 0 % 12/21/19 08:10 Nucleated RBC % 0.0 /100WBC 01/10/20 11:51 Neutrophils # (Manual) 4.5 10^3/uL (1.5-6.6) 12/21/19 08:10 Lymphocytes # (Manual) 0.5 10^3/uL (1.5-3.5) L 12/21/19 08:10 Monocytes # (Manual) 0.6 10^3/uL (0.0-1.0) 12/21/19 08:10 Eosinophils # (Manual) 0.1 10^3/uL (0-0.7) 12/21/19 08:10 Basophils # (Manual) 0.0 10^3/uL (0-0.1) 12/21/19 08:10 Differential Comment MANUAL DIFFERENTIAL 12/21/19 08:10 WBC Morphology NORMAL APPEARANCE (NORMAL) 12/20/19 06:20 Platelet Estimate NORMAL (130-450,000) (NORMAL) 12/20/19 06:20 Platelet Morphology NORMAL APPEARANCE (NORMAL) 12/20/19 06:20 RBC Morph Micro Appear NORMAL APPEARANCE (NORMAL) 12/20/19 06:20 Sodium 138 mmol/L (135-145) 01/11/20 05:39 Potassium 4.4 mmol/L (3.5-5.0) 01/11/20 05:39 Chloride 104 mmol/L (101-111) 01/11/20 05:39 Carbon Dioxide 26 mmol/L (21-32) 01/11/20 05:39 Anion Gap 8.0 (6-13) 01/11/20 05:39 BUN 44 mg/dL (6-20) H 01/11/20 05:39 Creatinine 2.1 mg/dL (0.6-1.2) H 01/11/20 05:39 Estimated GFR (MDRD) 30 (>89) L 01/11/20 05:39 Glucose 143 mg/dL (70-100) H 01/11/20 05:39 POC Whole Bld Glucose 152 mg/dL (70 - 100) H 12/29/19 12:01 Glycated Hemoglobin 7.8 % (4.6-6.2) H 12/21/19 08:10 Estim Average Glucose 177 (70-100) H 12/21/19 08:10 Lactic Acid 1.5 mmol/L (0.5-2.2) 12/17/19 12:30 Calcium 10.6 mg/dL (8.5-10.3) H 01/11/20 05:39 Total Bilirubin 0.8 mg/dL (0.2-1.0) 12/20/19 06:20 AST 29 IU/L (10-42) 12/20/19 06:20 ALT 17 IU/L (10-60) 12/20/19 06:20 Alkaline Phosphatase 33 IU/L (42-121) L 12/20/19 06:20 Ammonia 31.9 umol/L (7-35) 12/24/19 05:00 Total Creatine Kinase 357 IU/L (22-269) H 12/17/19 12:30 Troponin I High Sens 92.8 ng/L (2.3-19.7) H* 12/18/19 05:15 C-Reactive Protein < 1.0 mg/dL (0-1.0) 12/29/19 05:49 B-Natriuretic Peptide 53 pg/mL (5-100) 12/17/19 12:30 Total Protein 5.3 g/dL (6.7-8.2) L 12/20/19 06:20 Albumin 2.4 g/dL (3.2-5.5) L 12/20/19 06:20 Globulin 2.9 g/dL (2.1-4.2) 12/20/19 06:20 Albumin/Globulin Ratio 0.8 (1.0-2.2) L 12/20/19 06:20 Lipase 63 U/L (22-51) H 12/17/19 12:30 Vitamin B12 1000 pg/mL (180-914) H 12/21/19 08:10 TSH 5.81 uIU/mL (0.34-5.60) H 01/07/20 09:42 Urine Color YELLOW 12/17/19 11:57 Urine Clarity CLEAR (CLEAR) 12/17/19 11:57 Urine pH 5.5 PH (5.0-7.5) 12/17/19 11:[address] >=1.030 (1.002-1.030) H 12/17/19 11:57 Urine Protein 100 mg/dL (NEGATIVE) H 12/17/19 11:57 Urine Glucose (UA) NEGATIVE mg/dL (NEGATIVE) 12/17/19 11:57 Urine Ketones TRACE mg/dL (NEGATIVE) 12/17/19 11:57 Urine Occult Blood SMALL (NEGATIVE) H 12/17/19 11:57 Urine Nitrite NEGATIVE (NEGATIVE) 12/17/19 11:57 Urine Bilirubin NEGATIVE (NEGATIVE) 12/17/19 11:57 Urine Urobilinogen 0.2 (NORMAL) E.U./dL (NORMAL) 12/17/19 11:57 Ur Leukocyte Esterase NEGATIVE (NEGATIVE) 12/17/19 11:57 Urine RBC 0-5 /HPF (0-5) 12/17/19 11:57 Urine WBC 0-3 /HPF (0-3) 12/17/19 11:57 Ur Squamous Epith Cells NONE SEEN (<= Few) 12/17/19 11:57 Urine Bacteria None Seen /HPF (None Seen) 12/17/19 11:57 Ur Microscopic Review INDICATED 12/17/19 11:57 Urine Culture Comments NOT INDICATED 12/17/19 11:57 Stl C. diff Tox B Gene NEGATIVE (NEGATIVE) 12/19/19 20:40 Ethyl Alcohol < 5.0 mg/dL 12/17/19 12:30 T.pallidum IgG (EIA) NEGATIVE 01/07/20 09:42 Coronavirus (PCR) POSITIVE 01/10/20 10:50 Influenza A (Rapid) Negative (Negative) 12/17/19 13:30 Influenza B (Rapid) Negative (Negative) 12/17/19 13:30 Sepsis Event Note (H) - Evaluation Current Stage of Sepsis: Ruled out
[2020-01-12 06:18] LABS: BASOPHILS % (AUTO) 0.3 %; EOSINOPHILS # (AUTO) 0.3 10^3/uL (0.0-0.7); EOSINOPHILS % (AUTO) 3.9 %; HGB - HEMOGLOBIN 12.1 g/dL (14.0-18.0); LYMPHOCYTES # (AUTO) 1.4 10^3/uL (1.5-3.5); LYMPHOCYTES % (AUTO) 15.8 %; MEAN CORPUSCULAR HEMOGLOBIN 31.3 pg (27.0-31.0); MEAN CORPUSCULAR HGB CONC 32.4 g/dL (32.0-36.0); MEAN CORPUSCULAR VOLUME 96.9 fL (80.0-94.0); MEAN PLATELET VOLUME 10.2 fL (7.4-11.4); MONOCYTES # (AUTO) 0.9 10^3/uL (0.0-1.0); MONOCYTES % (AUTO) 10.3 %; NEUTROPHILS % (AUTO) 69.5 %; PLT - PLATELET COUNT 183 10^3/uL (130-450); RED BLOOD COUNT 3.86 10^6/uL (4.70-6.10); RED CELL DISTRIBUTION WIDTH 14.6 % (12.0-15.0); WHITE BLOOD COUNT 8.7 x10^3/uL (4.8-10.8)
[2020-01-12 06:29] LABS: CALCIUM 9.7 mg/dL (8.5-10.3); CREATININE 1.7 mg/dL (0.6-1.2)
[2020-01-12] MEDS ORDERED: SODIUM CHLORIDE 0.9% 1,000 ML IV ONE ×2 (08:01→15:58)
--- NOTE | 2020-01-12 08:03 | PROVIDER PROGRESS NOTE ---
Assessment/Plan - Problem List (1) Altered mental status Qualifiers: Altered mental status type: unspecified Qualified Code(s): R41.82 - Altered mental status, unspecified Assessment/Plan: No outbursts reported for the third night. Will continue patient's Seroquel 100 mg p.o. twice daily for now. Patient was once again decline by [facility] for transfer to their facility on the grounds of his Seroquel dosage being too high to manage at their facility. I will discuss this with the biomedical equipment specialist at [facility] Dr. Montalvo. (2) COVID-19 Assessment/Plan: Patient tested COVID-19 positive on January 10, 2020 (3) HTN (hypertension) Qualifiers: Hypertension type: essential hypertension Qualified Code(s): I10 - Essenti al (primary) hypertension Assessment/Plan: Currently normotensive. We will continue patient's medications. (4) BPH (benign prostatic hyperplasia) Assessment/Plan: On tamsulosin (5) YING (acute kidney injury) Assessment/Plan: Improving Patient's GFR today was 39. His creatinine is 1.7. We will continue IV hydration - Current Meds Current Meds: Current Medications Generic Name Dose Route Start Last Admin Trade Name Freq PRN Reason Stop Dose Admin Acetaminophen 650 mg 12/19/19 14:46 01/08/20 08:08 Tylenol PO 650 mg Q4HR PRN Administration Pain or Fever > 38C (100.4F) Allopurinol 300 mg 12/30/19 09:00 01/11/20 09:15 Zyloprim PO 300 mg DAILY AVI Administration Amlodipine Besylate 10 mg 12/22/19 09:00 01/11/20 08:57 Norvasc PO Not Given DAILY AVI Benzonatate 100 mg 12/18/19 21:17 01/05/20 08:22 Tessalon PO 100 mg TID PRN Administration Cough Clopidogrel Bisulfate 75 mg 12/23/19 09:00 01/11/20 09:15 Plavix PO 75 mg DAILY AVI Administration Famotidine 20 mg 12/21/19 21:00 01/11/20 20:33 Pepcid PO 20 mg BID AVI Administration Haloperidol 1 mg 12/31/19 02:16 01/09/20 00:23 Haldol Inj IVP 1 mg Q6H PRN Administration Agitation Lisinopril 20 mg 12/24/19 09:00 01/11/20 08:57 Zestril PO Not Given DAILY AVI Metoprolol Succinate 37.5 mg 12/24/19 09:00 01/11/20 08:57 Toprol Xl PO Not Given DAILY AVI Mineral Oil 1 applic 12/22/19 17:07 12/24/19 00:49 Cavilon TOP 1 applic PRN PRN Administration Skin Care Polyethylene Glycol 17 gm 12/23/19 09:00 01/11/20 09:15 Miralax PO 17 gm DAILY AVI Administration Multivit/Folic Acid/Iron 1 tab 12/26/19 08:00 01/11/20 09:15 Trinatal Rx 1 PO 1 tab DAILYWM AVI Administration Quetiapine Fumarate 100 mg 01/07/20 21:00 01/11/20 20:33 Seroquel PO 100 mg BID AVI Administration Senna 8.6 - 17.2 mg 12/26/19 09:00 01/11/20 09:15 Senokot PO 17.2 mg DAILY AVI Administration Tamsulosin HCl 0.4 mg 12/30/19 21:00 01/11/20 20:33 Flomax PO 0.4 mg BID AVI Administration - Lab Result Fish Bone Diagrams: 01/12/20 06:08 01/12/20 06:08 - Additional Planning My Orders: My Active Orders 01/12/20 08:01 0.9% NS 1000ML BOLUS X Sodium Chloride 0.9% [Normal Saline 0.9%] 1,000 ml IV ONCE 01/13/20 05:00 BMP - BASIC METABOLIC PANEL [CHEM] DAILYLAB CBC - COMP BLD CT W/AUTO DIFF [HEME] DAILYLAB 01/14/20 05:00 BMP - BASIC METABOLIC PANEL [CHEM] DAILYLAB CBC - COMP BLD CT W/AUTO DIFF [HEME] DAILYLAB 01/15/20 05:00 BMP - BASIC METABOLIC PANEL [CHEM] DAILYLAB CBC - COMP BLD CT W/AUTO DIFF [HEME] DAILYLAB Subjective - Subjective Patient Reports: Other (Patient seen and examined today. He denied any complaints. There were no events overnight.) Objective Vital Signs: Vital Signs - 24 hr 01/11/20 01/11/20 08:39 19:00 Heart Rate [ 79 60 Brachial] Respiratory 20 Rate Blood Pressure 101/53 L 135/75 H [Left Brachial artery] O2 Saturation 93 Oxygen O2 Source [With Activity] Room air O2 Source [Without Activity] Room air O2 Source Room air Oxygen Flow Rate 3 I&O (Last 24 Hrs): Intake and Output Totals x24h 01/10/20 01/11/20 01/12/20 23:59 23:59 23:59 Intake Total 2390 3398 Balance 2390 3398 General: Alert, Cooperative, No acute distress HEENT: Atraumatic, PERRLA, EOMI Neck: Supple, No JVD Neuro: Alert, Non Focal Cardiovascular: Regular rate Respiratory: Chest non-tender, No respiratory distress, Breath sounds nml Abdomen: Normal bowel sounds, Soft, No tenderness Extremities: No clubbing, No cyanosis, No edema Skin: No rashes - Results Results: Laboratory Results WBC 8.7 x10^3/uL (4.8-10.8) 01/12/20 06:08 RBC 3.86 10^6/uL (4.70-6.10) L 01/12/20 06:08 Hgb 12.1 g/dL (14.0-18.0) L 01/12/20 06:08 Hct 37.4 % (42.0-52.0) L 01/12/20 06:08 MCV 96.9 fL (80.0-94.0) H 01/12/20 06:08 MCH 31.3 pg (27.0-31.0) H 01/12/20 06:08 MCHC 32.4 g/dL (32.0-36.0) 01/12/20 06:08 RDW 14.6 % (12.0-15.0) 01/12/20 06:08 Plt Count 183 10^3/uL (130-450) 01/12/20 06:08 MPV 10.2 fL (7.4-11.4) 01/12/20 06:08 Neut # (Auto) 6.0 10^3/uL (1.5-6.6) 01/12/20 06:08 Lymph # (Auto) 1.4 10^3/uL (1.5-3.5) L 01/12/20 06:08 [place] # (Auto) 0.9 10^3/uL (0.0-1.0) 01/12/20 06:08 Eos # (Auto) 0.3 10^3/uL (0.0-0.7) 01/12/20 06:08 Baso # (Auto) 0.0 10^3/uL (0.0-0.1) 01/12/20 06:08 Absolute Nucleated RBC 0.00 x10^3/uL 01/12/20 06:08 Total Counted 100 12/21/19 08:10 Band Neuts % (Manual) 2 % (0-10) 12/21/19 08:10 Reactive Lymphs % (Man) 1 % 12/21/19 08:10 Abnorm Lymph % (Manual) 0 % 12/21/19 08:10 Nucleated RBC % 0.0 /100WBC 01/12/20 06:08 Neutrophils # (Manual) 4.5 10^3/uL (1.5-6.6) 12/21/19 08:10 Lymphocytes # (Manual) 0.5 10^3/uL (1.5-3.5) L 12/21/19 08:10 Monocytes # (Manual) 0.6 10^3/uL (0.0-1.0) 12/21/19 08:10 Eosinophils # (Manual) 0.1 10^3/uL (0-0.7) 12/21/19 08:10 Basophils # (Manual) 0.0 10^3/uL (0-0.1) 12/21/19 08:10 Differential Comment MANUAL DIFFERENTIAL 12/21/19 08:10 WBC Morphology NORMAL APPEARANCE (NORMAL) 12/20/19 06:20 Platelet Estimate NORMAL (130-450,000) (NORMAL) 12/20/19 06:20 Platelet Morphology NORMAL APPEARANCE (NORMAL) 12/20/19 06:20 RBC Morph Micro Appear NORMAL APPEARANCE (NORMAL) 12/20/19 06:20 Sodium 138 mmol/L (135-145) 01/12/20 06:08 Potassium 4.3 mmol/L (3.5-5.0) 01/12/20 06:08 Chloride 108 mmol/L (101-111) 01/12/20 06:08 Carbon Dioxide 26 mmol/L (21-32) 01/12/20 06:08 Anion Gap 4.0 (6-13) L 01/12/20 06:08 BUN 32 mg/dL (6-20) H 01/12/20 06:08 Creatinine 1.7 mg/dL (0.6-1.2) H 01/12/20 06:08 Estimated GFR (MDRD) 39 (>89) L 01/12/20 06:08 Glucose 139 mg/dL (70-100) H 01/12/20 06:08 POC Whole Bld Glucose 152 mg/dL (70 - 100) H 12/29/19 12:01 Glycated Hemoglobin 7.8 % (4.6-6.2) H 12/21/19 08:10 Estim Average Glucose 177 (70-100) H 12/21/19 08:10 Lactic Acid 1.5 mmol/L (0.5-2.2) 12/17/19 12:30 Calcium 9.7 mg/dL (8.5-10.3) 01/12/20 06:08 Total Bilirubin 0.8 mg/dL (0.2-1.0) 12/20/19 06:20 AST 29 IU/L (10-42) 12/20/19 06:20 ALT 17 IU/L (10-60) 12/20/19 06:20 Alkaline Phosphatase 33 IU/L (42-121) L 12/20/19 06:20 Ammonia 31.9 umol/L (7-35) 12/24/19 05:00 Total Creatine Kinase 357 IU/L (22-269) H 12/17/19 12:30 Troponin I High Sens 92.8 ng/L (2.3-19.7) H* 12/18/19 05:15 C-Reactive Protein < 1.0 mg/dL (0-1.0) 12/29/19 05:49 B-Natriuretic Peptide 53 pg/mL (5-100) 12/17/19 12:30 Total Protein 5.3 g/dL (6.7-8.2) L 12/20/19 06:20 Albumin 2.4 g/dL (3.2-5.5) L 12/20/19 06:20 Globulin 2.9 g/dL (2.1-4.2) 12/20/19 06:20 Albumin/Globulin Ratio 0.8 (1.0-2.2) L 12/20/19 06:20 Lipase 63 U/L (22-51) H 12/17/19 12:30 Vitamin B12 1000 pg/mL (180-914) H 12/21/19 08:10 TSH 5.81 uIU/mL (0.34-5.60) H 01/07/20 09:42 Urine Color YELLOW 12/17/19 11:57 Urine Clarity CLEAR (CLEAR) 12/17/19 11:57 Urine pH 5.5 PH (5.0-7.5) 12/17/19 11:57 Ur Specific [place] >=1.030 (1.002-1.030) H 12/17/19 11:57 Urine Protein 100 mg/dL (NEGATIVE) H 12/17/19 11:57 Urine Glucose (UA) NEGATIVE mg/dL (NEGATIVE) 12/17/19 11:57 Urine Ketones TRACE mg/dL (NEGATIVE) 12/17/19 11:57 Urine Occult Blood SMALL (NEGATIVE) H 12/17/19 11:57 Urine Nitrite NEGATIVE (NEGATIVE) 12/17/19 11:57 Urine Bilirubin NEGATIVE (NEGATIVE) 12/17/19 11:57 Urine Urobilinogen 0.2 (NORMAL) E.U./dL (NORMAL) 12/17/19 11:57 Ur Leukocyte Esterase NEGATIVE (NEGATIVE) 12/17/19 11:57 Urine RBC 0-5 /HPF (0-5) 12/17/19 11:57 Urine WBC 0-3 /HPF (0-3) 12/17/19 11:57 Ur Squamous Epith Cells NONE SEEN (<= Few) 12/17/19 11:57 Urine Bacteria None Seen /HPF (None Seen) 12/17/19 11:57 Ur Microscopic Review INDICATED 12/17/19 11:57 Urine Culture Comments NOT INDICATED 12/17/19 11:57 Stl C. diff Tox B Gene NEGATIVE (NEGATIVE) 12/19/19 20:40 Ethyl Alcohol < 5.0 mg/dL 12/17/19 12:30 T.pallidum IgG (EIA) NEGATIVE 01/07/20 09:42 Coronavirus (PCR) POSITIVE 01/10/20 10:50 Influenza A (Rapid) Negative (Negative) 12/17/19 13:30 Influenza B (Rapid) Negative (Negative) 12/17/19 13:30 Sepsis Event Note (H) - Evaluation Current Stage of Sepsis: Ruled out ABX Reporting Has patient been on IV antibiotics over the past 48 hours?: No
[2020-01-12] MEDS: TAMSULOSIN 0.4 MG CAPSULE PO SCH ×2 (08:24→20:15)
[2020-01-12] MEDS: lisinopriL 20 MG TABLET PO SCH (08:24)
[2020-01-12] MEDS: FAMOTIDINE 20 MG TABLET PO SCH ×2 (08:24→20:15)
[2020-01-12] MEDS: QUEtiapine 100 MG TABLET PO SCH ×2 (08:24→20:16)
[2020-01-12] MEDS: SENNA 8.6 MG TABLET PO SCH (08:24)
[2020-01-12] MEDS: METOPROLOL SUCCINATE 25 MG TABLET PO SCH (08:25)
[2020-01-12] MEDS: CLOPIDOGREL 75 MG TABLET PO SCH (08:25)
[2020-01-12] MEDS: allopurinoL 100 MG TABLET PO SCH (08:25)
[2020-01-12] MEDS: amLODIPine 5 MG TABLET PO SCH (08:25)
[2020-01-12] MEDS: PRENATAL VITAMIN TABLET PO SCH (08:25)
[2020-01-12] MEDS: polyethylene glycoL 3350 17 GM PACKET PO SCH (08:26)
[2020-01-13 05:48] LABS: BASOPHILS % (AUTO) 0.6 %; EOSINOPHILS # (AUTO) 0.4 10^3/uL (0.0-0.7); EOSINOPHILS % (AUTO) 6.4 %; HGB - HEMOGLOBIN 11.9 g/dL (14.0-18.0); LYMPHOCYTES # (AUTO) 1.6 10^3/uL (1.5-3.5); LYMPHOCYTES % (AUTO) 23.9 %; MEAN CORPUSCULAR HGB CONC 31.3 g/dL (32.0-36.0); MEAN CORPUSCULAR VOLUME 95.7 fL (80.0-94.0); MEAN PLATELET VOLUME 10.5 fL (7.4-11.4); MONOCYTES # (AUTO) 0.6 10^3/uL (0.0-1.0); MONOCYTES % (AUTO) 9.6 %; NEUTROPHILS # (AUTO) 3.9 10^3/uL (1.5-6.6); PLT - PLATELET COUNT 181 10^3/uL (130-450); RED BLOOD COUNT 3.97 10^6/uL (4.70-6.10); RED CELL DISTRIBUTION WIDTH 14.6 % (12.0-15.0); WHITE BLOOD COUNT 6.6 x10^3/uL (4.8-10.8)
[2020-01-13 05:58] LABS: CALCIUM 9.8 mg/dL (8.5-10.3); CREATININE 1.6 mg/dL (0.6-1.2)
[2020-01-13] MEDS ORDERED: SODIUM CHLORIDE 0.9% 1,000 ML IV ONE (07:27)
--- NOTE | 2020-01-13 07:28 | PROVIDER PROGRESS NOTE ---
Assessment/Plan - Problem List (1) Altered mental status Qualifiers: Altered mental status type: unspecified Qualified Code(s): R41.82 - Altered mental status, unspecified Assessment/Plan: There has been no agitation reported in the past 4 days. We will continue to decrease and wean off patient's Seroquel. I reached out to Dr. Montalvo who [facility] who maintained that the patient could not be accepted at their facility at this time due to his Seroquel dosage. (2) COVID-19 Assessment/Plan: Patient tested COVID-19 positive on January 10, 2020. Will repeat testing on January 15, 2020 (3) HTN (hypertension) Qualifiers: Hypertension type: essential hypertension Qualified Code(s): I10 - Essential (primary) hypertension Assessment/Plan: Normotensive. Continue medication (4) BPH (benign prostatic hyperplasia) Assessment/Plan: Continue tamsulosin (5) YING (acute kidney injury) Assessment/Plan: Improving Patient's GFR today was 42. His creatinine is 1.6. We will continue IV hydration - Current Meds Current Meds: Current Medications Generic Name Dose Route Start Last Admin Trade Name Freq PRN Reason Stop Dose Admin Acetaminophen 650 mg 12/19/19 14:46 01/08/20 08:08 Tylenol PO 650 mg Q4HR PRN Administration Pain or Fever > 38C (100.4F) Allopurinol 300 mg 12/30/19 09:00 01/12/20 08:25 Zyloprim PO 300 mg DAILY AVI Administration Amlodipine Besylate 10 mg 12/22/19 09:00 01/12/20 08:25 Norvasc PO 10 mg DAILY AVI Administration Benzonatate 100 mg 12/18/19 21:17 01/05/20 08:22 Tessalon PO 100 mg TID PRN Administration Cough Clopidogrel Bisulfate 75 mg 12/23/19 09:00 01/12/20 08:25 Plavix PO 75 mg DAILY AVI Administration Famotidine 20 mg 12/21/19 21:00 01/12/20 20:15 Pepcid PO 20 mg BID AVI Administration Haloperidol 1 mg 12/31/19 02:16 01/09/20 00:23 Haldol Inj IVP 1 mg Q6H PRN Administration Agitation Lisinopril 20 mg 12/24/19 09:00 01/12/20 08:24 Zestril PO 20 mg DAILY AVI Administration Metoprolol Succinate 37.5 mg 12/24/19 09:00 01/12/20 08:25 Toprol Xl PO 37.5 mg DAILY AVI Administration Mineral Oil 1 applic 12/22/19 17:07 12/24/19 00:49 Cavilon TOP 1 applic PRN PRN Administration Skin Care Polyethylene Glycol 17 gm 12/23/19 09:00 01/12/20 08:26 Miralax PO 17 gm DAILY AVI Administration Multivit/Folic Acid/Iron 1 tab 12/26/19 08:00 01/12/20 08:25 Trinatal Rx 1 PO 1 tab DAILYWM AVI Administration Quetiapine Fumarate 50 mg 01/12/20 21:00 01/12/20 20:16 Seroquel PO 50 mg BID AVI Administration Senna 8.6 - 17.2 mg 12/26/19 09:00 01/12/20 08:24 Senokot PO 8.6 mg DAILY AVI Administration Tamsulosin HCl 0.4 mg 12/30/19 21:00 01/12/20 20:15 Flomax PO 0.4 mg BID AVI Administration - Lab Result Fish Bone Diagrams: 01/13/20 05:35 01/13/20 05:35 - Additional Planning My Orders: My Active Orders 01/12/20 21:00 QUEtiapine [SEROquel] 50 mg PO BID 01/13/20 07:27 Sodium Chloride 0.9% [Normal Saline 0.9%] 1,000 ml IV ONCE 01/14/20 05:00 BMP - BASIC METABOLIC PANEL [CHEM] DAILYLAB CBC - COMP BLD CT W/AUTO DIFF [HEME] DAILYLAB 01/15/20 05:00 BMP - BASIC METABOLIC PANEL [CHEM] DAILYLAB CBC - COMP BLD CT W/AUTO DIFF [HEME] DAILYLAB Subjective - Subjective Patient Reports: Other (Patient seen and examined this morning. He was awake alert and oriented x2 at the time of my interaction. He denied any complaints at the moment. There were no events reported overnight.) Objective Vital Signs: Vital Signs - 24 hr 01/12/20 01/12/20 08:05 18:55 Temperature 36.6 C 36.8 C Heart Rate [ 106 H 89 Monitoring electrodes] Respiratory 18 16 Rate Blood Pressure 113/60 [Left Brachial artery] Blood Pressure 122/51 L [Right Brachial artery] O2 Saturation 98 97 Oxygen O2 Source [With Activity] Room air O2 Source [Without Activity] Room air O2 Source Room air Oxygen Flow Rate 3 I&O (Last 24 Hrs): Intake and Output Totals x24h 01/11/20 01/12/20 01/13/20 23:59 23:59 23:59 Intake Total 3398 3610 75 Balance 3398 3610 75 General: Alert, No acute distress HEENT: PERRLA, EOMI Neck: Supple, No JVD Neuro: Alert, Non Focal Cardiovascular: Regular rate Respiratory: Chest non-tender, No respiratory distress, Breath sounds nml Abdomen: Normal bowel sounds, Soft Extremities: No clubbing, No cyanosis, No edema Skin: No rashes - Results Results: Laboratory Results WBC 6.6 x10^3/uL (4.8-10.8) 01/13/20 05:35 RBC 3.97 10^6/uL (4.70-6.10) L 01/13/20 05:35 Hgb 11.9 g/dL (14.0-18.0) L 01/13/20 05:35 Hct 38.0 % (42.0-52.0) L 01/13/20 05:35 MCV 95.7 fL (80.0-94.0) H 01/13/20 05:35 MCH 30.0 pg (27.0-31.0) 01/13/20 05:35 MCHC 31.3 g/dL (32.0-36.0) L 01/13/20 05:35 RDW 14.6 % (12.0-15.0) 01/13/20 05:35 Plt Count 181 10^3/uL (130-450) 01/13/20 05:35 MPV 10.5 fL (7.4-11.4) 01/13/20 05:35 Neut # (Auto) 3.9 10^3/uL (1.5-6.6) 01/13/20 05:35 Lymph # (Auto) 1.6 10^3/uL (1.5-3.5) 01/13/20 05:35 [place] # (Auto) 0.6 10^3/uL (0.0-1.0) 01/13/20 05:35 Eos # (Auto) 0.4 10^3/uL (0.0-0.7) 01/13/20 05:35 Baso # (Auto) 0.0 10^3/uL (0.0-0.1) 01/13/20 05:35 Absolute Nucleated RBC 0.00 x10^3/uL 01/13/20 05:35 Total Counted 100 12/21/19 08:10 Band Neuts % (Manual) 2 % (0-10) 12/21/19 08:10 Reactive Lymphs % (Man) 1 % 12/21/19 08:10 Abnorm Lymph % (Manual) 0 % 12/21/19 08:10 Nucleated RBC % 0.0 /100WBC 01/13/20 05:35 Neutrophils # (Manual) 4.5 10^3/uL (1.5-6.6) 12/21/19 08:10 Lymphocytes # (Manual) 0.5 10^3/uL (1.5-3.5) L 12/21/19 08:10 Monocytes # (Manual) 0.6 10^3/uL (0.0-1.0) 12/21/19 08:10 Eosinophils # (Manual) 0.1 10^3/uL (0-0.7) 12/21/19 08:10 Basophils # (Manual) 0.0 10^3/uL (0-0.1) 12/21/19 08:10 Differential Comment MANUAL DIFFERENTIAL 12/21/19 08:10 WBC Morphology NORMAL APPEARANCE (NORMAL) 12/20/19 06:20 Platelet Estimate NORMAL (130-450,000) (NORMAL) 12/20/19 06:20 Platelet Morphology NORMAL APPEARANCE (NORMAL) 12/20/19 06:20 RBC Morph Micro Appear NORMAL APPEARANCE (NORMAL) 12/20/19 06:20 Sodium 138 mmol/L (135-145) 01/13/20 05:35 Potassium 4.2 mmol/L (3.5-5.0) 01/13/20 05:35 Chloride 106 mmol/L (101-111) 01/13/20 05:35 Carbon Dioxide 25 mmol/L (21-32) 01/13/20 05:35 Anion Gap 7.0 (6-13) 01/13/20 05:35 BUN 29 mg/dL (6-20) H 01/13/20 05:35 Creatinine 1.6 mg/dL (0.6-1.2) H 01/13/20 05:35 Estimated GFR (MDRD) 42 (>89) L 01/13/20 05:35 Glucose 111 mg/dL (70-100) H 01/13/20 05:35 POC Whole Bld Glucose 152 mg/dL (70 - 100) H 12/29/19 12:01 Glycated Hemoglobin 7.8 % (4.6-6.2) H 12/21/19 08:10 Estim Average Glucose 177 (70-100) H 12/21/19 08:10 Lactic Acid 1.5 mmol/L (0.5-2.2) 12/17/19 12:30 Calcium 9.8 mg/dL (8.5-10.3) 01/13/20 05:35 Total Bilirubin 0.8 mg/dL (0.2-1.0) 12/20/19 06:20 AST 29 IU/L (10-42) 12/20/19 06:20 ALT 17 IU/L (10-60) 12/20/19 06:20 Alkaline Phosphatase 33 IU/L (42-121) L 12/20/19 06:20 Ammonia 31.9 umol/L (7-35) 12/24/19 05:00 Total Creatine Kinase 357 IU/L (22-269) H 12/17/19 12:30 Troponin I High Sens 92.8 ng/L (2.3-19.7) H* 12/18/19 05:15 C-Reactive Protein < 1.0 mg/dL (0-1.0) 12/29/19 05:49 B-Natriuretic Peptide 53 pg/mL (5-100) 12/17/19 12:30 Total Protein 5.3 g/dL (6.7-8.2) L 12/20/19 06:20 Albumin 2.4 g/dL (3.2-5.5) L 12/20/19 06:20 Globulin 2.9 g/dL (2.1-4.2) 12/20/19 06:20 Albumin/Globulin Ratio 0.8 (1.0-2.2) L 12/20/19 06:20 Lipase 63 U/L (22-51) H 12/17/19 12:30 Vitamin B12 1000 pg/mL (180-914) H 12/21/19 08:10 TSH 5.81 uIU/mL (0.34-5.60) H 01/07/20 09:42 Urine Color YELLOW 12/17/19 11:57 Urine Clarity CLEAR (CLEAR) 12/17/19 11:57 Urine pH 5.5 PH (5.0-7.5) 12/17/19 11:57 Ur Specific [place] >=1.030 (1.002-1.030) H 12/17/19 11:57 Urine Protein 100 mg/dL (NEGATIVE) H 12/17/19 11:57 Urine Glucose (UA) NEGATIVE mg/dL (NEGATIVE) 12/17/19 11:57 Urine Ketones TRACE mg/dL (NEGATIVE) 12/17/19 11:57 Urine Occult Blood SMALL (NEGATIVE) H 12/17/19 11:57 Urine Nitrite NEGATIVE (NEGATIVE) 12/17/19 11:57 Urine Bilirubin NEGATIVE (NEGATIVE) 12/17/19 11:57 Urine Urobilinogen 0.2 (NORMAL) E.U./dL (NORMAL) 12/17/19 11:57 Ur Leukocyte Esterase NEGATIVE (NEGATIVE) 12/17/19 11:57 Urine RBC 0-5 /HPF (0-5) 12/17/19 11:57 Urine WBC 0-3 /HPF (0-3) 12/17/19 11:57 Ur Squamous Epith Cells NONE SEEN (<= Few) 12/17/19 11:57 Urine Bacteria None Seen /HPF (None Seen) 12/17/19 11:57 Ur Microscopic Review INDICATED 12/17/19 11:57 Urine Culture Comments NOT INDICATED 12/17/19 11:57 Stl C. diff Tox B Gene NEGATIVE (NEGATIVE) 12/19/19 20:40 Ethyl Alcohol < 5.0 mg/dL 12/17/19 12:30 T.pallidum IgG (EIA) NEGATIVE 01/07/20 09:42 Coronavirus (PCR) POSITIVE 01/10/20 10:50 Influenza A (Rapid) Negative (Negative) 12/17/19 13:30 Influenza B (Rapid) Negative (Negative) 12/17/19 13:30 Sepsis Event Note (H) - Evaluation Current Stage of Sepsis: Ruled out
[2020-01-13] MEDS: amLODIPine 5 MG TABLET PO SCH (10:49)
[2020-01-13] MEDS: METOPROLOL SUCCINATE 25 MG TABLET PO SCH (10:49)
[2020-01-13] MEDS: allopurinoL 100 MG TABLET PO SCH (10:51)
[2020-01-13] MEDS: FAMOTIDINE 20 MG TABLET PO SCH ×2 (10:55→20:22)
[2020-01-13] MEDS: CLOPIDOGREL 75 MG TABLET PO SCH (10:55)
[2020-01-13] MEDS: TAMSULOSIN 0.4 MG CAPSULE PO SCH ×2 (10:55→20:21)
[2020-01-13] MEDS: PRENATAL VITAMIN TABLET PO SCH (10:55)
[2020-01-13] MEDS: QUEtiapine 100 MG TABLET PO SCH ×2 (10:56→20:21)
[2020-01-13] MEDS: lisinopriL 20 MG TABLET PO SCH (11:11)
[2020-01-13] MEDS: polyethylene glycoL 3350 17 GM PACKET PO SCH (11:19)
[2020-01-13] MEDS: SENNA 8.6 MG TABLET PO SCH (11:19)
[2020-01-14 05:47] LABS: BASOPHILS % (AUTO) 0.3 %; EOSINOPHILS # (AUTO) 0.5 10^3/uL (0.0-0.7); EOSINOPHILS % (AUTO) 7.8 %; HGB - HEMOGLOBIN 11.3 g/dL (14.0-18.0); LYMPHOCYTES # (AUTO) 1.7 10^3/uL (1.5-3.5); LYMPHOCYTES % (AUTO) 27.6 %; MEAN CORPUSCULAR HEMOGLOBIN 31.4 pg (27.0-31.0); MEAN CORPUSCULAR HGB CONC 32.6 g/dL (32.0-36.0); MEAN CORPUSCULAR VOLUME 96.4 fL (80.0-94.0); MEAN PLATELET VOLUME 10.4 fL (7.4-11.4); MONOCYTES # (AUTO) 0.7 10^3/uL (0.0-1.0); MONOCYTES % (AUTO) 10.9 %; NEUTROPHILS # (AUTO) 3.2 10^3/uL (1.5-6.6); NEUTROPHILS % (AUTO) 53.1 %; PLT - PLATELET COUNT 186 10^3/uL (130-450); RED CELL DISTRIBUTION WIDTH 14.6 % (12.0-15.0); WHITE BLOOD COUNT 6.1 x10^3/uL (4.8-10.8)
[2020-01-14 05:57] LABS: CALCIUM 9.8 mg/dL (8.5-10.3); CREATININE 1.4 mg/dL (0.6-1.2)
[2020-01-14] MEDS: ACETAMINOPHEN 325 MG TABLET PO PRN (08:06)
[2020-01-14] MEDS: FAMOTIDINE 20 MG TABLET PO SCH ×2 (08:06→20:15)
[2020-01-14] MEDS: TAMSULOSIN 0.4 MG CAPSULE PO SCH ×2 (08:06→20:15)
[2020-01-14] MEDS: CLOPIDOGREL 75 MG TABLET PO SCH (08:06)
[2020-01-14] MEDS: amLODIPine 5 MG TABLET PO SCH (08:06)
[2020-01-14] MEDS: QUEtiapine 100 MG TABLET PO SCH (08:06)
[2020-01-14] MEDS: lisinopriL 20 MG TABLET PO SCH (08:06)
[2020-01-14] MEDS: SENNA 8.6 MG TABLET PO SCH (08:07)
[2020-01-14] MEDS: PRENATAL VITAMIN TABLET PO SCH (08:07)
[2020-01-14] MEDS: allopurinoL 100 MG TABLET PO SCH (08:07)
[2020-01-14] MEDS: METOPROLOL SUCCINATE 25 MG TABLET PO SCH (08:08)
[2020-01-14] MEDS: polyethylene glycoL 3350 17 GM PACKET PO SCH (08:08)
--- NOTE | 2020-01-14 10:24 | PROVIDER PROGRESS NOTE ---
Assessment/Plan - Problem List (1) Persistent cognitive impairment Assessment/Plan: He could get a head CT or CTA if creat stabilizes, but it would be for diagnostic purposes only. Also, he has claustrophobia and would need sedation. 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 He is already on Plavix. Continue PT and OT. Will try to adjust his psych meds: Seroquel is being weaned down 50 bid to 50 daily today, then 25 mg tomorrow then stop. Will use Haldol 1 mg daily scheduled and Zyprexa scheduled at night, for . Per , [facility] does not need to reassess him before he returns, but he needs to be COVID neg. [facility] will not accept him due to current psych/cognitive impairment. (2) Pneumonia due to 2019 novel coronavirus Assessment/Plan: Finished empiric tx several days ago. Still had pos COVID PCR results 3 days ago. Gets COVID checked q 72 hrs. Placement will depend on a neg result. (3) YING (acute kidney injury) Assessment/Plan: The creat appears to have plateaued at 1.6-1.4. Avoid nephrotoxins. Follow BMP intermittently. (4) Hypokalemia Assessment/Plan: Replacement gingerly is planned due to his YING, which is now CKD. Follow BMP intermittently. 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-term use Diabetes mellitus complication status: with ophthalmic complications Diabetes mellitus complication detail: with cataract Qualified Code(s): E11.36 - Type 2 diabetes mellitus with diabetic cataract (6) HTN (hypertension) Qualifiers: Hypertension type: essential hypertension Qualified Code(s): I10 - Essential (primary) hypertension Assessment/Plan: Stable on current meds (7) Hx of coronary artery disease Assessment/Plan: Stable on current meds (8) BPH (benign prostatic hyperplasia) Assessment/Plan: Stable on meds (9) Glaucoma Assessment/Plan: Stable on meds - Current Meds Current Meds: Current Medications Generic Name Dose Route Start Last Admin Trade Name Freq PRN Reason Stop Dose Admin Acetaminophen 650 mg 12/19/19 14:46 01/14/20 08:06 Tylenol PO 650 mg Q4HR PRN Administration Pain or Fever > 38C (100.4F) Allopurinol 300 mg 12/30/19 09:00 01/14/20 08:07 Zyloprim PO 300 mg DAILY AVI Administration Amlodipine Besylate 10 mg 12/22/19 09:00 01/14/20 08:06 Norvasc PO 10 mg DAILY AVI Administration Benzonatate 100 mg 12/18/19 21:17 01/05/20 08:22 Tessalon PO 100 mg TID PRN Administration Cough Clopidogrel Bisulfate 75 mg 12/23/19 09:00 01/14/20 08:06 Plavix PO 75 mg DAILY AVI Administration Famotidine 20 mg 12/21/19 21:00 01/14/20 08:06 Pepcid PO 20 mg BID AVI Administration Lisinopril 20 mg 12/24/19 09:00 01/14/20 08:06 Zestril PO 20 mg DAILY AVI Administration Metoprolol Succinate 37.5 mg 12/24/19 09:00 01/14/20 08:08 Toprol Xl PO 37.5 mg DAILY AVI Administration Mineral Oil 1 applic 12/22/19 17:07 12/24/19 00:49 Cavilon TOP 1 applic PRN PRN Administration Skin Care Polyethylene Glycol 17 gm 12/23/19 09:00 01/14/20 08:08 Miralax PO 17 gm DAILY AVI Administration Multivit/Folic Acid/Iron 1 tab 12/26/19 08:00 01/14/20 08:07 Trinatal Rx 1 PO 1 tab DAILYWM AVI Administration Senna 8.6 - 17.2 mg 12/26/19 09:00 01/14/20 08:07 Senokot PO 17.2 mg DAILY AVI Administration Tamsulosin HCl 0.4 mg 12/30/19 21:00 01/14/20 08:06 Flomax PO 0.4 mg BID AVI Administration - Lab Result Fish Bone Diagrams: 01/14/20 05:35 01/14/20 05:35 - Additional Planning My Orders: My Active Orders 01/14/20 20:00 OLANZapine ODT [ZyPREXA ODT] 5 mg TL 199901/15/20 09:00 QUEtiapine [SEROquel] 25 mg PO DAILY haloperidoL [Haldol] 1 mg PO DAILY Subjective - Subjective Nursing Reports: Confused, Other (Has to be redirected often, does follow orders) Objective Vital Signs: Vital Signs - 24 hr 01/13/20 01/13/20 01/13/20 11:48 16:00 20:00 Temperature 36.9 C 36.9 C 36.5 C Heart Rate [ 70 79 76 Brachial] Heart Rate [ Monitoring electrodes] Respiratory 16 18 20 Rate Blood Pressure 113/54 L 111/48 L 127/58 L [Right Brachial artery] O2 Saturation 97 96 97 01/14/20 07:35 Temperature 36.6 C Heart Rate [ Brachial] Heart Rate [ 72 Monitoring electrodes] Respiratory 18 Rate Blood Pressure 139/64 H [Right Brachial artery] O2 Saturation Oxygen O2 Source [With Activity] Room air O2 Source [Without Activity] Room air O2 Source Room air Oxygen Flow Rate 3 I&O (Last 24 Hrs): Intake and Output Totals x24h 01/12/20 01/13/20 01/14/20 23:59 23:59 23:59 Intake Total 3610 1345 50 Balance 3610 1345 50 General: Alert HEENT: Mucous membr. moist/pink Neuro: Disoriented Cardiovascular: Regular rate Respiratory: No respiratory distress Abdomen: Soft Extremities: No edema - Results Results: Laboratory Results WBC 6.1 x10^3/uL (4.8-10.8) 01/14/20 05:35 RBC 3.60 10^6/uL (4.70-6.10) L 01/14/20 05:35 Hgb 11.3 g/dL (14.0-18.0) L 01/14/20 05:35 Hct 34.7 % (42.0-52.0) L 01/14/20 05:35 MCV 96.4 fL (80.0-94.0) H 01/14/20 05:35 MCH 31.4 pg (27.0-31.0) H 01/14/20 05:35 MCHC 32.6 g/dL (32.0-36.0) 01/14/20 05:35 RDW 14.6 % (12.0-15.0) 01/14/20 05:35 Plt Count 186 10^3/uL (130-450) 01/14/20 05:35 MPV 10.4 fL (7.4-11.4) 01/14/20 05:35 Neut # (Auto) 3.2 10^3/uL (1.5-6.6) 01/14/20 05:35 Lymph # (Auto) 1.7 10^3/uL (1.5-3.5) 01/14/20 05:35 [place] # (Auto) 0.7 10^3/uL (0.0-1.0) 01/14/20 05:35 Eos # (Auto) 0.5 10^3/uL (0.0-0.7) 01/14/20 05:35 Baso # (Auto) 0.0 10^3/uL (0.0-0.1) 01/14/20 05:35 Absolute Nucleated RBC 0.00 x10^3/uL 01/14/20 05:35 Total Counted 100 12/21/19 08:10 Band Neuts % (Manual) 2 % (0-10) 12/21/19 08:10 Reactive Lymphs % (Man) 1 % 12/21/19 08:10 Abnorm Lymph % (Manual) 0 % 12/21/19 08:10 Nucleated RBC % 0.0 /100WBC 01/14/20 05:35 Neutrophils # (Manual) 4.5 10^3/uL (1.5-6.6) 12/21/19 08:10 Lymphocytes # (Manual) 0.5 10^3/uL (1.5-3.5) L 12/21/19 08:10 Monocytes # (Manual) 0.6 10^3/uL (0.0-1.0) 12/21/19 08:10 Eosinophils # (Manual) 0.1 10^3/uL (0-0.7) 12/21/19 08:10 Basophils # (Manual) 0.0 10^3/uL (0-0.1) 12/21/19 08:10 Differential Comment MANUAL DIFFERENTIAL 12/21/19 08:10 WBC Morphology NORMAL APPEARANCE (NORMAL) 12/20/19 06:20 Platelet Estimate NORMAL (130-450,000) (NORMAL) 12/20/19 06:20 Platelet Morphology NORMAL APPEARANCE (NORMAL) 12/20/19 06:20 RBC Morph Micro Appear NORMAL APPEARANCE (NORMAL) 12/20/19 06:20 Sodium 137 mmol/L (135-145) 01/14/20 05:35 Potassium 4.2 mmol/L (3.5-5.0) 01/14/20 05:35 Chloride 106 mmol/L (101-111) 01/14/20 05:35 Carbon Dioxide 25 mmol/L (21-32) 01/14/20 05:35 Anion Gap 6.0 (6-13) 01/14/20 05:35 BUN 26 mg/dL (6-20) H 01/14/20 05:35 Creatinine 1.4 mg/dL (0.6-1.2) H 01/14/20 05:35 Estimated GFR (MDRD) 49 (>89) L 01/14/20 05:35 Glucose 119 mg/dL (70-100) H 01/14/20 05:35 POC Whole Bld Glucose 152 mg/dL (70 - 100) H 12/29/19 12:01 Glycated Hemoglobin 7.8 % (4.6-6.2) H 12/21/19 08:10 Estim Average Glucose 177 (70-100) H 12/21/19 08:10 Lactic Acid 1.5 mmol/L (0.5-2.2) 12/17/19 12:30 Calcium 9.8 mg/dL (8.5-10.3) 01/14/20 05:35 Total Bilirubin 0.8 mg/dL (0.2-1.0) 12/20/19 06:20 AST 29 IU/L (10-42) 12/20/19 06:20 ALT 17 IU/L (10-60) 12/20/19 06:20 Alkaline Phosphatase 33 IU/L (42-121) L 12/20/19 06:20 Ammonia 31.9 umol/L (7-35) 12/24/19 05:00 Total Creatine Kinase 357 IU/L (22-269) H 12/17/19 12:30 Troponin I High Sens 92.8 ng/L (2.3-19.7) H* 12/18/19 05:15 C-Reactive Protein < 1.0 mg/dL (0-1.0) 12/29/19 05:49 B-Natriuretic Peptide 53 pg/mL (5-100) 12/17/19 12:30 Total Protein 5.3 g/dL (6.7-8.2) L 12/20/19 06:20 Albumin 2.4 g/dL (3.2-5.5) L 12/20/19 06:20 Globulin 2.9 g/dL (2.1-4.2) 12/20/19 06:20 Albumin/Globulin Ratio 0.8 (1.0-2.2) L 12/20/19 06:20 Lipase 63 U/L (22-51) H 12/17/19 12:30 Vitamin B12 1000 pg/mL (180-914) H 12/21/19 08:10 TSH 5.81 uIU/mL (0.34-5.60) H 01/07/20 09:42 Urine Color YELLOW 12/17/19 11:57 Urine Clarity CLEAR (CLEAR) 12/17/19 11:57 Urine pH 5.5 PH (5.0-7.5) 12/17/19 11:57 Ur Specific [place] >=1.030 (1.002-1.030) H 12/17/19 11:57 Urine Protein 100 mg/dL (NEGATIVE) H 12/17/19 11:57 Urine Glucose (UA) NEGATIVE mg/dL (NEGATIVE) 12/17/19 11:57 Urine Ketones TRACE mg/dL (NEGATIVE) 12/17/19 11:57 Urine Occult Blood SMALL (NEGATIVE) H 12/17/19 11:57 Urine Nitrite NEGATIVE (NEGATIVE) 12/17/19 11:57 Urine Bilirubin NEGATIVE (NEGATIVE) 12/17/19 11:57 Urine Urobilinogen 0.2 (NORMAL) E.U./dL (NORMAL) 12/17/19 11:57 Ur Leukocyte Esterase NEGATIVE (NEGATIVE) 12/17/19 11:57 Urine RBC 0-5 /HPF (0-5) 12/17/19 11:57 Urine WBC 0-3 /HPF (0-3) 12/17/19 11:57 Ur Squamous Epith Cells NONE SEEN (<= Few) 12/17/19 11:57 Urine Bacteria None Seen /HPF (None Seen) 12/17/19 11:57 Ur Microscopic Review INDICATED 12/17/19 11:57 Urine Culture Comments NOT INDICATED 12/17/19 11:57 Stl C. diff Tox B Gene NEGATIVE (NEGATIVE) 12/19/19 20:40 Ethyl Alcohol < 5.0 mg/dL 12/17/19 12:30 T.pallidum IgG (EIA) NEGATIVE 01/07/20 09:42 Coronavirus (PCR) POSITIVE 01/10/20 10:50 Influenza A (Rapid) Negative (Negative) 12/17/19 13:30 Influenza B (Rapid) Negative (Negative) 12/17/19 13:30 Sepsis Event Note (H) - Evaluation Current Stage of Sepsis: Ruled out
[2020-01-14] MEDS: CHOLECALCIFEROL 400 UNIT TABLET PO SCH (17:11)
[2020-01-14] MEDS: OLANZapine ODT 5 MG TABLET TL SCH (19:44)
[2020-01-15 06:43] LABS: BASOPHILS % (AUTO) 0.7 %; EOSINOPHILS # (AUTO) 0.4 10^3/uL (0.0-0.7); EOSINOPHILS % (AUTO) 6.6 %; HGB - HEMOGLOBIN 11.5 g/dL (14.0-18.0); LYMPHOCYTES # (AUTO) 1.3 10^3/uL (1.5-3.5); LYMPHOCYTES % (AUTO) 21.1 %; MEAN CORPUSCULAR HGB CONC 32.3 g/dL (32.0-36.0); MEAN PLATELET VOLUME 10.2 fL (7.4-11.4); MONOCYTES # (AUTO) 0.6 10^3/uL (0.0-1.0); MONOCYTES % (AUTO) 10.5 %; NEUTROPHILS # (AUTO) 3.7 10^3/uL (1.5-6.6); NEUTROPHILS % (AUTO) 60.4 %; PLT - PLATELET COUNT 194 10^3/uL (130-450); RED BLOOD COUNT 3.71 10^6/uL (4.70-6.10); RED CELL DISTRIBUTION WIDTH 14.5 % (12.0-15.0); WHITE BLOOD COUNT 6.1 x10^3/uL (4.8-10.8)
[2020-01-15 06:51] LABS: CALCIUM 9.5 mg/dL (8.5-10.3); CREATININE 1.5 mg/dL (0.6-1.2)
--- NOTE | 2020-01-15 07:46 | PROVIDER PROGRESS NOTE ---
Assessment/Plan - Problem List (1) Persistent cognitive impairment Assessment/Plan: He could get a head CT or CTA if creat stabilizes, but it would be for diagnostic purposes only. Also, he has claustrophobia and would need sedation. 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 Thus, he is already on Plavix. The statin is on hold as it may add to encephalopathy. He got high dose Thiamine for Hx of remote alcoholism. ill continue daily oral Thiamine. Continue PT and OT. Will try to adjust his psych meds: Seroquel is being weaned down 50 daily yesterday, then 25 mg ttoday then stop. Instead will use Haldol 1 mg daily scheduled and Zyprexa scheduled at night, for . Per , [facility] does not need to reassess him before he returns, but he needs to be COVID neg. [facility] will not accept him due to current psych/cognitive impairment. (2) Pneumonia due to 2019 novel coronavirus Assessment/Plan: He tested COVID-19 (+) yesterday once again. We have no antibody tests available yet. He finished empiric tx with Zithromax and Hydroxychloroquine and has no further sx. Maintain isolation. (3) YING (acute kidney injury) Assessment/Plan: Creat up slightly to 1.5, after was 1.4 for many days. Will decrease the Lisinopril dose. Will also decrease the Amlodipine dose as his BP is occais as low as 110. Both of those decreases may help renal perfusion. (4) DM type 2 (diabetes mellitus, type 2) Qualifiers: Diabetes mellitus care home insulin use: without care home use Diabetes mellitus complication status: with ophthalmic complications Diabetes mellitus complication detail: with cataract Qualified Code(s): E11.36 - Type 2 diabetes mellitus with diabetic cataract Assessment/Plan: On cc diet and Insulin coverage. (5) HTN (hypertension) Qualifiers: Hypertension type: essential hypertension Qualified Code(s): I10 - Essential (primary) hypertension Assessment/Plan: BP occais low, will decrease Lisoinopril and Amlodipine slightly, for BPs as low as 110's. (6) Hx of coronary artery disease Assessment/Plan: Stable on Plavix, Amlodipine and Metoprolol. The statin was stopped due to encephalopathy. (7) BPH (benign prostatic hyperplasia) Assessment/Plan: On home meds (8) Glaucoma Assessment/Plan: On home meds - Current Meds Current Meds: Current Medications Generic Name Dose Route Start Last Admin Trade Name Freq PRN Reason Stop Dose Admin Acetaminophen 650 mg 12/19/19 14:46 01/14/20 08:06 Tylenol PO 650 mg Q4HR PRN Administration Pain or Fever > 38C (100.4F) Allopurinol 300 mg 12/30/19 09:00 01/14/20 08:07 Zyloprim PO 300 mg DAILY AVI Administration Benzonatate 100 mg 12/18/19 21:17 01/05/20 08:22 Tessalon PO 100 mg TID PRN Administration Cough Cholecalciferol 800 unit 01/14/20 16:00 01/14/20 17:11 Vitamin D3 PO 800 unit DAILY AVI Administration Clopidogrel Bisulfate 75 mg 12/23/19 09:00 01/14/20 08:06 Plavix PO 75 mg DAILY AVI Administration Famotidine 20 mg 12/21/19 21:00 01/14/20 20:15 Pepcid PO 20 mg BID AVI Administration Metoprolol Succinate 37.5 mg 12/24/19 09:00 01/14/20 08:08 Toprol Xl PO 37.5 mg DAILY AVI Administration Mineral Oil 1 applic 12/22/19 17:07 12/24/19 00:49 Cavilon TOP 1 applic PRN PRN Administration Skin Care Olanzapine 5 mg 01/14/20 20:00 01/14/20 19:44 Zyprexa Odt TL 5 mg 2000 AVI Administration Polyethylene Glycol 17 gm 12/23/19 09:00 01/14/20 08:08 Miralax PO 17 gm DAILY AVI Administration Multivit/Folic Acid/Iron 1 tab 12/26/19 08:00 01/14/20 08:07 Trinatal Rx 1 PO 1 tab DAILYWM AVI Administration Senna 8.6 - 17.2 mg 12/26/19 09:00 01/14/20 08:07 Senokot PO 17.2 mg DAILY AVI Administration Tamsulosin HCl 0.4 mg 12/30/19 21:00 01/14/20 20:15 Flomax PO 0.4 mg BID AVI Administration - Lab Result Fish Bone Diagrams: 01/15/20 06:30 01/15/20 06:30 - Additional Planning My Orders: My Active Orders 01/14/20 16:00 Cholecalciferol [Vitamin D3] 800 unit PO DAILY 01/14/20 20:00 OLANZapine ODT [ZyPREXA ODT] 5 mg 199901/15/20 09:00 QUEtiapine [SEROquel] 25 mg PO DAILY amLODIPine [Norvasc] 5 mg PO DAILY haloperidoL [Haldol] 1 mg PO DAILY lisinopriL [Zestril] 10 mg PO DAILY Subjective - Subjective Nursing Reports: Other (Wanders out of room with his belongings and says he is going somewhere to RNs) Objective Vital Signs: Vital Signs - 24 hr 01/14/20 01/14/20 14:00 16:50 Temperature 36.6 C 36.6 C Heart Rate [ 72 63 Monitoring electrodes] Respiratory 18 16 Rate Blood Pressure 130/65 114/55 L [Right Brachial artery] O2 Saturation 97 97 Oxygen O2 Source [With Activity] Room air O2 Source [Without Activity] Room air O2 Source Room air Oxygen Flow Rate 3 I&O (Last 24 Hrs): Intake and Output Totals x24h 01/13/20 01/14/20 01/15/20 23:59 23:59 23:59 Intake Total 1345 650 125 Balance 1345 650 125 General: Alert HEENT: Mucous membr. moist/pink Neck: Supple Neuro: Disoriented Cardiovascular: Regular rate Respiratory: No respiratory distress Abdomen: Soft Extremities: No edema - Results Results: Laboratory Results WBC 6.1 x10^3/uL (4.8-10.8) 01/15/20 06:30 RBC 3.71 10^6/uL (4.70-6.10) L 01/15/20 06:30 Hgb 11.5 g/dL (14.0-18.0) L 01/15/20 06:30 Hct 35.6 % (42.0-52.0) L 01/15/20 06:30 MCV 96.0 fL (80.0-94.0) H 01/15/20 06:30 MCH 31.0 pg (27.0-31.0) 01/15/20 06:30 MCHC 32.3 g/dL (32.0-36.0) 01/15/20 06:30 RDW 14.5 % (12.0-15.0) 01/15/20 06:30 Plt Count 194 10^3/uL (130-450) 01/15/20 06:30 MPV 10.2 fL (7.4-11.4) 01/15/20 06:30 Neut # (Auto) 3.7 10^3/uL (1.5-6.6) 01/15/20 06:30 Lymph # (Auto) 1.3 10^3/uL (1.5-3.5) L 01/15/20 06:30 [place] # (Auto) 0.6 10^3/uL (0.0-1.0) 01/15/20 06:30 Eos # (Auto) 0.4 10^3/uL (0.0-0.7) 01/15/20 06:30 Baso # (Auto) 0.0 10^3/uL (0.0-0.1) 01/15/20 06:30 Absolute Nucleated RBC 0.00 x10^3/uL 01/15/20 06:30 Total Counted 100 12/21/19 08:10 Band Neuts % (Manual) 2 % (0-10) 12/21/19 08:10 Reactive Lymphs % (Man) 1 % 12/21/19 08:10 Abnorm Lymph % (Manual) 0 % 12/21/19 08:10 Nucleated RBC % 0.0 /100WBC 01/15/20 06:30 Neutrophils # (Manual) 4.5 10^3/uL (1.5-6.6) 12/21/19 08:10 Lymphocytes # (Manual) 0.5 10^3/uL (1.5-3.5) L 12/21/19 08:10 Monocytes # (Manual) 0.6 10^3/uL (0.0-1.0) 12/21/19 08:10 Eosinophils # (Manual) 0.1 10^3/uL (0-0.7) 12/21/19 08:10 Basophils # (Manual) 0.0 10^3/uL (0-0.1) 12/21/19 08:10 Differential Comment MANUAL DIFFERENTIAL 12/21/19 08:10 WBC Morphology NORMAL APPEARANCE (NORMAL) 12/20/19 06:20 Platelet Estimate NORMAL (130-450,000) (NORMAL) 12/20/19 06:20 Platelet Morphology NORMAL APPEARANCE (NORMAL) 12/20/19 06:20 RBC Morph Micro Appear NORMAL APPEARANCE (NORMAL) 12/20/19 06:20 Sodium 137 mmol/L (135-145) 01/15/20 06:30 Potassium 4.1 mmol/L (3.5-5.0) 01/15/20 06:30 Chloride 106 mmol/L (101-111) 01/15/20 06:30 Carbon Dioxide 24 mmol/L (21-32) 01/15/20 06:30 Anion Gap 7.0 (6-13) 01/15/20 06:30 BUN 29 mg/dL (6-20) H 01/15/20 06:30 Creatinine 1.5 mg/dL (0.6-1.2) H 01/15/20 06:30 Estimated GFR (MDRD) 45 (>89) L 01/15/20 06:30 Glucose 124 mg/dL (70-100) H 01/15/20 06:30 POC Whole Bld Glucose 152 mg/dL (70 - 100) H 12/29/19 12:01 Glycated Hemoglobin 7.8 % (4.6-6.2) H 12/21/19 08:10 Estim Average Glucose 177 (70-100) H 12/21/19 08:10 Lactic Acid 1.5 mmol/L (0.5-2.2) 12/17/19 12:30 Calcium 9.5 mg/dL (8.5-10.3) 01/15/20 06:30 Total Bilirubin 0.8 mg/dL (0.2-1.0) 12/20/19 06:20 AST 29 IU/L (10-42) 12/20/19 06:20 ALT 17 IU/L (10-60) 12/20/19 06:20 Alkaline Phosphatase 33 IU/L (42-121) L 12/20/19 06:20 Ammonia 31.9 umol/L (7-35) 12/24/19 05:00 Total Creatine Kinase 357 IU/L (22-269) H 12/17/19 12:30 Troponin I High Sens 92.8 ng/L (2.3-19.7) H* 12/18/19 05:15 C-Reactive Protein < 1.0 mg/dL (0-1.0) 12/29/19 05:49 B-Natriuretic Peptide 53 pg/mL (5-100) 12/17/19 12:30 Total Protein 5.3 g/dL (6.7-8.2) L 12/20/19 06:20 Albumin 2.4 g/dL (3.2-5.5) L 12/20/19 06:20 Globulin 2.9 g/dL (2.1-4.2) 12/20/19 06:20 Albumin/Globulin Ratio 0.8 (1.0-2.2) L 12/20/19 06:20 Lipase 63 U/L (22-51) H 12/17/19 12:30 Vitamin B12 1000 pg/mL (180-914) H 12/21/19 08:10 TSH 5.81 uIU/mL (0.34-5.60) H 01/07/20 09:42 Urine Color YELLOW 12/17/19 11:57 Urine Clarity CLEAR (CLEAR) 12/17/19 11:57 Urine pH 5.5 PH (5.0-7.5) 12/17/19 11:57 Ur Specific [place] >=1.030 (1.002-1.030) H 12/17/19 11:57 Urine Protein 100 mg/dL (NEGATIVE) H 12/17/19 11:57 Urine Glucose (UA) NEGATIVE mg/dL (NEGATIVE) 12/17/19 11:57 Urine Ketones TRACE mg/dL (NEGATIVE) 12/17/19 11:57 Urine Occult Blood SMALL (NEGATIVE) H 12/17/19 11:57 Urine Nitrite NEGATIVE (NEGATIVE) 12/17/19 11:57 Urine Bilirubin NEGATIVE (NEGATIVE) 12/17/19 11:57 Urine Urobilinogen 0.2 (NORMAL) E.U./dL (NORMAL) 12/17/19 11:57 Ur Leukocyte Esterase NEGATIVE (NEGATIVE) 12/17/19 11:57 Urine RBC 0-5 /HPF (0-5) 12/17/19 11:57 Urine WBC 0-3 /HPF (0-3) 12/17/19 11:57 Ur Squamous Epith Cells NONE SEEN (<= Few) 12/17/19 11:57 Urine Bacteria None Seen /HPF (None Seen) 12/17/19 11:57 Ur Microscopic Review INDICATED 12/17/19 11:57 Urine Culture Comments NOT INDICATED 12/17/19 11:57 Stl C. diff Tox B Gene NEGATIVE (NEGATIVE) 12/19/19 20:40 Ethyl Alcohol < 5.0 mg/dL 12/17/19 12:30 T.pallidum IgG (EIA) NEGATIVE 01/07/20 09:42 Coronavirus (PCR) POSITIVE 01/14/20 13:42 Influenza A (Rapid) Negative (Negative) 12/17/19 13:30 Influenza B (Rapid) Negative (Negative) 12/17/19 13:30 Sepsis Event Note (H) - Evaluation Current Stage of Sepsis: Ruled out
[2020-01-15] MEDS: METOPROLOL SUCCINATE 25 MG TABLET PO SCH (08:20)
[2020-01-15] MEDS: CHOLECALCIFEROL 400 UNIT TABLET PO SCH (08:22)
[2020-01-15] MEDS: TAMSULOSIN 0.4 MG CAPSULE PO SCH ×2 (08:22→21:05)
[2020-01-15] MEDS: FAMOTIDINE 20 MG TABLET PO SCH ×2 (08:22→21:05)
[2020-01-15] MEDS: allopurinoL 100 MG TABLET PO SCH (08:23)
[2020-01-15] MEDS: lisinopriL 20 MG TABLET PO SCH (08:23)
[2020-01-15] MEDS: CLOPIDOGREL 75 MG TABLET PO SCH (08:24)
[2020-01-15] MEDS: PRENATAL VITAMIN TABLET PO SCH (08:24)
[2020-01-15] MEDS: amLODIPine 5 MG TABLET PO SCH (08:26)
[2020-01-15] MEDS: haloperidoL 1 MG TABLET PO SCH (08:26)
[2020-01-15] MEDS: SENNA 8.6 MG TABLET PO SCH (08:26)
[2020-01-15] MEDS: polyethylene glycoL 3350 17 GM PACKET PO SCH (08:26)
[2020-01-15] MEDS ORDERED: OLANZapine ODT 5 MG TABLET TL SCH (09:00)
[2020-01-15] MEDS ORDERED: QUEtiapine 100 MG TABLET PO SCH ×2 (09:00)
[2020-01-15] MEDS ORDERED: haloperidoL 1 MG TABLET PO SCH (09:00)
[2020-01-15] MEDS: THIAMINE 100 MG TABLET PO SCH (12:12)
[2020-01-15] MEDS: OLANZapine ODT 5 MG TABLET TL SCH (21:06)
[2020-01-16 06:16] LABS: CALCIUM 9.6 mg/dL (8.5-10.3); CREATININE 1.7 mg/dL (0.6-1.2)
[2020-01-16 06:22] LABS: BASOPHILS # (AUTO) 0.1 10^3/uL (0.0-0.1); BASOPHILS % (AUTO) 0.9 %; EOSINOPHILS # (AUTO) 0.3 10^3/uL (0.0-0.7); EOSINOPHILS % (AUTO) 5.3 %; HGB - HEMOGLOBIN 11.8 g/dL (14.0-18.0); LYMPHOCYTES # (AUTO) 1.5 10^3/uL (1.5-3.5); MEAN CORPUSCULAR HEMOGLOBIN 31.2 pg (27.0-31.0); MEAN CORPUSCULAR HGB CONC 31.6 g/dL (32.0-36.0); MEAN CORPUSCULAR VOLUME 98.7 fL (80.0-94.0); MEAN PLATELET VOLUME 10.3 fL (7.4-11.4); MONOCYTES # (AUTO) 0.7 10^3/uL (0.0-1.0); MONOCYTES % (AUTO) 11.6 %; NEUTROPHILS # (AUTO) 3.1 10^3/uL (1.5-6.6); NEUTROPHILS % (AUTO) 55.5 %; PLT - PLATELET COUNT 197 10^3/uL (130-450); RED BLOOD COUNT 3.78 10^6/uL (4.70-6.10); RED CELL DISTRIBUTION WIDTH 14.6 % (12.0-15.0); WHITE BLOOD COUNT 5.6 x10^3/uL (4.8-10.8)
[2020-01-16] MEDS: polyethylene glycoL 3350 17 GM PACKET PO SCH (07:56)
[2020-01-16] MEDS: lisinopriL 20 MG TABLET PO SCH (07:57)
[2020-01-16] MEDS: allopurinoL 100 MG TABLET PO SCH (07:58)
[2020-01-16] MEDS: CHOLECALCIFEROL 400 UNIT TABLET PO SCH (07:58)
[2020-01-16] MEDS: ACETAMINOPHEN 325 MG TABLET PO PRN (07:58)
[2020-01-16] MEDS: METOPROLOL SUCCINATE 25 MG TABLET PO SCH (07:59)
[2020-01-16] MEDS: PRENATAL VITAMIN TABLET PO SCH (07:59)
[2020-01-16] MEDS: CLOPIDOGREL 75 MG TABLET PO SCH (08:00)
[2020-01-16] MEDS: TAMSULOSIN 0.4 MG CAPSULE PO SCH ×2 (08:00→20:21)
[2020-01-16] MEDS: SENNA 8.6 MG TABLET PO SCH (08:01)
[2020-01-16] MEDS: THIAMINE 100 MG TABLET PO SCH (08:01)
[2020-01-16] MEDS: FAMOTIDINE 20 MG TABLET PO SCH ×2 (08:01→20:21)
[2020-01-16] MEDS: amLODIPine 5 MG TABLET PO SCH (08:01)
[2020-01-16] MEDS: haloperidoL 1 MG TABLET PO SCH (08:02)
[2020-01-16] MEDS: DOCUSATE SODIUM 250 MG CAPSULE PO SCH (10:53)
--- NOTE | 2020-01-16 13:45 | PROVIDER PROGRESS NOTE ---
Assessment/Plan - Problem List (1) Encephalopathy Assessment/Plan: He had presented with altered mental status when he was in the midst of a COVID pneumonia. He has never returned back to his baseline. We have not done a CT of the head because of the elevated creatinine, claustrophobia and it would only be diagnostic, no changes in management would be accomplished. 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 There has been very slight but positive improvement since being on scheduled Haldol in the morning and scheduled Zyprexa at night, to prevent sundowning, for the past 3 days. He is slightly better today according to his nurse who is known him for many weeks. Continue with the same plan for poss [facility] home: SW reported to me that the daughter is trying to arrange caregivers (2) Pneumonia due to 2019 novel coronavirus Assessment/Plan: There are no more respiratory symptoms and he finished empiric treatment weeks ago. He was still COVID positive, tested 2 days ago. Next COVID PCR test will be on Sat, we do not have an Ab test yet. Isolation precautions continue. (3) YING (acute kidney injury) Assessment/Plan: He has once again had worsening kidney function over the past 3 days: BUN/creatinine have been 26/1.4>> 29/1.5>> 32/1.7 today. He is not on any diuretics or other nephrotoxins to cause this. He is approximately 600 to 1000 cc in positive fluid balance daily, therefore has good oral hydration. Will wean down to off his BIANCA inhibitor. We will start Hydralazine in its place (4) DM type 2 (diabetes mellitus, type 2) Qualifiers: Diabetes mellitus usp insulin use: without buttermaker continuous churn use Diabetes mellitus complication status: with ophthalmic complications Diabetes mellitus complication detail: with cataract Qualified Code(s): E11.36 - Type 2 diabetes mellitus with diabetic cataract Assessment/Plan: He presented with an A1c of 7.8, and his daughter supplied the history that he is a diabetic at home but does not follow a diet He is currently on a regular diet, not carb controlled diet, and fingerstick glucose checks were stopped on December 28. (5) HTN (hypertension) Qualifiers: Hypertension type: essential hypertension Qualified Code(s): I10 - Essential (primary) hypertension Assessment/Plan: His blood pressure runs as low as 110 systolic. I have decreased his Amlodipine and BIANCA inhibitor doses. Because of the YING, will wean the BIANAC inhibitor down to off completely and use Hydralazine in its place only if needed (6) Hx of coronary artery disease Assessment/Plan: Stable (7) BPH (benign prostatic hyperplasia) Assessment/Plan: He remains on his home meds for this (8) Glaucoma Assessment/Plan: He remains on his home eyedrops for this - Current Meds Current Meds: Current Medications Generic Name Dose Route Start Last Admin Trade Name Freq PRN Reason Stop Dose Admin Acetaminophen 650 mg 12/19/19 14:46 01/16/20 07:58 Tylenol PO 650 mg Q4HR PRN Administration Pain or Fever > 38C (100.4F) Allopurinol 300 mg 12/30/19 09:00 01/16/20 07:58 Zyloprim PO 300 mg DAILY AVI Administration Amlodipine Besylate 5 mg 01/15/20 09:00 01/16/20 08:01 Norvasc PO 5 mg DAILY AVI Administration Benzonatate 100 mg 12/18/19 21:17 01/05/20 08:22 Tessalon PO 100 mg TID PRN Administration Cough Cholecalciferol 800 unit 01/14/20 16:00 01/16/20 07:58 Vitamin D3 PO 800 unit DAILY AVI Administration Clopidogrel Bisulfate 75 mg 12/23/19 09:00 01/16/20 08:00 Plavix PO 75 mg DAILY AVI Administration Docusate Sodium 250 - 500 mg 01/16/20 09:00 01/16/20 10:53 Colace 250mg Capsule PO Not Given DAILY AVI Famotidine 20 mg 12/21/19 21:00 01/16/20 08:01 Pepcid PO 20 mg BID AVI Administration Haloperidol 1 mg 01/15/20 08:00 01/16/20 08:02 Haldol PO 1 mg 0800 AVI Administration Lisinopril 10 mg 01/15/20 09:00 01/16/20 07:57 Zestril PO 10 mg DAILY AVI Administration Metoprolol Succinate 37.5 mg 12/24/19 09:00 01/16/20 07:59 Toprol Xl PO 37.5 mg DAILY AVI Administration Mineral Oil 1 applic 12/22/19 17:07 12/24/19 00:49 Cavilon TOP 1 applic PRN PRN Administration Skin Care Olanzapine 5 mg 01/14/20 20:00 01/15/20 21:06 Zyprexa Odt TL 5 mg 2000 AVI Administration Polyethylene Glycol 17 gm 12/23/19 09:00 01/16/20 07:56 Miralax PO 17 gm DAILY AVI Administration Multivit/Folic Acid/Iron 1 tab 12/26/19 08:00 01/16/20 07:59 Trinatal Rx 1 PO 1 tab DAILYWM AVI Administration Senna 8.6 - 17.2 mg 12/26/19 09:00 01/16/20 08:01 Senokot PO 8.6 mg DAILY AVI Administration Tamsulosin HCl 0.4 mg 12/30/19 21:00 01/16/20 08:00 Flomax PO 0.4 mg BID AVI Administration Thiamine HCl 100 mg 01/15/20 09:00 01/16/20 08:01 Vitamin B-1 PO 100 mg DAILY AVI Administration - Lab Result Fish Bone Diagrams: 01/16/20 05:50 01/16/20 05:50 - Additional Planning My Orders: My Active Orders 01/16/20 09:00 Docusate Sodium 250Mg Capsule [Colace 250Mg Capsule] 250 - 500 mg PO DAILY 01/17/20 COVID-19 REFERENCE TEST Routine Subjective - Subjective Nursing Reports: Other (RN reports he is less restless today) Objective Vital Signs: Vital Signs - 24 hr 01/16/20 08:00 Temperature 36.8 C Heart Rate [ 86 Brachial] Respiratory 16 Rate Blood Pressure 121/75 [Left Brachial artery] O2 Saturation 96 Oxygen O2 Source [With Activity] Room air O2 Source [Without Activity] Room air O2 Source Room air Oxygen Flow Rate 3 I&O (Last 24 Hrs): Intake and Output Totals x24h 01/14/20 01/15/20 01/16/20 23:59 23:59 23:59 Intake Total 650 1065 1040 Output Total 400 Balance 760 164 7865 General: Alert HEENT: Atraumatic, Mucous membr. moist/pink Neck: Supple Neuro: Disoriented, Other (Non-focal) Cardiovascular: Regular rate Respiratory: No respiratory distress Abdomen: Soft Extremities: No edema - Results Results: Laboratory Results WBC 5.6 x10^3/uL (4.8-10.8) 01/16/20 05:50 RBC 3.78 10^6/uL (4.70-6.10) L 01/16/20 05:50 Hgb 11.8 g/dL (14.0-18.0) L 01/16/20 05:50 Hct 37.3 % (42.0-52.0) L 01/16/20 05:50 MCV 98.7 fL (80.0-94.0) H 01/16/20 05:50 MCH 31.2 pg (27.0-31.0) H 01/16/20 05:50 MCHC 31.6 g/dL (32.0-36.0) L 01/16/20 05:50 RDW 14.6 % (12.0-15.0) 01/16/20 05:50 Plt Count 197 10^3/uL (130-450) 01/16/20 05:50 MPV 10.3 fL (7.4-11.4) 01/16/20 05:50 Neut # (Auto) 3.1 10^3/uL (1.5-6.6) 01/16/20 05:50 Lymph # (Auto) 1.5 10^3/uL (1.5-3.5) 01/16/20 05:50 [place] # (Auto) 0.7 10^3/uL (0.0-1.0) 01/16/20 05:50 Eos # (Auto) 0.3 10^3/uL (0.0-0.7) 01/16/20 05:50 Baso # (Auto) 0.1 10^3/uL (0.0-0.1) 01/16/20 05:50 Absolute Nucleated RBC 0.00 x10^3/uL 01/16/20 05:50 Total Counted 100 12/21/19 08:10 Band Neuts % (Manual) 2 % (0-10) 12/21/19 08:10 Reactive Lymphs % (Man) 1 % 12/21/19 08:10 Abnorm Lymph % (Manual) 0 % 12/21/19 08:10 Nucleated RBC % 0.0 /100WBC 01/16/20 05:50 Neutrophils # (Manual) 4.5 10^3/uL (1.5-6.6) 12/21/19 08:10 Lymphocytes # (Manual) 0.5 10^3/uL (1.5-3.5) L 12/21/19 08:10 Monocytes # (Manual) 0.6 10^3/uL (0.0-1.0) 12/21/19 08:10 Eosinophils # (Manual) 0.1 10^3/uL (0-0.7) 12/21/19 08:10 Basophils # (Manual) 0.0 10^3/uL (0-0.1) 12/21/19 08:10 Differential Comment MANUAL DIFFERENTIAL 12/21/19 08:10 WBC Morphology NORMAL APPEARANCE (NORMAL) 12/20/19 06:20 Platelet Estimate NORMAL (130-450,000) (NORMAL) 12/20/19 06:20 Platelet Morphology NORMAL APPEARANCE (NORMAL) 12/20/19 06:20 RBC Morph Micro Appear NORMAL APPEARANCE (NORMAL) 12/20/19 06:20 Sodium 137 mmol/L (135-145) 01/16/20 05:50 Potassium 4.2 mmol/L (3.5-5.0) 01/16/20 05:50 Chloride 105 mmol/L (101-111) 01/16/20 05:50 Carbon Dioxide 23 mmol/L (21-32) 01/16/20 05:50 Anion Gap 9.0 (6-13) 01/16/20 05:50 BUN 32 mg/dL (6-20) H 01/16/20 05:50 Creatinine 1.7 mg/dL (0.6-1.2) H 01/16/20 05:50 Estimated GFR (MDRD) 39 (>89) L 01/16/20 05:50 Glucose 159 mg/dL (70-100) H 01/16/20 05:50 POC Whole Bld Glucose 152 mg/dL (70 - 100) H 12/29/19 12:01 Glycated Hemoglobin 7.8 % (4.6-6.2) H 12/21/19 08:10 Estim Average Glucose 177 (70-100) H 12/21/19 08:10 Lactic Acid 1.5 mmol/L (0.5-2.2) 12/17/19 12:30 Calcium 9.6 mg/dL (8.5-10.3) 01/16/20 05:50 Total Bilirubin 0.8 mg/dL (0.2-1.0) 12/20/19 06:20 AST 29 IU/L (10-42) 12/20/19 06:20 ALT 17 IU/L (10-60) 12/20/19 06:20 Alkaline Phosphatase 33 IU/L (42-121) L 12/20/19 06:20 Ammonia 31.9 umol/L (7-35) 12/24/19 05:00 Total Creatine Kinase 357 IU/L (22-269) H 12/17/19 12:30 Troponin I High Sens 92.8 ng/L (2.3-19.7) H* 12/18/19 05:15 C-Reactive Protein < 1.0 mg/dL (0-1.0) 12/29/19 05:49 B-Natriuretic Peptide 53 pg/mL (5-100) 12/17/19 12:30 Total Protein 5.3 g/dL (6.7-8.2) L 12/20/19 06:20 Albumin 2.4 g/dL (3.2-5.5) L 12/20/19 06:20 Globulin 2.9 g/dL (2.1-4.2) 12/20/19 06:20 Albumin/Globulin Ratio 0.8 (1.0-2.2) L 12/20/19 06:20 Lipase 63 U/L (22-51) H 12/17/19 12:30 Vitamin B12 1000 pg/mL (180-914) H 12/21/19 08:10 TSH 5.81 uIU/mL (0.34-5.60) H 01/07/20 09:42 Urine Color YELLOW 12/17/19 11:57 Urine Clarity CLEAR (CLEAR) 12/17/19 11:57 Urine pH 5.5 PH (5.0-7.5) 12/17/19 11:57 Ur Specific [place] >=1.030 (1.002-1.030) H 12/17/19 11:57 Urine Protein 100 mg/dL (NEGATIVE) H 12/17/19 11:57 Urine Glucose (UA) NEGATIVE mg/dL (NEGATIVE) 12/17/19 11:57 Urine Ketones TRACE mg/dL (NEGATIVE) 12/17/19 11:57 Urine Occult Blood SMALL (NEGATIVE) H 12/17/19 11:57 Urine Nitrite NEGATIVE (NEGATIVE) 12/17/19 11:57 Urine Bilirubin NEGATIVE (NEGATIVE) 12/17/19 11:57 Urine Urobilinogen 0.2 (NORMAL) E.U./dL (NORMAL) 12/17/19 11:57 Ur Leukocyte Esterase NEGATIVE (NEGATIVE) 12/17/19 11:57 Urine RBC 0-5 /HPF (0-5) 12/17/19 11:57 Urine WBC 0-3 /HPF (0-3) 12/17/19 11:57 Ur Squamous Epith Cells NONE SEEN (<= Few) 12/17/19 11:57 Urine Bacteria None Seen /HPF (None Seen) 12/17/19 11:57 Ur Microscopic Review INDICATED 12/17/19 11:57 Urine Culture Comments NOT INDICATED 12/17/19 11:57 Stl C. diff Tox B Gene NEGATIVE (NEGATIVE) 12/19/19 20:40 Ethyl Alcohol < 5.0 mg/dL 12/17/19 12:30 T.pallidum IgG (EIA) NEGATIVE 01/07/20 09:42 Coronavirus (PCR) POSITIVE 01/14/20 13:42 Influenza A (Rapid) Negative (Negative) 12/17/19 13:30 Influenza B (Rapid) Negative (Negative) 12/17/19 13:30 Sepsis Event Note (H) - Evaluation Current Stage of Sepsis: Ruled out
[2020-01-16] MEDS: OLANZapine ODT 5 MG TABLET TL SCH (20:21)
[2020-01-17 06:11] LABS: BASOPHILS # (AUTO) 0.1 10^3/uL (0.0-0.1); BASOPHILS % (AUTO) 0.7 %; EOSINOPHILS # (AUTO) 0.3 10^3/uL (0.0-0.7); EOSINOPHILS % (AUTO) 4.7 %; HGB - HEMOGLOBIN 12.1 g/dL (14.0-18.0); LYMPHOCYTES # (AUTO) 2.3 10^3/uL (1.5-3.5); MEAN CORPUSCULAR HEMOGLOBIN 30.5 pg (27.0-31.0); MEAN CORPUSCULAR HGB CONC 31.4 g/dL (32.0-36.0); MEAN PLATELET VOLUME 9.8 fL (7.4-11.4); MONOCYTES # (AUTO) 0.8 10^3/uL (0.0-1.0); MONOCYTES % (AUTO) 11.2 %; NEUTROPHILS # (AUTO) 3.4 10^3/uL (1.5-6.6); NEUTROPHILS % (AUTO) 48.7 %; PLT - PLATELET COUNT 224 10^3/uL (130-450); RED BLOOD COUNT 3.97 10^6/uL (4.70-6.10); RED CELL DISTRIBUTION WIDTH 14.8 % (12.0-15.0); WHITE BLOOD COUNT 6.9 x10^3/uL (4.8-10.8)
[2020-01-17 06:19] LABS: CALCIUM 9.9 mg/dL (8.5-10.3); CREATININE 1.8 mg/dL (0.6-1.2)
[2020-01-17] MEDS: METOPROLOL SUCCINATE 25 MG TABLET PO SCH (08:42)
[2020-01-17] MEDS: FAMOTIDINE 20 MG TABLET PO SCH ×2 (08:43→20:03)
[2020-01-17] MEDS: DOCUSATE SODIUM 250 MG CAPSULE PO SCH (08:43)
[2020-01-17] MEDS: TAMSULOSIN 0.4 MG CAPSULE PO SCH ×2 (08:43→20:03)
[2020-01-17] MEDS: CLOPIDOGREL 75 MG TABLET PO SCH (08:43)
[2020-01-17] MEDS: THIAMINE 100 MG TABLET PO SCH (08:43)
[2020-01-17] MEDS: ACETAMINOPHEN 325 MG TABLET PO PRN (08:43)
[2020-01-17] MEDS: allopurinoL 100 MG TABLET PO SCH (08:43)
[2020-01-17] MEDS: SENNA 8.6 MG TABLET PO SCH (08:44)
[2020-01-17] MEDS: CHOLECALCIFEROL 400 UNIT TABLET PO SCH (08:44)
[2020-01-17] MEDS: PRENATAL VITAMIN TABLET PO SCH (08:44)
[2020-01-17] MEDS: amLODIPine 5 MG TABLET PO SCH (08:44)
[2020-01-17] MEDS: haloperidoL 1 MG TABLET PO SCH (08:44)
[2020-01-17] MEDS: polyethylene glycoL 3350 17 GM PACKET PO SCH (08:44)
[2020-01-17] MEDS ORDERED: lisinopriL 5 MG TABLET PO SCH (09:00)
--- NOTE | 2020-01-17 10:30 | PROVIDER PROGRESS NOTE ---
Assessment/Plan - Problem List (1) Encephalopathy Assessment/Plan: Possible mild improvement over the past 3 to 4 days by using scheduled Haldol in the morning, scheduled Zyprexa at night and oral Thiamine daily (for remote alcohol abuse Hx). The daughter knows that he will need a caregiver at home, a caregiver would need for him to be COVID negative before he can be discharged to his home. (2) Pneumonia due to 2019 novel coronavirus Assessment/Plan: No respiratory symptoms, he finished treatment many weeks ago. He has had recurrent positive COVID PCR tests. Today is the next COVID swab to be done (3) YING (acute kidney injury) Assessment/Plan: This patient had worsening YING about a week ago which improved with IV hydration for several days. Since the IV has been out for about 3 days, he again is worsening over the past 2 days with creatinine going to 1.7 and 1.8 today. Will order 2 L of saline at 100 cc an hour. Encourage p.o. fluid intake (4) DM type 2 (diabetes mellitus, type 2) Qualifiers: Diabetes mellitus custodial insulin use: without custodial use Diabetes mellitus complication status: with ophthalmic complications Diabetes mellitus complication detail: with cataract Qualified Code(s): E11.36 - Type 2 diabetes mellitus with diabetic cataract Assessment/Plan: This patient was a noncompliant diabetic from the daughters report at admission. A1c was 7.8 at the time of admission. His glucoses are running 100-1 80s here on a regular diet, not CC diet. We will recheck his A1c, since he has now been here 1 month on this diet. (5) HTN (hypertension) Qualifiers: Hypertension type: essential hypertension Qualified Code(s): I10 - Essential (primary) hypertension Assessment/Plan: Despite decreasing his amlodipine and BIANCA inhibitor doses, his blood pressure runs 1 10-1 30 systolic. We will stop his BIANCA inhibitor completely because of the YING. (6) Hx of coronary artery disease Assessment/Plan: Stable. He remains on daily Plavix and his statin (7) BPH (benign prostatic hyperplasia) Assessment/Plan: His home meds continue for this while here (8) Glaucoma Assessment/Plan: His home doses of eyedrops continue while here - Current Meds Current Meds: Current Medications Generic Name Dose Route Start Last Admin Trade Name Freq PRN Reason Stop Dose Admin Acetaminophen 650 mg 12/19/19 14:46 01/17/20 08:43 Tylenol PO 650 mg Q4HR PRN Administration Pain or Fever > 38C (100.4F) Amlodipine Besylate 5 mg 01/15/20 09:00 01/17/20 08:44 Norvasc PO 5 mg DAILY AVI Administration Benzonatate 100 mg 12/18/19 21:17 01/05/20 08:22 Tessalon PO 100 mg TID PRN Administration Cough Cholecalciferol 800 unit 01/14/20 16:00 01/17/20 08:44 Vitamin D3 PO 800 unit DAILY AVI Administration Clopidogrel Bisulfate 75 mg 12/23/19 09:00 01/17/20 08:43 Plavix PO 75 mg DAILY AVI Administration Docusate Sodium 250 - 500 mg 01/16/20 09:00 01/17/20 08:43 Colace 250mg Capsule PO 250 mg DAILY AVI Administration Famotidine 20 mg 12/21/19 21:00 01/17/20 08:43 Pepcid PO 20 mg BID AVI Administration Haloperidol 1 mg 01/15/20 08:00 01/17/20 08:44 Haldol PO 1 mg 0800 AVI Administration Metoprolol Succinate 37.5 mg 12/24/19 09:00 01/17/20 08:42 Toprol Xl PO 37.5 mg DAILY AVI Administration Mineral Oil 1 applic 12/22/19 17:07 12/24/19 00:49 Cavilon TOP 1 applic PRN PRN Administration Skin Care Olanzapine 5 mg 01/14/20 20:00 01/16/20 20:21 Zyprexa Odt TL 5 mg 2000 AVI Administration Polyethylene Glycol 17 gm 12/23/19 09:00 01/17/20 08:44 Miralax PO 17 gm DAILY AVI Administration Multivit/Folic Acid/Iron 1 tab 12/26/19 08:00 01/17/20 08:44 Trinatal Rx 1 PO 1 tab DAILYWM AVI Administration Senna 8.6 - 17.2 mg 12/26/19 09:00 01/17/20 08:44 Senokot PO 8.6 mg DAILY AVI Administration Tamsulosin HCl 0.4 mg 12/30/19 21:00 01/17/20 08:43 Flomax PO 0.4 mg BID AVI Administration Thiamine HCl 100 mg 01/15/20 09:00 01/17/20 08:43 Vitamin B-1 PO 100 mg DAILY AVI Administration - Lab Result Fish Bone Diagrams: 01/17/20 05:50 01/17/20 05:50 - Additional Planning My Orders: My Active Orders 01/17/20 COVID-19 REFERENCE TEST Routine 01/17/20 11:00 Sodium Chloride 0.9% [Normal Saline 0.9%] 1,000 ml IV 100 mls/hr 01/18/20 05:00 LIVER PANEL [CHEM] DAILYLAB 01/18/20 09:00 allopurinoL [Zyloprim] 100 mg PO DAILY hydrALAZINE [Apresoline] 10 mg PO BID Subjective - Subjective Nursing Reports: Confused Objective Vital Signs: Vital Signs - 24 hr 01/17/20 08:13 Temperature 36.3 C L Heart Rate [ 86 Brachial] Respiratory 18 Rate Blood Pressure 130/66 [Right Brachial artery] O2 Saturation 95 Oxygen O2 Source [With Activity] Room air O2 Source [Without Activity] Room air O2 Source Room air Oxygen Flow Rate 3 I&O (Last 24 Hrs): Intake and Output Totals x24h 01/15/20 01/16/20 01/17/20 23:59 23:59 23:59 Intake Total 1065 1610 120 Output Total 400 Balance 665 1610 120 General: Alert HEENT: Mucous membr. moist/pink Neck: Supple Neuro: Disoriented, Non Focal Cardiovascular: Regular rate Respiratory: No respiratory distress Abdomen: Soft Extremities: No edema - Results Results: Laboratory Results WBC 6.9 x10^3/uL (4.8-10.8) 01/17/20 05:50 RBC 3.97 10^6/uL (4.70-6.10) L 01/17/20 05:50 Hgb 12.1 g/dL (14.0-18.0) L 01/17/20 05:50 Hct 38.5 % (42.0-52.0) L 01/17/20 05:50 MCV 97.0 fL (80.0-94.0) H 01/17/20 05:50 MCH 30.5 pg (27.0-31.0) 01/17/20 05:50 MCHC 31.4 g/dL (32.0-36.0) L 01/17/20 05:50 RDW 14.8 % (12.0-15.0) 01/17/20 05:50 Plt Count 224 10^3/uL (130-450) 01/17/20 05:50 MPV 9.8 fL (7.4-11.4) 01/17/20 05:50 Neut # (Auto) 3.4 10^3/uL (1.5-6.6) 01/17/20 05:50 Lymph # (Auto) 2.3 10^3/uL (1.5-3.5) 01/17/20 05:50 [place] # (Auto) 0.8 10^3/uL (0.0-1.0) 01/17/20 05:50 Eos # (Auto) 0.3 10^3/uL (0.0-0.7) 01/17/20 05:50 Baso # (Auto) 0.1 10^3/uL (0.0-0.1) 01/17/20 05:50 Absolute Nucleated RBC 0.00 x10^3/uL 01/17/20 05:50 Total Counted 100 12/21/19 08:10 Band Neuts % (Manual) 2 % (0-10) 12/21/19 08:10 Reactive Lymphs % (Man) 1 % 12/21/19 08:10 Abnorm Lymph % (Manual) 0 % 12/21/19 08:10 Nucleated RBC % 0.0 /100WBC 01/17/20 05:50 Neutrophils # (Manual) 4.5 10^3/uL (1.5-6.6) 12/21/19 08:10 Lymphocytes # (Manual) 0.5 10^3/uL (1.5-3.5) L 12/21/19 08:10 Monocytes # (Manual) 0.6 10^3/uL (0.0-1.0) 12/21/19 08:10 Eosinophils # (Manual) 0.1 10^3/uL (0-0.7) 12/21/19 08:10 Basophils # (Manual) 0.0 10^3/uL (0-0.1) 12/21/19 08:10 Differential Comment MANUAL DIFFERENTIAL 12/21/19 08:10 WBC Morphology NORMAL APPEARANCE (NORMAL) 12/20/19 06:20 Platelet Estimate NORMAL (130-450,000) (NORMAL) 12/20/19 06:20 Platelet Morphology NORMAL APPEARANCE (NORMAL) 12/20/19 06:20 RBC Morph Micro Appear NORMAL APPEARANCE (NORMAL) 12/20/19 06:20 Sodium 136 mmol/L (135-145) 01/17/20 05:50 Potassium 4.5 mmol/L (3.5-5.0) 01/17/20 05:50 Chloride 106 mmol/L (101-111) 01/17/20 05:50 Carbon Dioxide 23 mmol/L (21-32) 01/17/20 05:50 Anion Gap 7.0 (6-13) 01/17/20 05:50 BUN 38 mg/dL (6-20) H 01/17/20 05:50 Creatinine 1.8 mg/dL (0.6-1.2) H 01/17/20 05:50 Estimated GFR (MDRD) 36 (>89) L 01/17/20 05:50 Glucose 122 mg/dL (70-100) H 01/17/20 05:50 POC Whole Bld Glucose 152 mg/dL (70 - 100) H 12/29/19 12:01 Glycated Hemoglobin 7.8 % (4.6-6.2) H 12/21/19 08:10 Estim Average Glucose 177 (70-100) H 12/21/19 08:10 Lactic Acid 1.5 mmol/L (0.5-2.2) 12/17/19 12:30 Calcium 9.9 mg/dL (8.5-10.3) 01/17/20 05:50 Total Bilirubin 0.8 mg/dL (0.2-1.0) 12/20/19 06:20 AST 29 IU/L (10-42) 12/20/19 06:20 ALT 17 IU/L (10-60) 12/20/19 06:20 Alkaline Phosphatase 33 IU/L (42-121) L 12/20/19 06:20 Ammonia 31.9 umol/L (7-35) 12/24/19 05:00 Total Creatine Kinase 357 IU/L (22-269) H 12/17/19 12:30 Troponin I High Sens 92.8 ng/L (2.3-19.7) H* 12/18/19 05:15 C-Reactive Protein < 1.0 mg/dL (0-1.0) 12/29/19 05:49 B-Natriuretic Peptide 53 pg/mL (5-100) 12/17/19 12:30 Total Protein 5.3 g/dL (6.7-8.2) L 12/20/19 06:20 Albumin 2.4 g/dL (3.2-5.5) L 12/20/19 06:20 Globulin 2.9 g/dL (2.1-4.2) 12/20/19 06:20 Albumin/Globulin Ratio 0.8 (1.0-2.2) L 12/20/19 06:20 Lipase 63 U/L (22-51) H 12/17/19 12:30 Vitamin B12 1000 pg/mL (180-914) H 12/21/19 08:10 TSH 5.81 uIU/mL (0.34-5.60) H 01/07/20 09:42 Urine Color YELLOW 12/17/19 11:57 Urine Clarity CLEAR (CLEAR) 12/17/19 11:57 Urine pH 5.5 PH (5.0-7.5) 12/17/19 11:57 Ur Specific [place] >=1.030 (1.002-1.030) H 12/17/19 11:57 Urine Protein 100 mg/dL (NEGATIVE) H 12/17/19 11:57 Urine Glucose (UA) NEGATIVE mg/dL (NEGATIVE) 12/17/19 11:57 Urine Ketones TRACE mg/dL (NEGATIVE) 12/17/19 11:57 Urine Occult Blood SMALL (NEGATIVE) H 12/17/19 11:57 Urine Nitrite NEGATIVE (NEGATIVE) 12/17/19 11:57 Urine Bilirubin NEGATIVE (NEGATIVE) 12/17/19 11:57 Urine Urobilinogen 0.2 (NORMAL) E.U./dL (NORMAL) 12/17/19 11:57 Ur Leukocyte Esterase NEGATIVE (NEGATIVE) 12/17/19 11:57 Urine RBC 0-5 /HPF (0-5) 12/17/19 11:57 Urine WBC 0-3 /HPF (0-3) 12/17/19 11:57 Ur Squamous Epith Cells NONE SEEN (<= Few) 12/17/19 11:57 Urine Bacteria None Seen /HPF (None Seen) 12/17/19 11:57 Ur Microscopic Review INDICATED 12/17/19 11:57 Urine Culture Comments NOT INDICATED 12/17/19 11:57 Stl C. diff Tox B Gene NEGATIVE (NEGATIVE) 12/19/19 20:40 Ethyl Alcohol < 5.0 mg/dL 12/17/19 12:30 T.pallidum IgG (EIA) NEGATIVE 01/07/20 09:42 Coronavirus (PCR) POSITIVE 01/14/20 13:42 Influenza A (Rapid) Negative (Negative) 12/17/19 13:30 Influenza B (Rapid) Negative (Negative) 12/17/19 13:30 Sepsis Event Note (H) - Evaluation Current Stage of Sepsis: Ruled out
[2020-01-17] MEDS: SODIUM CHLORIDE 0.9% 1,000 ML IV SCH ×2 (12:25→21:56)
[2020-01-17] MEDS: OLANZapine ODT 5 MG TABLET TL SCH (20:03)
[2020-01-18] MEDS ORDERED: LORazepam 2 MG/ML VIAL IVP STA (00:33)
[2020-01-18] MEDS ORDERED: LORazepam 2 MG/ML VIAL ONE (00:36)
[2020-01-18] MEDS ORDERED: HALOPERIDOL 5 MG/ML VIAL IVP PRN (00:36)
[2020-01-18 06:19] LABS: BASOPHILS % (AUTO) 0.5 %; EOSINOPHILS # (AUTO) 0.3 10^3/uL (0.0-0.7); HGB - HEMOGLOBIN 12.2 g/dL (14.0-18.0); LYMPHOCYTES # (AUTO) 2.7 10^3/uL (1.5-3.5); LYMPHOCYTES % (AUTO) 35.1 %; MEAN CORPUSCULAR HEMOGLOBIN 30.7 pg (27.0-31.0); MEAN CORPUSCULAR HGB CONC 31.5 g/dL (32.0-36.0); MEAN CORPUSCULAR VOLUME 97.2 fL (80.0-94.0); MEAN PLATELET VOLUME 9.9 fL (7.4-11.4); MONOCYTES # (AUTO) 0.7 10^3/uL (0.0-1.0); MONOCYTES % (AUTO) 9.4 %; NEUTROPHILS # (AUTO) 3.8 10^3/uL (1.5-6.6); NEUTROPHILS % (AUTO) 50.6 %; PLT - PLATELET COUNT 226 10^3/uL (130-450); RED BLOOD COUNT 3.98 10^6/uL (4.70-6.10); RED CELL DISTRIBUTION WIDTH 15.1 % (12.0-15.0); WHITE BLOOD COUNT 7.6 x10^3/uL (4.8-10.8)
[2020-01-18 06:36] LABS: ALBUMIN 3.2 g/dL (3.2-5.5); BILIRUBIN,DIRECT 0.1 mg/dL (0.1-0.5); BILIRUBIN,TOTAL 0.5 mg/dL (0.2-1.0); CALCIUM 9.9 mg/dL (8.5-10.3); CREATININE 1.8 mg/dL (0.6-1.2); TOTAL PROTEIN 6.8 g/dL (6.7-8.2)
[2020-01-18 06:38] LABS: HB2 TOTAL 12.6 g/dL; HEMOGLOBIN A1C 0.75 g/dL; HEMOGLOBIN A1C % 7.6 % (4.6-6.2)
[2020-01-18] MEDS: polyethylene glycoL 3350 17 GM PACKET PO SCH (07:49)
[2020-01-18] MEDS: DOCUSATE SODIUM 250 MG CAPSULE PO SCH (07:49)
[2020-01-18] MEDS: SENNA 8.6 MG TABLET PO SCH (07:50)
[2020-01-18] MEDS: PRENATAL VITAMIN TABLET PO SCH (09:04)
[2020-01-18] MEDS: THIAMINE 100 MG TABLET PO SCH (09:04)
[2020-01-18] MEDS: TAMSULOSIN 0.4 MG CAPSULE PO SCH ×2 (09:04→20:56)
[2020-01-18] MEDS: CLOPIDOGREL 75 MG TABLET PO SCH (09:04)
[2020-01-18] MEDS: hydrALAZINE 10 MG TABLET PO SCH ×2 (09:05→20:56)
[2020-01-18] MEDS: FAMOTIDINE 20 MG TABLET PO SCH ×2 (09:05→20:56)
[2020-01-18] MEDS: CHOLECALCIFEROL 400 UNIT TABLET PO SCH (09:05)
[2020-01-18] MEDS: allopurinoL 100 MG TABLET PO SCH (09:05)
[2020-01-18] MEDS: amLODIPine 5 MG TABLET PO SCH (09:05)
[2020-01-18] MEDS: haloperidoL 1 MG TABLET PO SCH (09:05)
[2020-01-18] MEDS: METOPROLOL SUCCINATE 25 MG TABLET PO SCH (09:05)
[2020-01-18] MEDS ORDERED: HALOPERIDOL 5 MG/ML VIAL IVP SCH (10:21)
--- NOTE | 2020-01-18 12:54 | PROVIDER PROGRESS NOTE ---
Assessment/Plan - Problem List (1) Dementia with behavioral problem Assessment/Plan: Apparently, according to the daughters discussions over the phone, he was completely independent before this hospitalization. He has been encephalopathic since admission with COVID pneumonia. He could get a head CT or CTA if creat stabilizes, but it would be for diagnostic purposes only. Also, he has claustrophobia and would need sedation. 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 He is already on Plavix and a statin. There is also a remote history of alcohol abuse, he is therefore been put on daily thiamine 100 mg orally. He has been more restless yesterday and today, coming out of his room, taking his belongings packed, stating he is "going to [place]", cannot remember where his bathroom is, requests help for somebody to "fix his old desk". When he is reoriented he is cooperative. Will increase the morning Haldol dose, continue Zyprexa scheduled at night. A caregiver at his own home, where he lived independantly, is being arranged by his daughter, but he needs to be COVID neg for a caregiver to come to his house, per SW. No nursing facilities will accept him with the COVID pos status. [facility] would take him being COVID positive, but not with the behavioral problems and on psych meds. Earlier this admission, a DMV form to prevent him from driving from now on, was completed by me. (2) COVID-19 Assessment/Plan: He finished respiratory treatment many weeks ago. He has been tested for COVID by swab about every 3 days and continues to have positive swab results. (3) YING (acute kidney injury) Assessment/Plan: The creatinine remains abnormal but has stabilized at 1.7. Yesterday 2 L of saline was ordered and he was inpatient and wanted the second liter stopped and the IV taken out because of his poor memory and behavior problems. Encouraging p.o. liquid intake was ordered with the wood borer Follow BMP daily (4) DM type 2 (diabetes mellitus, type 2) Qualifiers: Diabetes mellitus mcfp insulin use: without mcfp use Diabetes mellitus complication status: with ophthalmic complications Diabetes mellitus complication detail: with cataract Qualified Code(s): E11.36 - Type 2 diabetes mellitus with diabetic cataract Assessment/Plan: This patient was a noncompliant diabetic from the daughters report at admission. A1c was 7.8 at the time of admission. His glucoses are running 100-180s here on a regular diet, not CC diet. Today a recheck his A1c was 7.6. Will put him on a carb-controlled diet. (5) HTN (hypertension) Qualifiers: Hypertension type: essential hypertension Qualified Code(s): I10 - Essential (primary) hypertension Assessment/Plan: BP is stable, despite decreasing amlodipine dose since admission and weaning down BIANCA inhibitor to off because of his YING. (6) Hx of coronary artery disease Assessment/Plan: Stable during this admission. He is on his daily Plavix and a statin. (7) BPH (benign prostatic hyperplasia) Assessment/Plan: He is on his home meds to help with urination (8) Glaucoma Assessment/Plan: His home eyedrops have been continued. - Current Meds Current Meds: Current Medications Generic Name Dose Route Start Last Admin Trade Name Freq PRN Reason Stop Dose Admin Acetaminophen 650 mg 12/19/19 14:46 01/17/20 08:43 Tylenol PO 650 mg Q4HR PRN Administration Pain or Fever > 38C (100.4F) Allopurinol 100 mg 01/18/20 09:00 01/18/20 09:05 Zyloprim PO 100 mg DAILY AVI Administration Amlodipine Besylate 5 mg 01/15/20 09:00 01/18/20 09:05 Norvasc PO 5 mg DAILY AVI Administration Benzonatate 100 mg 12/18/19 21:17 01/05/20 08:22 Tessalon PO 100 mg TID PRN Administration Cough Cholecalciferol 800 unit 01/14/20 16:00 01/18/20 09:05 Vitamin D3 PO 800 unit DAILY AVI Administration Clopidogrel Bisulfate 75 mg 12/23/19 09:00 01/18/20 09:04 Plavix PO 75 mg DAILY AVI Administration Docusate Sodium 250 - 500 mg 01/16/20 09:00 01/18/20 07:49 Colace 250mg Capsule PO Not Given DAILY AVI Famotidine 20 mg 12/21/19 21:00 01/18/20 09:05 Pepcid PO 20 mg BID AVI Administration Hydralazine HCl 10 mg 01/18/20 09:00 01/18/20 09:05 Apresoline PO 10 mg BID AVI Administration Metoprolol Succinate 37.5 mg 12/24/19 09:00 01/18/20 09:05 Toprol Xl PO 37.5 mg DAILY AVI Administration Mineral Oil 1 applic 12/22/19 17:07 12/24/19 00:49 Cavilon TOP 1 applic PRN PRN Administration Skin Care Olanzapine 5 mg 01/14/20 20:00 01/17/20 20:03 Zyprexa Odt TL 5 mg 2000 AVI Administration Polyethylene Glycol 17 gm 12/23/19 09:00 01/18/20 07:49 Miralax PO Not Given DAILY AVI Multivit/Folic Acid/Iron 1 tab 12/26/19 08:00 01/18/20 09:04 Trinatal Rx 1 PO 1 tab DAILYWM AVI Administration Senna 8.6 - 17.2 mg 12/26/19 09:00 01/18/20 07:50 Senokot PO Not Given DAILY AVI Tamsulosin HCl 0.4 mg 12/30/19 21:00 01/18/20 09:04 Flomax PO 0.4 mg BID AVI Administration Thiamine HCl 100 mg 01/15/20 09:00 01/18/20 09:04 Vitamin B-1 PO 100 mg DAILY AVI Administration - Lab Result Fish Bone Diagrams: 01/18/20 05:45 01/18/20 05:45 - Additional Planning My Orders: My Active Orders 01/18/20 09:00 allopurinoL [Zyloprim] 100 mg PO DAILY hydrALAZINE [Apresoline] 10 mg PO BID 01/19/20 08:00 haloperidoL [Haldol] 2 mg PO 0800 Subjective - Subjective Patient Reports: Other (He is wandering out of his room into the halls and cannot remember where he is or why he is here, this is worse than last week.) Objective Vital Signs: Vital Signs - 24 hr 01/18/20 08:50 Temperature 36.9 C Heart Rate [ 85 Brachial] Respiratory 18 Rate Blood Pressure 140/69 H [Left Brachial artery] O2 Saturation 95 Oxygen O2 Source [With Activity] Room air O2 Source [Without Activity] Room air O2 Source Room air Oxygen Flow Rate 3 I&O (Last 24 Hrs): Intake and Output Totals x24h 01/16/20 01/17/20 01/18/20 23:59 23:59 23:59 Intake Total 1609 Balance 1609 General: Alert HEENT: Mucous membr. moist/pink Neck: Supple Neuro: Alert, Disoriented Cardiovascular: Regular rate Respiratory: No respiratory distress Abdomen: Soft Extremities: Other (ankle edema 1+) - Results Results: Laboratory Results WBC 7.6 x10^3/uL (4.8-10.8) 01/18/20 05:45 RBC 3.98 10^6/uL (4.70-6.10) L 01/18/20 05:45 Hgb 12.2 g/dL (14.0-18.0) L 01/18/20 05:45 Hct 38.7 % (42.0-52.0) L 01/18/20 05:45 MCV 97.2 fL (80.0-94.0) H 01/18/20 05:45 MCH 30.7 pg (27.0-31.0) 01/18/20 05:45 MCHC 31.5 g/dL (32.0-36.0) L 01/18/20 05:45 RDW 15.1 % (12.0-15.0) H 01/18/20 05:45 Plt Count 226 10^3/uL (130-450) 01/18/20 05:45 MPV 9.9 fL (7.4-11.4) 01/18/20 05:45 Neut # (Auto) 3.8 10^3/uL (1.5-6.6) 01/18/20 05:45 Lymph # (Auto) 2.7 10^3/uL (1.5-3.5) 01/18/20 05:45 Scurry # (Auto) 0.7 10^3/uL (0.0-1.0) 01/18/20 05:45 Eos # (Auto) 0.3 10^3/uL (0.0-0.7) 01/18/20 05:45 Baso # (Auto) 0.0 10^3/uL (0.0-0.1) 01/18/20 05:45 Absolute Nucleated RBC 0.00 x10^3/uL 01/18/20 05:45 Total Counted 100 12/21/19 08:10 Band Neuts % (Manual) 2 % (0-10) 12/21/19 08:10 Reactive Lymphs % (Man) 1 % 12/21/19 08:10 Abnorm Lymph % (Manual) 0 % 12/21/19 08:10 Nucleated RBC % 0.0 /100WBC 01/18/20 05:45 Neutrophils # (Manual) 4.5 10^3/uL (1.5-6.6) 12/21/19 08:10 Lymphocytes # (Manual) 0.5 10^3/uL (1.5-3.5) L 12/21/19 08:10 Monocytes # (Manual) 0.6 10^3/uL (0.0-1.0) 12/21/19 08:10 Eosinophils # (Manual) 0.1 10^3/uL (0-0.7) 12/21/19 08:10 Basophils # (Manual) 0.0 10^3/uL (0-0.1) 12/21/19 08:10 Differential Comment MANUAL DIFFERENTIAL 12/21/19 08:10 WBC Morphology NORMAL APPEARANCE (NORMAL) 12/20/19 06:20 Platelet Estimate NORMAL (130-450,000) (NORMAL) 12/20/19 06:20 Platelet Morphology NORMAL APPEARANCE (NORMAL) 12/20/19 06:20 RBC Morph Micro Appear NORMAL APPEARANCE (NORMAL) 12/20/19 06:20 Sodium 138 mmol/L (135-145) 01/18/20 05:45 Potassium 4.4 mmol/L (3.5-5.0) 01/18/20 05:45 Chloride 105 mmol/L (101-111) 01/18/20 05:45 Carbon Dioxide 25 mmol/L (21-32) 01/18/20 05:45 Anion Gap 8.0 (6-13) 01/18/20 05:45 BUN 37 mg/dL (6-20) H 01/18/20 05:45 Creatinine 1.8 mg/dL (0.6-1.2) H 01/18/20 05:45 Estimated GFR (MDRD) 36 (>89) L 01/18/20 05:45 Glucose 130 mg/dL (70-100) H 01/18/20 05:45 POC Whole Bld Glucose 152 mg/dL (70 - 100) H 12/29/19 12:01 Glycated Hemoglobin 7.6 % (4.6-6.2) H 01/18/20 05:45 Estim Average Glucose 171 (70-100) H 01/18/20 05:45 Lactic Acid 1.5 mmol/L (0.5-2.2) 12/17/19 12:30 Calcium 9.9 mg/dL (8.5-10.3) 01/18/20 05:45 Total Bilirubin 0.5 mg/dL (0.2-1.0) 01/18/20 05:45 Direct Bilirubin 0.1 mg/dL (0.1-0.5) 01/18/20 05:45 AST 17 IU/L (10-42) 01/18/20 05:45 ALT 13 IU/L (10-60) 01/18/20 05:45 Alkaline Phosphatase 49 IU/L (42-121) 01/18/20 05:45 Ammonia 31.9 umol/L (7-35) 12/24/19 05:00 Total Creatine Kinase 357 IU/L (22-269) H 12/17/19 12:30 Troponin I High Sens 92.8 ng/L (2.3-19.7) H* 12/18/19 05:15 C-Reactive Protein < 1.0 mg/dL (0-1.0) 12/29/19 05:49 B-Natriuretic Peptide 53 pg/mL (5-100) 12/17/19 12:30 Total Protein 6.8 g/dL (6.7-8.2) 01/18/20 05:45 Albumin 3.2 g/dL (3.2-5.5) 01/18/20 05:45 Albumin/Globulin Ratio 0.8 (1.0-2.2) L 12/20/19 06:20 Globulin 3.6 g/dL (2.1-4.2) 01/18/20 05:45 Lipase 63 U/L (22-51) H 12/17/19 12:30 Vitamin B12 1000 pg/mL (180-914) H 12/21/19 08:10 TSH 5.81 uIU/mL (0.34-5.60) H 01/07/20 09:42 Urine Color YELLOW 12/17/19 11:57 Urine Clarity CLEAR (CLEAR) 12/17/19 11:57 Urine pH 5.5 PH (5.0-7.5) 12/17/19 11:57 Ur Specific Vantage >=1.030 (1.002-1.030) H 12/17/19 11:57 Urine Protein 100 mg/dL (NEGATIVE) H 12/17/19 11:57 Urine Glucose (UA) NEGATIVE mg/dL (NEGATIVE) 12/17/19 11:57 Urine Ketones TRACE mg/dL (NEGATIVE) 12/17/19 11:57 Urine Occult Blood SMALL (NEGATIVE) H 12/17/19 11:57 Urine Nitrite NEGATIVE (NEGATIVE) 12/17/19 11:57 Urine Bilirubin NEGATIVE (NEGATIVE) 12/17/19 11:57 Urine Urobilinogen 0.2 (NORMAL) E.U./dL (NORMAL) 12/17/19 11:57 Ur Leukocyte Esterase NEGATIVE (NEGATIVE) 12/17/19 11:57 Urine RBC 0-5 /HPF (0-5) 12/17/19 11:57 Urine WBC 0-3 /HPF (0-3) 12/17/19 11:57 Ur Squamous Epith Cells NONE SEEN (<= Few) 12/17/19 11:57 Urine Bacteria None Seen /HPF (None Seen) 12/17/19 11:57 Ur Microscopic Review INDICATED 12/17/19 11:57 Urine Culture Comments NOT INDICATED 12/17/19 11:57 Stl C. diff Tox B Gene NEGATIVE (NEGATIVE) 12/19/19 20:40 Ethyl Alcohol < 5.0 mg/dL 12/17/19 12:30 T.pallidum IgG (EIA) NEGATIVE 01/07/20 09:42 Coronavirus (PCR) POSITIVE 01/17/20 12:30 Influenza A (Rapid) Negative (Negative) 12/17/19 13:30 Influenza B (Rapid) Negative (Negative) 12/17/19 13:30 Sepsis Event Note (H) - Evaluation Current Stage of Sepsis: Ruled out
[2020-01-18] MEDS: OLANZapine ODT 5 MG TABLET TL SCH (20:56)
[2020-01-19] MEDS ORDERED: haloperidoL 1 MG TABLET PO SCH (08:00)
[2020-01-19] MEDS: TAMSULOSIN 0.4 MG CAPSULE PO SCH ×2 (08:27→21:25)
[2020-01-19] MEDS: allopurinoL 100 MG TABLET PO SCH (08:28)
[2020-01-19] MEDS: DOCUSATE SODIUM 250 MG CAPSULE PO SCH (08:28)
[2020-01-19] MEDS: CLOPIDOGREL 75 MG TABLET PO SCH (08:28)
[2020-01-19] MEDS: FAMOTIDINE 20 MG TABLET PO SCH ×2 (08:28→21:25)
[2020-01-19] MEDS: THIAMINE 100 MG TABLET PO SCH (08:28)
[2020-01-19] MEDS: SENNA 8.6 MG TABLET PO SCH (08:28)
[2020-01-19] MEDS: CHOLECALCIFEROL 400 UNIT TABLET PO SCH (08:28)
[2020-01-19] MEDS: PRENATAL VITAMIN TABLET PO SCH (08:28)
[2020-01-19] MEDS: polyethylene glycoL 3350 17 GM PACKET PO SCH (08:29)
[2020-01-19] MEDS: hydrALAZINE 10 MG TABLET PO SCH ×2 (08:51→21:25)
[2020-01-19] MEDS: amLODIPine 5 MG TABLET PO SCH (08:51)
[2020-01-19] MEDS: METOPROLOL SUCCINATE 25 MG TABLET PO SCH (08:52)
--- NOTE | 2020-01-19 10:16 | PROVIDER PROGRESS NOTE ---
Subjective - Prog Note Date Prog Note Date: 01/19/20 - Subjective Subjective: Reports feeling well. [place] not think he is in the hospital. He reports no chest pain or dyspnea. Denies any headache, neck pain, fevers Current Medications - Current Medications Current Medications: Active Medications Acetaminophen (Tylenol) 650 mg PO Q4HR PRN PRN Reason: Pain or Fever > 38C (100.4F) Last Admin: 01/17/20 08:43 Dose: 650 mg Allopurinol (Zyloprim) 100 mg PO DAILY [facility] Last Admin: 01/19/20 08:28 Dose: 100 mg Amlodipine Besylate (Norvasc) 5 mg PO DAILY [facility] Last Admin: 01/19/20 08:51 Dose: 5 mg Benzonatate (Tessalon) 100 mg PO TID PRN PRN Reason: Cough Last Admin: 01/05/20 08:22 Dose: 100 mg Cholecalciferol (Vitamin D3) 800 unit PO DAILY [facility] Last Admin: 01/19/20 08:28 Dose: 800 unit Clopidogrel Bisulfate (Plavix) 75 mg PO DAILY [facility] Last Admin: 01/19/20 08:28 Dose: 75 mg Docusate Sodium (Colace 250mg Capsule) 250 - 500 mg PO DAILY [facility] Last Admin: 01/19/20 08:28 Dose: 250 mg Famotidine (Pepcid) 20 mg PO BID [facility] Last Admin: 01/19/20 08:28 Dose: 20 mg Haloperidol (Haldol) 2 mg PO 0800 [facility] Last Admin: 01/19/20 08:29 Dose: 2 mg Hydralazine HCl (Apresoline) 10 mg PO BID [facility] Last Admin: 01/19/20 08:51 Dose: 10 mg Loperamide HCl (Imodium) 2 mg PO QID PRN PRN Reason: Diarrhea Metoprolol Succinate (Toprol Xl) 37.5 mg PO DAILY [facility] Last Admin: 01/19/20 08:52 Dose: 37.5 mg Mineral Oil (Cavilon) 1 applic TOP PRN PRN PRN Reason: Skin Care Last Admin: 12/24/19 00:49 Dose: 1 applic Olanzapine (Zyprexa Odt) 5 mg TL 1999 [facility] Last Admin: 01/18/20 20:56 Dose: 5 mg Polyethylene Glycol (Miralax) 17 gm PO DAILY [facility] Last Admin: 01/19/20 08:29 Dose: 17 gm Multivit/Folic Acid/Iron (Trinatal Rx 1) [facility] Admin: 01/19/20 08:28 Dose: 1 tab Senna (Senokot) 8.6 - 17.2 mg PO DAILY [facility] Last Admin: 01/19/20 08:28 Dose: 8.6 mg Tamsulosin HCl (Flomax) 0.4 mg PO BID [facility] Last Admin: 01/19/20 08:27 Dose: 0.4 mg Thiamine HCl (Vitamin B-1) 100 mg PO DAILY [facility] Last Admin: 01/19/20 08:28 Dose: 100 mg allopurinoL [Allopurinol] 300 mg PO DAILY 10/12/16 Atorvastatin Calcium 40 mg PO QPM 12/17/19 Cholecalciferol (Vitamin D3) [Vitamin D] 2,000 unit PO DAILY 12/17/19 Clopidogrel [Plavix] 75 mg PO DAILY 12/17/19 Cyanocobalamin (Vitamin B-12) [Vitamin B-12 (1000 mcg sublingual)] 1,000 mcg PO DAILY 12/17/19 Docusate Sodium 300 mg PO DAILY PRN 12/17/19 Dorzolamide HCl 1 drops EACHEYE DAILY 12/17/19 Latanoprost 0.005% Ophth Drops [Xalatan Ophth Drops] 1 drops EACHEYE QPM 12/17/19 Metoprolol Tartrate 50 mg PO BID 12/17/19 Oxybutynin [Ditropan] 2.5 mg PO BID 12/17/19 Pantoprazole [Protonix] 40 mg PO BIDAC 12/17/19 Sildenafil Citrate [Sildenafil] 20 - 100 mg PO DAILY PRN 12/17/19 Tamsulosin [Flomax] 0.4 mg PO QDDINNER 12/17/19 Temazepam 15 mg PO QPM PRN 12/17/19 Timolol 0.5% Ophth Drops [Timoptic 0.5% Ophth Drops] 1 drops EACHEYE DAILY 12/17/19 Objective - Vital Signs/Intake & Output Reviewed Vital Signs: Yes Vital Signs: Vital Signs x48h Temp Pulse Resp BP Pulse Ox 01/19/20 08:00 36.5 C 95 16 148/68 H 96 Intake & Output: Intake & Output 01/16/20 01/17/20 01/18/20 01/19/20 23:59 23:59 23:59 23:59 Intake Total 1610 1959 360 Balance [id number] 360 - Objective General Appearance: positive: No acute distress, Alert Eyes Bilateral: positive: Normal inspection ENT: positive: ENT inspection nml Neck: positive: Nml inspection Neurologic/Psychiatric: positive: Disoriented to place, Disoriented to time, Other (He is moving all 4 extremities no difficulties. He oriented to self but not to location or time. He does have occasional visual hallucinations. No auditory hallucinations.). negative: Disoriented to person - Lab Results Fish Bones: 01/18/20 05:45 01/18/20 05:45 ABX Reporting Has patient been on IV antibiotics over the past 48 hours?: No Sepsis Event Note (H) - Evaluation Current Stage of Sepsis: Ruled out Assessment/Plan - Problem List (1) Persistent cognitive impairment Impression: Continues to have cognitive impairment this appears to be delirium. Other potential causes include possible stroke versus possibly infection related due to the coronavirus. He has no focal deficits on exam and has been afebrile with no white count. No meningeal signs. I did discuss his current condition with his daughter who states that prior to this admission he was living alone and completely alert and oriented without any cognitive impairment. He has been less agitated with Haldol and Zyprexa but remains disoriented. Given his history of vascular disease, we will attempt to obtain a CT of the head today without contrast to evaluate for possible stroke. Delirium precautions. Avoid benzodiazepines. We will also attempt to discontinue his Haldol and Zyprexa as if he remains cooperative without these antipsychotics, he may be able to be discharged to [facility]. (2) COVID-19 Impression: He no longer has respiratory symptoms but he continues to test positive for the novel coronavirus. I spoke with infectious disease at [facility] and stated that people have been testing positive for weeks and they recommended to continue to test every few days until he has negative testing. It is unclear the patient is still contagious or not and there is no way of knowing if the testing is detecting virus or not. Repeat PCR tomorrow. (3) YING (acute kidney injury) Impression: Creatinie is elevated at 1.8 but stable over the past couple of days. His baseline is less than 1. He cannot tolerate IV fluids as he became agitated with IV placement. We will continue to current encourage oral intake. Tinea check labs and if his creatinine continues to rise, we will need to reconsider placing an IV for intravenous fluids (4) BPH (benign prostatic hyperplasia) Impression: Stable. Continue Flomax. (5) DM type 2 (diabetes mellitus, type 2) Impression: His A1c 7.6%. We will start him on a sliding scale. We will place him on a regular diet as blood sugars have been well controlled this will hopefully help encourage oral intake. Qualifiers: Diabetes mellitus extermination supervisor insulin use: without skilled nursing use Diabetes mellitus complication status: with ophthalmic complications Diabetes mellitus complication detail: with cataract Qualified Code(s): E11.36 - Type 2 diabetes mellitus with diabetic cataract (6) Hx of coronary artery disease Impression: History of coronary artery disease and his daughter also tells me that he has a carotid occlusion as well. We will continue him on Plavix and atorvastatin.
--- NOTE | 2020-01-19 16:01 | CT Report ---
Reason: Encephalopathy. Covid. Confusion. Procedure Date: 01/19/2020 Accession Number: [id number] / [id number] Procedure: CT - HEAD WO CPT Code: Final Report FULL RESULT: EXAM: CT HEAD EXAM DATE: 01/19/2020 03:13 PM. CLINICAL HISTORY: Encephalopathy. COVID. Confusion. COMPARISON: None. TECHNIQUE: Multiaxial CT images were obtained from the foramen magnum to the vertex. Reformats: Sagittal and coronal. IV contrast: None. In accordance with CT protocol optimization, one or more of the following dose reduction techniques were utilized for this exam: automated exposure control, adjustment of mA and/or KV based on patient size, or use of iterative reconstructive technique. FINDINGS: Parenchyma: There appear to be small areas of cortical hypoattenuation and encephalomalacia in the right frontal lobe (series 3, images 24 and 25), suggestive of old infarcts. A linear area of hypoattenuation in the region of the left basal ganglia, adjacent to the external capsule, is also suggestive of old infarct. Mild patchy hypoattenuation is also present in the periventricular and deep white matter of bilateral cerebral hemispheres, compatible with sequela of chronic macrovascular disease. The overall jacobson-white matter differentiation is preserved. No CT evidence for acute cortical infarct. No intracranial hemorrhage is demonstrated. No evidence of mass or mass-effect. Extraaxial Spaces: Mild diffuse prominence of the extra-axial spaces, compatible with cerebral volume loss. No subdural or epidural collections identified. Ventricles: Mild-moderate ventricular prominence, also suggestive of cerebral volume loss. No midline shift is demonstrated. Basal cisterns are widely patent. Sinuses and Orbits: The visualized portions of the paranasal sinuses and mastoid air cells are clear. Visualized portions of the orbits are unremarkable. Bones: Calvarium is intact. Other: None. IMPRESSION: 1. No CT evidence for acute intracranial abnormality. 2. 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 RADIA
[2020-01-19] MEDS: ATORVASTATIN 40 MG TABLET PO SCH (21:25)
--- NOTE | 2020-01-20 08:06 | PROVIDER PROGRESS NOTE ---
Subjective - Prog Note Date Prog Note Date: 01/20/20 - Subjective Subjective: He was agreeable to a CT of the head yesterday after he spoke to his daughter via face time. He is now been off of Haldol and Zyprexa and not require any chemical or physical restraints. Nursing reports that he has been cooperative and pleasant in the room. Current Medications - Current Medications Current Medications: Active Medications Acetaminophen (Tylenol) 650 mg PO Q4HR PRN PRN Reason: Pain or Fever > 38C (100.4F) Last Admin: 01/17/20 08:43 Dose: 650 mg Allopurinol (Zyloprim) 100 mg PO DAILY [facility] Last Admin: 01/20/20 09:19 Dose: 100 mg Amlodipine Besylate (Norvasc) 5 mg PO DAILY [facility] Last Admin: 01/20/20 09:18 Dose: 5 mg Atorvastatin Calcium (Lipitor) 40 mg PO QPM [facility] Last Admin: 01/19/20 21:25 Dose: 40 mg Benzonatate (Tessalon) 100 mg PO TID PRN PRN Reason: Cough Last Admin: 01/05/20 08:22 Dose: 100 mg Cholecalciferol (Vitamin D3) 800 unit PO DAILY [facility] Last Admin: 01/20/20 09:19 Dose: 800 unit Clopidogrel Bisulfate (Plavix) 75 mg PO DAILY [facility] Last Admin: 01/20/20 09:18 Dose: 75 mg Docusate Sodium (Colace 250mg Capsule) 250 - 500 mg PO DAILY [facility] Last Admin: 01/20/20 09:18 Dose: 250 mg Famotidine (Pepcid) 20 mg PO BID [facility] Last Admin: 01/20/20 09:19 Dose: 20 mg Hydralazine HCl (Apresoline) 10 mg PO BID [facility] Last Admin: 01/20/20 09:19 Dose: 10 mg Loperamide HCl (Imodium) 2 mg PO QID PRN PRN Reason: Diarrhea Metoprolol Succinate (Toprol Xl) 37.5 mg PO DAILY [facility] Last Admin: 01/20/20 09:19 Dose: 37.5 mg Mineral Oil (Cavilon) 1 applic TOP PRN PRN PRN Reason: Skin Care Last Admin: 12/24/19 00:49 Dose: 1 applic Polyethylene Glycol (Miralax) 17 gm PO DAILY [facility] Last Admin: 01/20/20 09:19 Dose: 17 gm Multivit/Folic Acid/Iron (Trinatal Rx 1) 1 tab PO DAILYWM [facility] Last Admin: 01/20/20 09:18 Dose: 1 tab Senna (Senokot) 8.6 - 17.2 mg PO DAILY [facility] Last Admin: 01/20/20 09:18 Dose: 8.6 mg Tamsulosin HCl (Flomax) 0.4 mg PO BID [facility] Last Admin: 01/20/20 09:19 Dose: 0.4 mg Thiamine HCl (Vitamin B-1) 100 mg PO DAILY [facility] Last Admin: 01/20/20 09:19 Dose: 100 mg allopurinoL [Allopurinol] 300 mg PO DAILY 10/12/16 Atorvastatin Calcium 40 mg PO QPM 12/17/19 Cholecalciferol (Vitamin D3) [Vitamin D] 2,000 unit PO DAILY 12/17/19 Clopidogrel [Plavix] 75 mg PO DAILY 12/17/19 Cyanocobalamin (Vitamin B-12) [Vitamin B-12 (1000 mcg sublingual)] 1,000 mcg PO DAILY 12/17/19 Docusate Sodium 300 mg PO DAILY PRN 12/17/19 Dorzolamide HCl 1 drops EACHEYE DAILY 12/17/19 Latanoprost 0.005% Ophth Drops [Xalatan Ophth Drops] 1 drops EACHEYE QPM 12/17/19 Metoprolol Tartrate 50 mg PO BID 12/17/19 Oxybutynin [Ditropan] 2.5 mg PO BID 12/17/19 Pantoprazole [Protonix] 40 mg PO BIDAC 12/17/19 Sildenafil Citrate [Sildenafil] 20 - 100 mg PO DAILY PRN 12/17/19 Tamsulosin [Flomax] 0.4 mg PO QDDINNER 12/17/19 Temazepam 15 mg PO QPM PRN 12/17/19 Timolol 0.5% Ophth Drops [Timoptic 0.5% Ophth Drops] 1 drops EACHEYE DAILY 12/17/19 Objective - Vital Signs/Intake & Output Reviewed Vital Signs: Yes Vital Signs: Vital Signs x48h Temp Pulse Resp BP Pulse Ox 01/20/20 07:56 36.6 C 76 20 142/77 H 96 Intake & Output: Intake & Output 01/17/20 01/18/20 01/19/2001/19/20 23:59 23:59 23:59 23:59 Intake Total 1959 910 Output Total 600 Balance 1959 910 -600 - Objective General Appearance: positive: No acute distress, Alert, Other (He is sitting in a chair comfortably dressed in his own clothes. He is watching TV.) - Lab Results Fish Bones: 01/20/20 08:08 01/20/20 08:08 Other Labs: Lab Results x24hrs 01/20/20 01/19/20 01/19/20 Range/Units 07:53 20:58 16:35 POC Whole Bld Glucose 151 H 140 H 169 H (70 - 100) mg/dL ABX Reporting Has patient been on IV antibiotics over the past 48 hours?: No Sepsis Event Note (H) - Evaluation Current Stage of Sepsis: Ruled out Assessment/Plan - Problem List (1) Delirium Impression: He does have occasional visual hallucinations and he believes he is at home. Work-up has been unremarkable to date. A CT of the head yesterday showed an old infarct in the right frontal lobe which may potentially be contributing to his current delirium. We discontinued his Haldol and Zyprexa yesterday and he has been cooperative with staff. This is likely delirium and not dementia as he was alert and oriented prior to this admission. We will continue to redirect him as needed. Avoid sedatives and benzodiazepines. Delirium precautions. Will avoid antipsychotics for the time being and monitor him. (2) COVID-19 Impression: He has been testing positive for the novel coronavirus for the past month. We will repeat the test today. [facility] infectious disease rec ommended repeating the PCR every few days until it is negative. (3) YING (acute kidney injury) Impression: Repeat labs today showed his creatinine is down to 1.4. This is improving. We will continue to encourage oral intake. Check labs every couple of days (4) BPH (benign prostatic hyperplasia) Impression: Stable. Continue Flomax. (5) DM type 2 (diabetes mellitus, type 2) Impression: We will start him on sliding scale if he is agreeable. Diet as tolerated. Qualifiers: Diabetes mellitus fci insulin use: without fci use Diabetes mellitus complication status: with ophthalmic complications Diabetes mellitus complication detail: with cataract Qualified Code(s): E11.36 - Type 2 diabetes mellitus with diabetic cataract (6) Hx of coronary artery disease Impression: Continue Plavix and statin. (7) History of CVA (cerebrovascular accident) Impression: CT yesterday showed old infarcts left basal ganglia and right frontal lobe. This may potentially be contributing to his delirium. Continue Plavix and Lipitor.
[2020-01-20 08:38] LABS: BASOPHILS # (AUTO) 0.1 10^3/uL (0.0-0.1); EOSINOPHILS # (AUTO) 0.3 10^3/uL (0.0-0.7); EOSINOPHILS % (AUTO) 3.5 %; HGB - HEMOGLOBIN 12.3 g/dL (14.0-18.0); LYMPHOCYTES # (AUTO) 1.7 10^3/uL (1.5-3.5); LYMPHOCYTES % (AUTO) 24.3 %; MEAN CORPUSCULAR HGB CONC 32.4 g/dL (32.0-36.0); MEAN CORPUSCULAR VOLUME 95.7 fL (80.0-94.0); MEAN PLATELET VOLUME 10.1 fL (7.4-11.4); MONOCYTES # (AUTO) 0.7 10^3/uL (0.0-1.0); MONOCYTES % (AUTO) 10.3 %; NEUTROPHILS # (AUTO) 4.3 10^3/uL (1.5-6.6); NEUTROPHILS % (AUTO) 60.3 %; PLT - PLATELET COUNT 226 10^3/uL (130-450); RED BLOOD COUNT 3.97 10^6/uL (4.70-6.10); RED CELL DISTRIBUTION WIDTH 14.8 % (12.0-15.0); WHITE BLOOD COUNT 7.1 x10^3/uL (4.8-10.8)
[2020-01-20 08:47] LABS: CALCIUM 10.1 mg/dL (8.5-10.3); CREATININE 1.4 mg/dL (0.6-1.2)
[2020-01-20] MEDS: PRENATAL VITAMIN TABLET PO SCH (09:18)
[2020-01-20] MEDS: SENNA 8.6 MG TABLET PO SCH (09:18)
[2020-01-20] MEDS: DOCUSATE SODIUM 250 MG CAPSULE PO SCH (09:18)
[2020-01-20] MEDS: CLOPIDOGREL 75 MG TABLET PO SCH (09:18)
[2020-01-20] MEDS: amLODIPine 5 MG TABLET PO SCH (09:18)
[2020-01-20] MEDS: FAMOTIDINE 20 MG TABLET PO SCH ×2 (09:19→21:19)
[2020-01-20] MEDS: CHOLECALCIFEROL 400 UNIT TABLET PO SCH (09:19)
[2020-01-20] MEDS: TAMSULOSIN 0.4 MG CAPSULE PO SCH ×2 (09:19→21:19)
[2020-01-20] MEDS: allopurinoL 100 MG TABLET PO SCH (09:19)
[2020-01-20] MEDS: hydrALAZINE 10 MG TABLET PO SCH ×2 (09:19→21:19)
[2020-01-20] MEDS: polyethylene glycoL 3350 17 GM PACKET PO SCH (09:19)
[2020-01-20] MEDS: METOPROLOL SUCCINATE 25 MG TABLET PO SCH (09:19)
[2020-01-20] MEDS: THIAMINE 100 MG TABLET PO SCH (09:19)
[2020-01-20] MEDS: INSULIN ASPART 300 UNIT/3 ML PEN SUBQ SCH ×2 (17:13→21:20)
[2020-01-20] MEDS: ATORVASTATIN 40 MG TABLET PO SCH (21:19)
--- NOTE | 2020-01-21 07:36 | PROVIDER PROGRESS NOTE ---
Subjective - Prog Note Date Prog Note Date: 01/21/20 - Subjective Subjective: Has no complaints today. Denies any dyspnea or chest pain. He thinks he is at [facility]. He thinks it is 1997. Current Medications - Current Medications Current Medications: Active Medications Acetaminophen (Tylenol) 650 mg PO Q4HR PRN PRN Reason: Pain or Fever > 38C (100.4F) Last Admin: 01/17/20 08:43 Dose: 650 mg Allopurinol (Zyloprim) 100 mg PO DAILY [facility] Last Admin: 01/21/20 12:01 Dose: 100 mg Amlodipine Besylate (Norvasc) 5 mg PO DAILY [facility] Last Admin: 01/21/20 12:00 Dose: 5 mg Atorvastatin Calcium (Lipitor) 40 mg PO QPM [facility] Last Admin: 01/20/20 21:19 Dose: 40 mg Benzonatate (Tessalon) 100 mg PO TID PRN PRN Reason: Cough Last Admin: 01/05/20 08:22 Dose: 100 mg Cholecalciferol (Vitamin D3) 800 unit PO DAILY [facility] Last Admin: 01/21/20 12:00 Dose: 800 unit Clopidogrel Bisulfate (Plavix) 75 mg PO DAILY [facility] Last Admin: 01/21/20 12:01 Dose: 75 mg Docusate Sodium (Colace 250mg Capsule) 250 - 500 mg PO DAILY [facility] Last Admin: 01/21/20 12:02 Dose: 250 mg Famotidine (Pepcid) 20 mg PO BID [facility] Last Admin: 01/21/20 12:01 Dose: 20 mg Hydralazine HCl (Apresoline) 10 mg PO BID [facility] Last Admin: 01/21/20 12:00 Dose: 10 mg Insulin Aspart (Novolog) 1 - 5 unit SUBQ 0800,1200,1700,2100 [facility]; Protocol Last Admin: 01/21/20 12:20 Dose: 1 unit Loperamide HCl (Imodium) 2 mg PO QID PRN PRN Reason: Diarrhea Metoprolol Succinate (Toprol Xl) 37.5 mg PO DAILY [facility] Last Admin: 01/21/20 12:01 Dose: 37.5 mg Mineral Oil (Cavilon) 1 applic TOP PRN PRN PRN Reason: Skin Care Last Admin: 12/24/19 00:49 Dose: 1 applic Polyethylene Glycol (Miralax) 17 gm PO DAILY [facility] Last Admin: 01/21/20 12:02 Dose: 17 gm Multivit/Folic Acid/Iron (Trinatal Rx 1) 1 tab PO DAILYWM [facility] Last Admin: 01/21/20 12:01 Dose: 1 tab Senna (Senokot) 8.6 - 17.2 mg PO DAILY [facility] Last Admin: 01/21/20 12:02 Dose: 8.6 mg Tamsulosin HCl (Flomax) 0.4 mg PO BID [facility] Last Admin: 01/21/20 12:01 Dose: 0.4 mg Thiamine HCl (Vitamin B-1) 100 mg PO DAILY [facility] Last Admin: 01/21/20 12:01 Dose: 100 mg allopurinoL [Allopurinol] 300 mg PO DAILY 10/12/16 Atorvastatin Calcium 40 mg PO QPM 12/17/19 Cholecalciferol (Vitamin D3) [Vitamin D] 2,000 unit PO DAILY 12/17/19 Clopidogrel [Plavix] 75 mg PO DAILY 12/17/19 Cyanocobalamin (Vitamin B-12) [Vitamin B-12 (1000 mcg sublingual)] 1,000 mcg PO DAILY 12/17/19 Docusate Sodium 300 mg PO DAILY PRN 12/17/19 Dorzolamide HCl 1 drops EACHEYE DAILY 12/17/19 Latanoprost 0.005% Ophth Drops [Xalatan Ophth Drops] 1 drops EACHEYE QPM Metoprolol Tartrate 50 mg PO BID 12/17/19 Oxybutynin [Ditropan] 2.5 mg PO BID 12/17/19 Pantoprazole [Protonix] 40 mg PO BIDAC 12/17/19 Sildenafil Citrate [Sildenafil] 20 - 100 mg PO DAILY PRN 12/17/19 Tamsulosin [Flomax] 0.4 mg PO QDDINNER 12/17/19 Temazepam 15 mg PO QPM PRN 12/17/19 Timolol 0.5% Ophth Drops [Timoptic 0.5% Ophth Drops] 1 drops EACHEYE DAILY 12/17/19 Objective - Vital Signs/Intake & Output Reviewed Vital Signs: Yes Intake & Output: Intake & Output 01/18/20 01/19/20 01/20/20 01/21/20 23:59 23:59 23:59 23:59 Intake Total 9739 030 2449 480 Output Total 600 Balance 1959 910 610 480 - Objective General Appearance: positive: Other (He is sitting comfortable in a chair eating a brownie while watching TV.) Respiratory: positive: No respiratory distress. negative: Wheezes, Rales Cardiovascular: positive: Regular rate & rhythm, No murmur. negative: Systolic murmur Extremities: positive: Pedal edema (He has about +2 to +3 pitting edema in the bilateral lower extremities.) Neurologic/Psychiatric: positive: Disoriented to place, Disoriented to time, Other (He has no focal motor deficits on exam.). negative: Disoriented to person, Slurred/abnml speech - Lab Results Fish Bones: 01/20/20 08:08 01/20/20 08:08 Other Labs: Lab Results x24hrs 01/20/20 01/20/20 01/20/20 Range/Units 21:20 16:43 11:28 WBC (4.8-10.8) x10^3/uL RBC (4.70-6.10) 10^6/uL Hgb (14.0-18.0) g/dL Hct (42.0-52.0) % MCV (80.0-94.0) fL MCH (27.0-31.0) pg MCHC (32.0-36.0) g/dL RDW (12.0-15.0) % Plt Count (130-450) 10^3/uL MPV (7.4-11.4) fL Neut # (Auto) (1.5-6.6) 10^3/uL Lymph # (Auto) (1.5-3.5) 10^3/uL [place] # (Auto) (0.0-1.0) 10^3/uL Eos # (Auto) (0.0-0.7) 10^3/uL Baso # (Auto) (0.0-0.1) 10^3/uL Absolute Nucleated RBC x10^3/uL Nucleated RBC % /100WBC Sodium (135-145) mmol/L Potassium (3.5-5.0) mmol/L Chloride (101-111) mmol/L Carbon Dioxide (21-32) mmol/L Anion Gap (6-13) BUN (6-20) mg/dL Creatinine (0.6-1.2) mg/dL Estimated GFR (MDRD) (>89) Glucose (70-100) mg/dL POC Whole Bld Glucose 148 H 142 H 112 H (70 - 100) mg/dL Calcium (8.5-10.3) mg/dL Coronavirus (PCR) 01/20/20 01/20/20 01/20/20 Range/Units 11:10 08:08 08:08 WBC 7.1 (4.8-10.8) x10^3/uL RBC 3.97 L (4.70-6.10) 10^6/uL Hgb 12.3 L (14.0-18.0) g/dL Hct 38.0 L (42.0-52.0) % MCV 95.7 H (80.0-94.0) fL MCH 31.0 (27.0-31.0) pg MCHC 32.4 (32.0-36.0) g/dL RDW 14.8 (12.0-15.0) % Plt Count 226 (130-450) 10^3/uL MPV 10.1 (7.4-11.4) fL Neut # (Auto) 4.3 (1.5-6.6) 10^3/uL Lymph # (Auto) 1.7 (1.5-3.5) 10^3/uL [place] # (Auto) 0.7 (0.0-1.0) 10^3/uL Eos # (Auto) 0.3 (0.0-0.7) 10^3/uL Baso # (Auto) 0.1 (0.0-0.1) 10^3/uL Absolute Nucleated RBC 0.00 x10^3/uL Nucleated RBC % 0.0 /100WBC Sodium 138 (135-145) mmol/L Potassium 4.8 (3.5-5.0) mmol/L Chloride 105 (101-111) mmol/L Carbon Dioxide 27 (21-32) mmol/L Anion Gap 6.0 (6-13) BUN 33 H (6-20) mg/dL Creatinine 1.4 H (0.6-1.2) mg/dL Estimated GFR (MDRD) 49 L (>89) Glucose 138 H (70-100) mg/dL POC Whole Bld Glucose (70 - 100) mg/dL Calcium 10.1 (8.5-10.3) mg/dL Coronavirus (PCR) POSITIVE 01/20/20 Range/Units 07:53 WBC (4.8-10.8) x10^3/uL RBC (4.70-6.10) 10^6/uL Hgb (14.0-18.0) g/dL Hct (42.0-52.0) % MCV (80.0-94.0) fL MCH (27.0-31.0) pg MCHC (32.0-36.0) g/dL RDW (12.0-15.0) % Plt Count (130-450) 10^3/uL MPV (7.4-11.4) fL Neut # (Auto) (1.5-6.6) 10^3/uL Lymph # (Auto) (1.5-3.5) 10^3/uL [place] # (Auto) (0.0-1.0) 10^3/uL Eos # (Auto) (0.0-0.7) 10^3/uL Baso # (Auto) (0.0-0.1) 10^3/uL Absolute Nucleated RBC x10^3/uL Nucleated RBC % /100WBC Sodium (135-145) mmol/L Potassium (3.5-5.0) mmol/L Chloride (101-111) mmol/L Carbon Dioxide (21-32) mmol/L Anion Gap (6-13) BUN (6-20) mg/dL Creatinine (0.6-1.2) mg/dL Estimated GFR (MDRD) (>89) Glucose (70-100) mg/dL POC Whole Bld Glucose 151 H (70 - 100) mg/dL Calcium (8.5-10.3) mg/dL Coronavirus (PCR) ABX Reporting Has patient been on IV antibiotics over the past 48 hours?: No Sepsis Event Note (H) - Evaluation Current Stage of Sepsis: Ruled out Assessment/Plan - Problem List (1) Delirium Impression: He remains delirious. CT head showed old infarct but no acute abnormalities. He is disoriented to location and time but is oriented to self and is familiar with his family. Is now been off of Haldol and Zyprexa for 48 hours. He was slightly agitated this morning when he wanted to go for a walk. He is redirectable and has not required any chemical or physical restraints. We will continue delirium precautions. (2) COVID-19 Impression: He was tested once again on 19 January and it is positive. We will recheck again in a few days. (3) YING (acute kidney injury) Impression: Screening was 1.4 and this is improving. Continue to encourage oral intake. We will check renal function every 3 days. (4) Lower extremity edema Impression: He does have lower extremity edema which is suspected to be secondary to amount of IV fluids he received for the acute kidney injury. He is not dyspneic and his lung sounds are clear. There is no hypoxia suspect heart failure. We will check a urinalysis to assess for proteinuria. Based on that, will consider obtaining urine protein and creatinine. Also consider renal ultrasound. I feel there is no benefit to an echocardiogram at this point given he is still positive for COVID-19 and there is low suspicion for heart failure at this time. His BNP was also normal on admission. (5) BPH (benign prostatic hyperplasia) Impression: Stable. Continue Flomax. (6) DM type 2 (diabetes mellitus, type 2) Impression: Continue sliding-scale and diet as tolerated. Qualifiers: Diabetes mellitus fdc insulin use: without intermodal dispatcher use Diabetes mellitus complication status: with ophthalmic complications Diabetes mellitus complication detail: with cataract Qualified Code(s): E11.36 - Type 2 diabetes mellitus with diabetic cataract
[2020-01-21] MEDS: INSULIN ASPART 300 UNIT/3 ML PEN SUBQ SCH ×4 (09:50→20:39)
[2020-01-21] MEDS: hydrALAZINE 10 MG TABLET PO SCH ×2 (12:00→20:38)
[2020-01-21] MEDS: amLODIPine 5 MG TABLET PO SCH (12:00)
[2020-01-21] MEDS: CHOLECALCIFEROL 400 UNIT TABLET PO SCH (12:00)
[2020-01-21] MEDS: allopurinoL 100 MG TABLET PO SCH (12:01)
[2020-01-21] MEDS: TAMSULOSIN 0.4 MG CAPSULE PO SCH ×2 (12:01→20:38)
[2020-01-21] MEDS: CLOPIDOGREL 75 MG TABLET PO SCH (12:01)
[2020-01-21] MEDS: PRENATAL VITAMIN TABLET PO SCH (12:01)
[2020-01-21] MEDS: FAMOTIDINE 20 MG TABLET PO SCH ×2 (12:01→20:38)
[2020-01-21] MEDS: THIAMINE 100 MG TABLET PO SCH (12:01)
[2020-01-21] MEDS: METOPROLOL SUCCINATE 25 MG TABLET PO SCH (12:01)
[2020-01-21] MEDS: polyethylene glycoL 3350 17 GM PACKET PO SCH (12:02)
[2020-01-21] MEDS: DOCUSATE SODIUM 250 MG CAPSULE PO SCH (12:02)
[2020-01-21] MEDS: SENNA 8.6 MG TABLET PO SCH (12:02)
[2020-01-21 17:18] LABS: BILIRUBIN,URINE NEGATIVE (NEGATIVE); GLUCOSE, URINE (UA) NEGATIVE (NEGATIVE); KETONES,URINE (UA) NEGATIVE (NEGATIVE); LEUKOCYTE ESTERASE, URINE NEGATIVE (NEGATIVE); NITRITE,URINE NEGATIVE (NEGATIVE); OCCULT BLOOD,URINE NEGATIVE (NEGATIVE); PROTEIN,URINE NEGATIVE (NEGATIVE); UROBILINOGEN,URINE 0.2 (NORMAL) E.U./dL (NORMAL)
[2020-01-21 17:26] LABS: BACTERIA,URINE None Seen /HPF (None Seen); CLARITY,URINE CLEAR (CLEAR); CRYSTALS,URINE 3-5 Calcium Oxalate /LPF; RBC,URINE None Seen /HPF (0-5); SQUAMOUS EPITHELIAL CELL,UR NONE SEEN (<= Few)
[2020-01-21] MEDS: LATANOPROST 0.005% OPHTH DROPS EACHEYE SCH (20:38)
[2020-01-21] MEDS: ATORVASTATIN 40 MG TABLET PO SCH (20:38)
--- NOTE | 2020-01-22 06:52 | PROVIDER PROGRESS NOTE ---
Subjective - Prog Note Date Prog Note Date: 01/22/20 - Subjective Subjective: He is seen at bedside walking around in his room. He states he feels well overall. He does complain of some left foot pain and swelling on the dorsum of his foot. He also states he feels occasionally short of breath but denies any pain. He states that able to walk without difficulty and the pain is not worse with movement. He believes he is at a residential facility but when I saw him he is a hospice as well I know that but I am in the room in a hospital where I am living. He thinks he is only been here for 3 days and that he recently moved rooms. Current Medications - Current Medications Current Medications: Active Medications Acetaminophen (Tylenol) 650 mg PO Q4HR PRN PRN Reason: Pain or Fever > 38C (100.4F) Last Admin: 01/17/20 08:43 Dose: 650 mg Allopurinol (Zyloprim) 100 mg PO DAILY [facility] Last Admin: 01/22/20 08:04 Dose: 100 mg Amlodipine Besylate (Norvasc) 5 mg PO DAILY [facility] Last Admin: 01/22/20 08:04 Dose: 5 mg Atorvastatin Calcium (Lipitor) 40 mg PO QPM [facility] Last Admin: 01/21/20 20:38 Dose: 40 mg Benzonatate (Tessalon) 100 mg PO TID PRN PRN Reason: Cough Last Admin: 01/05/20 08:22 Dose: 100 mg Cholecalciferol (Vitamin D3) 800 unit PO DAILY [facility] Last Admin: 01/22/20 08:05 Dose: 800 unit Clopidogrel Bisulfate (Plavix) 75 mg PO DAILY [facility] Last Admin: 01/22/20 08:04 Dose: 75 mg Docusate Sodium (Colace 250mg Capsule) 250 - 500 mg PO DAILY [facility] Last Admin: 01/22/20 08:04 Dose: 250 mg Dorzolamide HCl (Trusopt 2% Ophth Drops) 1 drops EACHEYE DAILY [facility] Last Admin: 01/22/20 10:13 Dose: 1 drops Famotidine (Pepcid) 20 mg PO BID [facility] Last Admin: 01/22/20 08:04 Dose: 20 mg Furosemide (Lasix) 40 mg PO DAILY [facility] Last Admin: 01/22/20 13:58 Dose: 40 mg Hydralazine HCl (Apresoline) 10 mg PO BID [facility] Last Admin: 01/22/20 08:04 Dose: 10 mg Insulin Aspart (Novolog) 1 - 5 unit SUBQ 0800,1200,1700,2100 [facility]; Protocol Last Admin: 01/22/20 11:21 Dose: Not Given Latanoprost (Xalatan Ophth Drops) 1 drops EACHEYE QPM [facility] Last Admin: 01/21/20 20:38 Dose: 1 drops Loperamide HCl (Imodium) 2 mg PO QID PRN PRN Reason: Diarrhea Metoprolol Succinate (Toprol Xl) 37.5 mg PO DAILY [facility] Last Admin: 01/22/20 08:04 Dose: 37.5 mg Mineral Oil (Cavilon) 1 applic TOP PRN PRN PRN Reason: Skin Care Last Admin: 12/24/19 00:49 Dose: 1 applic Polyethylene Glycol (Miralax) 17 gm PO DAILY [facility] Last Admin: 01/22/20 08:05 Dose: 17 gm Multivit/Folic Acid/Iron (Trinatal Rx 1) 1 tab PO DAILYWM [facility] Last Admin: 01/22/20 08:04 Dose: 1 tab Senna (Senokot) 8.6 - 17.2 mg PO DAILY [facility] Last Admin: 01/22/20 08:05 Dose: 8.6 mg Tamsulosin HCl (Flomax) 0.4 mg PO BID [facility] Last Admin: 01/22/20 08:04 Dose: 0.4 mg Thiamine HCl (Vitamin B-1) 100 mg PO DAILY [facility] Last Admin: 01/22/20 08:04 Dose: 100 mg Timolol Maleate (Timoptic 0.5% Ophth Drops) 1 drops EACHEYE BID [facility] Last Admin: 01/22/20 10:12 Dose: 1 drops allopurinoL [Allopurinol] 300 mg PO DAILY 10/12/16 Atorvastatin Calcium 40 mg PO QPM 12/17/19 Cholecalciferol (Vitamin D3) [Vitamin D] 2,000 unit PO DAILY 12/17/19 Clopidogrel [Plavix] 75 mg PO DAILY 12/17/19 Cyanocobalamin (Vitamin B-12) [Vitamin B-12 (1000 mcg sublingual)] 1,000 mcg PO DAILY 12/17/19 Docusate Sodium 300 mg PO DAILY PRN 12/17/19 Dorzolamide HCl 1 drops EACHEYE DAILY 12/17/19 Latanoprost 0.005% Ophth Drops [Xalatan Ophth Drops] 1 drops EACHEYE QPM 12/17/19 Metoprolol Tartrate 50 mg PO BID 12/17/19 Oxybutynin [Ditropan] 2.5 mg PO BID 12/17/19 Pantoprazole [Protonix] 40 mg PO BIDAC 12/17/19 Sildenafil Citrate [Sildenafil] 20 - 100 mg PO DAILY PRN 12/17/19 Tamsulosin [Flomax] 0.4 mg PO QDDINNER 12/17/19 Temazepam 15 mg PO QPM PRN 12/17/19 Timolol 0.5% Ophth Drops [Timoptic 0.5% Ophth Drops] 1 drops EACHEYE BID 12/17/19 Objective - Vital Signs/Intake & Output Reviewed Vital Signs: Yes Intake & Output: Intake & Output 01/19/20 01/20/20 01/21/20 01/22/20 23:59 23:59 23:59 23:59 Intake Total 910 1210 1930 240 Output Total 600 200 Balance 790 952 1342 240 - Objective General Appearance: positive: No acute distress, Alert Eyes Bilateral: positive: Normal inspection ENT: positive: ENT inspection nml Neck: positive: Nml inspection Respiratory: positive: No respiratory distress, Other (He is not tachypneic. Breath sounds are diminished in the bases. Occasional crackles. No rhonchi or wheezes) Cardiovascular: positive: Regular rate & rhythm, No murmur. negative: Tachycardia, Bradycardia, Systolic murmur, Diastolic murmur Extremities: positive: Pedal edema (He has about +2 to +3 pitting edema his bilateral lower extremities. It is more prominent in his left lower extremity pressure over the dorsum of his left foot. He reports slight tenderness with palpation. No erythema or warmth. Sensation is intact.) Neurologic/Psychiatric: positive: Other (He is oriented to self but not to location. He believes that the year is 2029. He thinks the month is December wh ich appears to be an improvement given today is January 21. No focal motor deficits.) - Lab Results Fish Bones: 01/20/20 08:08 01/20/20 08:08 Other Labs: Lab Results x24hrs 01/21/20 01/21/20 01/21/20 Range/Units 20:36 17:10 16:50 POC Whole Bld Glucose 143 H 159 H (70 - 100) mg/dL Urine Color YELLOW Urine Clarity CLEAR (CLEAR) Urine pH 6.0 (5.0-7.5) PH Ur Specific [place] 1.020 (1.002-1.030) Urine Protein NEGATIVE (NEGATIVE) mg/dL Urine Glucose (UA) NEGATIVE (NEGATIVE) mg/dL Urine Ketones NEGATIVE (NEGATIVE) mg/dL Urine Occult Blood NEGATIVE (NEGATIVE) Urine Nitrite NEGATIVE (NEGATIVE) Urine Bilirubin NEGATIVE (NEGATIVE) Urine Urobilinogen 0.2 (NORMAL) (NORMAL) E.U./dL Ur Leukocyte Esterase NEGATIVE (NEGATIVE) Urine RBC None Seen (0-5) /HPF Urine WBC 0-3 (0-3) /HPF Ur Squamous Epith Cells NONE SEEN (<= Few) Urine Crystals 3-5 Calcium Oxalate /LPF Urine Bacteria None Seen (None Seen) /HPF 01/21/20 Range/Units 11:55 POC Whole Bld Glucose 157 H (70 - 100) mg/dL Urine Color Urine Clarity (CLEAR) Urine pH (5.0-7.5) PH Ur Specific [place] (1.002-1.030) Urine Protein (NEGATIVE) mg/dL Urine Glucose (UA) (NEGATIVE) mg/dL Urine Ketones (NEGATIVE) mg/dL Urine Occult Blood (NEGATIVE) Urine Nitrite (NEGATIVE) Urine Bilirubin (NEGATIVE) Urine Urobilinogen (NORMAL) E.U./dL Ur Leukocyte Esterase (NEGATIVE) Urine RBC (0-5) /HPF Urine WBC (0-3) /HPF Ur Squamous Epith Cells (<= Few) Urine Crystals /LPF Urine Bacteria (None Seen) /HPF ABX Reporting Has patient been on IV antibiotics over the past 48 hours?: No Sepsis Event Note (H) - Evaluation Current Stage of Sepsis: Ruled out Assessment/Plan - Problem List (1) Persistent cognitive impairment Impression: He remains disoriented but it appears to be improving. He did recognize I was a physician today. He also stated a month is December which has been up until today. Nursing also feels that he became more familiar with them and is able to recall what staff has explained to him previously at times. We will perform a CAM ICU today to check for delirium. A CT the head was performed which showed an old infarct but no acute abnormalities. Prior work-up including labs has been unremarkable. It seems he has been improving since off of Zyprexa and Haldol. We will continue to hold his antipsychotics. Delirium precautions. Avoid maggie tives. Continue frequent re-orientation. (2) COVID-19 Impression: Continues to test positive for COVID-19 which is limiting our disposition options. We we will recheck this again over the weekend. He will need to a negative test before he is discharged unless he goes to [facility]. (3) Dyspnea Impression: He reports some dyspnea today. He is not hypoxic or tachypneic. Given his lower extremity edema, we will check a chest x-ray as well as a BNP. We will start him on oral Lasix as he has no IV access at this time. If his chest x-ray suggestive of pulmonary edema, then we will discuss with the patient about p lacing IV access. (4) Lower extremity edema Impression: Continues to have lower extremity edema and is complaining of left foot pain. This is likely related to his edema as his exam is unremarkable. Do not suspect heart failure at this time but given his dyspnea, will check BNP. Will also obtain lower extremity Dopplers given his left lower extremity is more edematous than his right lower extremity. Urinalysis did not reveal any proteinuria so doubt that this is nephrotic syndrome. Start him on oral Lasix given the edema. (5) YING (acute kidney injury) Impression: His last creatinine was 1.4. We will recheck labs tomorrow morning. (6) Left foot pain Impression: This is likely related to his lower extremity edema. Exam is unremarkable and do not suspect there is a need for x-ray at this time. He also declined pain medication. We will obtain Dopplers given his edema to evaluate for DVT. (7) BPH (benign prostatic hyperplasia) Impression: Stable. Continue Flomax. (8) DM type 2 (diabetes mellitus, type 2) Impression: Stable. Continue sliding scale and diet as tolerated. Qualifiers: Diabetes mellitus lobsterman insulin use: without fci use Diabetes mellitus complication status: with ophthalmic complications Diabetes mellitus complication detail: with cataract Qualified Code(s): E11.36 - Type 2 diabetes mellitus with diabetic cataract (9) Hx of coronary artery disease Impression: Stable. Continue Plavix and statin. (10) History of CVA (cerebrovascular accident) Impression: CT was admission showed an old left basal ganglia infarct and right frontal lobe infarct. Continue Plavix and Lipitor. No focal deficits on exam.
[2020-01-22] MEDS: INSULIN ASPART 300 UNIT/3 ML PEN SUBQ SCH ×4 (07:39→20:37)
[2020-01-22] MEDS: allopurinoL 100 MG TABLET PO SCH (08:04)
[2020-01-22] MEDS: hydrALAZINE 10 MG TABLET PO SCH ×2 (08:04→20:31)
[2020-01-22] MEDS: amLODIPine 5 MG TABLET PO SCH (08:04)
[2020-01-22] MEDS: TAMSULOSIN 0.4 MG CAPSULE PO SCH ×2 (08:04→20:32)
[2020-01-22] MEDS: PRENATAL VITAMIN TABLET PO SCH (08:04)
[2020-01-22] MEDS: CLOPIDOGREL 75 MG TABLET PO SCH (08:04)
[2020-01-22] MEDS: METOPROLOL SUCCINATE 25 MG TABLET PO SCH (08:04)
[2020-01-22] MEDS: FAMOTIDINE 20 MG TABLET PO SCH ×2 (08:04→20:31)
[2020-01-22] MEDS: THIAMINE 100 MG TABLET PO SCH (08:04)
[2020-01-22] MEDS: DOCUSATE SODIUM 250 MG CAPSULE PO SCH (08:04)
[2020-01-22] MEDS: SENNA 8.6 MG TABLET PO SCH (08:05)
[2020-01-22] MEDS: CHOLECALCIFEROL 400 UNIT TABLET PO SCH (08:05)
[2020-01-22] MEDS: polyethylene glycoL 3350 17 GM PACKET PO SCH (08:05)
[2020-01-22] MEDS: timoloL maleate 0.5% OPHTH DROPS (10ML) EACHEYE SCH ×2 (10:12→20:32)
[2020-01-22] MEDS: DORZOLAMIDE 2% OPHTH DROPS EACHEYE SCH (10:13)
[2020-01-22] MEDS: FUROSEMIDE 40 MG TABLET PO SCH (13:58)
--- NOTE | 2020-01-22 16:02 | XRAY Report ---
Reason: Dyspnea. Lower extremity edema. Procedure Date: 01/22/2020 Accession Number: [id number] / [id number] Procedure: XR - Chest 1 View X-Ray CPT Code: 96507 Final Report FULL RESULT: EXAM: CHEST RADIOGRAPHY EXAM DATE: 01/22/2020 02:04 PM. CLINICAL HISTORY: Dyspnea. Lower extremity edema. COMPARISON: CHEST 1 VIEW 12/26/2019 7:51 AM. TECHNIQUE: 1 view. FINDINGS: Lungs/Pleura: Patchy opacities throughout both lungs redemonstrated and similar to the prior examination. Mediastinum: Within exam limitations, the cardiomediastinal contour is normal. Other: None. IMPRESSION: Diffuse bilateral patchy opacities throughout both lungs redemonstrated and similar to the prior examination. RADIA
[2020-01-22] MEDS: ATORVASTATIN 40 MG TABLET PO SCH (20:31)
[2020-01-22] MEDS: LATANOPROST 0.005% OPHTH DROPS EACHEYE SCH (20:31)
--- NOTE | 2020-01-22 21:15 | Ultrasound Report ---
Reason: Lower extremity edema. Procedure Date: 01/22/2020 Accession Number: [id number] / [id number] Procedure: US - Duplex Ext Veins Bilateral CPT Code: Final Report FULL RESULT: EXAM: BILATERAL LOWER EXTREMITY VENOUS ULTRASOUND EXAM DATE: 01/22/2020 08:09 PM. CLINICAL HISTORY: Lower extremity edema. COMPARISON: None. TECHNIQUE: Real-time sonographic vascular imaging was performed by the apartment assistant manager through the lower extremities utilizing both color-flow and Doppler spectral analysis. Multiple field representatives director static images were saved for review. FINDINGS: Right: Common Femoral Vein (CFV): Normal. CFV-GSV Junction: Normal. Profunda Femoral Vein (PFV): Normal. Femoral Vein (FV) Prox: Normal. Femoral Vein (FV) Mid: Normal. Femoral Vein (FV) Dist: Normal. Popliteal Vein: Normal. Posterior Tibial Veins: Normal. Peroneal Veins: Normal. Left: Common Femoral Vein (CFV): Normal. CFV-GSV Junction: Normal. Profunda Femoral Vein (PFV): Normal. Femoral Vein (FV) Prox: Normal. Femoral Vein (FV) Mid: Normal. Femoral Vein (FV) Dist: Normal. Popliteal Vein: Normal. Posterior Tibial Veins: Normal. Peroneal Veins: Normal. Other: None. IMPRESSION: No evidence for deep venous thrombosis bilaterally. RADIA
[2020-01-23] MEDS: INSULIN ASPART 300 UNIT/3 ML PEN SUBQ SCH ×4 (08:30→21:18)
[2020-01-23] MEDS: allopurinoL 100 MG TABLET PO SCH (08:33)
[2020-01-23] MEDS: PRENATAL VITAMIN TABLET PO SCH (08:33)
[2020-01-23] MEDS: amLODIPine 5 MG TABLET PO SCH (08:34)
[2020-01-23] MEDS: CHOLECALCIFEROL 400 UNIT TABLET PO SCH (08:34)
[2020-01-23] MEDS: FAMOTIDINE 20 MG TABLET PO SCH ×2 (08:36→21:17)
[2020-01-23] MEDS: CLOPIDOGREL 75 MG TABLET PO SCH (08:36)
[2020-01-23] MEDS: THIAMINE 100 MG TABLET PO SCH (08:36)
[2020-01-23] MEDS: TAMSULOSIN 0.4 MG CAPSULE PO SCH ×2 (08:36→21:17)
[2020-01-23] MEDS: hydrALAZINE 10 MG TABLET PO SCH ×2 (08:38→21:18)
[2020-01-23] MEDS: DOCUSATE SODIUM 250 MG CAPSULE PO SCH (08:38)
[2020-01-23] MEDS: SENNA 8.6 MG TABLET PO SCH (08:38)
[2020-01-23] MEDS: FUROSEMIDE 40 MG TABLET PO SCH (08:38)
[2020-01-23] MEDS: METOPROLOL SUCCINATE 25 MG TABLET PO SCH (08:39)
[2020-01-23] MEDS: polyethylene glycoL 3350 17 GM PACKET PO SCH (08:41)
[2020-01-23] MEDS: timoloL maleate 0.5% OPHTH DROPS (10ML) EACHEYE SCH ×2 (08:44→21:21)
[2020-01-23] MEDS: DORZOLAMIDE 2% OPHTH DROPS EACHEYE SCH (08:45)
--- NOTE | 2020-01-23 11:56 | PROVIDER PROGRESS NOTE ---
Subjective - Prog Note Date Prog Note Date: 01/23/20 - Subjective Subjective: Reports feeling well today. Denies any dyspnea. Still complains of some left leg pain and swelling. He was able to tell me that he is at a neuro hospital due to a virus. He believes he has been here for a few months. Current Medications - Current Medications Current Medications: Active Medications Acetaminophen (Tylenol) 650 mg PO Q4HR PRN PRN Reason: Pain or Fever > 38C (100.4F) Last Admin: 01/17/20 08:43 Dose: 650 mg Allopurinol (Zyloprim) 100 mg PO DAILY [facility] Last Admin: 01/23/20 08:33 Dose: 100 mg Amlodipine Besylate (Norvasc) 5 mg PO DAILY [facility] Last Admin: 01/23/20 08:34 Dose: 5 mg Atorvastatin Calcium (Lipitor) 40 mg PO QPM [facility] Last Admin: 01/22/20 20:31 Dose: 40 mg Benzonatate (Tessalon) 100 mg PO TID PRN PRN Reason: Cough Last Admin: 01/05/20 08:22 Dose: 100 mg Cholecalciferol (Vitamin D3) 800 unit PO DAILY [facility] Last Admin: 01/23/20 08:34 Dose: 800 unit Clopidogrel Bisulfate (Plavix) 75 mg PO DAILY [facility] Last Admin: 01/23/20 08:36 Dose: 75 mg Docusate Sodium (Colace 250mg Capsule) 250 - 500 mg PO DAILY [facility] Last Admin: 01/23/20 08:38 Dose: 250 mg Dorzolamide HCl (Trusopt 2% Ophth Drops) 1 drops EACHEYE DAILY [facility] Last Admin: 01/23/20 08:45 Dose: 1 drops Famotidine (Pepcid) 20 mg PO BID [facility] Last Admin: 01/23/20 08:36 Dose: 20 mg Furosemide (Lasix) 40 mg PO DAILY [facility] Last Admin: 01/23/20 08:38 Dose: 40 mg Hydralazine HCl (Apresoline) 10 mg PO BID [facility] Last Admin: 01/23/20 08:38 Dose: 10 mg Insulin Aspart (Novolog) 1 - 5 unit SUBQ 0800,1200,1700,2100 [facility]; Protocol Last Admin: 01/23/20 11:26 Dose: Not Given Latanoprost (Xalatan Ophth Drops) 1 drops EACHEYE QPM [facility] Last Admin: 01/22/20 20:31 Dose: 1 drops Loperamide HCl (Imodium) 2 mg PO QID PRN PRN Reason: Diarrhea Metoprolol Succinate (Toprol Xl) 37.5 mg PO DAILY [facility] Last Admin: 01/23/20 08:39 Dose: 37.5 mg Mineral Oil (Cavilon) 1 applic TOP PRN PRN PRN Reason: Skin Care Last Admin: 12/24/19 00:49 Dose: 1 applic Polyethylene Glycol (Miralax) 17 gm PO DAILY [facility] Last Admin: 01/23/20 08:41 Dose: 17 gm Multivit/Folic Acid/Iron (Trinatal Rx 1) 1 tab PO DAILYWM [facility] Last Admin: 01/23/20 08:33 Dose: 1 tab Senna (Senokot) 8.6 - 17.2 mg PO DAILY [facility] Last Admin: 01/23/20 08:38 Dose: 8.6 mg Tamsulosin HCl (Flomax) 0.4 mg PO BID [facility] Last Admin: 01/23/20 08:36 Dose: 0.4 mg Thiamine HCl (Vitamin B-1) 100 mg PO DAILY [facility] Last Admin: 01/23/20 08:36 Dose: 100 mg Timolol Maleate (Timoptic 0.5% Ophth Drops) 1 drops EACHEYE BID [facility] Last Admin: 01/23/20 08:44 Dose: 1 drops allopurinoL [Allopurinol] 300 mg PO DAILY 10/12/16 Atorvastatin Calcium 40 mg PO QPM 12/17/19 Cholecalciferol (Vitamin D3) [Vitamin D] 2,000 unit PO DAILY 12/17/19 Clopidogrel [Plavix] 75 mg PO DAILY 12/17/19 Cyanocobalamin (Vitamin B-12) [Vitamin B-12 (1000 mcg sublingual)] 1,000 mcg PO DAILY 12/17/19 Docusate Sodium 300 mg PO DAILY PRN 12/17/19 Dorzolamide HCl 1 drops EACHEYE DAILY 12/17/19 Latanoprost 0.005% Ophth Drops [Xalatan Ophth Drops] 1 drops EACHEYE QPM Metoprolol Tartrate 50 mg PO BID 12/17/19 Oxybutynin [Ditropan] 2.5 mg PO BID 12/17/19 Pantoprazole [Protonix] 40 mg PO BIDAC 12/17/19 Sildenafil Citrate [Sildenafil] 20 - 100 mg PO DAILY PRN 12/17/19 Tamsulosin [Flomax] 0.4 mg PO QDDINNER 12/17/19 Temazepam 15 mg PO QPM PRN 12/17/19 Timolol 0.5% Ophth Drops [Timoptic 0.5% Ophth Drops] 1 drops EACHEYE BID 12/17/19 Objective - Vital Signs/Intake & Output Reviewed Vital Signs: Yes Vital Signs: Vital Signs x48h Temp Pulse Resp BP Pulse Ox 01/23/20 07:50 36.6 C 70 18 118/92 H 95 Intake & Output: Intake & Output 01/20/20 01/21/20 01/22/20 01/23/20 23:59 23:59 23:59 23:59 Intake Total 1210 1930 1200 Output Total 600 200 Balance 610 1730 1200 - Objective General Appearance: positive: No acute distress, Alert Eyes Bilateral: positive: Normal inspection ENT: positive: ENT inspection nml Neck: positive: Nml inspection Skin: positive: Other (There is an area of erythema over the anterior left tibia that is warm to touch. No tenderness.) Extremities: positive: Pedal edema (He has +3 pitting edema in his bilateral lower extremities.) Neurologic/Psychiatric: positive: Other (He is oriented to self. He believes he is at a neuro hospital. He was able to tell me it was 2019 and the month was December. He quickly corrected himself and said it was January. When asked what day it was he said it was the first but then he said it was the second. He was able to tell me his daughter's phone number and where he lives in [place], [place].) - Lab Results Fish Bones: 01/23/20 12:39 01/23/20 12:39 Other Labs: Lab Results x24hrs 01/23/20 01/23/20 01/22/20 Range/Units 11:19 07:50 20:36 POC Whole Bld Glucose 121 H 145 H 153 H (70 - 100) mg/dL 01/22/20 01/22/20 Range/Units 16:35 16:06 POC Whole Bld Glucose 162 H 155 H (70 - 100) mg/dL ABX Reporting Has patient been on IV antibiotics over the past 48 hours?: No Sepsis Event Note (H) - Evaluation Current Stage of Sepsis: Ruled out Assessment/Plan - Problem List (1) Persistent cognitive impairment Impression: Continue to show signs of improvement on a daily basis. He is now oriented to self, year, month. He still intermittently confused but overall has shown significant improvement.. CAM ICU was performed yesterday and this was negative. CT the head performed a few days ago showed no acute abnormalities but evidence of an old infarct which may potentially be contributing to his current neurologic status. He remains off of Zyprexa and Haldol and has been cooperative with staff. Continue delirium precautions and avoiding sedatives. (2) COVID-19 Impression: We will retest him again today. If this is once again positive, he will need retesting the following Saturday. (3) Cellulitis of left anterior lower leg Impression: There is an area of erythema over the anterior tibia of the left leg which is consistent with cellulitis. We will start him on oral Keflex. If there is no improvement we will consider IV antibiotics and checking CBC and CRP. (4) Dyspnea Impression: Complained of some dyspnea yesterday and fortunately is not hypoxic nor tachypneic. A repeat chest x-ray was unchanged compared to 1 month ago and showed bilateral opacities. This could reflect disease from his COVID-19 infection of this could potentially be heart failure as well given his lower extremity edema. Repeat BNP is normal. We will continue with oral diuretics. (5) Lower extremity edema Impression: Duplex was negative for DVT. Suspect is likely secondary to the amount of IV fl uids he received for his acute kidney injury. BMP is now mostly not suspect there is a component of heart failure. Continue with oral diuresis. (6) YING (acute kidney injury) Impression: Creatinine slightly increased today to 1.7. This may potentially be his new baseline. I did review his old labs and his creatinine 2 years ago was 1.6. (7) Left foot pain Impression: Dopplers were negative for DVT. He does have an area of erythema which is consistent with cellulitis. We will start him on oral antibiotics. (8) BPH (benign prostatic hyperplasia) Impression: Stable. Continue Flomax. (9) DM type 2 (diabetes mellitus, type 2) Impression: His blood glucose has ranged from 120-160s. Continue diet as tolerated and sliding scale Qualifiers: Diabetes mellitus longterm insulin use: without rn long term care use Diabetes mellitus complication status: with ophthalmic complications Diabetes mellitus complication detail: with cataract Qualified Code(s): E11.36 - Type 2 diabetes mellitus with diabetic cataract (10) Hx of coronary artery disease Impression: Stable. Continue Plavix and Lipitor. (11) History of CVA (cerebrovascular accident) Impression: CT this admission showed old infarct. Continue Plavix and Lipitor.
[2020-01-23 13:05] LABS: BASOPHILS # (AUTO) 0.1 10^3/uL (0.0-0.1); BASOPHILS % (AUTO) 0.8 %; EOSINOPHILS # (AUTO) 0.3 10^3/uL (0.0-0.7); EOSINOPHILS % (AUTO) 4.8 %; HGB - HEMOGLOBIN 12.1 g/dL (14.0-18.0); LYMPHOCYTES # (AUTO) 1.8 10^3/uL (1.5-3.5); LYMPHOCYTES % (AUTO) 27.6 %; MEAN CORPUSCULAR HEMOGLOBIN 30.9 pg (27.0-31.0); MEAN CORPUSCULAR HGB CONC 32.3 g/dL (32.0-36.0); MEAN CORPUSCULAR VOLUME 95.9 fL (80.0-94.0); MEAN PLATELET VOLUME 10.1 fL (7.4-11.4); MONOCYTES # (AUTO) 0.7 10^3/uL (0.0-1.0); MONOCYTES % (AUTO) 10.2 %; NEUTROPHILS # (AUTO) 3.7 10^3/uL (1.5-6.6); NEUTROPHILS % (AUTO) 56.3 %; PLT - PLATELET COUNT 216 10^3/uL (130-450); RED BLOOD COUNT 3.91 10^6/uL (4.70-6.10); RED CELL DISTRIBUTION WIDTH 14.9 % (12.0-15.0); WHITE BLOOD COUNT 6.6 x10^3/uL (4.8-10.8)
[2020-01-23 13:12] LABS: CALCIUM 9.9 mg/dL (8.5-10.3); CREATININE 1.7 mg/dL (0.6-1.2)
[2020-01-23] MEDS: cephALEXin 250 MG CAPSULE PO SCH ×2 (18:53→23:50)
[2020-01-23] MEDS: ATORVASTATIN 40 MG TABLET PO SCH (21:17)
[2020-01-23] MEDS: LATANOPROST 0.005% OPHTH DROPS EACHEYE SCH (21:21)
[2020-01-24] MEDS: cephALEXin 250 MG CAPSULE PO SCH ×3 (06:02→17:19)
--- NOTE | 2020-01-24 08:01 | PROVIDER PROGRESS NOTE ---
Subjective - Prog Note Date Prog Note Date: 01/24/20 - Subjective Subjective: When I walked in the room, he said "Hey it's the doctor." He could not remember my name. He reports feeling well. He knows it is 2019. He said the month was December initially and then correct himself that it was January. He said the day was either January 23 or . He knew is at a hospital but not which hospital. Reports no dyspnea. He feels his lower extremity swelling is improving. He still has some redness over his left lower extremity. Current Medications - Current Medications Current Medications: Active Medications Acetaminophen (Tylenol) 650 mg PO Q4HR PRN PRN Reason: Pain or Fever > 38C (100.4F) Last Admin: 01/17/20 08:43 Dose: 650 mg Allopurinol (Zyloprim) 100 mg PO DAILY [facility] Last Admin: 01/24/20 08:34 Dose: 100 mg Amlodipine Besylate (Norvasc) 5 mg PO DAILY [facility] Last Admin: 01/24/20 08:35 Dose: 5 mg Atorvastatin Calcium (Lipitor) 40 mg PO QPM [facility] Last Admin: 01/23/20 21:17 Dose: 40 mg Benzonatate (Tessalon) 100 mg PO TID PRN PRN Reason: Cough Last Admin: 01/05/20 08:22 Dose: 100 mg Cephalexin (Keflex) 500 mg PO Q6HR [facility] Last Admin: 01/24/20 11:59 Dose: 500 mg Cholecalciferol (Vitamin D3) 800 unit PO DAILY [facility] Last Admin: 01/24/20 08:35 Dose: 800 unit Clopidogrel Bisulfate (Plavix) 75 mg PO DAILY [facility] Last Admin: 01/24/20 08:35 Dose: 75 mg Docusate Sodium (Colace 250mg Capsule) 250 - 500 mg PO DAILY [facility] Last Admin: 01/24/20 08:33 Dose: 250 mg Dorzolamide HCl (Trusopt 2% Ophth Drops) 1 drops EACHEYE DAILY [facility] Last Admin: 01/24/20 08:38 Dose: 1 drops Famotidine (Pepcid) 20 mg PO BID [facility] Last Admin: 01/24/20 08:37 Dose: 20 mg Furosemide (Lasix) 40 mg PO DAILY [facility] Last Admin: 01/24/20 08:35 Dose: 40 mg Hydralazine HCl (Apresoline) 10 mg PO BID [facility] Last Admin: 01/24/20 08:34 Dose: 10 mg Insulin Aspart (Novolog) 1 - 5 unit SUBQ 0800,1200,1700,2100 [facility]; Protocol Last Admin: 01/24/20 11:59 Dose: Not Given Latanoprost (Xalatan Ophth Drops) 1 drops EACHEYE QPM [facility] Last Admin: 01/23/20 21:21 Dose: 1 drops Loperamide HCl (Imodium) 2 mg PO QID PRN PRN Reason: Diarrhea Metoprolol Succinate (Toprol Xl) 37.5 mg PO DAILY [facility] Last Admin: 01/24/20 08:34 Dose: 37.5 mg Mineral Oil (Cavilon) 1 applic TOP PRN PRN PRN Reason: Skin Care Last Admin: 12/24/19 00:49 Dose: 1 applic Polyethylene Glycol (Miralax) 17 gm PO DAILY [facility] Last Admin: 01/24/20 08:37 Dose: 17 gm Multivit/Folic Acid/Iron (Trinatal Rx 1) 1 tab PO DAILYWM [facility] Last Admin: 01/24/20 08:53 Dose: 1 tab Senna (Senokot) 8.6 - 17.2 mg PO DAILY [facility] Last Admin: 01/24/20 08:33 Dose: 8.6 mg Tamsulosin HCl (Flomax) 0.4 mg PO BID [facility] Last Admin: 01/24/20 08:34 Dose: 0.4 mg Thiamine HCl (Vitamin B-1) 100 mg PO DAILY [facility] Last Admin: 01/24/20 08:37 Dose: 100 mg Timolol Maleate (Timoptic 0.5% Ophth Drops) 1 drops EACHEYE BID [facility] Last Admin: 01/24/20 08:38 Dose: 1 drops allopurinoL [Allopurinol] 300 mg PO DAILY 10/12/16 Atorvastatin Calcium 40 mg PO QPM 12/17/19 Cholecalciferol (Vitamin D3) [Vitamin D] 2,000 unit PO DAILY 12/17/19 Clopidogrel [Plavix] 75 mg PO DAILY 12/17/19 Cyanocobalamin (Vitamin B-12) [Vitamin B-12 (1000 mcg sublingual)] 1,000 mcg PO DAILY 12/17/19 Docusate Sodium 300 mg PO DAILY PRN 12/17/19 Dorzolamide HCl 1 drops EACHEYE DAILY 12/17/19 Latanoprost 0.005% Ophth Drops [Xalatan Ophth Drops] 1 drops EACHEYE QPM 0 12/17/19 Metoprolol Tartrate 50 mg PO BID 12/17/19 Oxybutynin [Ditropan] 2.5 mg PO BID 12/17/19 Pantoprazole [Protonix] 40 mg PO BIDAC 12/17/19 Sildenafil Citrate [Sildenafil] 20 - 100 mg PO DAILY PRN 12/17/19 Tamsulosin [Flomax] 0.4 mg PO QDDINNER 12/17/19 Temazepam 15 mg PO QPM PRN 12/17/19 Timolol 0.5% Ophth Drops [Timoptic 0.5% Ophth Drops] 1 drops EACHEYE BID 12/17/19 Objective - Vital Signs/Intake & Output Reviewed Vital Signs: Yes Intake & Output: Intake & Output 01/21/20 01/22/20 01/23/20 01/24/20 23:59 23:59 23:59 23:59 Intake Total 1930 1200 980 220 Output Total 200 Balance 1730 1200 980 220 - Objective General Appearance: positive: No acute distress, Alert Eyes Bilateral: positive: Normal inspection ENT: positive: ENT inspection nml Neck: positive: Nml inspection Respiratory: positive: No respiratory distress Skin: positive: Warm, Dry, Other (The area of erythema over his left anterior tibia appears slightly decreased in size compared to yesterday. Is still warm to touch. Mildly tender to palpation.) Extremities: positive: Pedal edema (He has +2 to +3 pitting edema in his bilateral lower extremities that is slightly more prominent in his left lower extremity) Neurologic/Psychiatric: positive: Other (He is oriented to self and he knows he is in the hospital. He knows the year is 2019.) - Lab Results Fish Bones: 01/23/20 12:39 01/23/20 12:39 Other Labs: Lab Results x24hrs 01/24/20 01/23/20 01/23/20 Range/Units 07:54 20:37 16:46 WBC (4.8-10.8) x10^3/uL RBC (4.70-6.10) 10^6/uL Hgb (14.0-18.0) g/dL Hct (42.0-52.0) % MCV (80.0-94.0) fL MCH (27.0-31.0) pg MCHC (32.0-36.0) g/dL RDW (12.0-15.0) % Plt Count (130-450) 10^3/uL MPV (7.4-11.4) fL Neut # (Auto) (1.5-6.6) 10^3/uL Lymph # (Auto) (1.5-3.5) 10^3/uL [place] # (Auto) (0.0-1.0) 10^3/uL Eos # (Auto) (0.0-0.7) 10^3/uL Baso # (Auto) (0.0-0.1) 10^3/uL Absolute Nucleated RBC x10^3/uL Nucleated RBC % /100WBC Sodium (135-145) mmol/L Potassium (3.5-5.0) mmol/L Chloride (101-111) mmol/L Carbon Dioxide (21-32) mmol/L Anion Gap (6-13) BUN (6-20) mg/dL Creatinine (0.6-1.2) mg/dL Estimated GFR (MDRD) (>89) Glucose (70-100) mg/dL POC Whole Bld Glucose 153 H 132 H 173 H (70 - 100) mg/dL Calcium (8.5-10.3) mg/dL B-Natriuretic Peptide (5-100) pg/mL 01/23/20 01/23/20 01/23/20 Range/Units 12:39 12:39 12:39 WBC 6.6 (4.8-10.8) x10^3/uL RBC 3.91 L (4.70-6.10) 10^6/uL Hgb 12.1 L (14.0-18.0) g/dL Hct 37.5 L (42.0-52.0) % MCV 95.9 H (80.0-94.0) fL MCH 30.9 (27.0-31.0) pg MCHC 32.3 (32.0-36.0) g/dL RDW 14.9 (12.0-15.0) % Plt Count 216 (130-450) 10^3/uL MPV 10.1 (7.4-11.4) fL Neut # (Auto) 3.7 (1.5-6.6) 10^3/uL Lymph # (Auto) 1.8 (1.5-3.5) 10^3/uL [place] # (Auto) 0.7 (0.0-1.0) 10^3/uL Eos # (Auto) 0.3 (0.0-0.7) 10^3/uL Baso # (Auto) 0.1 (0.0-0.1) 10^3/uL Absolute Nucleated RBC 0.00 x10^3/uL Nucleated RBC % 0.0 /100WBC Sodium 135 (135-145) mmol/L Potassium 4.5 (3.5-5.0) mmol/L Chloride 100 L (101-111) mmol/L Carbon Dioxide 25 (21-32) mmol/L Anion Gap 10.0 (6-13) BUN 45 H (6-20) mg/dL Creatinine 1.7 H (0.6-1.2) mg/dL Estimated GFR (MDRD) 39 L (>89) Glucose 189 H (70-100) mg/dL POC Whole Bld Glucose (70 - 100) mg/dL Calcium 9.9 (8.5-10.3) mg/dL B-Natriuretic Peptide 64 (5-100) pg/mL 01/23/20 Range/Units 11:19 WBC (4.8-10.8) x10^3/uL RBC (4.70-6.10) 10^6/uL Hgb (14.0-18.0) g/dL Hct (42.0-52.0) % MCV (80.0-94.0) fL MCH (27.0-31.0) pg MCHC (32.0-36.0) g/dL RDW (12.0-15.0) % Plt Count (130-450) 10^3/uL MPV (7.4-11.4) fL Neut # (Auto) (1.5-6.6) 10^3/uL Lymph # (Auto) (1.5-3.5) 10^3/uL [place] # (Auto) (0.0-1.0) 10^3/uL Eos # (Auto) (0.0-0.7) 10^3/uL Baso # (Auto) (0.0-0.1) 10^3/uL Absolute Nucleated RBC x10^3/uL Nucleated RBC % /100WBC Sodium (135-145) mmol/L Potassium (3.5-5.0) mmol/L Chloride (101-111) mmol/L Carbon Dioxide (21-32) mmol/L Anion Gap (6-13) BUN (6-20) mg/dL Creatinine (0.6-1.2) mg/dL Estimated GFR (MDRD) (>89) Glucose (70-100) mg/dL POC Whole Bld Glucose 121 H (70 - 100) mg/dL Calcium (8.5-10.3) mg/dL B-Natriuretic Peptide (5-100) pg/mL ABX Reporting Has patient been on IV antibiotics over the past 48 hours?: No Sepsis Event Note (H) - Evaluation Current Stage of Sepsis: Ruled out Assessment/Plan - Problem List (1) Persistent cognitive impairment Impression: Continues to show signs of improvement on a daily basis. [facility] ICU was negative for delirium. CT the head showed old infarct. He would likely benefit from re turning to his home environment. This could potentially be his new baseline. Continue to hold antipsychotics. Frequent reorientation. Delirium precautions. (2) COVID-19 Impression: This was ordered yesterday and is pending. (3) Cellulitis of left anterior lower leg Impression: This appears slightly improved compared to yesterday. He has no white count or fever. We will continue with Keflex and today is day 2. If the erythema becomes more prominent then we will consider broadening antibiotics to cover for MRSA. (4) Lower extremity edema Impression: This is a given amount of IV fluids he received for presumed acute kidney injury. Dopplers are negative for DVT. BNP is normal so no wheezes heart failure. We will continue with oral diuresis. (5) YING (acute kidney injury) Impression: This is likely CKD given his renal function has been stable over the past month. We will continue to check his renal function every few days. (6) Left foot pain Impression: Likely secondary to his lower extremity edema. He is nontender on exam and low suspicion for fracture and therefore do not feel that imaging is necessary. He has also declined Tylenol for pain. (7) BPH (benign prostatic hyperplasia) Impression: Continue Flomax. (8) DM type 2 (diabetes mellitus, type 2) Impression: Continue with sliding scale and regular diet as patient prefers more meal options Qualifiers: Diabetes mellitus usp insulin use: without termite treater use Diabetes mellitus complication status: with ophthalmic complications Diabetes mellitus complication detail: with cataract Qualified Code(s): E11.36 - Type 2 diabetes mellitus with diabetic cataract (9) Hx of coronary artery disease Impression: Continue Plavix and Lipitor. (10) History of CVA (cerebrovascular accident) Impression: Continue Plavix and Lipitor.
[2020-01-24] MEDS: INSULIN ASPART 300 UNIT/3 ML PEN SUBQ SCH ×4 (08:32→21:12)
[2020-01-24] MEDS: DOCUSATE SODIUM 250 MG CAPSULE PO SCH (08:33)
[2020-01-24] MEDS: SENNA 8.6 MG TABLET PO SCH (08:33)
[2020-01-24] MEDS: allopurinoL 100 MG TABLET PO SCH (08:34)
[2020-01-24] MEDS: METOPROLOL SUCCINATE 25 MG TABLET PO SCH (08:34)
[2020-01-24] MEDS: hydrALAZINE 10 MG TABLET PO SCH ×2 (08:34→21:09)
[2020-01-24] MEDS: TAMSULOSIN 0.4 MG CAPSULE PO SCH ×2 (08:34→21:21)
[2020-01-24] MEDS: CHOLECALCIFEROL 400 UNIT TABLET PO SCH (08:35)
[2020-01-24] MEDS: amLODIPine 5 MG TABLET PO SCH (08:35)
[2020-01-24] MEDS: CLOPIDOGREL 75 MG TABLET PO SCH (08:35)
[2020-01-24] MEDS: FUROSEMIDE 40 MG TABLET PO SCH (08:35)
[2020-01-24] MEDS: THIAMINE 100 MG TABLET PO SCH (08:37)
[2020-01-24] MEDS: FAMOTIDINE 20 MG TABLET PO SCH ×2 (08:37→21:09)
[2020-01-24] MEDS: polyethylene glycoL 3350 17 GM PACKET PO SCH (08:37)
[2020-01-24] MEDS: DORZOLAMIDE 2% OPHTH DROPS EACHEYE SCH (08:38)
[2020-01-24] MEDS: timoloL maleate 0.5% OPHTH DROPS (10ML) EACHEYE SCH ×2 (08:38→21:19)
[2020-01-24] MEDS: PRENATAL VITAMIN TABLET PO SCH (08:53)
[2020-01-24] MEDS: ATORVASTATIN 40 MG TABLET PO SCH (21:09)
[2020-01-24] MEDS: LATANOPROST 0.005% OPHTH DROPS EACHEYE SCH (21:18)
[2020-01-25] MEDS: cephALEXin 250 MG CAPSULE PO SCH ×3 (01:21→11:52)
[2020-01-25] MEDS: PRENATAL VITAMIN TABLET PO SCH (09:05)
[2020-01-25] MEDS: amLODIPine 5 MG TABLET PO SCH (09:05)
[2020-01-25] MEDS: allopurinoL 100 MG TABLET PO SCH (09:05)
[2020-01-25] MEDS: INSULIN ASPART 300 UNIT/3 ML PEN SUBQ SCH ×4 (09:05→20:25)
[2020-01-25] MEDS: CHOLECALCIFEROL 400 UNIT TABLET PO SCH (09:05)
[2020-01-25] MEDS: DOCUSATE SODIUM 250 MG CAPSULE PO SCH (09:06)
[2020-01-25] MEDS: polyethylene glycoL 3350 17 GM PACKET PO SCH (09:06)
[2020-01-25] MEDS: SENNA 8.6 MG TABLET PO SCH (09:06)
[2020-01-25] MEDS: METOPROLOL SUCCINATE 25 MG TABLET PO SCH (09:06)
[2020-01-25] MEDS: timoloL maleate 0.5% OPHTH DROPS (10ML) EACHEYE SCH ×2 (09:06→20:27)
[2020-01-25] MEDS: CLOPIDOGREL 75 MG TABLET PO SCH (09:06)
[2020-01-25] MEDS: TAMSULOSIN 0.4 MG CAPSULE PO SCH ×2 (09:06→20:26)
[2020-01-25] MEDS: THIAMINE 100 MG TABLET PO SCH (09:06)
[2020-01-25] MEDS: FUROSEMIDE 40 MG TABLET PO SCH (09:06)
[2020-01-25] MEDS: DORZOLAMIDE 2% OPHTH DROPS EACHEYE SCH (09:06)
[2020-01-25] MEDS: hydrALAZINE 10 MG TABLET PO SCH ×2 (09:06→20:24)
[2020-01-25] MEDS: FAMOTIDINE 20 MG TABLET PO SCH ×2 (09:06→20:24)
--- NOTE | 2020-01-25 10:01 | PROVIDER PROGRESS NOTE ---
Subjective - Prog Note Date Prog Note Date: 01/25/20 - Subjective Subjective: Reports feeling well today. Still complaining of leg erythema. Current Medications - Current Medications Current Medications: Active Medications Acetaminophen (Tylenol) 650 mg PO Q4HR PRN PRN Reason: Pain or Fever > 38C (100.4F) Last Admin: 01/17/20 08:43 Dose: 650 mg Allopurinol (Zyloprim) 100 mg PO DAILY [facility] Last Admin: 01/25/20 09:05 Dose: 100 mg Amlodipine Besylate (Norvasc) 5 mg PO DAILY [facility] Last Admin: 01/25/20 09:05 Dose: 5 mg Atorvastatin Calcium (Lipitor) 40 mg PO QPM [facility] Last Admin: 01/24/20 21:09 Dose: 40 mg Benzonatate (Tessalon) 100 mg PO TID PRN PRN Reason: Cough Last Admin: 01/05/20 08:22 Dose: 100 mg Cephalexin (Keflex) 500 mg PO Q6HR [facility] Last Admin: 01/25/20 05:56 Dose: 500 mg Cholecalciferol (Vitamin D3) 800 unit PO DAILY [facility] Last Admin: 01/25/20 09:05 Dose: 800 unit Clopidogrel Bisulfate (Plavix) 75 mg PO DAILY [facility] Last Admin: 01/25/20 09:06 Dose: 75 mg Docusate Sodium (Colace 250mg Capsule) 250 - 500 mg PO DAILY [facility] Last Admin: 01/25/20 09:06 Dose: 250 mg Dorzolamide HCl (Trusopt 2% Ophth Drops) 1 drops EACHEYE DAILY [facility] Last Admin: 01/25/20 09:06 Dose: 1 drops Famotidine (Pepcid) 20 mg PO BID [facility] Last Admin: 01/25/20 09:06 Dose: 20 mg Furosemide (Lasix) 40 mg PO DAILY [facility] Last Admin: 01/25/20 09:06 Dose: 40 mg Hydralazine HCl (Apresoline) 10 mg PO BID [facility] Last Admin: 01/25/20 09:06 Dose: 10 mg Insulin Aspart (Novolog) 1 - 5 unit SUBQ 0800,1200,1700,2100 [facility]; Protocol Last Admin: 01/25/20 09:05 Dose: 1 unit Latanoprost (Xalatan Ophth Drops) 1 drops EACHEYE QPM [facility] Last Admin: 01/24/20 21:18 Dose: 1 drops Loperamide HCl (Imodium) 2 mg PO QID PRN PRN Reason: Diarrhea Metoprolol Succinate (Toprol Xl) 37.5 mg PO DAILY [facility] Last Admin: 01/25/20 09:06 Dose: 37.5 mg Mineral Oil (Cavilon) 1 applic TOP PRN PRN PRN Reason: Skin Care Last Admin: 12/24/19 00:49 Dose: 1 applic Polyethylene Glycol (Miralax) 17 gm PO DAILY [facility] Last Admin: 01/25/20 09:06 Dose: 17 gm Multivit/Folic Acid/Iron (Trinatal Rx 1) 1 tab PO DAILYWM [facility] Last Admin: 01/25/20 09:05 Dose: 1 tab Senna (Senokot) 8.6 - 17.2 mg PO DAILY [facility] Last Admin: 01/25/20 09:06 Dose: 8.6 mg Tamsulosin HCl (Flomax) 0.4 mg PO BID [facility] Last Admin: 01/25/20 09:06 Dose: 0.4 mg Thiamine HCl (Vitamin B-1) 100 mg PO DAILY [facility] Last Admin: 01/25/20 09:06 Dose: 100 mg Timolol Maleate (Timoptic 0.5% Ophth Drops) 1 drops EACHEYE BID [facility] Last Admin: 01/25/20 09:06 Dose: 1 drops allopurinoL [Allopurinol] 300 mg PO DAILY 10/12/16 Atorvastatin Calcium 40 mg PO QPM 12/17/19 Cholecalciferol (Vitamin D3) [Vitamin D] 2,000 unit PO DAILY 12/17/19 Clopidogrel [Plavix] 75 mg PO DAILY 12/17/19 Cyanocobalamin (Vitamin B-12) [Vitamin B-12 (1000 mcg sublingual)] 1,000 mcg PO DAILY 12/17/19 Docusate Sodium 300 mg PO DAILY PRN 12/17/19 Dorzolamide HCl 1 drops EACHEYE DAILY 12/17/19 Latanoprost 0.005% Ophth Drops [Xalatan Ophth Drops] 1 drops EACHEYE QPM 12/17/19 Metoprolol Tartrate 50 mg PO BID 12/17/19 Oxybutynin [Ditropan] 2.5 mg PO BID 12/17/19 Pantoprazole [Protonix] 40 mg PO BIDAC 12/17/19 Sildenafil Citrate [Sildenafil] 20 - 100 mg PO DAILY PRN 12/17/19 Tamsulosin [Flomax] 0.4 mg PO QDDINNER 12/17/19 Temazepam 15 mg PO QPM PRN 12/17/19 Timolol 0.5% Ophth Drops [Timoptic 0.5% Ophth Drops] 1 drops EACHEYE BID 0 Objective - Vital Signs/Intake & Output Vital Signs: Vital Signs x48h Temp Pulse Resp BP Pulse Ox 01/25/20 09:01 36.5 C 74 16 133/62 H 95 Intake & Output: Intake & Output 01/22/20 01/23/20 01/24/20 01/25/20 23:59 23:59 23:59 23:59 Intake Total 8883 800 2469 500 Balance 9660 343 4759 500 - Objective General Appearance: positive: No acute distress, Alert Eyes Bilateral: positive: Normal inspection ENT: positive: ENT inspection nml Neck: positive: Nml inspection Skin: positive: Other (Continues to have erythema over the left anterior tibia. The erythema has not spread but is also not decreased. Remains warm to touch. There is also slight erythema over the right anterior tibia.) Extremities: positive: Pedal edema (+2 to +3 pitting edema in the bilateral lower extremities) Neurologic/Psychiatric: positive: Other (He is oriented to self, location, year, month. He knows he is in the hospital on [facility]. He said the date is January 2020. When he saw me tested today he was able to identify me by my name). negative: Disoriented to person, Disoriented to place, Disoriented to time - Lab Results Fish Bones: 01/23/20 12:39 01/23/20 12:39 Other Labs: Lab Results x24hrs 01/24/20 01/24/20 01/24/20 Range/Units 20:38 16:49 11:48 POC Whole Bld Glucose 137 H 176 H 139 H (70 - 100) mg/dL Coronavirus (PCR) 01/23/20 Range/Units 13:10 POC Whole Bld Glucose (70 - 100) mg/dL Coronavirus (PCR) NEGATIVE ABX Reporting Has patient been on IV antibiotics over the past 48 hours?: No Sepsis Event Note (H) - Evaluation Current Stage of Sepsis: Ruled out Assessment/Plan - Problem List (1) Persistent cognitive impairment Impression: Continues to improve on a daily basis. He was able to recognize me once again and was able to state my name today. Continue to hold antipsychotics. We will hope to discharge him tomorrow to home if his second COVID-19 test is negative. I believe he will continue to improve once he returns to a familiar environment and surroundings. (2) COVID-19 Impression: COVID-19 test from January 22 has come back negative. This is his first negative test since admission. We will repeat the test today and if it is negative once again, we can discharge him home. (3) Cellulitis of left anterior lower leg Impression: There has not been much improvement in the erythema over the past 2 days. Will discontinue Keflex and start him on doxycycline. Check a CRP as this could potentially just be chronic venous stasis secondary to his lower extremity edema. (4) YING (acute kidney injury) Impression: His last creatinine was 1.7. Has been nearly elevated for the past month. Urinalysis that was repeated was unremarkable with no proteinuria. If his creatinine remains elevated for the next 2 months then suspects likely chronic kidney disease. We will recheck labs tomorrow. (5) Lower extremity edema Impression: Stable without much improvement. Duplex negative for DVT. Continue oral Lasix. (6) BPH (benign prostatic hyperplasia) Impression: Stable. Continue Flomax. (7) DM type 2 (diabetes mellitus, type 2) Impression: Continue sliding-scale and diet as tolerated. Qualifiers: Diabetes mellitus moth exterminator insulin use: without senior living use Diabetes mellitus complication status: with ophthalmic complications Diabetes mellitus complication detail: with cataract Qualified Code(s): E11.36 - Type 2 diabetes mellitus with diabetic cataract (8) Hx of coronary artery disease Impression: Continue Plavix and Lipitor. (9) History of CVA (cerebrovascular accident) Impression: CT this admission showed an old frontal lobe infarct. Continue Lipitor and Plavix
[2020-01-25] MEDS: DOXYCYCLINE 100 MG TABLET PO SCH (20:24)
[2020-01-25] MEDS: ATORVASTATIN 40 MG TABLET PO SCH (20:24)
[2020-01-25] MEDS: LATANOPROST 0.005% OPHTH DROPS EACHEYE SCH (20:26)
[2020-01-26 05:45] LABS: BASOPHILS # (AUTO) 0.1 10^3/uL (0.0-0.1); BASOPHILS % (AUTO) 0.7 %; EOSINOPHILS # (AUTO) 0.4 10^3/uL (0.0-0.7); EOSINOPHILS % (AUTO) 4.5 %; HGB - HEMOGLOBIN 11.5 g/dL (14.0-18.0); LYMPHOCYTES # (AUTO) 2.3 10^3/uL (1.5-3.5); LYMPHOCYTES % (AUTO) 28.1 %; MEAN CORPUSCULAR HEMOGLOBIN 29.6 pg (27.0-31.0); MEAN CORPUSCULAR HGB CONC 31.3 g/dL (32.0-36.0); MEAN CORPUSCULAR VOLUME 94.8 fL (80.0-94.0); MONOCYTES # (AUTO) 0.8 10^3/uL (0.0-1.0); MONOCYTES % (AUTO) 9.2 %; NEUTROPHILS # (AUTO) 4.6 10^3/uL (1.5-6.6); PLT - PLATELET COUNT 231 10^3/uL (130-450); RED BLOOD COUNT 3.88 10^6/uL (4.70-6.10); RED CELL DISTRIBUTION WIDTH 14.9 % (12.0-15.0); WHITE BLOOD COUNT 8.2 x10^3/uL (4.8-10.8)
[2020-01-26 06:01] LABS: BUN - BLOOD UREA NITROGEN 45 mg/dL (6-20); CALCIUM 9.8 mg/dL (8.5-10.3); CARBON DIOXIDE - CO2 25 mmol/L (21-32); CHLORIDE 104 mmol/L (101-111); CREATININE 1.7 mg/dL (0.6-1.2); GLUCOSE 158 mg/dL (70-100); SODIUM 137 mmol/L (135-145)
[2020-01-26 06:05] LABS: CRP - C-REACTIVE PROTEIN < 1.0 mg/dL (0-1.0)
[2020-01-26 07:45] VITALS: BP 137/64
[2020-01-26] MEDS: INSULIN ASPART 300 UNIT/3 ML PEN SUBQ SCH ×2 (08:20→11:50)
[2020-01-26] MEDS: PRENATAL VITAMIN TABLET PO SCH (08:20)
[2020-01-26] MEDS: CHOLECALCIFEROL 400 UNIT TABLET PO SCH (08:21)
[2020-01-26] MEDS: DORZOLAMIDE 2% OPHTH DROPS EACHEYE SCH (08:21)
[2020-01-26] MEDS: CLOPIDOGREL 75 MG TABLET PO SCH (08:21)
[2020-01-26] MEDS: SENNA 8.6 MG TABLET PO SCH (08:21)
[2020-01-26] MEDS: hydrALAZINE 10 MG TABLET PO SCH (08:21)
[2020-01-26] MEDS: DOCUSATE SODIUM 250 MG CAPSULE PO SCH (08:21)
[2020-01-26] MEDS: DOXYCYCLINE 100 MG TABLET PO SCH (08:21)
[2020-01-26] MEDS: METOPROLOL SUCCINATE 25 MG TABLET PO SCH (08:21)
[2020-01-26] MEDS: FAMOTIDINE 20 MG TABLET PO SCH (08:21)
[2020-01-26] MEDS: polyethylene glycoL 3350 17 GM PACKET PO SCH (08:21)
[2020-01-26] MEDS: FUROSEMIDE 40 MG TABLET PO SCH (08:21)
[2020-01-26] MEDS: amLODIPine 5 MG TABLET PO SCH (08:21)
[2020-01-26] MEDS: allopurinoL 100 MG TABLET PO SCH (08:21)
[2020-01-26] MEDS: timoloL maleate 0.5% OPHTH DROPS (10ML) EACHEYE SCH (08:22)
[2020-01-26] MEDS: THIAMINE 100 MG TABLET PO SCH (08:22)
[2020-01-26] MEDS: TAMSULOSIN 0.4 MG CAPSULE PO SCH (08:22)
--- NOTE | 2020-01-26 10:37 | Discharge Plan ---
Discharge Plan Problem Reviewed?: Yes Disposition: Home, Self Care Condition: Stable Prescriptions: allopurinoL [Zyloprim] 100 mg PO DAILY #30 tablet amLODIPine [Norvasc] 5 mg PO DAILY #30 tablet Doxycycline Monohydrate 150 mg PO BID #14 tablet Furosemide [Lasix] 40 mg PO MOWEFRSA #20 tablet hydrALAZINE [Apresoline] 10 mg PO BID #60 tablet L. Acidophilus/L.bulgaricus [Lactobacillus Tablet] 1 each PO DAILY #7 tablet Metoprolol Succinate [Toprol Xl] 37.5 mg PO DAILY #45 tablet Thiamine [Vitamin B-1] 100 mg PO DAILY #30 tablet Diet: Regular Activity Restrictions: Activity as Tolerated Shower Restrictions: No Driving Restrictions: Yes (YOU ARE PROHIBITED FROM DRIVING A VEHICLE) Weight Bearing: Full Weight Health Concerns: You were admitted with a COVID-19 pneumonia and confusion with weakness. The pneumonia was treated. The COVID-19 swab remained positive for a long time, until you finally tested neg on 01/23/20 and 01/25/20. You also have had a change in memory and level of understanding. The head CT scan, which was done at admission, showed that you HAVE HAD prior strokes. Because of the worsened memory, YOU MAY NOT DRIVE A VEHICLE. A form was sent to the [facility], that makes it illegal for you to drive; you would be arrested if found driving behind the wheel of a car. You must be road tested by the [facility] Department of Licensing, and pass the test, if you want to drive again. Many of your medications have been changed during the prolonged hospital course that you have had. Please take the new list of medications and throw out any old medicines that are no longer on this list. You have a skin infection of the left leg that needs several more days of antibiotics. All new prescriptions have been sent to your [facility] pharmacy. Plan of Treatment: As above. Care Goals: Improvement in symptoms and stabilization are the goals. Assessment: The instructions were read and given to the daughter, who is planning to stay with the patient and is arranging for Caregivers. Additional Instructions or Follow Up instructions: You should have an office appointment with your PCP in the next 7-10 days, for hospital follow-up, and for any refills and any new medications, such as to manage agitation or confusion. No Smoking: If you smoke, Please STOP! Call for help. Follow-up with: Ricardo Rodriguez MD [Primary Care Provider] -
--- NOTE | 2020-01-26 10:59 | DISCHARGE SUMMARY ---
Discharge Summary Admit Date: 12/17/19 Discharge Date: 01/26/20 Discharging Provider: Dr Nedra Torres Primary Care Provider: Dr Ricardo Rodriguez Code Status: Do Not Attempt Resuscitation Condition at Discharge: Stable Discharge Disposition: 01 Home, Self Care - HPI History of Present Illness: This is an 79-year-old white male who lives alone independently, has several children that check on him, has a history of gout, hyperlipidemia, TIA history, CAD, and diabetes who does not stick to a diet. The patient developed a cough onfor m5 days and the daughter checked on him daily, told him not to go out shopping and be exposed to COVID people shopping in the stores however he did continue to shop. He then developed a fever and became incoherent when she next saw him, found him semi-conscious on his couch, unable to answer questions. An ambulance was called and brought him to the ER where he was found to have a fever of 38.2 C, and chest x-ray showed multilobar pneumonia and he was admitted for presumed COVID pneumonia and/or community-acquired pneumonia, with delirium due to metabolic encephalopathy, also had dehydration, hyponatremia with sodium 129, rhabdomyolysis with CK 357, and YING with BUN/creat 43/1.6. - HOSPITAL COURSE Hospital Course: (1) Community acquired pneumonia He had a wet cough, bmulti-focal infiltrates on CXR but did not produce sputum and was not desaturating. He completed an empiric course of Zithromax and Ceftriaxone. Blood cultures were all neg to date. (2) COVID-19 His presentation was at the height of the [facility] COVID-19 pandemic. He did test positive for COVID-19 and received empiric Hydroxychloroquine. He remained in isolation. We started to get repeat nasal swab COVID-19 testing in order to determine if he could go home COVID neg, with caregivers, or require a SNF that would take COVID pos patients. He continued to have COVID positive results for over 4 weeks, was hospitalized here for 40 days, then finally the COVID results from January 22 and January 24 came back negative. As such, he was disch arged home. We do not have a COVID antibody test available here as of yet. (3) Rhabdomyolysis This was treated with institution of iv hydration. (4) Diarrhea This was also an admission symptom, presumed to be due to COVID. He tested neg for C diff and with prn Imodium treatment, the diarrhea resolved. (5) Dehydration This was an admission symptom, presumed to be due to COVID. He received many days of iv fluids. (6) Hyponatremia This resolved quickly with institution of iv Normal Saline hydration. (7) Acute on chronic kidney disease He was admitted with creat of 1.6, in YING from presumed ATN due to volume depletion. He was iv hydrated for several days and the creat corrected to 0.8. When the iv fluids were stopped, due to his confusion, the creat again yudi to 2.2, then remained 1.4-1.7 even with intermittent iv hydration. His last creatinine was 1.7 at discharge. Urinalysis that was repeated was unremarkable with no proteinuria. (8) Persistent cognitive impairment He was minimally communicative and considered to be delusional due to infection, when first admitted. 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 He was therefore started on daily Thiamine. He then had a phase when he was confused and combative, and Haldol, Zyprexa and Seroquel were needed. A mini-mental exam was done by OT and found him to have poor focus, poor memory and poor understanding. Another CT head or brain MRI was not performed since he was already being treated for prior strokes, on Plavix and Lipitor, and because he had creat levels of 1.4 - 1.7, and contrast dye was contraindicated and because he was COVID-19 positive for a prolonged time. He needed constant re-orienting by the nurses, but could walk and feed himself and perform ADLs independantly. When the psychotropic meds were stopped, he had slight improvement on a daily basis. He was able to recognize his nurses and the doctor. He may continue to improve further once he returns to a familiar environment and surroundings, and he was therefore discharged home, once he became COVID neg for two consecutive tests, with plan for getting home caregivers. Due to his significant cognitive impairment and memory problems, he may no longer drive a vehicle; a form was sent to the [facility] [place] Dept of Licensing. He should also not be using guns (which the daughter says he owns). On his final day, he was tested (with the daughter present) by asking what he was here for, and he had no idea, said he could not remember. (9) History of CVA (cerebrovascular accident) CT of the head at admission showed an old frontal lobe infarct and old left basal ganglia infarct, but nothing acute. We continued his Lipitor and Plavix. (10) DM type 2 (diabetes mellitus, type 2) Several days after admission, during a phone call with the daughter we learned that he is a Diabetic, but he eats a lot of fast food. There was no history in his chart that he is a diabetic, and he came in with no diabetic medications on his list. The A1c was then tested and returned 7.8. He was started on a diabetic diet and that was later changed to a regular diet for more food choices, and he was on a sliding-scale of Regular Insulin coverage. He required very little Insulin coverage, since he ran glu fingerstick levels of 120-170. At discharge, no Insulin was ordered and neither was any oral agent ordered because of his CKD, and poor memory. Follow-up with the PCP regarding managing DM was suggested. (11) Lower extremity edema About half way into the hospitalization, edema of the ankles was noted. There was minimal but some improvement on Lasix. Doppler exam was negative for DVT. Oral Lasix was continued at discharge, every other day. He never had an Echo while here, due to restrictions in COVID pos patients, although his EKG did show early R/S transition, suggesting Cor Pulmonale may be present. An outpatient Echo may be helpful. (12) Cellulitis of left anterior lower leg In the final week of his hospitalization, he developed a painful and red area of the lower left leg, which was felt to be cellulitic. There was slight improvement in the erythema on his last 2 days here. Will discontinued Keflex and started him on oral Doxycycline, continued for several more days after discharge. A CRP was < 1.0, therefore this could partially be chronic venous stasis secondary to his lower extremity edema. (13) BPH (benign prostatic hyperplasia) Oxybutinin was not used here. Flomax was started and was continued with good success and therefore he was discharged on this. (14) Hx of coronary artery disease We continued his daily Plavix and Lipitor. (15) Hx HTN He had been on before admission. While here, his BP meds were decreased due to low BP values. He was discharged on new Hydralazine and a lower Amlodipine dose. (16) Hx gout As per his home med list of being on Allopurinil. The dose was decreased from 300 mg daily to 100 mg daily. (17) Glaucoma His home eye drops were continued while here. - ALLERGIES Allergies/Adverse Reactions: Allergies Allergy/AdvReac Type Severity Reaction Status Date / Time No Known Drug Allergies Allergy Verified 10/12/16 02:00 - MEDICATIONS Home Medications: Ambulatory Orders Medication Instructions Recorded Confirmed Atorvastatin Calcium 40 mg PO QPM 12/17/19 12/17/19 Cholecalciferol (Vitamin D3) 2,000 unit PO DAILY 12/17/19 12/17/19 [Vitamin D3] Clopidogrel [Plavix] 75 mg PO DAILY 12/17/19 12/17/19 Cyanocobalamin (Vitamin B-12) 1,000 mcg PO DAILY 12/17/19 12/17/19 [Vitamin B-12 (1000 mcg sublingual)] Docusate Sodium 300 mg PO DAILY PRN 12/17/19 12/17/19 Dorzolamide HCl 1 drops EACHEYE DAILY 12/17/19 12/17/19 Latanoprost 0.005% Ophth Drops 1 drops EACHEYE QPM 12/17/19 12/17/19 [Xalatan Ophth Drops] Tamsulosin [Flomax] 0.4 mg PO QDDINNER 12/17/19 12/17/19 Timolol 0.5% Ophth Drops [Timoptic 1 drops EACHEYE BID 12/17/19 01/21/20 0.5% Ophth Drops] Atorvastatin [Lipitor] 40 mg PO QPM tablet 01/26/20 Dorzolamide 2% Ophth Drops 1 drops EACHEYE DAILY bottle 01/26/20 [Trusopt 2% Ophth Drops] Doxycycline Monohydrate 150 mg PO BID #14 tablet 01/26/20 Furosemide [Lasix] 40 mg PO MOWEFRSA #20 tablet 01/26/20 L. Acidophilus/L.bulgaricus 1 each PO DAILY #7 tablet 01/26/20 [Lactobacillus Tablet] Metoprolol Succinate [Toprol Xl] 37.5 mg PO DAILY #45 tablet 01/26/20 Thiamine [Vitamin B-1] 100 mg PO DAILY #30 tablet 01/26/20 allopurinoL [Zyloprim] 100 mg PO DAILY #30 tablet 01/26/20 amLODIPine [Norvasc] 5 mg PO DAILY #30 tablet 01/26/20 hydrALAZINE [Apresoline] 10 mg PO BID #60 tablet 01/26/20 - PHYSICAL EXAM AT DISCHARGE General Appearance: positive: No acute distress, Alert Eyes Bilateral: positive: Normal inspection, EOMI ENT: positive: ENT inspection nml, No signs of dehydration Neck: positive: Nml inspection, No JVD Respiratory: positive: No respiratory distress Cardiovascular: positive: Regular rate & rhythm, No murmur Abdomen: positive: Non-tender, No distention Skin: positive: Warm, Dry, Pallor Extremities: positive: Other (1-2+ edema to mid mcdonald, L mcdonald has red, scaly papules ) Neurologic/Psychiatric: positive: Motor nml, Disoriented to person, Disoriented to time (He thinks he was here "a few days") - LABS Result Diagrams: 01/26/20 05:26 01/26/20 05:26 - DIAGNOSTIC IMAGING Diagnostic Imaging Results: Final report reviewed - FOLLOW UP Follow Up: See PCP in 7-10 days for hospital follow-up. - TIME SPENT Time Spent in Discharge (Minutes): 60
[2020-01-27] MEDS ORDERED: FUROSEMIDE 40 MG TABLET PO SCH (09:00)
== END 2020-01-26 14:20 | disposition home or self-care (01) | DRG 177 ==
LOC: EDUNIT# → ED 11:41 → MS2 13:31
PROVIDERS: ADMIT Internal Medicine; ATTEND Internal Medicine
DX: J18.9 Pneumonia, unspecified organism (principal); G93.40 Encephalopathy, unspecified; U07.1 COVID-19; J12.89 Other viral pneumonia; N17.0 Acute kidney failure with tubular necrosis; G93.41 Metabolic encephalopathy; E87.1 Hypo-osmolality and hyponatremia; M62.82 Rhabdomyolysis; L03.116 Cellulitis of left lower limb; G31.84 Mild cognitive impairment of uncertain or unknown etiology; E86.0 Dehydration; E87.6 Hypokalemia; E11.22 Type 2 diabetes mellitus with diabetic chronic kidney disease; N18.9 Chronic kidney disease, unspecified; I12.9 Hypertensive chronic kidney disease with stage 1 through stage 4 chronic kidney disease, or unspecified chronic kidney disease; F10.21 Alcohol dependence, in remission; R79.89 Other specified abnormal findings of blood chemistry; R63.0 Anorexia; Z68.32 Body mass index [BMI] 32.0-32.9, adult; R60.0 Localized edema; I87.8 Other specified disorders of veins; R00.1 Bradycardia, unspecified; E78.5 Hyperlipidemia, unspecified; N40.1 Benign prostatic hyperplasia with lower urinary tract symptoms; R32 Unspecified urinary incontinence; F40.240 Claustrophobia; R19.7 Diarrhea, unspecified; H40.9 Unspecified glaucoma; M10.9 Gout, unspecified; Z66 Do not resuscitate; Z78.1 Physical restraint status; Z79.02 Long term (current) use of antithrombotics/antiplatelets; Z79.899 Other long term (current) drug therapy; Z91.19 Patient's noncompliance with other medical treatment and regimen; I25.2 Old myocardial infarction; Z86.73 Personal history of transient ischemic attack (TIA), and cerebral infarction without residual deficits; Z95.828 Presence of other vascular implants and grafts
CPT/HCPCS: 36415; 70450; 71045; 80048; 80053; 80076; 80320; 81001; 81003; 81599; 82140; 82550; 82607; 83036; 83605; 83690; 83735; 83880; 84100; 84443; 84484; 85025; 86140; 86780; 87040; 87086; 87275; 87276; 87493; 93005; 93970; 96365; 99285

== ENCOUNTER 2020-08-02 17:26 | Outpatient (CLI) | payer MEDICARE ==
[2020-08-02 20:28] LABS: CREATININE,URINE 110.2 mg/dL; MICROALBUM/CREATININE RATIO,UR 136.1 ug/mg (<30.0)
[2020-08-02 21:21] LABS: FREE T4 (FREE THYROXINE) 0.74 ng/dL (0.58-1.64)
[2020-08-02 21:23] LABS: HEMOGLOBIN A1c% 7.5 % (4.27-6.07)
== END 2020-08-02 17:27 | disposition home or self-care (01) ==
LOC: LAB.S 17:26
PROVIDERS: ATTEND Family Medicine
DX: R41.3 Other amnesia (principal); E11.40 Type 2 diabetes mellitus with diabetic neuropathy, unspecified
CPT/HCPCS: 36415; 82043; 82570; 82607; 83036; 84439; 84443

== ENCOUNTER 2023-04-02 08:00 | Outpatient (CLI) | payer MEDICARE ==
--- NOTE | 2023-04-02 20:34 | XRAY Report ---
PROCEDURE: Finger(s) LT INDICATIONS: LEFT THUMB INJURY/LACERATION TECHNIQUE: PA hand, 2 views of the thumb acquired. COMPARISON: None. FINDINGS: Bones: No definite acute osseous fracture in the thumb.. No degenerative changes are seen in the 1st carpometacarpal joint and 1st metacarpophalangeal joint. 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 Soft tissues: No suspicious soft tissue calcifications or masses. IMPRESSION: 1.No definite acute or healing fracture is seen. No radiopaque foreign body. 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 Reviewed by: Kermit Diehl MD on 04/02/2023 8:33 PM PDT Approved by: Kermit Diehl MD on 04/02/2023 8:33 PM PDT Station ID: [id number]
== END 2023-04-02 23:59 | disposition home or self-care (01) ==
LOC: DI.WOS 08:00
PROVIDERS: ATTEND Physician Assistant Surgical
DX: M79.645 Pain in left finger(s) (principal); Z89.022 Acquired absence of left finger(s)